=== PATIENT | male | born 1940 | race Caucasian/White ===

== ENCOUNTER → 2018-05-05 06:38 | Outpatient (CLI) | payer MEDICARE, SELFPAY ==
[2018-05-05 08:04] LABS: AST(SGOT) 30 U/L (15-37); Alanine Aminotransfer ALT/SGPT 33 U/L (16-61); Albumin, Serum 3.8 g/dL (3.2-5.0); Alkaline Phosphatase 104 U/L (45-117); Cholesterol 112 mg/dL (200); Globulin 3.6 g/dL (2.2-4.2); High Density Lipoprotein 46 mg/dL; Protein, Total 7.4 g/dL (6.4-8.2); Triglycerides 68 mg/dL; Very Low Density Lipoprotein 14 mg/dL (5-40)
== END ==
PROVIDERS: Family Provider Family Medicine; PCP Family Medicine; Visit Provider Internal Medicine Cardiovascular Disease
DX: E78.5 Hyperlipidemia, unspecified (principal); Z79.899 Other long term (current) drug therapy
CPT/HCPCS: 36415; 80061; 80076

== ENCOUNTER → 2018-10-25 07:19 | Outpatient (CLI) | payer MEDICARE, SELFPAY ==
[2018-05-07 12:48] VITALS: BMI 28.7
[2018-10-25 09:23] LABS: AST(SGOT) 26 U/L (15-37); Alanine Aminotransfer ALT/SGPT 32 U/L (16-61); Albumin, Serum 3.7 g/dL (3.2-5.0); Alkaline Phosphatase 101 U/L (45-117); Cholesterol 117 mg/dL (200); Globulin 3.3 g/dL (2.2-4.2); High Density Lipoprotein 47 mg/dL; Triglycerides 66 mg/dL; Very Low Density Lipoprotein 13 mg/dL (5-40)
== END ==
PROVIDERS: Family Provider Family Medicine; PCP Family Medicine; Referring Provider Internal Medicine Cardiovascular Disease; Visit Provider Internal Medicine Cardiovascular Disease
DX: E87.5 Hyperkalemia (principal)
CPT/HCPCS: 36415; 80061; 80076

== ENCOUNTER → 2019-04-29 06:49 | Outpatient (CLI) | payer MEDICARE, SELFPAY ==
[2018-05-07 12:48] VITALS: BMI 28.7
[2019-04-29 08:13] LABS: AST(SGOT) 28 U/L (15-37); Alanine Aminotransfer ALT/SGPT 33 U/L (16-61); Albumin, Serum 3.6 g/dL (3.2-5.0); Alkaline Phosphatase 102 U/L (45-117); Bilirubin, Direct 0.26 mg/dL (0.00-0.30); Cholesterol 109 mg/dL (200); Globulin 3.4 g/dL (2.2-4.2); High Density Lipoprotein 49 mg/dL; Triglycerides 59 mg/dL; Very Low Density Lipoprotein 12 mg/dL (5-40)
== END ==
PROVIDERS: Family Provider Family Medicine; PCP Family Medicine; Referring Provider Internal Medicine Cardiovascular Disease; Visit Provider Internal Medicine Cardiovascular Disease
DX: E78.5 Hyperlipidemia, unspecified (principal)
CPT/HCPCS: 36415; 80061; 80076

== ENCOUNTER → 2019-06-01 12:34 | Outpatient (CLI) | payer MEDICARE, SELFPAY ==
[2019-05-10 08:52] VITALS: BMI 27.9
--- NOTE | 2019-06-01 12:35 | ECHOD_ITS ---
Reason For Study: AFIB/FLUTTER Procedure This was a 2D Doppler, Color Flow transthoracic echocardiogram. Exam performed in department. Left Ventricle Normal LV size. Mild concentric left ventricular hypertrophy. Left ventricular systolic function is normal. The estimated ejection fraction is 55 %. No regional wall motion abnormalities noted. Right Ventricle Normal RV size. Normal systolic function. Atria The left atrium is mildly enlarged. Normal right atrium. Tricuspid Valve Normal tricuspid valve. Mild tricuspid valve insufficiency. Pulmonary artery systolic pressure is 23 mmHg. Aortic Valve The aortic valve is not well visualized. Mild (1+) aortic valve insufficiency. Pulmonic Valve The pulmonic valve is not well visualized. Great Vessels Mild to moderately dilated aortic root. The pulmonary artery is normal size. Normal inferior vena cava. Pericardium/Pleural No pericardial effusion. MMode/2D Measurements & Calculations LVIDd: 5.1 cm IVSd: 1.2 cm Ao root diam: 4.3 cm LVIDs: 3.2 cm LVPWd: 1.2 cm RVDd: 3.5 cm FS: 37.1 % LAV(MOD-bp): 83.3 ml LA A4 area: 21.5 cm2 LA dimension(2D): 4.0 cm LAV(MOD-bp) Indexed: 40.3 ml/m2 LAV(MOD-sp2): 82.9 ml LAV(MOD-sp4): 76.6 ml RA A4 area: 15.6 cm2 Doppler Measurements & Calculations Ao V2 max: 89.8 cm/sec AI max kip: 335.1 cm/sec LV V1 max: 71.3 cm/sec Ao max P.2 mmHg AI max P.9 mmHg LV V1 max P.0 mmHg AI dec slope: 153.8 cm/sec2 AI P1/2t: 638.1 msec PA V2 max: 55.6 cm/sec TR max kip: 208.7 cm/sec TR max P.4 mmHg Interpretation Summary Normal LV size. Mild concentric left ventricular hypertrophy. Left ventricular systolic function is normal. The estimated ejection fraction is 55 %. Mild to moderately dilated aortic root. Mild (1+) aortic valve insufficiency. Ordering Physician: Murray Diaz Referring Physician: Hermelindo Chatterjee Performed By: Jade Shelton, RDCS, RVT
== END ==
PROVIDERS: Family Provider Family Medicine; PCP Family Medicine; Referring Provider Internal Medicine Cardiovascular Disease; Visit Provider Internal Medicine Cardiovascular Disease
DX: I48.4 Atypical atrial flutter (principal)
CPT/HCPCS: 93306

== ENCOUNTER 2019-08-09 13:09 | Emergency (ER) | payer MEDICARE, SELFPAY ==
[2019-05-10 08:52] VITALS: BMI 27.9
[2019-08-09 13:10] VITALS: BP 124/90; PULSE 137; RESP 16; TEMP 36.6; O2SAT 97; BMI 29.4
--- NOTE | 2019-08-09 13:28 | RAD_ITS ---
STUDY: X-RAY CHEST REASON FOR EXAM: Male, 79 years old. TECHNIQUE: COMPARISON: None. FINDINGS: Heavy markings seen particularly in the left base but no evidence of consolidation or atelectasis. No pleural effusion or pneumothorax seen. The cardiac silhouette is unremarkable there is tortuosity of the thoracic aorta. The bony structures are intact. The trachea is in the midline. RAD/Chest 1 View (Portable) IMPRESSION: Heavy markings left base the study is otherwise negative. Electronically Signed: Juan Quigley, at 13:53 EST Tel , Service support ,
--- NOTE | 2019-08-09 13:28 | EKG12_ITS ---
Test Reason : PALPS Blood Pressure : / mmHG Vent. Rate : 105 BPM Atrial Rate : 271 BPM P-R Int : 000 ms QRS Dur : 086 ms QT Int : 378 ms P-R-T Axes : 081 015 068 degrees QTc Int : 499 ms Atrial flutter with variable A-V block Abnormal ECG Confirmed by TONIO GUTIERREZ ([id number]), website/blog editor KARTIK JOSHUA ([id number]) on 08/12/2019 11:27:18 AM Referred By: RAGINI Confirmed By:TONIO GUTIERREZ
[2019-08-09 13:41] LABS: Absolute Lymphocyte Count 1.48 X10^3/uL (0.83-4.51); Absolute Neutrophil Count 3.2 X10^3/uL (2.0-7.7); Basophil# 0.03 X10^3/uL; Basophil% 0.5 % (0-1); Eosinophil# 0.44 X10^3/uL; Eosinophils% 7.7 % (0-5); Hematocrit 44.4 % (40-54); Hemoglobin 14.8 g/dL (13.0-16.5); Lymphocyte # 1.48 X10^3/ul (4.0); Lymphocyte % 25.7 % (19-41); Mean Corp Hgb Conc 33.3 g/dL (32-36); Mean Corpuscular Hgb 30.5 pg (27.0-32.0); Mean Corpuscular Volume 91.4 fL (80-94); Mean Platelet Vol. 9.5 fl (6.2-12.0); Monocyte# 0.61 X10^3/uL; Monocyte% 10.6 % (0-10); NRBC Flagged by Analyzer 0 % (0-5); Neutrophil # 3.17 X10^3/uL (2.7-7.7); Neutrophil % 55.2 % (47-70); Platelet Count 187 K/mm3 (150-450); RBC Distribution Width CV 13.8 % (11.6-14.6); RBC Distribution Width SD 46.4 fl (35.1-43.9); Red Blood Count 4.86 M/mm3 (4.6-6.2); White Blood Count 5.8 K/mm3 (4.4-11.0)
[2019-08-09] MEDS: dilTIAZem 25 MG/5 ML Vial 10 MG IV BOLUS (13:54)
[2019-08-09 13:55] LABS: Anion Gap 7 (5-15); BUN 15 mg/dL (7-18); BUN/Creat Ratio 15.6 RATIO (10-20); Calcium,Total 8.8 mg/dL (8.5-10.1); Chloride 110 mmol/L (98-107); Creatinine, Serum 0.96 mg/dL (0.70-1.30); EST Glomerular Filtration Rate 80 mL/min (>60); Est Glom Filt Rate - Afr Amer 97 mL/min (>60); Estimated Creatinine Clearance 64.42 ml/min; Glucose 127 mg/dL (74-106); Potassium 3.9 mmol/L (3.5-5.1); Sodium Level 142 mmol/L (136-145)
[2019-08-09 13:59] VITALS: BP 122/90; PULSE 90; RESP 18; O2SAT 96
--- NOTE | 2019-08-09 14:20 | ED.VIS.GEN ---
History of Present Illness Chief Complaint: Palpitations Informant: Patient Onset: Yesterday Narrative: She felt palpitations yesterday. He has a history of A. fib he has had a few ablations in the past. He has no chest pain shortness of breath fever or chills. I will send an EKG prior to arrival which showed atrial flutter. No fever chills cough or congestion. He denies any chest pain. Past Medical History - Allergies and Home Meds Allergies/Adverse Reactions: Allergies iodine Allergy (Verified 08/09/19 13:12) Unknown amiodarone Adverse Reaction (Verified 08/09/19 13:12) Unknown latex Adverse Reaction (Verified 08/09/19 13:12) Unknown Primary Care Physician: Hermelindo Chatterjee MD [Primary Care Provider] - Past Medical History: - - Hypertension, hypercholesterolemia, BPH, history of atrial fibrillation Lives: Spouse/ Significant Other Smoking Status: Former smoker Review of Systems General: Denies: Fever Eyes: Denies: Blurred Vision - bilaterally Cardiovascular: Reports: Heart racing. Denies: Chest pain Respiratory: Denies: Dyspnea, Cough Gastrointestinal: Denies: Abdominal pain, Nausea Genitourinary: Denies: Dysuria Musculoskeletal: Denies: Myalgias, Arthralgias, Neck pain Neurological: Denies: Headache, Weakness Endocrine: Denies: Polyuria Hematologic: Denies: Easy bruising Physical Exam Vital Signs/Narrative: Vital Signs Temp Pulse Resp BP Pulse Ox 08/09/19 13:59 90 18 122/90 H 96 08/09/19 13:10 97.8 F 137 H 16 124/90 H 97 General: Well nourished, Well developed Eyes: Perrl, EOMI Neck: Supple Cardiovascular: - - Mostly regular rhythm which corresponds with a now normal sinus rhythm on a monitor, he has some PVCs which also correspond. I cannot appreciate a murmur Respiratory: No distress, CTA bilaterally Abdomen: Soft, Nontender Back: Nontender, Normal Inspection Extremities: Nontender Skin: Normal color Neurological: Alert, Oriented x3 Psychological: Normal affect Diagnostic/Tx/Re-eval - Rhythm Strip Rhythm Strip: Sinus Rhythm Rate: 90 Ectopy: PVC(s) - EKG Initial EKG Interpretation: - - Atrial flutter with a variable rate. Rate 105. Normal QTc interval. No ischemic changes Interpreted by emergency doctor - Medical Decision Making Patient has a normal emergency department work-up he has been in sinus rhythm except for the EKG I was handed. I did give him some Cardizem here and he is on metoprolol for home I discussed the patient with cardiology patient will be discharged home Dr. Diaz did recommend anticoagulation, I agree. We will start. ED Disposition - Plan for ED Patient: Disposition: Home or Assisted Living Prescriptions: Apixaban [Eliquis] 5 mg PO BID #60 tab Prescription Printed Referrals: Murray Diaz MD [STAFF PHYSICIAN] - 3-5 Days
[2019-08-09 14:43] VITALS: BP 116/90; PULSE 90; RESP 18; O2SAT 96
== END 2019-08-09 14:44 | disposition home or self-care (01) ==
PROVIDERS: Emergency Provider Emergency Medicine; Family Provider Family Medicine; PCP Family Medicine
DX: I48.92 Unspecified atrial flutter (principal); I10 Essential (primary) hypertension; E78.00 Pure hypercholesterolemia, unspecified; I48.91 Unspecified atrial fibrillation; N40.0 Benign prostatic hyperplasia without lower urinary tract symptoms; Z87.891 Personal history of nicotine dependence
CPT/HCPCS: 71045; 80048; 84484; 85025; 93005; 99284; J7030; A4216

== ENCOUNTER → 2019-08-22 09:25 | Outpatient (CLI) | payer MEDICARE, SELFPAY ==
[2019-08-19 14:33] VITALS: BMI 28.5
== END ==
PROVIDERS: Family Provider Family Medicine; PCP Family Medicine; Referring Provider Internal Medicine Cardiovascular Disease; Visit Provider Internal Medicine Cardiovascular Disease
DX: I48.4 Atypical atrial flutter (principal)
CPT/HCPCS: 93225; 93226

== ENCOUNTER 2020-05-15 10:08 | Outpatient (CLI) | payer MEDICARE, SELFPAY ==
[2020-05-10 09:41] VITALS: BMI 28.5
[2020-05-10 12:01] LABS: AST(SGOT) 28 U/L (15-37); Alanine Aminotransfer ALT/SGPT 37 U/L (16-61); Albumin, Serum 3.6 g/dL (3.2-5.0); Alkaline Phosphatase 110 U/L (45-117); Anion Gap 2 (5-15); BUN 15 mg/dL (7-18); BUN/Creat Ratio 16.4 RATIO (10-20); Bilirubin, Direct 0.33 mg/dL (0.00-0.30); Calcium,Total 8.8 mg/dL (8.5-10.1); Chloride 108 mmol/L (98-107); Cholesterol 112 mg/dL (200); Creatinine, Serum 0.92 mg/dL (0.70-1.30); EST Glomerular Filtration Rate 85 mL/min (>60); Est Glom Filt Rate - Afr Amer 102 mL/min (>60); Globulin 3.6 g/dL (2.2-4.2); Glucose 82 mg/dL (74-106); High Density Lipoprotein 42 mg/dL; Potassium 3.9 mmol/L (3.5-5.1); Protein, Total 7.2 g/dL (6.4-8.2); Sodium Level 140 mmol/L (136-145); Triglycerides 58 mg/dL; Very Low Density Lipoprotein 12 mg/dL (5-40)
[2020-05-14 13:23] VITALS: BMI 28.5
--- NOTE | 2020-05-15 12:22 | CARDIOVERS ---
Cardioversion Cardioversion: Procedure: DC Cardioversion Indication: [Persistent atrial flutter] Procedure Note: The patient was brought to the cardiac catheterization lab in the postabsorptive nonsedated state. The patient was seen by [Bill of the critical care division] . Patient was noted to have normal ejection fraction of [55] and has been on therapeutic anticoagulation. Anterior posterior pads were applied. [200 J] of synchronized DC cardioversion energy were applied after the patient was administered [60 mg] of [intravenous propofol]. The patient reverted to [sinus rhythm but then spontaneously went back into atrial flutter.] Patient was then administered another [300 J] of sychronized DC cardioversion energy sucessfully converted to sinus rhythm. Plan: Continue current medication Continue anticoagulation
--- NOTE | 2020-05-15 13:17 | PCM.OP.PRO ---
Problem List (1) Aortic root dilation Status: Chronic (2) Atypical atrial flutter Status: Chronic Comment: 04/2008 slow pathway ablation, 03/13/09 RFA of SVT and all 4 PV's, 06/10/2010 Repeat Atypical Flutter RFA (3) Essential (primary) hypertension Status: Chronic (4) HLD (hyperlipidemia) Status: Chronic (5) Nonrheumatic mitral valve prolapse Status: Chronic (6) Paroxysmal supraventricular tachycardia Status: Chronic Procedure Report Date of Procedure: 05/15/20 - Conscious sedation CONSCIOUS SEDATION REPORT BRIEF HISTORY OF PRESENT ILLNESS: The patient is an 80-year-old male who presented to [facility] for an elective outpatient cardioversion due to underlying atrial fibrillation. The patient reports no PO intake since midnight. The patient does have a history of obstructive sleep apnea treated with CPAP 18 cm of water. The patient reports a history of smoking, but denies COPD. The patient denies any recent constitutional symptoms such as fevers, chills, nausea or vomiting. The patient denies previous anesthetic complications. Patient's last ejection fraction was 55%. Patient did take Eliquis on the day of the procedure. PHYSICAL EXAMINATION: VITAL SIGNS: Reviewed and were acceptable. GENERAL: The patient is a male, in no apparent distress, speaking in full sentences. HEENT: Normocephalic, atraumatic. Mucous membranes are moist and pink. Good mouth opening noted. Trachea is midline. Good neck mobility. MP III CHEST: S1, S2 irregularly irregular. No murmurs, rubs or gallops were noted. LUNGS: Clear to auscultation bilaterally without appreciable wheezes, rales or rhonchi. ABDOMEN: Soft, nontender, nondistended. Positive bowel sounds. EXTREMITIES: There is no clubbing, cyanosis or edema. ASA Class: II DESCRIPTION OF PROCEDURE: After confirmation of informed consent, the patient's anesthesia plan was reviewed in detail. Propofol was chosen. Risks and benefits were reviewed and the patient agreed to proceed. At 12:11 PM, the patient was given 40 mg of propofol. The patient required a total of 60 mg of propofol throughout the procedure to achieve appropriate sedation. The patient achieved an appropriate level of sedation and received 2 attempts synchronized cardioversion, at 200 J and [address] Diaz at the bedside. This was successful in achieving normal sinus rhythm. The patient was monitored until, at which time the patient reached their baseline mental status and function. The patient tolerated the procedure well. COMPLICATIONS: None ESTIMATED BLOOD LOSS: None RECOMMENDATIONS: Okay to recover in usual fashion. 9xxxx: Other Procedure See Report - [id number] -14 minutes conscious sedation
== END 2020-05-15 13:35 | disposition home or self-care (01) ==
LOC: CLSP 10:09
PROVIDERS: PCP Family Medicine; Referring Provider Internal Medicine Cardiovascular Disease; Visit Provider Internal Medicine Cardiovascular Disease
DX: I48.4 Atypical atrial flutter (principal); I77.810 Thoracic aortic ectasia; I10 Essential (primary) hypertension; E78.5 Hyperlipidemia, unspecified; I34.1 Nonrheumatic mitral (valve) prolapse; I47.1 Supraventricular tachycardia; G47.33 Obstructive sleep apnea (adult) (pediatric); I48.91 Unspecified atrial fibrillation; Z79.01 Long term (current) use of anticoagulants; Z87.891 Personal history of nicotine dependence; I25.10 Atherosclerotic heart disease of native coronary artery without angina pectoris; N40.0 Benign prostatic hyperplasia without lower urinary tract symptoms
CPT/HCPCS: 36415; 80048; 80061; 80076; 92960; 93005; J7040

== ENCOUNTER → 2020-06-12 20:31 | Outpatient (CLI) | payer MEDICARE, SELFPAY ==
[2020-06-06 05:41] VITALS: BMI 29.0
== END ==
PROVIDERS: PCP Family Medicine; Referring Provider Internal Medicine Critical Care Medicine; Visit Provider Internal Medicine Critical Care Medicine
DX: G47.33 Obstructive sleep apnea (adult) (pediatric) (principal)
CPT/HCPCS: 95811

== ENCOUNTER → 2020-07-05 15:32 | Outpatient (CLI) | payer MEDICARE, SELFPAY ==
[2020-06-06 05:41] VITALS: BMI 29.0
[2020-07-05 16:03] LABS: Absolute Lymphocyte Count 1.83 X10^3/uL (0.83-4.51); Absolute Neutrophil Count 2.9 X10^3/uL (2.0-7.7); Basophil# 0.02 X10^3/uL; Basophil% 0.3 % (0-1); Eosinophil# 0.34 X10^3/uL; Eosinophils% 5.7 % (0-5); Hemoglobin 14.7 g/dL (13.0-16.5); Lymphocyte # 1.83 X10^3/ul (4.0); Lymphocyte % 30.9 % (19-41); Mean Corp Hgb Conc 32.7 g/dL (32-36); Mean Corpuscular Hgb 30.3 pg (27.0-32.0); Mean Corpuscular Volume 92.8 fL (80-94); Mean Platelet Vol. 9.5 fl (6.2-12.0); Monocyte# 0.83 X10^3/uL; NRBC Flagged by Analyzer 0 % (0-5); Neutrophil % 48.9 % (47-70); Platelet Count 204 K/mm3 (150-450); RBC Distribution Width CV 13.2 % (11.6-14.6); RBC Distribution Width SD 45.1 fl (35.1-43.9); Red Blood Count 4.85 M/mm3 (4.6-6.2); White Blood Count 5.9 K/mm3 (4.4-11.0)
[2020-07-05 16:45] LABS: Anion Gap 3 (5-15); BUN 16 mg/dL (7-18); BUN/Creat Ratio 14.2 RATIO (10-20); Calcium,Total 8.7 mg/dL (8.5-10.1); Chloride 107 mmol/L (98-107); Creatinine, Serum 1.13 mg/dL (0.70-1.30); EST Glomerular Filtration Rate 66 mL/min (>60); Est Glom Filt Rate - Afr Amer 80 mL/min (>60); Free T3 2.2 pg/mL (2.18-3.98); Glucose 107 mg/dL (74-106); Magnesium 2.5 mg/dL (1.6-2.6); Potassium 3.7 mmol/L (3.5-5.1); Sodium Level 140 mmol/L (136-145); T4 Free Direct 0.88 ng/dL (0.76-1.46); Thyroid Stim Hormone (TSH) 2.01 uIU/mL (0.358-3.74)
== END ==
PROVIDERS: PCP Family Medicine; Visit Provider Physician Assistant Medical
DX: I47.1 Supraventricular tachycardia (principal); I48.4 Atypical atrial flutter; G47.33 Obstructive sleep apnea (adult) (pediatric)
CPT/HCPCS: 36415; 80048; 83735; 84439; 84443; 84481; 85025

== ENCOUNTER 2020-10-04 11:00 | Outpatient (RCR) | payer MEDICARE, SELFPAY ==
[2020-08-30 09:44] VITALS: BMI 27.3
== END 2020-10-04 23:59 ==
LOC: IMMUN 11:00
PROVIDERS: PCP Family Medicine; Visit Provider Family Medicine
DX: Z23 Encounter for immunization (principal)
CPT/HCPCS: 0011A; 0012A; 91301

== ENCOUNTER → 2021-07-25 07:53 | Outpatient (CLI) | payer MEDICARE, SELFPAY ==
[2021-07-25 10:17] LABS: AST(SGOT) 29 U/L (15-37); Alanine Aminotransfer ALT/SGPT 31 U/L (16-61); Albumin, Serum 3.3 g/dL (3.2-5.0); Alkaline Phosphatase 96 U/L (45-117); Bilirubin, Direct 0.32 mg/dL (0.00-0.30); Cholesterol 89 mg/dL (200); Globulin 3.6 g/dL (2.2-4.2); High Density Lipoprotein 42 mg/dL; Protein, Total 6.9 g/dL (6.4-8.2); Triglycerides 50 mg/dL; Very Low Density Lipoprotein 10 mg/dL (5-40)
== END ==
PROVIDERS: PCP Family Medicine; Referring Provider Physician Assistant Medical; Visit Provider Physician Assistant Medical
DX: E78.5 Hyperlipidemia, unspecified (principal)
CPT/HCPCS: 36415; 80061; 80076

== ENCOUNTER → 2022-07-01 | Outpatient (CLI) | payer MEDICARE, SELFPAY ==
[2022-07-01 08:37] LABS: AST(SGOT) 28 U/L (15-37); Alanine Aminotransfer ALT/SGPT 32 U/L (16-61); Albumin, Serum 3.4 g/dL (3.2-5.0); Alkaline Phosphatase 122 U/L (45-117); Bilirubin, Direct 0.34 mg/dL (0.00-0.30); Cholesterol 104 mg/dL (200); Globulin 3.4 g/dL (2.2-4.2); High Density Lipoprotein 43 mg/dL; Protein, Total 6.8 g/dL (6.4-8.2); Triglycerides 50 mg/dL; Very Low Density Lipoprotein 10 mg/dL (5-40)
== END | disposition home or self-care (01) ==
LOC: LAB 07:50
PROVIDERS: PCP Family Medicine; Referring Provider Internal Medicine Cardiovascular Disease; Visit Provider Internal Medicine Cardiovascular Disease
DX: E78.5 Hyperlipidemia, unspecified (principal)
CPT/HCPCS: 36415; 80061; 80076

== ENCOUNTER → 2022-10-02 | Outpatient (CLI) | payer MEDICARE, SELFPAY ==
--- NOTE | 2022-10-02 14:45 | CT_ITS ---
STUDY: CTA CHEST REASON FOR EXAM: Male, 82 years old. TAA RADIATION DOSAGE (If Supplied By Facility): CTDIvol = ( 16.18 ) mGy, DLP = ( 591.94 ) mGycm TECHNIQUE: The examination was performed with the intravenous administration of IV 100mL Isovue-370. Post-processing of the angiographic images was performed, with multiplanar reformation and 3D reconstruction. Individualized dose optimization techniques were used for this CT. COMPARISON: None. FINDINGS: Normal enhancement of the main pulmonary artery and right and left pulmonary arteries. Normal enhancement of the bilateral peripheral pulmonary arteries. There is no demonstrated pulmonary embolism. Atherosclerotic changes of the aorta without evidence for aneurysm. 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 There is no demonstrated aortic dissection. Normal heart. There is a small pericardial effusion which appears loculated anteriorly. There is minor coronary artery calcification. Small subcentimeter hilar or mediastinal nodes likely benign. Normal visualized trachea and bronchi. The lungs are well expanded. Mild atelectasis within the dependent portion of the lungs There is a tiny left pleural effusion with minor atelectasis at the left base.. Normal chest wall structures. Normal osseous structures. Nonspecific fatty infiltrated liver. Thick-walled contracted gallbladder without calcified stones likely physiologic.. CT/CTA Chest W/WO Contrast IMPRESSION: ASHD without evidence for aortic aneurysm or periaortic leak or dissection. 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
== END | disposition home or self-care (01) ==
LOC: CT 14:26
PROVIDERS: PCP Family Medicine; Visit Provider Physician Assistant Medical
DX: J90 Pleural effusion, not elsewhere classified (principal); I77.810 Thoracic aortic ectasia; I25.10 Atherosclerotic heart disease of native coronary artery without angina pectoris; J98.11 Atelectasis; E04.2 Nontoxic multinodular goiter
CPT/HCPCS: 71275; Q9967

== ENCOUNTER → 2024-07-05 | Outpatient (CLI) | payer MEDICARE, SELFPAY ==
[2024-07-05 09:11] LABS: AST(SGOT) 29 U/L (15-37); Alanine Aminotransfer ALT/SGPT 34 U/L (16-61); Albumin, Serum 3.5 g/dL (3.2-5.0); Alkaline Phosphatase 129 U/L (45-117); Bilirubin, Direct 0.37 mg/dL (0.00-0.30); Cholesterol 99 mg/dL (200); Globulin 3.5 g/dL (2.2-4.2); High Density Lipoprotein 46 mg/dL; Triglycerides 59 mg/dL; Very Low Density Lipoprotein 12 mg/dL (5-40)
== END | disposition home or self-care (01) ==
LOC: LAB 07:40
PROVIDERS: PCP Family Medicine; Referring Provider Physician Assistant Medical; Visit Provider Physician Assistant Medical
DX: E78.5 Hyperlipidemia, unspecified (principal)
CPT/HCPCS: 36415; 80061; 80076

== ENCOUNTER → 2024-07-12 | Outpatient (CLI) | payer MEDICARE, SELFPAY ==
[2024-07-12 15:34] LABS: Absolute Lymphocyte Count 1.39 X10^3/uL (0.83-4.51); Absolute Neutrophil Count 3.2 X10^3/uL (2.0-7.7); Basophil# 0.03 X10^3/uL; Basophil% 0.5 % (0-1); Eosinophil# 0.28 X10^3/uL; Hematocrit 39.7 % (40-54); Lymphocyte # 1.39 X10^3/ul (0.83-4.51); Mean Corp Hgb Conc 32.7 g/dL (32-36); Mean Corpuscular Hgb 30.5 pg (27.0-32.0); Mean Corpuscular Volume 93.2 fL (80-94); Mean Platelet Vol. 9.6 fl (6.2-12.0); Monocyte# 0.65 X10^3/uL; Monocyte% 11.7 % (0-10); NRBC Flagged by Analyzer 0 % (0-5); Neutrophil # 3.19 X10^3/uL (2.7-7.7); Neutrophil % 57.4 % (47-70); Platelet Count 199 K/mm3 (150-450); RBC Distribution Width CV 13.6 % (11.6-14.6); RBC Distribution Width SD 46.5 fl (35.1-43.9); Red Blood Count 4.26 M/mm3 (4.6-6.2); White Blood Count 5.6 K/mm3 (4.4-11.0)
[2024-07-12 16:02] LABS: Anion Gap 4 (5-15); BUN 18 mg/dL (7-18); BUN/Creat Ratio 17.6 RATIO (10-20); Calcium,Total 8.8 mg/dL (8.5-10.1); Chloride 110 mmol/L (98-107); Creatinine, Serum 1.02 mg/dL (0.70-1.30); EST Glomerular Filtration Rate 74 mL/min (>60); Est Glom Filt Rate - Afr Amer 89 mL/min (>60); Glucose 145 mg/dL (74-106); Potassium 3.8 mmol/L (3.5-5.1); Sodium Level 141 mmol/L (136-145)
== END | disposition home or self-care (01) ==
PROVIDERS: Physician Assistant Medical; PCP Family Medicine; Referring Provider Urology; Visit Provider Urology
DX: N40.0 Benign prostatic hyperplasia without lower urinary tract symptoms (principal); I48.4 Atypical atrial flutter
CPT/HCPCS: 36415; 80048; 84153; 85025

== ENCOUNTER → 2024-07-27 | Outpatient (CLI) | payer MEDICARE, SELFPAY ==
--- NOTE | 2024-07-27 12:49 | CT_ITS ---
STUDY: CT ABDOMEN AND PELVIS WITH AND WITHOUT CONTRAST REASON FOR EXAM: Male, 84 years old. BPH W/UTI SX/ MICROSCOPIC HEMATURIA RADIATION DOSAGE (If Supplied By Facility): CTDIvol = ( 20.13 ) mGy, DLP = ( 2231.27 ) mGycm TECHNIQUE: Transaxial images were obtained from the dome of the diaphragm to the symphysis pubis without oral contrast. IV 100mL Isovue-300 was administered. Sagittal and coronal images were reconstructed. Individualized dose optimization techniques were used for this CT. COMPARISON: Comparison is made with prior study dated December 04, 2011. FINDINGS: Minimal linear scarring at the lung bases. Small pericardial effusion. There is decreased attenuation of the liver consistent with steatosis. Normal gallbladder and extrahepatic biliary system. Normal spleen. Normal pancreas. Normal bilateral adrenal glands. Mild degree of bilateral renal cortical atrophy. Normal visualized stomach. Normal small intestine. Normal colon. The appendix is visualized and appears normal. There is diffuse atherosclerotic calcification of the abdominal aorta, without a demonstrated aneurysm. Normal inferior vena cava. Normal retroperitoneum. Diffuse bladder wall thickening. This is worse at the bladder base. There is evidence of a 2.3 cm x 1.9 cm diverticulum in the posterior right side of the bladder. The prostate is enlarged. It measures 6.1 cm x 4.3 cm. This causes indentation of the bladder base. Coarse calcifications are seen in the posterior aspect of the urinary bladder. Normal abdominal wall. There are diffuse degenerative changes of the visualized lumbar spine. This is worse at the L5-S1 level. CT/CT Abd/Pelvis W/WO Contrast IMPRESSION: Bladder wall thickening worse at the base of the bladder. Small right bladder diverticulum. Prostatic enlargement with indentation of the bladder base and calcifications in the posterior aspect of the bladder. Mild degree of bilateral renal cortical atrophy. Small pericardial effusion. Electronically Signed: Cuate Chaparro MD at 14:52 EST ,
== END | disposition home or self-care (01) ==
LOC: CT 12:46
PROVIDERS: PCP Family Medicine; Referring Provider Urology; Visit Provider Urology
DX: R31.21 Asymptomatic microscopic hematuria (principal); N40.1 Benign prostatic hyperplasia with lower urinary tract symptoms
CPT/HCPCS: 74178; Q9967

== ENCOUNTER → 2024-08-01 | Outpatient (CLI) | payer MEDICARE, SELFPAY | END | disposition home or self-care (01) | PROVIDERS: PCP Family Medicine; Referring Provider Physician Assistant Medical; Visit Provider Physician Assistant Medical | DX: I48.4 Atypical atrial flutter (principal) | CPT/HCPCS: 93225; 93226 ==

== ENCOUNTER 2024-10-06 09:05 | Observation (INO) | payer MEDICARE, SELFPAY ==
--- NOTE | 2024-09-21 14:23 | PAT.ANE_ITS ---
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 When Was Last Pacemaker Check QUESTION #4 FULL TEXT: You/Your Family Experience fever (hyperthermia) with Anesthesia Last Oral Intake Last Oral intake: Last Oral Intake NPO since Meds taken in AM with sips of water? Meds patient instructed to take am of surgery PONV PONV - fire hose curer: PONV - fire hose curer Female No 09/21/24 10:17 HX of Motion Sickness Yes 09/21/24 10:17 HX of N/V After Surgery No 09/21/24 10:17 Non-Smoker Yes 09/21/24 10:17 Duration of Surgery greater Yes 09/21/24 10:17 than 60 minutes Number of Risk Factors 3 09/21/24 10:17 PONV Score Moderate Risk 09/21/24 10:17 Height & Weight Height & Weight: Anesthesia: Height & Weight Height 5 ft 10 in 07/12/24 08:06 Respiratory Assessment Respiratory Assessment - fire hose curer: Respiratory Tract Infection Hx - fire hose curer Hx Respiratory Tract Infection Yes: CURRENT COLD FOR THE 09/21/24 10:17 LAST 2 WEEKS - WAS ON AMOXCILLIN AT END OF AUG STOP Sleep Apnea STOP Sleep Apnea - fire hose curer: STOP Sleep Apnea - fire hose curer Hx Hypertension No 09/21/24 10:17 Hx Sleep Apnea Yes 09/21/24 10:17 CPAP Yes 09/21/24 10:17 BIPAP No 09/21/24 10:17 Do you snore loudly (louder than talking or can be heard Do you often feel tired/ fatigued/ sleepy during daytime? Has anyone observed you stop breathing during sleep? STOP Results Positive 09/21/24 10:17 QUESTION #5 FULL TEXT : Do you snore loudly (louder than talking or can be heard through closed doors)? Tobacco Use History Tobacco Use History - fire hose curer: Tobacco Use History - fire hose curer Tobacco Use Smoking Status Former smoker 09/21/24 10:17 Hx Tobacco Use Yes 09/21/24 10:17 Years Smoking Packs Smoked per Day Smoking Cessation Date was No - quit smoking greater 09/21/24 10:17 within the last 15 years than 15 years ago Hx Smoking Cessation Date 09/14/69 09/21/24 10:17 Hx Smoking Cessation Counseling Hematologic Medial History Hematologic Hx - fire hose curer: Hematologic Medical Hx - voicer Hx of Blood Transfusion Yes 09/21/24 10:17 Hx of Transfusion in last 3 No 09/21/24 10:17 Months Date of Last Transfusion (if within last 3 months) Ever experience any problems No 09/21/24 10:17 with transfusion(s)? Specify any problems Hx of Preganancy in last 3 N/A 09/21/24 10:17 Months Nurse Filling Out Transfusion NBUCHER 09/21/24 10:17 & Questions: Date: 09/21/24 09/21/24 10:17 Time: 10:21 09/21/24 10:17 Patient unable to answer at this time (ie. confused, unrespo /Reproduction History /Reproductive History - fire hose curer: /Reproductive Hx- fire hose curer Hx Now No 09/21/24 10:17 Gestational Age (in weeks): EDC: Hx Hx Para Hx Section SAB No 09/21/24 10:17 [facility] Medical History (Updated 09/21/24 @ 10:43 by Aleida Horne) Hemorrhoids Wears glasses Wears partial dentures Alcohol use Prostate disease Arthritis GERD (gastroesophageal reflux disease) Leg cramps CPAP (continuous positive airway pressure) dependence Sleep apnea Former smoker History of echocardiogram Cardiology follow-up encounter History of atrial fibrillation Bacterial sinusitis Tachycardia Restless leg MARTA (obstructive sleep apnea) Atypical atrial flutter Paroxysmal supraventricular tachycardia Barotrauma BPH (benign prostatic hyperplasia) Aortic root dilation Non-rheumatic tricuspid valve insufficiency Nonrheumatic aortic valve insufficiency HLD (hyperlipidemia) Essential (primary) hypertension Home Medications ?Medication ?Instructions ?Recorded ?Last Taken ?Type tamsulosin 0.4 mg capsule 0.8 mg PO DAILY 12/14/20 Unknown History omeprazole 40 mg capsule,delayed 40 mg PO DAILY 09/19/22 Unknown History release cholecalciferol (vitamin D3) 50 50 mcg PO DAILY 06/25/23 Unknown History mcg (2,000 unit) capsule multivitamin 1 tab PO DAILY 06/25/23 Unknown History ropinirole 1 mg tablet 1 mg PO QHS #90 tabs 10/05/23 Unknown Rx atorvastatin 20 mg tablet 20 mg PO QDAY 100 days #90 tabs 11/16/23 Unknown Rx apixaban 5 mg tablet 5 mg PO BID #180 tabs 01/04/24 Unknown Rx metoprolol succinate 50 mg 50 mg PO BID #180 tabs 08/03/24 Unknown Rx tablet,extended release 24 hr acetaminophen 650 mg 1,300 mg PO Q12H PRN pain 09/21/24 Unknown History tablet,extended release (8 Hour Pain Reliever) finasteride 5 mg tablet 5 mg PO DAILY 09/21/24 Unknown History fluticasone propionate 50 1 spray intranasal DAILY 09/21/24 Unknown History mcg/actuation nasal spray,suspension (24 Hour Allergy Relief) Allergy/AdvReac Type Severity Reaction Status Date / Time adhesive tape Allergy Severe Swelling Verified 09/21/24 10:10 iodine Allergy Unknown Verified 09/21/24 10:10 amiodarone AdvReac Unknown Verified 09/21/24 10:10 latex AdvReac Unknown Verified 09/21/24 10:10 Family History (Updated 06/06/24 @ 12:34 by Clemencia Sandoval) Sister A-fib Sister Cancer Mother Heart disease Father Myocardial infarction Other HLD (hyperlipidemia) Surgical History History of cataract extraction with lens replacement History of colonoscopy History of anal fistulotomy (~2013) History of right knee surgery (03/2018) History of cardioversion (05/15/20) History of left heart catheterization (04/17/08) History of tonsillectomy H/O cardiac radiofrequency ablation (06/10/10) Social History Smoking Status: Former smoker alcohol intake: current details: Occasionally Audit: Pertinent Findings Pertinent Findings EKG Perinent findings: 06/25/2023 atrial flutter abnormal rhythm rate not noted Echo (EF%) pertinent findings: 06/01/2019 EF 55% mild LVH Consult pertinent findings: 07/12/2024 atypical atrial flutter chronic not symptomatic we will continue rate limiting medication hypertension Recommendation Anesthesia Recommendation Anesthesia recommendation: OPTIMIZED for anesthesia
--- NOTE | 2024-09-23 08:16 | EKG12_ITS ---
Test Reason : PREOP Blood Pressure : */* mmHG Vent. Rate : 109 BPM Atrial Rate : 256 BPM P-R Int : * ms QRS Dur : 94 ms QT Int : 356 ms P-R-T Axes : * 35 90 degrees QTcB Int : 479 ms Atrial flutter with variable A-V block with premature ventricular or aberrantly conducted complexes Nonspecific ST abnormality Abnormal ECG Confirmed by Mickey Claros ([id number]), editor & co founder NESTOR SANTOS ([id number]) on 09/23/2024 1:00:11 PM Referred By: Gabriel Galeas Confirmed By: Mickey Claros
[2024-10-05] VITALS (24 sets, daily range): BP systolic 92–128; BP diastolic 76–87; PULSE 50–131; RESP 14–18; TEMP 36.1–36.8; O2SAT 89–100; BMI 28.2; BMI 30.8
[2024-10-05] MEDS: 0.9% Normal Saline (1000mL) 1,000 ML 15 ML IV (11:25)
--- NOTE | 2024-10-05 11:32 | PCM.PRE.AN2 ---
ASA Classification* ASA Classification ASA Classification: 3 Assessment & Plan Anesthesia* Anesthesia Assessment Anesthesia Assessment: Discussed sedation and/or anesthesia options, risks, benefits, and alternatives with patient/parents/legal guardian/POA. Questions invited. The patient/parents/legal guardian/POA seems to understand and agrees to proceed with anesthesia plan. Reviewed the physical assessment, medical history, allergy history and patient home medications list prior to surgery/procedure/anesthetic and documented any changes. Performed airway and anesthesia risk assessments. Anesthesia Type Anesthesia Type: General History Source History Obtained from:: Patient and Chart Anesthesia Focused Assessment* Temperature: 97.1 F Pulse Rate: 112 Blood Pressure: 114/77 Respiratory Rate: 16 Pulse Ox: 99 Oxygen Delivery Method: Room Air Airway Assessment Mouth opens: >3 cm Mallampati Score: III Teeth Condition: Intact Neck Range of motion (ROM): Full ROM Focused Labs Anesthesia Preop lab: CBC WBC 5.6 K/mm3 (4.4-11.0) 07/12/24 15:16 RBC 4.26 M/mm3 (4.6-6.2) L 07/12/24 15:16 Hgb 13.0 g/dL (13.0-16.5) 07/12/24 15:16 Hct 39.7 % (40-54) L 07/12/24 15:16 Plt Count 199 K/mm3 (150-450) 07/12/24 15:16 CHEMISTRY Potassium 3.8 mmol/L (3.5-5.1) 07/12/24 15:16 Sodium 141 mmol/L (136-145) 07/12/24 15:16 Magnesium 2.5 mg/dL (1.6-2.6) 07/05/20 15:36 BUN 18 mg/dL (7-18) 07/12/24 15:16 Creatinine 1.02 mg/dL (0.70-1.30) 07/12/24 15:16 Glucose 145 mg/dL (74-106) H 07/12/24 15:16 TSH 2.01 uIU/mL (0.358-3.74) 07/05/20 15:36 COAG Pre-Assessment Diagnosis/Proposed Procedure Planned Operative Procedure(s): Cysto,Transurethral Resection Prostate Anesthesia History 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 When Was Last Pacemaker Check QUESTION #4 FULL TEXT: You/Your Family Experience fever (hyperthermia) with Anesthesia Last Oral Intake Last Oral intake: Last Oral Intake NPO since 07:00 10/05/24 11:13 Meds taken in AM with sips of Yes 10/05/24 11:13 water? Meds patient instructed to see mar 10/05/24 11:13 take am of surgery PONV PONV - industrial safety engineer: PONV - industrial safety engineer Female No 09/21/24 10:17 HX of Motion Sickness Yes 09/21/24 10:17 HX of N/V After Surgery No 09/21/24 10:17 Non-Smoker Yes 09/21/24 10:17 Duration of Surgery greater Yes 09/21/24 10:17 than 60 minutes Number of Risk Factors 3 09/21/24 10:17 PONV Score Moderate Risk 09/21/24 10:17 Height & Weight Height & Weight: Anesthesia: Height & Weight Height 5 ft 9 in 10/05/24 11:13 Weight: 86.636 kg 10/05/24 11:13 Body Mass Index (BMI) 28.2 10/05/24 11:13 Respiratory Assessment Respiratory Assessment - industrial safety engineer: Respiratory Tract Infection Hx - industrial safety engineer Hx Respiratory Tract Infection Yes: CURRENT COLD FOR THE 09/21/24 10:17 LAST 2 WEEKS - WAS ON AMOXCILLIN AT END OF AUG STOP Sleep Apnea STOP Sleep Apnea - industrial safety engineer: STOP Sleep Apnea - industrial safety engineer Hx Hypertension No 09/21/24 10:17 Hx Sleep Apnea Yes 09/21/24 10:17 CPAP Yes 09/21/24 10:17 BIPAP No 09/21/24 10:17 Do you snore loudly (louder than talking or can be heard Do you often feel tired/ fatigued/ sleepy during daytime? Has anyone observed you stop breathing during sleep? STOP Results Positive 09/21/24 10:17 QUESTION #5 FULL TEXT : Do you snore loudly (louder than talking or can be heard through closed doors)? 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 Specify any problems Hx of Preganancy in last 3 N/A 09/21/24 10:17 Months Nurse Filling Out Transfusion NBUCHER 09/21/24 10:17 & Questions: Date: 09/21/24 09/21/24 10:17 Time: 10:21 09/21/24 10:17 Patient unable to answer at this time (ie. confused, unrespo /Reproduction History /Reproductive History - industrial safety engineer: /Reproductive Hx- industrial safety engineer Hx Now No 09/21/24 10:17 Gestational Age (in weeks): EDC: Hx Hx Para Hx Section SAB No 09/21/24 10:17 Active Medications Active Medications: Current Medications Generic Name Dose Route Start Last Admin Trade Name Freq PRN Reason Stop Dose Admin Cefazolin Sodium 2 gm/ N/A 20 mls @ 400 mls/hr 10/05/24 13:00 IV 10/05/24 13:02 PREOP ONE Sodium Chloride 1,000 mls @ 15 mls/hr 10/05/24 11:00 10/05/24 11:25 IV 10/11/24 00:19 15 mls/hr .Q48H BIJU Administration Protocol PFS Medical History Hemorrhoids Wears glasses Wears partial dentures Alcohol use Prostate disease Arthritis GERD (gastroesophageal reflux disease) Leg cramps CPAP (continuous positive airway pressure) dependence Sleep apnea Former smoker History of echocardiogram Cardiology follow-up encounter History of atrial fibrillation Bacterial sinusitis Tachycardia Restless leg MARAT (obstructive sleep apnea) Atypical atrial flutter Paroxysmal supraventricular tachycardia Barotrauma BPH (benign prostatic hyperplasia) Aortic root dilation Non-rheumatic tricuspid valve insufficiency Nonrheumatic aortic valve insufficiency HLD (hyperlipidemia) Essential (primary) hypertension Home Medications ?Medication ?Instructions ?Recorded ?Last Taken ?Type tamsulosin 0.4 mg capsule 0.8 mg PO DAILY 12/14/20 10/04/24 History omeprazole 40 mg capsule,delayed 40 mg PO DAILY 09/19/22 10/05/24 History release cholecalciferol (vitamin D3) 50 50 mcg PO DAILY 06/25/23 10/04/24 History mcg (2,000 unit) capsule multivitamin 1 tab PO DAILY 06/25/23 10/04/24 History ropinirole 1 mg tablet 1 mg PO QHS #90 tabs 10/05/23 10/04/24 Rx atorvastatin 20 mg tablet 20 mg PO QDAY 100 days #90 tabs 11/16/23 10/04/24 Rx apixaban 5 mg tablet 5 mg PO BID #180 tabs 01/04/24 10/01/24 Rx metoprolol succinate 50 mg 50 mg PO BID #180 tabs 08/03/24 10/05/24 07:00 Rx tablet,extended release 24 hr acetaminophen 650 mg 1,300 mg PO Q12H PRN pain 09/21/24 10/05/24 07:00 History tablet,extended release (8 Hour Pain Reliever) finasteride 5 mg tablet 5 mg PO DAILY 09/21/24 10/04/24 History fluticasone propionate 50 1 spray intranasal DAILY 09/21/24 10/04/24 History mcg/actuation nasal spray,suspension (24 Hour Allergy Relief) Allergy/AdvReac Type Severity Reaction Status Date / Time adhesive tape Allergy Severe Swelling Verified 10/05/24 11:10 iodine Allergy Unknown Verified 10/05/24 11:10 amiodarone AdvReac Unknown Verified 10/05/24 11:10 latex AdvReac Unknown Verified 10/05/24 11:10 Family History Sister A-fib Sister Cancer Mother Heart disease Father Myocardial infarction Other HLD (hyperlipidemia) Surgical History History of cataract extraction with lens replacement History of colonoscopy History of anal fistulotomy (~2013) History of right knee surgery (03/2018) History of cardioversion (05/15/20) History of left heart catheterization (04/17/08) History of tonsillectomy H/O cardiac radiofrequency ablation (06/10/10) Social History Smoking Status: Former smoker alcohol intake: current details: Occasionally Review of Systems (Anesthesia) ROS Narrative System reviewed and no additional complaints, except as documented. Physical Exam Const alert and oriented x3 Resp normal respiratory effort and normal air movement Cardio regular rhythm Cardio Narrative: Tachycardic in Afib 110 on tele similar to Previous EKG Extremity full ROM Neuro oriented x3 and moves all extremities
--- NOTE | 2024-10-05 12:37 | HP.PCM_ITS ---
[facility] - General General Date of Service: 10/05/24 Chief Complaint: BPH with obstruction HPI Narrative HAFSA DUMAS, is a 84 M who presents for a transurethral resection of the prostate for BPH with obstruction we talked about the risk and benefit of the surgery and he wishes to proceed [facility] Medical History Hemorrhoids Wears glasses Wears partial dentures Alcohol use Prostate disease Arthritis GERD (gastroesophageal reflux disease) Leg cramps CPAP (continuous positive airway pressure) dependence Sleep apnea Former smoker History of echocardiogram Cardiology follow-up encounter History of atrial fibrillation Bacterial sinusitis Tachycardia Restless leg MARTA (obstructive sleep apnea) Atypical atrial flutter Paroxysmal supraventricular tachycardia Barotrauma BPH (benign prostatic hyperplasia) Aortic root dilation Non-rheumatic tricuspid valve insufficiency Nonrheumatic aortic valve insufficiency HLD (hyperlipidemia) Essential (primary) hypertension Home Medications ?Medication ?Instructions ?Recorded ?Last Taken ?Type tamsulosin 0.4 mg capsule 0.8 mg PO DAILY 12/14/20 10/04/24 History omeprazole 40 mg capsule,delayed 40 mg PO DAILY 09/19/22 10/05/24 History release cholecalciferol (vitamin D3) 50 50 mcg PO DAILY 06/25/23 10/04/24 History mcg (2,000 unit) capsule multivitamin 1 tab PO DAILY 06/25/23 10/04/24 History ropinirole 1 mg tablet 1 mg PO QHS #90 tabs 10/05/23 10/04/24 Rx atorvastatin 20 mg tablet 20 mg PO QDAY 100 days #90 tabs 11/16/23 10/04/24 Rx apixaban 5 mg tablet 5 mg PO BID #180 tabs 01/04/24 10/01/24 Rx metoprolol succinate 50 mg 50 mg PO BID #180 tabs 08/03/24 10/05/24 07:00 Rx tablet,extended release 24 hr acetaminophen 650 mg 1,300 mg PO Q12H PRN pain 09/21/24 10/05/24 07:00 History tablet,extended release (8 Hour Pain Reliever) finasteride 5 mg tablet 5 mg PO DAILY 09/21/24 10/04/24 History fluticasone propionate 50 1 spray intranasal DAILY 09/21/24 10/04/24 History mcg/actuation nasal spray,suspension (24 Hour Allergy Relief) Allergy/AdvReac Type Severity Reaction Status Date / Time adhesive tape Allergy Severe Swelling Verified 10/05/24 11:10 iodine Allergy Unknown Verified 10/05/24 11:10 amiodarone AdvReac Unknown Verified 10/05/24 11:10 latex AdvReac Unknown Verified 10/05/24 11:10 Family History Sister A-fib Sister Cancer Mother Heart disease Father Myocardial infarction Other HLD (hyperlipidemia) Surgical History History of cataract extraction with lens replacement History of colonoscopy History of anal fistulotomy () History of right knee surgery (03/2018) History of cardioversion (05/15/20) History of left heart catheterization (04/17/08) History of tonsillectomy H/O cardiac radiofrequency ablation (06/10/10) Social History Smoking Status: Former smoker alcohol intake: current details: Occasionally Vital Signs Vital Signs Vital Signs: 10/05/24 11:13 10/05/24 11:13 10/05/24 11:39 Temperature 97.1 F L Temperature Source Temporal Pulse Rate 131 H 112 H Respiratory Rate 16 Respiratory Pattern Normal Blood Pressure 114/77 Blood Pressure Mean 89 Blood Pressure Source Monitor Blood Pressure Position Semi-Fowlers Blood Pressure Location Right Arm Pulse Ox 99 Oxygen Delivery Method Room Air 10/05/24 11:40 10/05/24 11:54 Temperature 97.1 F L Temperature Source Pulse Rate 112 H 109 H Respiratory Rate 16 Respiratory Pattern Blood Pressure 114/77 Blood Pressure Mean Blood Pressure Source Blood Pressure Position Blood Pressure Location Pulse Ox 99 Oxygen Delivery Method Room Air Weight Weight: 86.636 kg Body Mass Index (BMI) 28.2
--- NOTE | 2024-10-05 13:00 | PROS_PTH ---
PATIENT: HAFSA DUMAS LOC: MS3 U#:[id number] AGE/SX: 84/M ROOM: [facility] [place] RE10/06/[address]: Dr. Gabriel Galeas MD : 1940 BED: 1 DIS: 10/06/2024 SPEC #: [id number] RECD: 10/05/24 14:31 STATUS: LOVELY MCKOY #: [id number] JERMAINE: 10/05/24 13:[address]: Gabriel Galeas DEPT: SURGICAL PATHOLOGY RECD BY: Senait Patterson ENTERED: 10/06/24 10:24 SP TYPE: TURP OTHR DR: Dr. Hermelindo Chatterjee MD Tissues: Prostate, NOS Procedures: Surgery Specimen Level IV HEADER OPERATION: Transurethral resection prostate PRE-OP DIAGNOSIS: Benign prostatic hyperplasia with obstruction TISSUE SUBMITTED: Prostate chips MICROSCOPIC DIAGNOSIS Prostate, transurethral resection: Benign prostatic hyperplasia. Chronic inflammation and basal cell hyperplasia. Fragments of stone (gross only). FARZANA. 10/07/2024 MICROSCOPIC DESCRIPTION Slides are reviewed. GROSS DESCRIPTION Received is one container labeled with the patient's name and designated prostate tissue. The specimen consists of multiple irregular fragments of pink-diez, rubbery, soft tissue that in aggregate weigh 8.4 gm and measure in aggregate 4.5 x 4.5 x 1 cm. Two minute brownish-black stones are also noted measuring 0.1 and 0.2cm in greatest dimension. The entire soft tissue is submitted in nine cassettes. Stones are for gross identification only. 10/06/2024 TC:5 CPT: 70592
[2024-10-05] MEDS: Cefazolin 2 GM in Syringe IV (13:15)
--- NOTE | 2024-10-05 14:16 | DCINST_ITS ---
Discharge Instructions Diet Discharge Diet: No restrictions and Light diet - advance as tolerated DC O2, CPAP, BIPAP needs Home O2 Discharge instructions: No Dressing / Incision Discharge Activity: Return to Normal Activity and May Not Drive Dressing / Incision Suture Line Care: Avoid Pulling/Pushing and Avoid Pinching/Bending Catheter: [place]ane to leg bag and [place]ane to large bag Drain: [place] Follow Up Care Please Follow Up With: Gabriel Galeas MD When: next week to d/c mcfarlane Test Results: Test results from this visit will be discussed in further detail at your follow- up appointment, if applicable. Discharge Plan Admission Primary Reason for Your Visit: turp Attending Provider: Gabriel Galeas Primary Care Provider: Hermelindo Chatterjee Instructions Print Language: Icelandic Discharge Orders/Prescriptions Prescriptions: New ciprofloxacin HCl [Cipro] 500 mg tablet 500 mg PO BID Qty: 10 0RF Continued omeprazole 40 mg capsule,delayed release(DR/EC) 40 mg PO DAILY multivitamin Tablet 1 tab PO DAILY cholecalciferol (vitamin D3) 50 mcg (2,000 unit) capsule 50 mcg PO DAILY fluticasone propionate [24 Hour Allergy Relief] 50 mcg/actuation spray,suspension 1 spray intranasal DAILY Rx Instructions: administer into each nostril acetaminophen [8 Hour Pain Reliever] 650 mg tablet extended release 1,300 mg PO Q12H PRN (Reason: pain) ropinirole 1 mg tablet 1 mg PO QHS Qty: 90 3RF atorvastatin 20 mg tablet 20 mg PO QDAY 100 Days Qty: 90 3RF metoprolol succinate 50 mg tablet extended release 24 hr 50 mg PO BID Qty: 180 3RF Held apixaban 5 mg tablet 5 mg PO BID Qty: 180 3RF Hold Instructions: Resume on 10/19/24. Discontinued tamsulosin 0.4 mg capsule 0.8 mg PO DAILY finasteride 5 mg tablet 5 mg PO DAILY Other Ambulatory Orders: 12 Lead EKG (Routine) Location: None Selected Ordered By: Dr. Arnoldo Elliott Referrals / Follow Up: Gabriel Galeas MD [Med Staff - Active Staff] - Hermelindo Chatterjee MD [Primary Care Provider] - Disposition Disposition (needs filled in before D/C Order can be placed): Home, Self Care
--- NOTE | 2024-10-05 14:17 | OP.PCM_ITS ---
Operative Report (Standard) Operative Information Date of Procedure: 10/05/24 Pre-Operative Diagnosis: BPH with obstruction Post-Operative Diagnosis: The same Surgery/Procedure Performed: Transurethral section of the prostate fruit inspector: No Type of Anesthesia: General RN Documented Start/Stop Times: Operation Date: 10/05/24 13:00 Case Time Into Pre-Op 10/05/24 10:56 Out of Pre-Op 10/05/24 13:07 Anesthesia Start 10/05/24 13:11 Into Room 10/05/24 13:11 Procedure Start 10/05/24 13:27 Procedure End 10/05/24 14:04 Anesthesia End 10/05/24 14:15 Out of Room 10/05/24 14:15 Procedure Start Time: 13:27 Procedure Stop Time: 14:15 Select all DRAINS/GRAFTS/IMPLANTS that apply: Drains Drain details: 22f [address] Estimated Blood Loss: 10 Specimen collected: Yes Description of specimen(s) removed: Prostate tissue Description of surgery: Patient was taken back to the operating room after smooth induction of anesthesia he was placed in dorsolithotomy position. He went into the bladder with a 26 Persian continuous-flow resectoscope the entire length of the urethra was free of any strictures or scar tissues identified the prostate he had a very high riding median lobe and obstructive prostate I then proceeded with the resection and resected the median lobe of the prostate resected right lobe of the prostate resected down to the Ricco resect all the way down to the verumontanum he had a wide open flow at the end of the resection sphincter was intact cauterized to obtain hemostasis placed a 22 Persian catheter into the bladder it was put on continuous irrigation is taken back to the PACU in stable condition nicely resected prostate channel wide open flow sphincter was intact prostate was heavily trabeculated. No tumors or stones seen within the bladder or prostate Surgical Findings: Obstructive prostate heavily trabeculated bladder Complications Complications: No Admit VTE Documentation VTE Present on Admission: No VTE Mechan Device Prophylaxis: SCD's VTE Pharm Prophylaxis ordered?: No
--- NOTE | 2024-10-05 14:18 | SUR.PHASEI ---
REPORTEDLY SINUS TACH IN 120'S DURING ENTIRE CASE PER JIMBO CERVANTES. CONTINUES TO BE SINUS TACHY IN 120'S ON PACU ARRIVAL.
--- NOTE | 2024-10-05 14:20 | PCM.POST.ANE ---
Anesthesia: Postop Eval I Current Vital Signs Temperature: 96.9 F Pulse Rate: 122 Blood Pressure: 99/82 Respiratory Rate: 14 Pulse Ox: 94 Oxygen Delivery Method: Nasal Cannula Oxygen Flow Rate (L/min): 2 Assessment Airway patent: Yes Spontaneous unlabored respirations: Yes Mental status: Calm and Asleep nausea: No Vomiting: No Anesthesia Complication: No Fluid Hydration Crystalloid volume administer (ml): 800 Total IV fluid infused: 800 Progress Note Anesthesia document: Postop Eval 1 completed: Yes
[2024-10-05] MEDS: Ketorolac 15 MG/ML Vial IV (14:42)
--- NOTE | 2024-10-05 14:48 | POSTOPAN2_ITS ---
Anesthesia Postop Eval I Sum Postop Eval Completion status Anesthesia document: Postop Eval 1 completed: Yes Anesthesia Postop Eval I Summary Anesthesia Postop Eval I Summary: Anesthesia Postop Eval I: Assessment Summary Airway patent Yes 10/05/24 14:21 CLOTH [email or web address] Spontaneous unlabored Yes 10/05/24 14:21 CLOTH [email or web address] respirations Mental status Calm,Asleep 10/05/24 14:21 CLOTH [email or web address] nausea No 10/05/24 14:21 CLOTH [email or web address] Vomiting No 10/05/24 14:21 CLOTH [email or web address] Anesthesia Postop Eval I: Fluid Summary Crystalloid volume administer 800 10/05/24 14:21 CLOTH [email or web address] (ml) Colloids volume administered ( ml) Blood Product volume administered (ml) Total IV fluid infused 800 10/05/24 14:21 CLOTH [email or web address] Anesthesia Postop Eval I: Summary Notes Anesthesia Complication No 10/05/24 14:21 CLOTH [email or web address] Anesthesia Complication Comment: Post-operative progress note Anesthesia: Postop Eval II Evaluation Mental status: Awake and Calm Pain Level: 0 nausea: No Vomiting: No Complications Anesthesia Complication: No
--- NOTE | 2024-10-05 14:48 | PCM.POSTANE2 ---
Anesthesia Postop Eval I Sum Postop Eval Completion status Anesthesia document: Postop Eval 1 completed: Yes Anesthesia Postop Eval I Summary Anesthesia Postop Eval I Summary: Anesthesia Postop Eval I: Assessment Summary Airway patent Yes 10/05/24 14:21 RESOURCE DEVELOPMENT [email or web address] Spontaneous unlabored Yes 10/05/24 14:21 RESOURCE DEVELOPMENT MANAGER.[email or web address] respirations Mental status Calm,Asleep 10/05/24 14:21 RESOURCE DEVELOPMENT MANAGER.GDOTT nausea No 10/05/24 14:21 RESOURCE DEVELOPMENT MANAGER.GDOTT Vomiting No 10/05/24 14:21 RESOURCE DEVELOPMENT MANAGER.[email or web address] Anesthesia Postop Eval I: Fluid Summary Crystalloid volume administer 800 10/05/24 14:21 RESOURCE DEVELOPMENT MANAGER.GDOTT (ml) Colloids volume administered ( ml) Blood Product volume administered (ml) Total IV fluid infused 800 10/05/24 14:21 RESOURCE DEVELOPMENT MANAGER.GDOTT Anesthesia Postop Eval I: Summary Notes Anesthesia Complication No 10/05/24 14:21 RESOURCE DEVELOPMENT MANAGER.[email or web address] Anesthesia Complication Comment: Post-operative progress note Anesthesia: Postop Eval II Evaluation Mental status: Awake and Calm Pain Level: 0 nausea: No Vomiting: No Complications Anesthesia Complication: No
[2024-10-05] MEDS: Ondansetron 4 MG/2 ML Vial IV (17:00)
[2024-10-05] MEDS: 0.9% Normal Saline (1000mL) 1,000 ML 125 ML IV (19:46)
[2024-10-05] MEDS: Metoprolol(XL)Succ 50 MG Tablet PO (20:45)
[2024-10-05] MEDS: Docusate Sodium 100 MG Capsule 200 MG PO (20:45)
[2024-10-05] MEDS: Pramipexole Di-HCl 0.5 MG Tablet PO (20:45)
[2024-10-05] MEDS: Atorvastatin Calcium 20 MG Tablet PO (20:45)
[2024-10-05] MEDS: Ciprofloxacin 400 MG/200 ML BAG 200 MG IV (21:02)
[2024-10-05] MEDS: Fluticasone 0.05% 1 SPRAY NASAL.SRY NASAL (23:50)
[2024-10-06 03:22] VITALS: BP 116/66; PULSE 87; RESP 16; TEMP 36.4; O2SAT 95
[2024-10-06] MEDS: 0.9% Normal Saline (1000mL) 1,000 ML 125 ML IV (04:49)
[2024-10-06 06:40] VITALS: BP 113/81; PULSE 104; RESP 16; TEMP 36.4; O2SAT 100
--- NOTE | 2024-10-06 06:50 | PCM.PN.GU ---
Subjective Subjective Doing well status post TURP for obstructive prostate, patient can go home with a catheter, he was instructed not to restart his Eliquis but he can resume all his other medications. Supposed to call make an appointment next week for Grigsby catheter removal, I plugged the irrigation port. Objective Data Objective Data Vital Signs: Vital Signs Temp Pulse Resp BP Pulse Ox O2 Del Method O2 Flow Rate 97.6 F L 104 H 16 97/71 95 CPAP 2 10/06/24 06:40 10/06/24 06:40 10/06/24 06:40 10/06/24 06:40 10/06/24 06:40 10/06/24 06:40 10/05/24 23:40 Oxygen Flow Rate (L/min) 2 Oxygen Delivery Method CPAP Weight: 94.8 kg Body Mass Index (BMI) 30.8 Intake & Output: Intake and Output for Last 24 Hours 10/04/24 10/05/24 10/06/24 23:59 23:59 23:59 Intake Total 220 / 220 1000 / 1000 Output Total 1625 / 1625 400 / 400 Balance -1405 / -1405 600 / 600
[2024-10-06] MEDS: Acetaminophen 325 MG Tablet 1300 MG PO (06:58)
[2024-10-06 08:03] VITALS: O2SAT 92
[2024-10-06] MEDS: Cholecalciferol (VIT D3) 25 MCG TABLET (1,000 UNITS) 50 MCG PO (08:22)
[2024-10-06] MEDS: Docusate Sodium 100 MG Capsule 200 MG PO (08:22)
[2024-10-06 08:23] VITALS: PULSE 85
[2024-10-06] MEDS: Metoprolol(XL)Succ 50 MG Tablet PO (08:23)
[2024-10-06] MEDS: Pantoprazole Sodium 40 MG Tablet PO (08:23)
[2024-10-06] MEDS: Ciprofloxacin 400 MG/200 ML BAG 200 MG IV (08:24)
[2024-10-06] MEDS: Multivitamins,Therapeutic Tablet 1 TABLET PO (08:24)
[2024-10-06 08:55] VITALS: BP 97/73; PULSE 85; RESP 16; TEMP 36.9; O2SAT 92
--- NOTE | 2024-10-06 09:29 | CASEMGMT ---
Pt has an order for DC placed. RN CM to pt room at this time. Pt at bedside. Pt states that he lives at home with his and that he is independent. 6-Click score is 21. Pt states that he feels safe returning home with his today. Pt RN at bedside and about to provide the pt with leg bag/catheter education. Pt reports that he has a f/u appt scheduled for next Thursday to ge the catheter removed. Pt states that his will drive him home from the hospital today and denies further questions, concerns, or needs at this time.
== END 2024-10-06 10:30 | disposition home or self-care (01) ==
PROVIDERS: Admitting Provider Urology; PCP Family Medicine; Referring Provider Urology; Visit Provider Urology
PROC: (CPT 52601; principal; 2024-10-05 12:50)
DX: N40.1 Benign prostatic hyperplasia with lower urinary tract symptoms (principal); N13.8 Other obstructive and reflux uropathy; Z87.891 Personal history of nicotine dependence; K21.9 Gastro-esophageal reflux disease without esophagitis; G47.33 Obstructive sleep apnea (adult) (pediatric); E78.5 Hyperlipidemia, unspecified; I10 Essential (primary) hypertension; Z79.899 Other long term (current) drug therapy; Z79.01 Long term (current) use of anticoagulants; Z79.51 Long term (current) use of inhaled steroids
CPT/HCPCS: 52601; 00914; 88305; 93005; 96361; 96365; 96366; J0744; J2405

== ENCOUNTER → 2025-08-24 | Outpatient (CLI) | payer MEDICARE, SELFPAY ==
--- OUTSIDE RECORDS SUMMARY | 2025-08-24 07:55 | XMS RPT_ITS | CCD ---
Author Organization [facility] Care Team Providers Care Economics Analyst Name Role Phone SilverioJoanne Unavailable Joanne Silverio Unavailable MD Joe, Murray Palma Unavailable ISAURA Almanzar, Roya Alfredo Unavailable Unavailabl e DOUG MARTINES Unavailable Unavailable JACQUELYN PATEL (PA) Unavailable Unavailable DOUG MARTINES Unavailable Unavailable DOUG MARTINES Unavailable Unavailable Ghazala DELAROSA, Clemencia Dutta Unavailable Unavailable Joanne Silverio Unavailable Lilliana Chatterjee MD Primary Care Provider Lilliana Chatterjee MD Primary Care Provider Dr. Lilliana Chatterjee Primary Care Provider Dr. Lilliana Chatterjee Referring Provider Alex WILLARD, PA Becky Alfredo Attending Provider Lilliana Chatterjee MD Primary Care Provider Anup LEAD ATHLETE.CREDIT ASSESSMENT ANALYST, Mora Unavailable Luis LEAD ATHLETE.CREDIT ASSESSMENT ANALYST, Kunal Unavailable Anup LEAD ATHLETE.CREDIT ASSESSMENT ANALYST, Mora Unavailable Dr. Lilliana Chatterjee MD Primary Care Provider [phone] Dr. Lilliana Chatterjee MD Referring Provider Tamika STRATEGIC MARKETING SPECIALIST-C, Cuco Attending Provider Becky Barron Attending Provider Monica Lobato Attending Provider Alex WILLARD, Becky Alfredo Attending Unavail able Elderbrock, Lilliana Primary Care Unavailable Elderbrock, Lilliana Referring Unavailable Elderbrock, Lilliana Referring Unavailable Elderbrock, Lilliana Primary Care Unavailable FedericoomaCuco redmond Attending Unavailable Becky Barron Referring Unavail able Elderbrock, Lilliana Primary Care Unavailable Murray Diaz Attending Unavailable Elderbrock, Lilliana Referring Unavailable Elderbrock, Lilliana Primary Care Unavailable FedericoomaCuco redmond Attending Unavailable Elderbrock, Lilliana Primary Care Unavailable Adal, Gabriel Pedraza Admitting Unavailable Adal, Gabriel Pedraza Attending Unavailable Adal, Gabriel Pedraza Referring Unavailable Elderbrock, Lilliana Primary Care Unavailable Adal, Gabriel Pedraza Attending Unavailable Adal, Gabriel Pedraza Referring Unavailable Becky Barron Attending Unavail able Becky Barron Referring Unavail able Elderbrock, Lilliana Primary Care Unavailable Elderbrock, Lilliana Primary Care Unavailable Becky Barron Consulting Unavail able Adal, Gabriel Pedraza Attending Unavailable Adal, Gabriel Pedraza Referring Unavailable Elderbrock, Lilliana Primary Care Unavailable Becky Barron Referring Unavail able Alex WILLARD, Becky Alfredo Attending Unavail able Elderbrock, Lilliana Referring Unavailable Elderbrock, Lilliana Primary Care Unavailable Becky Barron Attending Unavail able Elderbrock, Lilliana Referring Unavailable Elderbrock, Lilliana Primary Care Unavailable Monica Acuna NP Attending Unavailable ELDERBROCK, LILLIANA D Referring Unavailable ELDERBROCK, LILLIANA D Primary Care Unavailable ELDERBROCK, LILLIANA D Attending Unavailable ELDERBROCK, LILLIANA D Primary Care Unavailable ELDERBROCK, LILLIANA D Primary Care Unavailable KUNAL EATON Attending Unavailable ELDERBROCK, LILLIANA D Primary Care Unavailable ELDERBROCK, LILLIANA D Referring Unavailable ELDERBROCK, LILLIANA D Primary Care Unavailable ELDERBROCK, LILLIANA D Attending Unavailable ELDERBROCK, LILLIANA D Primary Care Unavailable ELDERBROCK, LILLIANA D Referring Unavailable ELDERBROCK, LILLIANA D Primary Care Unavailable Allergies Allergy Classification Reported Allergen(s) Allergy Type Date of Onset Reaction(s) Facility (6 sources) amiodarone drug allergy 1 heart [facility] Work Phone: (20 sources) iodine; Translations: [IODINE] allergy to substance 6 Hives [facility] Work Phone: (12 sources) Latex rubber gloves; Translations: [LATEX GLOVES] allergy to substance 1 irritation [facility] Work Phone: (8 sources) natural latex rubber; Translations: [LATEX] allergy to substance 8 [facility] Work Phone: (20 sources) Adhesive Tape; Translations: [ADHESIVE TAPE (ROSINS)] Propensity to adverse reactions (disorder) 8 [facility] (20 sources) amiodarone; Translations: [AMIODARONE] Drug Allergy 2 Other: See Comments [facility] (20 sources) Latex Propensity to adverse reactions 8 Unknown [facility] (4 sources) meloxicam; Translations: [MELOXICAM] Drug Allergy 5 Other: See Comments [facility] (2 sources) Adhesive Tape; Translations: [adhesive tape] Allergy to substance [address] [facility] (1 source) Latex Drug allergy (disorder) [address] [facility] Medications Current Medications Medication Drug Class(es) Dates Sig (Normalized) Sig (Original) 8 hr acetaminophen 650 mg extended release oral tablet (1 source) Start: 09-21-2024 Acetaminophen (8 Hour Pain Reliever) 650 mg tablet extended release Active 1300 mg PO Q12H as needed for pain September 21, 2024 1:00am apixaban 5 mg oral tablet (20 sources) Factor Xa Inhibitor Start: 08-09-2019 End: 02-21-2025 take 1 tablet by mouth twice daily Apixaban 5 mg tablet Active 5 mg PO TWICE A DAY 180 February 21, 2025 8:05am Comment on above: Take 1 tablet by adam twice daily. benzonatate 100 mg oral capsule (6 sources) Non-narcotic Antitussive Start: 11-21-2024 End: 12-06-2024 take 1 capsule by mouth every eight hours as needed for cough benzonatate (TESSALON PERLE) 100 mg capsule Indications: Acute cough Take 1 capsule by mouth every 8 hours as needed for cough for up to 15 days. 30 capsule 11/21/2024 12/06/2024 Active BIPAP (2 sources) Start: 02-28-2021 End: 03-03-2022 BIPAP Indications: Obstructive sleep apnea syndrome Initiate BiPAP @ 9 cm of water with humidification. Mask (per patient preference) optional chin strap (if indicated) , filters, tubing, humidifier and lifetime supplies. Follows with a sleep specialist. 1 Device 0 02/28/2021 03/03/2022 Discontinued Start: 02-28-2021 BIPAP Indicati ons: Obstructive sleep apnea syndrome Initiate BiPAP @ 9 cm of water with humidification. Mask (per patient preference) optional chin strap (if indicated) , filters, tubing, humidifier and lifetime supplies. Follows with a sleep specialist. 1 Device 0 02/28/2021 Active Comment on above: Initiate BiPAP @ 9 c m of water with humidification. Mask (per patient preference) optional chin strap (if indicated) , filters, tubing, humidifier and lifetime supplies. Follows with a sleep specialist. cetirizine hydrochloride 10 mg oral tablet (2 sources) Histamine-1 Receptor Antagonist Start: End: take 1 tablet by mouth once daily cetirizine (ZYRTEC) 10 mg tablet Take 1 tablet by mouth once daily. 60 tablet 0 02/05/2021 03/03/2022 Discontinued Comment on above: Take 1 tablet by adam once daily. cholecalciferol 0.05 mg oral capsule (19 sources) Vitamin D Start: 023 take 1 capsule by mouth once daily Cholecalciferol (Vitamin D3) 50 mcg (2,000 unit) capsule Active 50 ug PO DAILY June 25, 2023 12:00am Start: 12-04-2022 take 1 capsule by mo [facility] once daily Cholecalciferol, Vitamin D3, 50 mcg (2,000 unit) cap Take 1 capsule by mouth once daily. 12/04/2022 Active Comment on above: Take 1 capsule by mo [facility] once daily. CPAP (20 sources) Start: 03-03-2022 CPAP Indications: MARTA treated with BiPAP Initiate CPAP Pluss @ 9 cm of water with humidification. Mask (per patient preference) optional chin strap (if indicated) , filters, tubing, humidifier and lifetime supplies. 03/03/2022 Active Start: 03-03-2022 CPAP Indicatio ns: MARTA treated with BiPAP Initiate CPAP Pluss @ 9 cm of water with humidification. Mask (per patient preference) optional chin strap (if indicated) , filters, tubing, humidifier and lifetime supplies. 0 03/03/2022 Active Comment on above: Initiate CPAP Pluss @ 9 cm of water with humidification. Mask (per patient preference) optional chin strap (if indicated) , filters, tubing, humidifier and lifetime supplies. doxycycline hyclate 100 mg oral tablet (3 sources) Tetracycline-class Drug Start: 11-26-19 End: 12-06-19 take 1 tablet by mouth twice daily doxycycline (VIBRA-TABS) 100 mg tablet Indications: Post-COVID chronic cough Take 1 tablet by mouth two times a day for 10 days. 20 tablet 11/25/2024 12/05/2024 Active fluticasone propionate 0.05 mg/actuat metered dose nasal spray (20 sources) Corticosteroid Start: 07-14-20 take 50 ug nasal route once daily Fluticasone Propionate (24 Hour Allergy Relief) 50 mcg/actuation spray,suspension Active 1 NMA INTRANASAL DAILY September 21, 2024 1:00am administer into each nostril Start: 02-28-2016 FLONASE 50 MCG /ACT SUSP Take as directed FLUTICASONE PROPIONATE [id number] Murray Diaz MD Start: 02-28-2016 FLONASE 50 MCG /ACT SUSP Take as directed FLUTICASONE PROPIONATE [id number] Murray Diaz MD Comment on above: Using only short ter m 3 days when needed, due to reaction with medicine 24 hr metoprolol succinate 50 mg extended release oral tablet (20 sources) beta-Adrenergic Janeen Start: 08-03-2024 take 1 tablet by mouth twice daily metoprolol succinate ER (TOPROL XL) 50 mg 24 hr tablet Take 1 tablet by mouth two times a day. 180 tablet 12/15/2024 Active Start: 08-19-2019 End: 12-15-2024 Metoprolol Tartrate 50 mg ta blet Discontinued 0 .ROUTE .COMPLEX 180 November 16, 2023 5:04pm August 03, 2024 4:49pm TAKE 1 TABLET TWICE A DAY Start: 09-25-2017 End: 08-19-2019 take 1 tablet by mouth twice daily Metoprolol Tartrate 25 mg tablet Discontinued 25 mg PO TWICE A DAY 180 October 11, 2018 10:55am August 19, 2019 4:03pm Start: 01-20-2011 take 1 tablet by adam th twice daily METOPROLOL TARTRATE 25 MG TABS One tablet by mouth twice daily METOPROLOL TARTRATE [id number] Murray Diaz MD Comment on above: Take 1 tablet by adam th twice daily. multivitamin tablet (20 sources) Start: 12-04-2022 take 1 tablet by mouth once daily multivitamin tablet Take 1 tablet by mouth once daily. 12/04/2022 Active Start: 12-04-2022 take 1 tablet by adam th once daily multivitamin tablet Take 1 tablet by mouth once daily. 0 12/04/2022 Active Start: 01-13-2019 End: 09-03-2022 take 1 tablet by mouth once daily multivitamin tablet Take 1 tablet by mouth once daily. 0 01/13/2019 09/03/2022 Discontinued Start: 01-13-2019 take 1 tablet by adam th once daily multivitamin tablet Take 1 tablet by mouth once daily. 0 01/13/2019 Active Comment on above: Take 1 tablet by adam th once daily. Multivitamin tablet (1 source) Start: 3 Multivitamin tablet Active 1 {tbl} PO DAILY June 25, 2023 12:00am omeprazole 40 mg delayed release oral capsule (20 sources) Proton Pump Inhibitor Start: take 1 capsule by mouth once daily omeprazole (PRILOSEC) 40 mg capsule Take 1 capsule by mouth once daily. 30 capsule 11 01/10/2025 Active Start: 09-19-2022 Omeprazole Act pola CAP PO September 19, 2022 12:00am Start: 09-02-2022 End: 01-09-2025 take 1 capsule by mouth once daily omeprazole (PRILOSEC) 40 mg capsule Take 1 capsule by mouth once daily. 30 capsule 11 01/12/2024 01/09/2025 Discontinued Start: 06-25-2022 End: 09-02-2022 take 1 capsule by mouth once daily before breakfast omeprazole (PRILOSEC) 20 mg capsule Indications: GERD without esophagitis Take 1 capsule by mouth daily before breakfast. 1/2 hr before meal. 30 capsule 5 06/25/2022 09/02/2022 Discontinued (Dosage adjustment) Comment on above: Take 1 capsule by mo uth once daily. Take 1 capsule by mo uth daily before breakfast. 1/2 hr before meal. rOPINIRole 1 mg oral tablet (20 sources) Nonergot Dopamine Agonist Start: 11-26-2020 End: 10-10-2024 take 1 tablet by mouth at bedtime Ropinirole 1 mg tablet Active 1 mg PO AT BEDTIME 90 October 10, 2024 9:09am Start: 08-30-2020 End: 11-26-2020 Ropinirole 0.5 mg tablet Dis continued 0.5 mg PO DAILY 60 August 30, 2020 1:00am November 26, 2020 1:11pm 1 tab 1-2 hours before bed, on 4th night may increase to 2 tabs Comment on above: Take 1 mg by mouth d aily at bedtime. sod chlor,sod bicarb/neti pot (SINUS WASH NETIPOT NASAL) (20 sources) sod chlor,sod bi carb/neti pot (SINUS WASH NETIPOT NASAL) Use in the nose once daily. Active sod chlor,sod bi carb/neti pot (SINUS WASH NETIPOT NASAL) Use in the nose once daily. 0 Active sod chlor,sod bi carb/neti pot (SINUS WASH NETIPOT NASAL) Use in the nose. 0 Active Comment on above: Use in the nose. Use in the nose once daily. tamsulosin hydrochloride 0.4 mg oral capsule (20 sources) alpha-Adrenergic Janeen Start: 12-14-2020 take 0.8 mg by mouth once daily Tamsulosin Active 0.8 MG PO DAILY December 14, 2020 8:16am Start: 11-05-2020 End: 12-15-2024 take 2 capsules by mouth once daily at bedtime tamsulosin (FLOMAX) 0.4 mg Indications: Benign prostatic hyperplasia with weak urinary stream Take 2 capsules by mouth daily at bedtime. 180 capsule 3 11/09/2023 12/15/2024 Discontinued (Discontinued by another Health Care Provider) Start: 05-07-2018 End: 12-14-2020 take 1 capsule by mouth once daily Tamsulosin 0.4 mg capsule Discontinued 0.4 mg PO DAILY May 07, 2018 12:00am December 14, 2020 9:16am Start: 01-20-2011 take 1 tablet by adam th once daily FLOMAX 0.4 MG CAPS One tablet by mouth daily TAMSULOSIN HCL [id number] Alma Natarajan Comment on above: Take 2 capsules by m outh daily at bedtime. valACYclovir 1000 mg oral tablet (1 source) Herpesvirus Nucleoside Analog DNA Polymerase Inhibitor, Herpes Simplex Virus Nucleoside Analog DNA Polymerase Inhibitor, Herpes Zoster Virus Nucleoside Analog DNA Polymerase Inhibitor Start: 3 End: take 1 tablet by mouth three times daily valACYclovir (VALTREX) 1 gram Indications: Herpes zoster with complication Take 1 tablet by mouth three times daily for 7 days. 21 tablet 0 12/04/2022 12/11/2022 Active Comment on above: Take 1 tablet by adam three times daily for 7 days. Completed/Discontinued Medications Medication Drug Class(es) Dates Sig (Normalized) Sig (Original) amoxicillin 875 mg / clavulanate 125 mg oral tablet (1 source) Penicillin-class Antibacterial Start: 09-12-2024 End: 09-19-2024 Amoxicillin-Pot Clavulanate 875-125 mg tablet Discontinued 1 {tbl} PO TWICE A DAY 14 September 12, 2024 1:00am September 18, 2024 1:00am September 19, 2024 1:11am aspirin 81 mg delayed release oral tablet (20 sources) Nonsteroidal Anti-inflammatory Drug Start: 12-02-2016 End: 09-19-2022 take 1 tablet by mouth once daily Aspirin (Adult Aspirin Regimen) 81 mg tablet,delayed release (DR/EC) Discontinued 81 mg PO DAILY May 07, 2018 12:00am September 19, 2022 10:07am Start: 06-01-2012 End: 10-23-2016 take 1 tablet by mouth once daily ASPIRIN 325 MG TABS One tablet by mouth daily ASPIRIN [id number] Pamela Vigil RN Comment on above: Take 1 tablet by adam th once daily. atorvastatin 20 mg oral tablet (20 sources) HMG-CoA Reductase Inhibitor Start: 09-25-2017 End: 07-03-2021 Atorvastatin 40 mg tablet Discontinued 20 mg PO daily 45 November 05, 2020 11:07am July 03, 2021 2:36pm Start: 09-25-2017 End: 07-03-2021 take 20 mg by mouth once daily Atorvastatin Discontinu ed 20 MG PO daily 45 November 05, 2020 10:07am July 03, 2021 1:36pm Start: 06-01-2012 take 0.5 tablet by m outh once daily LIPITOR 40 MG TABS One-half tablet by mouth daily ATORVASTATIN CALCIUM [id number] Murray Diaz MD Start: 01-20-2011 take 1 tablet by adam th once daily LIPITOR 40 MG TABS One tablet by mouth daily ATORVASTATIN CALCIUM [id number] Murray Diaz MD Start: 04-26-2010 End: 12-05-2024 take 1 tablet by mouth once daily Atorvastatin 20 mg tablet Discontinued 20 mg PO daily 90 100 November 16, 2023 5:07pm December 05, 2024 8:48am Comment on above: Take one(1) tablet d aily. ciprofloxacin 500 mg oral tablet (1 source) Quinolone Antimicrobial Start: 10-05-19 End: 11-18-19 take 1 tablet by mouth twice daily Ciprofloxacin Hcl (Cipro) 500 mg tablet Discontinued 500 mg PO TWICE A DAY October 05, 2024 1:00am November 17, 2024 7:12am CLINDAMYCIN PHOSPHATE (12 sources) Lincosamide Antibacterial Start: 02-05-20 End: 02-04-20 14 CLINDAMAX 1 % LOTN CLINDAMYCIN PHOSPHATE [id number] Nora Harvey Start: 02-04-2011 CLINDAMAX 1 % LOTN CLINDAMYCIN PHOSPHATE [id number] Nora Harvey Start: 02-04-2011 End: 02-03-2014 CLINDAMAX 1 % LOTN 4 CLINDAMYCIN PHOSPHATE [id number] Murray Diaz MD finasteride 5 mg oral tablet (1 source) 5-alpha Reductase Inhibitor Start: 09-21-2024 End: 10-05-2024 take 1 tablet by mouth once daily Finasteride 5 mg tablet Discontinued 5 mg PO DAILY September 21, 2024 1:00am October 05, 2024 3:10pm gabapentin 100 mg oral capsule (13 sources) Anti-epileptic Agent Start: 12-10-2023 End: 06-16-2024 take 1 capsule by mouth once daily at bedtime gabapentin (NEURONTIN) 100 mg capsule Take 1 capsule by mouth daily at bedtime for 180 days. 12/10/2023 06/16/2024 Discontinued Start: 06-25-2023 End: 03-09-2024 take 2 capsules by mouth at bedtime Gabapentin 100 mg capsule Discontinued 200 mg PO AT BEDTIME June 25, 2023 9:32am March 09, 2024 9:51am Start: 09-02-2022 End: 08-09-2023 take 1-2 capsules by mouth once daily at bedtime, then take 1-2 capsules by mouth once daily at bedtime gabapentin (NEURONTIN) 100 mg capsule Take 1-2 capsules by mouth daily at bedtime for 90 days. May take 1-2 pills once daily at bedtime. 60 capsule 2 05/11/2023 08/09/2023 Active Comment on above: Take 1 capsule by mo uth daily at bedtime for 120 days. Take 1-2 capsules by mouth daily at bedtime for 90 days. May take 1-2 pills once daily at bedtime. Maximiliano's Restless legs tablet (1 source) Start: 03-09-2023 End: 06-25-2023 Maximiliano's Restless legs tablet Discontinued SL/PO March 09, 2023 12:00am June 25, 2023 9:33am KETOCONAZOLE SHAM (12 sources) Azole Antifungal NIZORAL SHAM KETOCONAZOLE SHAM [id number] Parmjit Garzon DO End: 02-03-2014 NIZORAL SHAM KETO CONAZOLE SHAM [id number] Murray Diaz MD meloxicam 15 mg oral tablet (11 sources) Nonsteroidal Anti-inflammatory Drug Start: 06-16-2024 End: 12-15-2024 take 1 tablet by mouth once daily Meloxicam 15 mg tablet Discontinued 15 mg PO daily July 12, 2024 12:00am September 12, 2024 7:29am MULTIPLE VITAMIN (6 sources) Start: 02-03-2014 take 1 tablet by mouth once daily MULTIVITAMINS TABS One tablet by mouth daily MULTIPLE VITAMIN Murray Diaz MD multivitamin capsule (2 sources) Start: 05-10-2019 End: 09-19-2022 take 1 capsule by mouth once daily multivitamin capsule Discontinued 1 CAP PO DAILY May 09, 2019 11:00pm September 19, 2022 9:07am Start: 05-10-2019 take 1 capsule by mo [facility] once daily multivitamin capsule Active 1 CAP PO DAILY May 10, 2019 12:00am Multivitamin capsule (1 source) Start: 05-10-2019 End: 09-19-2022 Multivitamin capsule Discontinued 1 NMA PO DAILY May 10, 2019 12:00am September 19, 2022 10:07am PIMECROLIMUS (12 sources) Calcineurin Inhibitor Immunosuppressant ELIDEL 1 % CREA PIMECROLIMUS [id number] Parmjit Garzon DO End: 02-03-2014 ELIDEL 1 % CREA P IMECROLIMUS [id number] Murray Diaz MD End: 02-03-2014 ELIDEL 1 % CREA PIMECROLIMUS [id number] Parmjit Garzon DO ELIDEL 1 % CREA PIMECROLIMUS [id number] Parmjit Garzon DO End: 02-03-2014 ELIDEL 1 % CREA P IMECROLIMUS [id number] Murray Diaz MD predniSONE 50 mg oral tablet (4 sources) Start: 10-01-2022 End: 03-09-2023 Prednisone 50 mg tablet Discontinued 50 mg PO .COMPLEX 3 October 01, 2022 9:40am March 09, 2023 9:50am 50 mg orally 1 tablet by mouth 1:30 am on 10/02/22; 1 tablet by mouth @ 7:30am on 10/02/22; and 1 tablet by mouth at 1:30 pm on 10/02/22 for dye allergy/CT on 10/02/22; TRIAMCINOLONE ACETONIDE OINT (12 sources) Corticosteroid Start: 02-04-2011 TRIAMCINOLONE ACETONIDE OINT TRIAMCINOLONE ACETONIDE OINT [id number] Nora Harvey Start: 02-04-2011 End: 02-03-2014 TRIAMCINOLONE ACETONIDE OINT TRIAMCINOLONE ACETONIDE OINT [id number] Murray Diaz MD warfarin sodium 5 mg oral tablet (18 sources) Vitamin K Antagonist Start: 01-20-2011 End: 06-01-2012 take 1 tablet by mouth once daily in the evening COUMADIN 5 MG TABS 1 tablet by mouth every evening except 10 mg on Wednesdays WARFARIN SODIUM [id number] Murray Diaz MD Problems Active Problems Problem Classification Problem Date Documented Da te Episodic/Chronic Aortic; peripheral; and visceral artery aneurysms (20 sources) Aneurysm of thoracic aorta; Translations: [Aortic root dilatation] Onset: 8 Resolved: 8 08-08-2014 Chronic Cardiac dysrhythmias (20 sources) Persistent atrial fibrillation; Translations: [Atrial fibrillation] Onset: 7 Resolved: 8 02-27-2016 Chronic Comment on above: 04/2008 slow pathway ablation, 03/13/09 RFA of SVT and all 4 PV's, 06/10/2010 Repeat Atypical Flutter RFA Cardiac dysrhythmias (13 sources) Palpitations; Translations: [Tachycardia] Onset: 1 Resolved: 6 01-20-2011 Episodic Disorders of lipid metabolism (20 sources) Hyperlipidemia; Translations: [Hyperlipidemia, unspecified] Onset: 0 10-14-2011 Chronic Esophageal disorders (2 sources) Gastroesophageal reflux disease without esophagitis; Translations: [Gastro-esophageal reflux disease without esophagitis] Onset: 5 12-15-2024 Chronic Essential hypertension (20 sources) Hypertensive disorder; Translations: [Essential (primary) hypertension] Onset: 1 01-20-2011 Chronic Heart valve disorders (20 sources) Mitral valve prolapse; Translations: [Aortic root dilatation] Onset: 1 Resolved: 5 01-20-2011 Chronic Hyperplasia of prostate (20 sources) Benign prostatic hyperplasia without lower urinary tract symptoms; Translations: [Weak urinary stream due to benign prostatic hypertrophy] Onset: 7 Resolved: 8 02-28-2021 Chronic Medical examination/evaluation (1 source) Encounter for other preprocedural examination; Translations: [Encounter for other preprocedural examination] Onset: 8 Episodic Osteoarthritis (20 sources) Degenerative joint disease of thumb; Translations: [Primary osteoarthritis, unspecified hand] Onset: 6 11-21-2006 Chronic Other connective tissue disease (2 sources) Prepatellar bursitis, right knee; Translations: [Other bursitis of knee, right knee] Onset: 8 Episodic Other gastrointestinal disorders (1 source) Abdominal bloating; Translations: [Abdominal distension (gaseous)] Episodic Other gastrointestinal disorders (1 source) Gastrointestinal symptom; Translations: [Other specified symptoms and signs involving the digestive system and abdomen] Episodic Other hereditary and degenerative nervous system conditions (20 sources) Restless legs; Translations: [Restless legs syndrome] Onset: 1 09-02-2021 Chronic Other hereditary and degenerative nervous system conditions (1 source) Restless legs syndrome; Translations: [Restless legs] Onset: 1 Chronic Other infections; including parasitic (1 source) Post-viral disorder; 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] 12-15-2024 Chronic Other lower respiratory disease (3 sources) Cough; Translations: [Acute cough] 11-21-2024 Episodic Other nutritional; endocrine; and metabolic disorders (1 source) Weight gain; Translations: [Abnormal weight gain] Episodic Other upper respiratory infections (1 source) Bacterial sinusitis; Translations: [Chronic sinusitis, unspecified] 09-12-2024 Chronic Screening and history of mental health and substance abuse codes (3 sources) Patient encounter status; Translations: [Encounter for screening for depression] 06-16-2024 Episodic Thyroid disorders (20 sources) Nontoxic multinodular goiter; Translations: [Non-toxic multinodular goiter] Onset: 8 Resolved: 0 09-09-2021 Chronic Unclassified (20 sources) Obstructive sleep apnea syndrome; Translations: [Dependence on other enabling machines and devices] Onset: 2 2016 Chronic Comment on above: AHI 44 Unclassified (4 sources) Radiofrequency ablation operation for arrhythmia ; Translations: [Other specified postprocedural states] Onset: 6 02-28-2016 Unclassified (2 sources) Long-term drug therapy; Translations: [Other [facility]current[facility] drug therapy] Onset: 1 01-20-2011 Unclassified (1 source) Post-COVID chronic cough; 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] Onset: 5 Unclassified (1 source) Post-COVID chronic cough; 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] Onset: 5 Viral infection (1 source) Herpes zoster with complication; Translations: [Zoster with other complications] Episodic Past or Other Problems Problem Classification Problem Date Documented Date Episodic/Chronic Allergic reactions (20 sources) Unspecified contact dermatitis, unspecified cause; Translations: [Contact dermatitis] Onset: 12-16-2005 Resolved: 02-28-2021 2016 Episodic Anal and rectal conditions (20 sources) Anal pain; Translations: [Other specified diseases of anus and rectum] Onset: 12-03-2011 Resolved: 05-17-2015 05-17-2015 Episodic Anxiety disorders (15 sources) Anxiety; Translations: [Anxiety disorder, unspecified] Resolved: 05-17-2015 05-17-2015 Chronic Genitourinary symptoms and ill-defined conditions (2 sources) Asymptomatic microscopic hematuria; Translations: [Poor urinary stream] Onset: 02-28-2021 Episodic Hemorrhoids (20 sources) Hemorrhoids; Translations: [Unspecified hemorrhoids] Onset: 11-20-2011 Resolved: 05-17-2015 05-17-2015 Episodic Other aftercare (4 sources) Other [facility] (current[facility] drug therapy; Translations: [Other manager intermediate (current) drug therapy] Onset: 01-20-2011 01-20-2011 Episodic Other and unspecified benign neoplasm (15 sources) Dysplastic nevus of skin; Translations: [Melanocytic nevi, unspecified] Onset: 07-15-2013 Resolved: 05-17-2015 09-09-2021 Episodic Other connective tissue disease (16 sources) Prepatellar bursitis of right knee; Translations: [Prepatellar bursitis, right knee] Onset: 02-24-2018 Resolved: 02-28-2022 02-24-2018 Episodic Other connective tissue disease (20 sources) Infrapatellar bursitis of right knee; Translations: [Other bursitis of knee, right knee] Onset: 02-24-2018 02-24-2018 Episodic Other inflammatory condition of skin (20 sources) Seborrheic dermatitis; Translations: [Seborrheic dermatitis, unspecified] Resolved: 2016 2016 Episodic Other nervous system disorders (15 sources) Carpal tunnel syndrome; Translations: [Carpal tunnel syndrome, unspecified upper limb] Onset: 11-03-2011 Resolved: 02-25-2018 02-25-2018 Chronic Other nutritional; endocrine; and metabolic disorders (6 sources) Body mass index (BMI) 28.0-28.9, adult; Translations: [Body mass index (BMI) 28.0-28.9, adult] Onset: 08-08-2014 08-08-2014 Episodic Other nutritional; endocrine; and metabolic disorders (15 sources) H/O: hyperthyroidism; Translations: [Personal history of other endocrine, nutritional and metabolic disease] Onset: 11-03-2011 Resolved: 05-17-2015 05-17-2015 Episodic Other skin disorders (12 sources) Asteatosis cutis; Translations: [Xerosis cutis] Resolved: 2016 02-26-2011 Episodic Other upper respiratory infections (4 sources) Sore throat symptom; Translations: [Acute pharyngitis, unspecified] Onset: 11-17-2024 11-21-2024 Episodic Residual codes; unclassified (15 sources) Family history of disorder; Translations: [Family history of other specified conditions] Onset: 04-12-2007 Resolved: 01-24-2010 01-24-2010 Episodic Residual codes; unclassified (15 sources) Family history of cancer of colon; Translations: [Family history of malignant neoplasm of digestive organs] Onset: 11-26-2011 Resolved: 02-25-2018 02-25-2018 Episodic Sprains and strains (15 sources) Sprain of shoulder rotator cuff; Translations: [Sprain of unspecified rotator cuff capsule, initial encounter] Onset: 08-10-2007 Resolved: 05-17-2015 05-17-2015 Episodic Results Test Name Value Interpretation Reference Range Facility [facility] 06[facility]20-2025 [facility] HAFSA DUMAS ([id number]) 1940 M Date Time Provider Department 06/20/25 12:40 PM KUNAL EATON During your visit today, we recorded the following information about you: Pulse Blood pressure Weight 63/minute 118/70 86.7 kg Kunal Eaton APRN.CNP 06/20/2025 12:32 PM Signed We discussed your atrial fibrillation and heart health: - Continue taking Metoprolol 50 mg extended-release twice daily and Eliquis once daily as prescribed by the [facility]. - Your heart rate and rhythm were stable today, with a pulse of 63. This is an improvement compared to previous visits when your pulse was higher. - Your cholesterol levels are well-controlled with Lipitor (Atorvastatin) once daily. Your total cholesterol, triglycerides, HDL, and LDL are all within optimal ranges. No changes to your medication are needed at this time. We discussed your restless leg syndrome: - Continue taking Ropinirole 1 mg at bedtime as prescribed by your neurologist. You mentioned it works most of the time but occasionally does not. - Avoid alcohol when taking Ropinirole, as it may interfere with its effectiveness. - Drinking tonic water in the evening seems to help with your symptoms, and you may continue this as needed. We discussed your history of mild fatty liver: - Your recent labs showed normal liver enzymes, kidney function, and glucose levels. There was a mild elevation in bilirubin, which has been consistent in the past and is not concerning at this time. - A prior CT scan showed mild fatty liver, but no further action is needed unless new symptoms arise. We discussed your CPAP use and nasal symptoms: - Continue using your CPAP machine as prescribed for sleep apnea. - Use Flonase nasal spray as needed for nasal congestion. We discussed your multivitamin and other medications: - Continue taking your multivitamin and Omeprazole as prescribed. We discussed your upcoming care: - You have an appointment with Dr. Bowen in September. No additional blood work is needed before this visit. Dr. Bowen will determine the next steps for your care at that time. You declined the flu vaccine today, as you prefer to receive it at your local pharmacy. Please let us know if you experience any new or worsening symptoms or have any concerns before your next visit. Kunal Eaton APRN.KELLEN 06/20/2025 12:36 PM Signed Chief Complaint Patient presents with: Follow Up HPI Hafsa Dumas is a 85 year old male who presents here today for above reason. Hafsa is a 85-year-old male, with a history of atrial fibrillation, restless leg syndrome, and goiter, presenting for follow-up. Hafsa reports a history of atrial fibrillation, for which he has undergone three ablations, each providing approximately one year of relief before recurrence of arrhythmia. He also underwent cardioversion, which was temporarily effective. Currently, he is on metoprolol 50 mg extended-release BID, which he reports has stabilized his heart rhythm. Prior to this medication regimen, his heart rate was consistently between 95-100 bpm during episodes of arrhythmia. He is also on Eliquis once daily for anticoagulation and atorvastatin once daily for hyperlipidemia, both prescribed by the [facility]. He denies any current issues with his heart rhythm and expresses satisfaction with his current management. Hafsa has a history of restless leg syndrome, for which he is prescribed ropinirole 1 mg at bedtime, managed by a neurologist at [facility]. He reports that the medication is effective approximately 80% of the time. On occasions when it is not effective, he experiences jumpy legs and has difficulty sleeping, sometimes staying awake until 5847-6595. He has found that drinking tonic water around 8887-0553 helps alleviate symptoms. He notes that on nights when he consumes alcohol, usually one beer and one shot over three hours during a pool club meeting, the medication is less effective. He is aware that alcohol can interfere with ropinirole but continues to consume it occasionally. Despite these challenges, he describes his condition as manageable and does not wish to pursue additional treatments. Hafsa has a history of goiter, with TSH levels remaining normal over the past few years. He also has a history of mild fatty liver, as identified on a CT scan of the abdomen in July of the previous year. Recent lab results show a slight elevation in bilirubin, consistent with past results, but he denies any symptoms of jaundice. He is not currently on Flomax for prostate issues and denies any ongoing problems related to this. He uses a CPAP machine for sleep apnea and takes a multivitamin and omeprazole for stomach issues. He also uses Flonase nasal spray as needed. He denies any current issues wit (more content not included)... Normal [facility] Comprehensive metabolic 2000 panelon 06-17-2025 Albumin [Mass/Vol] 3.9 g/dL Normal 3.9-4.9 [facility] Comment on above: Order Comment: Speci men Type: BLOOD SPECIMEN Ordering Facility: [facility] Address: [address] [place] [address] Performed By: #### 2 4323-8, 27396-2 #### [facility] CLIA [id number] [address] [place] [address] [place] ALP [Catalytic activity/Vol] 106 U/L Normal 38-113 [facility] Comment on above: Order Comment: Speci men Type: BLOOD SPECIMEN Ordering Facility: [facility] Address: [address] [place] [address] Performed By: #### 2 4323-8, 20572-1 #### [facility] CLIA [id number] [address] [place] [address] [place] ALT [Catalytic activity/Vol] 23 U/L Normal 10-54 [facility] Comment on above: Order Comment: Speci men Type: BLOOD SPECIMEN Ordering Facility: [facility] Address: [address] [place] [address] Performed By: #### 2 4323-8, 20816-4 #### [facility] CLIA [id number] [address] [place] [address] [place] Anion gap [Moles/Vol] 10 mmol/L Normal 8-15 [facility] Comment on above: Order Comment: Speci men Type: BLOOD SPECIMEN Ordering Facility: [facility] Address: [address] [place] [address] Performed By: #### 2 4323-8, 85628-7 #### [facility] CLIA [id number] [address] [place], [place] [id number] [place] AST [Catalytic activity/Vol] 32 U/L Normal 14-40 [facility] Comment on above: Order Comment: Speci men Type: BLOOD SPECIMEN Ordering Facility: [facility] Address: [address] [place] [address] Performed By: #### 2 4323-8, 66506-8 #### [facility] CLIA [id number] [address] [place] [address] [place] Bilirubin [Mass/Vol] 1.5 mg/dL High 0.2-1.3 [facility] Comment on above: Order Comment: Speci men Type: BLOOD SPECIMEN Ordering Facility: [facility] Address: [address] [place] [address] Performed By: #### 2 4323-8, 49697-4 #### [facility] CLIA [id number] [address] [place] [address] [place] Calcium [Mass/Vol] 9.1 mg/dL Normal 8.5-10.2 [facility] Comment on above: Order Comment: Speci men Type: BLOOD SPECIMEN Ordering Facility: [facility] Address: [address] [place] [address] Performed By: #### 2 4323-8, 96852-9 #### [facility] CLIA [id number] [address] [place] [address] [place] Chloride [Moles/Vol] 108 mmol/L High 98-107 [facility] Comment on above: Order Comment: Speci men Type: BLOOD SPECIMEN Ordering Facility: [facility] Address: [address] [place] [address] Performed By: #### 2 4323-8, 03327-1 #### [facility] CLIA [id number] [address] [place], [place] [id number] [place] CO2 [Moles/Vol] 25 mmol/L Normal 22-30 [facility] Comment on above: Order Comment: Speci men Type: BLOOD SPECIMEN Ordering Facility: [facility] Address: [address] [place] [address] Performed By: #### 2 4323-8, 75063-6 #### [facility] CLIA [id number] [address] [place] [address] [place] Creatinine [Mass/Vol] 0.94 mg/dL Normal 0.73-1.22 [facility] Comment on above: Order Comment: Speci men Type: BLOOD SPECIMEN Ordering Facility: [facility] Address: [address] [place] [address] Performed By: #### 2 4323-8, #### [facility] CLIA [id number] [address] [place] [address] [place] eGFRcr SerPlBld CKD-EPI 2020 79 mL/min/1.73m??? Normal >=60 [facility] Comment on above: Order Comment: Speci men Type: BLOOD SPECIMEN Ordering Facility: [facility] Address: [address] [place] [address] Result Comment: Helen mated Glomerular Filtration Rate (eGFR) is calculated using the 2020 CKD-EPI creatinine equation. This equation utilizes serum creatinine, sex, and age as parameters. The creatinine assay has traceable calibration to isotope dilution-mass spectrometry. Refer to KDIGO guidelines for clinical interpretation. In patients with unstable renal function, e.g. those with acute kidney injury, the eGFR may not accurately reflect actual GFR. Performed By: #### 2 4323-8, 42842-1 #### [facility] CLIA [id number] [address] [place] [address] [place] Glucose [Mass/Vol] 88 mg/dL Normal 74-99 [facility] Comment on above: Order Comment: Speci men Type: BLOOD SPECIMEN Ordering Facility: [facility] Address: [address] [place] [address] Result Comment: The [place] Diabetes Association (ADA) provides guidance for cutoff values for fasting glucose and random glucose. The ADA defines fasting as no caloric intake for at least 8 hours. Fasting plasma glucose results between 100 to 125 mg/dL indicate increased risk for diabetes (prediabetes). Fasting plasma glucose results greater than or equal to 126 mg/dL meet the criteria for diagnosis of diabetes. In the absence of unequivocal hyperglycemia, results should be confirmed by repeat testing. In a patient with classic symptoms of hyperglycemia or hyperglycemic crisis, random plasma glucose results greater than or equal to 200 mg/dL meet the criteria for diagnosis of diabetes. Reference: Standards of Medical Care in Diabetes 2016, [place] Diabetes Association. Diabetes Care. 2016.39(Suppl 1). Performed By: #### 2 4323-8, 32274-3 #### [facility] CLIA [id number] [address] [place] [address] [place] Potassium [Moles/Vol] 4.3 mmol/L Normal 3.7-5.1 [facility] Comment on above: Order Comment: Speci men Type: BLOOD SPECIMEN Ordering Facility: [facility] Address: [address] [place] [address] Performed By: #### 2 4323-8, 49659-4 #### [facility] CLIA [id number] [address] [place] [address] [place] Protein [Mass/Vol] 6.7 g/dL Normal 6.3-8.0 [facility] Comment on above: Order Comment: Speci men Type: BLOOD SPECIMEN Ordering Facility: [facility] Address: [address] [place] [address] Performed By: #### 2 4323-8, 65358-8 #### [facility] CLIA [id number] [address] [place] [address] [place] Sodium [Moles/Vol] 143 mmol/L Normal 136-144 [facility] Comment on above: Order Comment: Speci men Type: BLOOD SPECIMEN Ordering Facility: [facility] Address: [address] [place] [address] Performed By: #### 2 4323-8, 03619-2 #### [facility] CLIA [id number] [address] [place] [id number] [place] Urea nitrogen [Mass/Vol] 14 mg/dL Normal 9-24 [facility] Comment on above: Order Comment: Speci men Type: BLOOD SPECIMEN Ordering Facility: [facility] Address: [address] [place] [address] Performed By: #### 2 4323-8, 02734-3 #### [facility] CLIA [id number] [address] [place], [place] [address] [place] Lipid 1996 panelon 5 Cholesterol [Mass/Vol] 107 mg/dL Normal <200 [facility] Comment on above: Order Comment: Speci men Type: BLOOD SPECIMEN Ordering Facility: [facility] Address: [address] [place] [address] Result Comment: <200 mg/dL, Desirable 200-239 mg/dL, Borderline high >239 mg/dL, High Performed By: #### 2 4323-8, 70918-5 #### [facility] CLIA [id number] [address] [place] [address] [place] Cholesterol in HDL [Mass/Vol] 44 mg/dL Normal >39 [facility] Comment on above: Order Comment: Speci men Type: BLOOD SPECIMEN Ordering Facility: [facility] Address: [address] [place] [address] Result Comment: 40-5 9 mg/dL, Acceptable >59 mg/dL, High: Negative risk factor for coronary heart disease <40 mg/dL, Low: Positive risk factor for coronary heart disease Performed By: #### 2 4323-8, 92662-7 #### [facility] CLIA [id number] [address] [place], [place] [address] [place] Cholesterol in LDL [Mass/Vol] 51 mg/dL Normal <100 [facility] Comment on above: Order Comment: Speci men Type: BLOOD SPECIMEN Ordering Facility: [facility] Address: [address] [place] [address] Result Comment: <100 mg/dL, Optimal 100-129 mg/dL, Near optimal/above optimal 130-159 mg/dL, Borderline high 160-189 mg/dL, High >189 mg/dL, Very high Secondary prevention optimal LDL Cholesterol levels are recommended to be <70 mg/dL LDL cholesterol is calculated using the Guzman-NIH equation. Performed By: #### 2 4323-8, 80091-0 #### [facility] CLIA [id number] [address] [place] [address] [place] Cholesterol in LDL/Cholesterol in HDL [Mass ratio] 1.16 {ratio} Normal <2.54 [facility] Comment on above: Order Comment: Parth mcneil Type: BLOOD SPECIMEN Ordering Facility: [facility] Address: [address] [place] [address] Result Comment: Refe rence: 1. National Cholesterol Education Program ATP III Guideline At-A-Glance Quick Desk Reference: National Heart, Lung, and Blood Sullivan. National Institutes of Health. 2001: NIH Publication No. 01-3305. 2. An International Atherosclerosis Society position paper: global recommendations for the management of dyslipidemia: executive summary, Atherosclerosis. 2014: 232(2):410-413. Performed By: #### 2 4323-8, #### [facility] CLIA [id number] [address] [place] [address] [place] Cholesterol in VLDL [Mass/Vol] 7 mg/dL Normal <30 [facility] Comment on above: Order Comment: Parth mcneil Type: BLOOD SPECIMEN Ordering Facility: [facility] Address: [address] [place] [address] Performed By: #### 2 4323-8, #### [facility] CLIA [id number] [address] [place] [address] [place] Cholesterol non HDL [Mass/Vol] 63 mg/dL Normal <130 [facility] Comment on above: Order Comment: Parth mcneil Type: BLOOD SPECIMEN Ordering Facility: [facility] Address: [address] [place] [address] Result Comment: <130 mg/dL, Optimal 130-159 mg/dL, Near optimal/above optimal 160-189 mg/dL, Borderline high 190-219 mg/dL, High >219 mg/dL, Very high Secondary prevention optimal non HDL Cholesterol levels are recommended to be <100 mg/dL Performed By: #### 2 4323-8, 78000-7 #### [facility] CLIA [id number] [address] [place] [address] [place] [facility] Cholesterol.total/ Cholesterol in HDL [Mass ratio] 2.43 {ratio} Normal <5.10 [facility] Comment on above: Order Comment: Speci men Type: BLOOD SPECIMEN Ordering Facility: [facility] Address: [address] [place] [address] Performed By: #### 2 4323-8, 69720-6 #### [facility] CLIA [id number] [address] [place] [address] FASTING TIME 12 hrs Normal [facility] Comment on above: Order Comment: Speci men Type: BLOOD SPECIMEN Ordering Facility: [facility] Address: [address] [place] [address] Performed By: #### 2 4323-8, 92920-4 #### [facility] CLIA [id number] [address] [place] [address] [place] Triglyceride [Mass/Vol] 52 mg/dL Normal <150 [facility] Comment on above: Order Comment: Speci men Type: BLOOD SPECIMEN Ordering Facility: [facility] Address: [address] [place] [address] Result Comment: <150 mg/dL, Normal 150-199 mg/dL, Borderline high 200-499 mg/dL, High >499 mg/dL, Very high Performed By: #### 2 4323-8, 70241-0 #### [facility] CLIA [id number] [address] [place] [address] [place] Pulmonary Visit Reporton Pulmonary Visit Report [facility] [address] [place] [address] OFFICE VISIT Date of Service: 03/08/25 MR#: [id number] Acct: [id number] Name: HAFSA DUMAS Rep #: [id number] : 1940 Provider: CARISSA Acuna Age/Sex: 85/M [facility] Status: Signed Assessment and Plan Assessment and Plan (1) MARTA (obstructive sleep apnea): Status: Chronic Comment: AHI 44 Plan: He is using and benefiting from Pap therapy. No indication for titration study at this time. Contact the office for any new or worsening symptoms in the meantime. Follow-up in 1 year. He confirms that he will contact the office if he has any new or worsening symptoms in the meantime. (2) Paroxysmal supraventricular tachycardia: Status: Chronic Plan: Complicates exam, plan, care and prognosis. Today he seems to be in sinus rhythm. It is imperative that we continue optimal control of his obstructive sleep apnea to help keep him in sinus rhythm. (3) Restless leg: Status: Chronic Plan: He is having more restless legs symptoms, and more in the day. This could be related to an interaction between the ropinirole and Tylenol. However, the patient states I really have to take that Tylenol I can take ibuprofen because of my heart. I suggested referring him to a neurologist. After a lengthy discussion, he doesn't feel like it is bothersome enough to see a specialist. He will call the office if he changes his mind. At this time, we will continue current dose of Ropinirole. Plan Details Additional Comments: This note was generated with [employer] dictation software. It may contain incorrect words, spelling, and punctuation that were not noted in checking the note before signing. Follow Up: 1 Year HPI HPI Comments Details: This patient presents to the office today for routine follow-up of his obstructive sleep apnea with restless leg syndrome. He is ambulatory and currently on room air. He has not recently been seen in the ED or urgent care for any respiratory illness. He has not required any antibiotics or prednisone for any breathing problems. He denies any difficulty with shortness of breath. He denies any wheezing, chest tightness, chest pain or palpitations. He has not had any cough, sputum production or hemoptysis. He denies any fever, chills or body aches. He reports excellent compliance with his PAP device. He wakes up feeling rested and refreshed. He reports that he has responded well to ropinirole for his restless leg syndrome. He is not requiring naps. He is not having excessive nocturia. He has noticed an increase in restless legs. He admits that it is helpful if he takes his ropinirole 1/2 hours before bedtime. However, sometimes in the afternoon he is symptomatic. He does take Tylenol for arthritic pain. He would like to know if it would be possible to take ropinirole more frequently or be switched to an alternative medication to control his symptoms. Compliance report for the past 30 days shows 100% compliance and average use of 8 hours and 6 minutes per night. Current setting is CPAP 9 cmH2O with residual AHI 1.3 events per hour. Leaks do not appear to be problematic. Intake Vital Signs 03/09/24 07:59 03/08/25 07:52 Height 5 ft 10 in 5 ft 9 in Weight: 189 lb BMI 27.8 BP 103/66 Blood Pressure Location Rt brachial Position Sitting Respiration 18 Pulse 56 L Pulse Source Monitor Temp 97.2 F L Temperature Source Temporal Artery Pulse Oximetry (%) 97 Oxygen Delivery Method room air Intake Visit Reasons: 1 Y FU Chief Complaint: ST, drainage, BA Cutter Barrel Drum Required: No DME Vendor: [facility] Accompanied by: Self Allergies adhesive tape Allergy (Severe, Verified 03/08/25 10:15) Swelling iodine Allergy (Verified 03/08/25 10:15) Unknown amiodarone Adverse Reaction (Verified 03/08/25 10:15) Unknown latex Adverse Reaction (Verified 03/08/25 10:15) Unknown Medications ???Medication ???Instructions ???Recorded ???Confirmed ???Type omeprazole 40 mg capsule,delayed 40 mg PO DAILY 09/19/22 03/08/25 H istory release cholecalciferol (vitamin D3) 50 50 mcg PO DAILY 06/25/23 03/08/25 History mcg (2,000 unit) capsule multivitamin 1 tab PO DAILY 06/25/23 03/08/25 H istory metoprolol succinate 50 mg 50 mg PO BID #180 tabs 08/03/24 Rx tablet,extended release 24 hr acetaminophen 650 mg 1,300 mg PO Q12H PRN pain 09/21/24 03/08/25 History tablet,extended release (8 Hour Pain Reliever) fluticasone propionate 50 1 spray intranasal DAILY 09/21/24 03/08/25 History mcg/actuation nasal spray,suspension (24 Hour Allergy Relief) ropinirole 1 mg tablet 1 mg PO QHS #90 tabs 10/10/24 0602/05 Rx atorvastatin 20 mg tablet 20 mg PO QDAY 100 days (more content not included)... Normal [facility] Cardiology Visit Reporton Cardiology Visit Report [facility] [address] [place] [address] OFFICE VISIT Date of Service: 01/10/25 MR#: [id number] Acct: [id number] Name: HAFSA DUMAS Rep #: [id number] : 1940 Provider: MONTSE Álvarez Age/Sex: 84/M Location: [facility] Status: Signed HPI HPI History of Present Illness Details: HAFSA DUMAS, is a 84M who presents to the office today for a follow-up visit.He was last in the office in 07/2021. He is a gentleman with a history of mild coronary artery disease ,atrial fibrillation status post ablation in 2007, 2008, and 2009. At his last visit he was noted to be in persistent atrial fibrillation flutter which was also documented on a Holter monitor in August 2019. An echocardiogram performed in May 2019 demonstrated an ejection fraction of 55% his aortic root was mildly dilated at 4.3 cm. He was not interested in pursuing a repeat ablation at that time and medical therapy and rate control was recommended. He did undergo a cardioversion 05/2020 unfortunately he did not maintain SR. It was opted for medical management. He did undergo prostrate surgery without issues. He is having issues with his back. He is planning on talking to his PCP. Since August he has had COVID x 2 in addition to his prostrate surgery. From a cardiac standpoint, patient is doing well. He does not have any chest discomfort/heaviness/tightness. He does not have any worsening symptoms of shortness of breath. He denies any PND. He does not have any orthopnea. He does not have any symptoms of congestive heart failure. He does not have any palpitations that he is aware of. He does not have any lightheadedness or dizziness. He does not have any near-syncope or syncope. He does not have any lower extremity edema. He does not have any symptoms of claudication. Intake Vital Signs 07/12/24 08:06 01/10/25 07:11 Height 5 ft 10 in 5 ft 9 in Weight: 191 lb BMI 28.2 BP 101/69 Blood Pressure Location Lt brachial Position Sitting Respiration 14 Pulse 84 Pulse Source Monitor Pulse Oximetry (%) 93 Oxygen Delivery Method room air Intake Visit Reasons: 6 M FU Cutter Barrel Drum Required: No Accompanied by: Self Is patient in pain?: Yes (Generalized joint) Pain scale (1-10): 5 Allergies adhesive tape Allergy (Severe, Verified 01/10/25 10:36) Swelling iodine Allergy (Verified 01/10/25 10:36) Unknown amiodarone Adverse Reaction (Verified 01/10/25 10:36) Unknown latex Adverse Reaction (Verified 01/10/25 10:36) Unknown Medications ???Medication ???Instructions ???Recorded ???Confirmed ???Type omeprazole 40 mg capsule,delayed 40 mg PO DAILY 09/19/22 01/10/25 H istory release cholecalciferol (vitamin D3) 50 50 mcg PO DAILY 06/25/23 01/10/25 History mcg (2,000 unit) capsule multivitamin 1 tab PO DAILY 06/25/23 01/10/25 H istory apixaban 5 mg tablet 5 mg PO BID #180 tabs 01/04/24 Rx metoprolol succinate 50 mg 50 mg PO BID #180 tabs 08/03/24 Rx tablet,extended release 24 hr acetaminophen 650 mg 1,300 mg PO Q12H PRN pain 09/21/24 01/10/25 History tablet,extended release (8 Hour Pain Reliever) fluticasone propionate 50 1 spray intranasal DAILY 09/21/24 01/10/25 History mcg/actuation nasal spray,suspension (24 Hour Allergy Relief) ropinirole 1 mg tablet 1 mg PO QHS #90 tabs 10/10/2412/14 Rx atorvastatin 20 mg tablet 20 mg PO QDAY 100 days #90 tabs 01/10/25 Rx Ejection fraction %: 55 Have you fallen in the past year?: No PFSH Medical History Sore throat Hemorrhoids Wears glasses Wears partial dentures Alcohol use Prostate disease Arthritis GERD (gastroesophageal reflux disease) Leg cramps CPAP (continuous positive airway pressure) dependence Sleep apnea Former smoker History of echocardiogram Cardiology follow-up encounter History of atrial fibrillation Bacterial sinusitis Tachycardia Restless leg MARTA (obstructive sleep apnea) Atypical atrial flutter Paroxysmal supraventricular tachycardia Barotrauma BPH (benign prostatic hyperplasia) Aortic root dilation Non-rheumatic tricuspid valve insufficiency Nonrheumatic aortic valve insufficiency HLD (hyperlipidemia) Essential (primary) hypertension Surgical History (Updated 01/10/25 @ 10:38 by Isatu Lerma) History of prostate surgery History of cataract extraction with lens replacement History of colonoscopy History of anal fistulotomy ( 2013) History of right knee surgery (03/2018) History of cardioversion (05/15/20) History of left heart catheterization (04/17/08) History of tonsillectomy H/O cardiac radiofrequency ablation (06/10/10) Family History (Reviewed 04 (more content not included)... [facility] HAFSA DUMAS ([id number]) 1940 M Date Time Provider Department 12/15/24 8:40 AM LILLIANA CHATTERJEE During your visit today, we recorded the following information about you: Pulse Respiration Blood pressure Weight 120/minute 18/minute 118/78 85.4 kg Lilliana Chatterjee MD 12/15/2024 9:07 AM Signed Chief Complaint Patient presents with: F/U 6 Month HPI Hafsa Dumas is a 84 year old male who presents here today for 6 month follow up. Pt here for a 6 month follow up and review labs. Had Covid in Sep 2024 and November 2024. No bowel or Gi issues. Had Prostate surgery in September, no longer taking Flomax. Follows with Dr. Galeas, [facility] Urologist. GERD: Sx controlled with Prilosec 40 mg daily. Arthritis: in left knee and back. Does exercise for the knee daily which help. 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 Uses Tylenol, heat, ice prn. Was treated with Mobic, but pt d/c due to having issues with Mobic affecting afib. HTN/A-fib: Reports he's concerned about his afib, Cardiology is managing and doubled up on his Lopressor. Still running over 100 on his pulse. Hx of 3 cardioablations and 1 cardioversion. Wondering if he should get a second opinion. Follows with [facility] who prescribes Eliquis 5 mg BID, Lipitor 20 mg daily and Lopressor 50 mg 1 pill BID. Checks BP at home reports readings doing good and not so good. BP ranging in the 120/80's. No chest pains, dizziness, or SOB. Pt feels that since having Covid it's messed with his heart and electrical system. Notes some type of feeling in his chest like electrical type sensation, and gas pain. Lipid - Tries to watch his diet, eating 3 meals daily, avoiding sweets. Exercises 30-40 minutes and does stretches. Currently taking Lipitor 20 mg once daily. MARTA/RLS: Follows with [facility] Sleep Specialist for Requip and MARTA and RLS. Notes when he had Covid he had difficulty with sleep events, having 18 events per night. Anything above 5 is not good. He did talk to his Sleep Provider, who advised him that this was related to his Covid. Past medical history, appointments, medications, allergies reviewed. 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 Hypertrophy of prostate without urinary obstruction and other lower urinary tract symptoms (LUTS) Mitral valve prolapse MARTA on CPAP Dr Rodriguez Seborrheic dermatitis scalp THORACIC AORTIC ANEURYSM Unspecified essential hypertension Unspecified hemorrhoids without mention of complication Hemorrhoids Previous Surgical History PAST SURGICAL HISTORY Procedure Laterality Date BLOOD TRANSFUSION 2009 CARDIAC CATH 06/1996, 06/2008 MVP, normal coronaries COLONOSCOPY FLX DX W/COLLJ SPEC WHEN PFRMD 03/2004 Colonoscopy-repeat in COLONOSCOPY FLX DX W/COLLJ SPEC WHEN PFRMD 12/08/2011 Normal repeat 10 years ELECTROPHYSIOLOGY STUDY 03/13/2009 pulmonary vein isolation for afib ELECTROPHYSIOLOGY STUDY 06/10/2010 ablation for aflutter ELECTROPHYSIOLOGY STUDY 04/2008 AV node ablation IANDD DEEP ABSC BURSA/HEMATOMA THIGH/KNEE REGION Right 02/26/2018 IANDD right knee and application of wound vac PAST SURGICAL HISTORY OF 1960 Fractured jaw, wires placed PAST SURGICAL HISTORY OF Right 02/26/2018 Debridement of tissue, R knee by Dr. Martines PAST SURGICAL HISTORY OF 10/05/2024 had 1/3 of prostate removed by Dr. Galeas SPHINCTEROTOMY ANAL DIVISION SPHINCTER SPX 12/09/2011 and hemorrhoidectomy TONSILLECTOMY HX Family History FAMILY HISTORY Problem Relation Age of Onset Heart Mother Heart Father Cancer Sister ovarian cancer Cancer Sister lung cancer Colon Cancer Brother colon at 59 Diabetes Sister Heart Sister aortic aneurysm? Patient Allergies ALLERGIES Allergen Reactions Adhesive Tape (Sharla* Amiodarone Other: See Comments Caused Thyroid problem Iodine Hives Latex Current Medications Current Outpatient Medications on File Prior to Visit Medication Sig meloxicam (MOBIC) 15 mg tablet Take 1 tablet by mouth once daily. With food. omeprazole (PRILOSEC) 40 mg capsule Take 1 capsule by mouth once daily. tamsulosin (FLOMAX) 0.4 mg Take 2 capsules by mouth daily at bedtime. Cholecalciferol, Vitamin D3, 50 mcg (2,000 unit) cap Take 1 capsule by mouth once daily. multivitamin tablet Take 1 tablet by mouth once daily. CPAP Initiate CPAP Pluss @ 9 cm of water with humidification. Mask (per patient preference) optional chin strap (if indicated) , filters, tubing, humidi (more content not included)... Normal [facility] CBC panel Auto (Bld)on 12-09 Erythrocyte distribution width (RBC) [Ratio] 13.4 % Normal 11.5-15.0 [facility] Comment on above: Order Comment: Speci men Type: BLOOD SPECIMEN Ordering Facility: [facility] Address: [address] [place] [address] Performed By: #### 5 8410-2 #### [facility] CLIA [id number] [address] [place] [address] [place] Hematocrit (Bld) [Volume fraction] 41.5 % Normal 39.0-51.0 [facility] Comment on above: Order Comment: Speci men Type: BLOOD SPECIMEN Ordering Facility: [facility] Address: [address] [place] [address] Performed By: #### 5 8410-2 #### [facility] CLIA [id number] [address] [place] [address] [place] Hemoglobin (Bld) [Mass/Vol] 13.5 g/dL Normal 13.0-17.0 [facility] Comment on above: Order Comment: Speci men Type: BLOOD SPECIMEN Ordering Facility: [facility] Address: [address] [place] [address] Performed By: #### 5 8410-2 #### [facility] CLIA [id number] [address] [place] [address] [place] MCH (RBC) [Entitic mass] 30.8 pg Normal 26.0-34.0 [facility] Comment on above: Order Comment: Speci men Type: BLOOD SPECIMEN Ordering Facility: [facility] Address: [address] [place] [address] Performed By: #### 5 8410-2 #### [facility] CLIA [id number] [address] [place] [address] [place] MCHC (RBC) [Mass/Vol] 32.5 g/dL Normal 30.5-36.0 [facility] Comment on above: Order Comment: Speci men Type: BLOOD SPECIMEN Ordering Facility: [facility] Address: [address] [place] [address] Performed By: #### 5 8410-2 #### [facility] CLIA [id number] [address] [place] [address] [place] MCV (RBC) [Entitic vol] 94.7 fL Normal 80.0-100.0 [facility] Comment on above: Order Comment: Speci men Type: BLOOD SPECIMEN Ordering Facility: [facility] Address: [address] [place] [address] Performed By: #### 5 8410-2 #### [facility] CLIA [id number] [address] [place] [address] [place] Nucleated RBC (Bld) [#/Vol] 10*3/uL Normal <0.01 [facility] Comment on above: Order Comment: Speci men Type: BLOOD SPECIMEN Ordering Facility: [facility] Address: [address] [place] [address] Performed By: #### 5 8410-2 #### [facility] CLIA [id number] [address] [place] [address] [place] Platelet mean volume (Bld) [Entitic vol] 9.5 fL Normal 9.0-12.7 [facility] Comment on above: Order Comment: Speci men Type: BLOOD SPECIMEN Ordering Facility: [facility] Address: [address] [place] [address] Performed By: #### 5 8410-2 #### [facility] CLIA [id number] [address] [place] [address] [place] Platelets (Bld) [#/Vol] 294 10*3/uL Normal 150-400 [facility] Comment on above: Order Comment: Speci men Type: BLOOD SPECIMEN Ordering Facility: [facility] Address: [address] [place] [address] Performed By: #### 5 8410-2 #### [facility] CLIA [id number] [address] [place] [address] [place] RBC (Bld) [#/Vol] 4.38 10*6/uL Normal 4.20-6.[address] [facility] Comment on above: Order Comment: Speci men Type: BLOOD SPECIMEN Ordering Facility: [facility] Address: [address] [place] [address] Performed By: #### 5 8410-2 #### [facility] CLIA [id number] [address] [place] [address] [place] WBC (Bld) [#/Vol] 5.10 10*3/uL Normal 3.70-11.[address] [facility] Comment on above: Order Comment: Speci men Type: BLOOD SPECIMEN Ordering Facility: [facility] Address: [address] [place] [address] Performed By: #### 5 8410-2 #### [facility] CLIA [id number] [address] [place] [address] [place] Comprehensive metabolic 2000 panelon 12-09-2024 Albumin [Mass/Vol] 3.8 g/dL Low 3.9-4.9 [facility] Comment on above: Order Comment: Speci men Type: BLOOD SPECIMEN Ordering Facility: [facility] Address: [address] [place] [address] Performed By: #### 2 4323-8, 26364-9 #### [facility] CLIA [id number] [address] [place] [address] [place] ALP [Catalytic activity/Vol] 103 U/L Normal 38-113 [facility] Comment on above: Order Comment: Speci men Type: BLOOD SPECIMEN Ordering Facility: [facility] Address: [address] [place] [address] Performed By: #### 2 4323-8, 14368-5 #### [facility] CLIA [id number] [address] [place] [address] [place] [address] [place] ALT [Catalytic activity/Vol] 29 U/L Normal 10-54 [facility] Comment on above: Order Comment: Speci men Type: BLOOD SPECIMEN Ordering Facility: [facility] Address: [address] [place] [address] Performed By: #### 2 4323-8, 73228-1 #### [facility] CLIA [id number] [address] [place], [place] [address] [place] Anion gap [Moles/Vol] 11 mmol/L Normal 8-15 [facility] Comment on above: Order Comment: Speci men Type: BLOOD SPECIMEN Ordering Facility: [facility] Address: [address] [place] [address] Performed By: #### 2 4323-8, 49405-9 #### [facility] CLIA [id number] [address] [place] [address] [place] AST [Catalytic activity/Vol] 35 U/L Normal 14-40 [facility] Comment on above: Order Comment: Speci men Type: BLOOD SPECIMEN Ordering Facility: [facility] Address: [address] [place], [place] [address] Performed By: #### 2 4323-8, 33267-3 #### [facility] CLIA [id number] [address] [place], [place] [address] [place] Bilirubin [Mass/Vol] 0.8 mg/dL Normal 0.2-1.3 [facility] Comment on above: Order Comment: Speci men Type: BLOOD SPECIMEN Ordering Facility: [facility] Address: [address] [place], [place] [address] Performed By: #### 2 4323-8, 41607-3 #### [facility] CLIA [id number] [address] [place], [place] [address] [place] Calcium [Mass/Vol] 9.0 mg/dL Normal 8.5-10.2 [facility] Comment on above: Order Comment: Speci men Type: BLOOD SPECIMEN Ordering Facility: [facility] Address: [address] [place] [address] Performed By: #### 2 4323-8, 17995-7 #### [facility] CLIA [id number] [address] [place] [address] [place] Chloride [Moles/Vol] 105 mmol/L Normal 98-107 [facility] Comment on above: Order Comment: Speci men Type: BLOOD SPECIMEN Ordering Facility: [facility] Address: [address] [place] [address] Performed By: #### 2 4323-8, 39224-1 #### [facility] CLIA [id number] [address] [place] [address] [place] CO2 [Moles/Vol] 26 mmol/L Normal 22-30 [facility] Comment on above: Order Comment: Speci men Type: BLOOD SPECIMEN Ordering Facility: [facility] Address: [address] [place] [address] Performed By: #### 2 4323-8, 00205-1 #### [facility] CLIA [id number] [address] [place] [address] [place] Creatinine [Mass/Vol] 0.94 mg/dL Normal 0.73-1.22 [facility] Comment on above: Order Comment: Speci men Type: BLOOD SPECIMEN Ordering Facility: [facility] Address: [address] [place] [address] Performed By: #### 2 4323-8, 63483-7 #### [facility] CLIA [id number] [address] [place] [address] [place] Creatinine and Glomerular filtration rate.predicted panel (S/P/Bld) 80 mL/min/1.73m??? Normal >=60 [facility] Comment on above: Order Comment: Speci men Type: BLOOD SPECIMEN Ordering Facility: [facility] Address: [address] [place] [address] Result Comment: Helen mated Glomerular Filtration Rate (eGFR) is calculated using the 2020 CKD-EPI creatinine equation. This equation utilizes serum creatinine, sex, and age as parameters. The creatinine assay has traceable calibration to isotope dilution-mass spectrometry. Refer to KDIGO guidelines for clinical interpretation. In patients with unstable renal function, e.g. those with acute kidney injury, the eGFR may not accurately reflect actual GFR. Performed By: #### 2 4323-8, 13972-3 #### [facility] CLIA [id number] [address] [place] [address] [place] Glucose [Mass/Vol] 87 mg/dL Normal 74-99 [facility] Comment on above: Order Comment: Parth mcneil Type: BLOOD SPECIMEN Ordering Facility: [facility] Address: [address] [place] [address] Result Comment: The [place] Diabetes Association (ADA) provides guidance for cutoff values for fasting glucose and random glucose. The ADA defines fasting as no caloric intake for at least 8 hours. Fasting plasma glucose results between 100 to 125 mg/dL indicate increased risk for diabetes (prediabetes). Fasting plasma glucose results greater than or equal to 126 mg/dL meet the criteria for diagnosis of diabetes. In the absence of unequivocal hyperglycemia, results should be confirmed by repeat testing. In a patient with classic symptoms of hyperglycemia or hyperglycemic crisis, random plasma glucose results greater than or equal to 200 mg/dL meet the criteria for diagnosis of diabetes. Reference: Standards of Medical Care in Diabetes 2016, [place] Diabetes Association. Diabetes Care. 2016.39(Suppl 1). Performed By: #### 2 4323-8, 96425-6 #### [facility] CLIA [id number] [address] [place] [address] [place] Potassium [Moles/Vol] 4.1 mmol/L Normal 3.7-5.1 [facility] Comment on above: Order Comment: aPrth mcneil Type: BLOOD SPECIMEN Ordering Facility: [facility] Address: [address] [place] [address] Performed By: #### 2 4323-8, 25916-4 #### [facility] CLIA [id number] [address] [place] [address] [place] Protein [Mass/Vol] 6.6 g/dL Normal 6.3-8.0 [facility] Comment on above: Order Comment: Speci men Type: BLOOD SPECIMEN Ordering Facility: [facility] Address: [address] [place] [address] Performed By: #### 2 4323-8, 37677-8 #### [facility] CLIA [id number] [address] [place] [address] [place] Sodium [Moles/Vol] 142 mmol/L Normal 136-144 [facility] Comment on above: Order Comment: Speci men Type: BLOOD SPECIMEN Ordering Facility: [facility] Address: [address] [place] [address] Performed By: #### 2 4323-8, 23690-7 #### [facility] CLIA [id number] [address] [place] [address] [place] Urea nitrogen [Mass/Vol] 18 mg/dL Normal 9-24 [facility] Comment on above: Order Comment: Speci men Type: BLOOD SPECIMEN Ordering Facility: [facility] Address: [address] [place] [address] Performed By: #### 2 4323-8, 12181-4 #### [facility] CLIA [id number] [address] [place] [address] [place] Lipid 1996 panelon 5 Cholesterol [Mass/Vol] 106 mg/dL Normal <200 [facility] Comment on above: Order Comment: Speci men Type: BLOOD SPECIMEN Ordering Facility: [facility] Address: [address] [place] [address] Result Comment: <200 mg/dL, Desirable 200-239 mg/dL, Borderline high >239 mg/dL, High Performed By: #### 2 4323-8, 89712-6 #### [facility] CLIA [id number] [address] Cholesterol in HDL [Mass/Vol] 37 mg/dL Low >39 [facility] Comment on above: Order Comment: Parth ewa Type: BLOOD SPECIMEN Ordering Facility: [facility] Address: [address] [place] [address] Result Comment: 40-5 9 mg/dL, Acceptable >59 mg/dL, High: Negative risk factor for coronary heart disease <40 mg/dL, Low: Positive risk factor for coronary heart disease Performed By: #### 2 4323-8, 94315-6 #### [facility] CLIA [id number] [address] [place] [address] OF [facility] Cholesterol in LDL [Mass/Vol] 54 mg/dL Normal <100 [facility] Comment on above: Order Comment: Parth mcneil Type: BLOOD SPECIMEN [facility] [facility] Address: [address] [place] [address] Result Comment: <100 mg/dL, Optimal 100-129 mg/dL, Near optimal/above optimal 130-159 mg/dL, Borderline high 160-189 mg/dL, High >189 mg/dL, Very high Secondary prevention optimal LDL Cholesterol levels are recommended to be < 70 mg/dL Performed By: #### 2 4323-8, 89999-5 #### [facility] CLIA [id number] [address] [place] [address] Cholesterol in LDL/Cholesterol in HDL [Mass ratio] 1.46 {ratio} Normal <2.54 [facility] Comment on above: Order Comment: Jaredjenny mcneil Type: BLOOD SPECIMEN [facility]ing Facility: [facility] Address: [address] [place] [address] Result Comment: Renny salazar: 1. National Cholesterol Education Program ATP III Guideline At-A-Glance Quick Desk Reference: National Heart, Lung, and Blood Sullivan. National Institutes of Health. 2001: NIH Publication No. 01-3305. 2. An International Atherosclerosis Society position paper: global recommendations for the management of dyslipidemia: executive summary, Atherosclerosis. 2014: 232(2):410-413. Performed By: #### 2 4323-8, 79313-6 #### [facility] CLIA [id number] [address] [place] [address] [place] Cholesterol in VLDL [Mass/Vol] 15 mg/dL Normal <30 [facility] Comment on above: Order Comment: Speci men Type: BLOOD SPECIMEN Ordering Facility: [facility] Address: [address] [place] [address] Performed By: #### 2 4323-8, 36844-4 #### [facility] CLIA [id number] [address] [place] [address] [place] Cholesterol non HDL [Mass/Vol] 69 mg/dL Normal <130 [facility] Comment on above: Order Comment: Speci men Type: BLOOD SPECIMEN Ordering Facility: [facility] Address: [address] [place] [address] Result Comment: <130 mg/dL, Optimal 130-159 mg/dL, Near optimal/above optimal 160-189 mg/dL, Borderline high 190-219 mg/dL, High >219 mg/dL, Very high Secondary prevention optimal non HDL Cholesterol levels are recommended to be <100 mg/dL Performed By: #### 2 4323-8, 45939-6 #### [facility] CLIA [id number] [address] [place] [address] [place] Cholesterol.total/ Cholesterol in HDL [Mass ratio] 2.86 {ratio} Normal <5.10 [facility] Comment on above: Order Comment: Speci men Type: BLOOD SPECIMEN Order[facility] Facility: [facility] Address: [address] [place] [address] Performed By: #### 2 4323-8, 46863-8 #### [facility] CLIA [id number] [address] [place] [address] [place] FASTING TIME 12 hrs Normal [facility] Comment on above: Order Comment: Speci men Type: BLOOD SPECIMEN [facility] Address: [address] [place] [address] Performed By: #### 2 4323-8, 98819-6 #### [facility] CLIA [id number] [address] [place] [address] [place] Triglyceride [Mass/Vol] 73 mg/dL Normal <150 [facility] Comment on above: Order Comment: Speci men Type: BLOOD SPECIMEN [facility] Address: [address] [place] [address] Result Comment: <150 mg/dL, Normal 150-199 mg/dL, Borderline high 200-499 mg/dL, High >499 mg/dL, Very high Performed By: #### 2 4323-8, 80701-8 #### [facility] CLIA [id number] [address] [place] [address] [place] CNOVon 11-25-2024 CNOV Office Visit (FAMPWS ) ALESIAHAFSA Orlando ([id number]) 1940 M Date Time Provider Department 11/25/24 10:00 AM [facility] During your visit today, we recorded the following information about you: Temperature Pulse Respiration Blood pressure 97.8 degrees 102/minute 16/minute 126/74 Weight 87.2 kg Lilliana Chatterjee MD 11/25/2024 11:19 AM Signed Chief Complaint Patient presents with: Cough: Continued from when he was in [facility] for + covid HPI Hafsa Dumas is a 84 year old male who presents here today for an acute visit. Pt here today with c/o continued cough. He stated this all started 09/12 when he took a home covid test that was positive, went to [facility] who told him it was too late to tx with paxlovid and gave him Amoxicillin. He improved 21 days later. He stated that on he started getting ill again. Went back to [facility] and stated he was swabbed to see if he had virus or bacterial infection. Told he had a virus, cold and no tx needed. He went to 11/21/24 and was swabbed for covid which came back positive. Pt states that the coughing spells are worse when laying down. He states that when he coughs his head, ears, back will hurt. He states that he is starting to get some brain fog. He states that today he was walking out the door and picked up phone instead of his phone. He is getting confused on his medications since being ill with Covid. He states he can not use the CPAP due to the constant coughing x 4 days. He states that was given Tessalon perles at and advised to continue the Mucinex. He feels that he needs something more to help the cough. He uses warm salt water to gargle which looses the phlegm and he can spit it out and it relieves it for a short time, he does this every time he wakes up coughing so he can get relief for about an hour and sleep. Has been taking Tylenol which helps until it wears off. He does nasal lavages. Concerned about pneumonia. He feels he is breathing ok. No CXR done. Feels his arthritis pain is worse since being ill. Using Tylenol. Dr. Galeas removed 1/3 of the prostate as it was pushing on the bladder on 10/05/24. That is doing well. Past medical history, appointments, medications, allergies reviewed. 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 Hypertrophy of prostate without urinary obstruction and other lower urinary tract symptoms (LUTS) Mitral valve prolapse MARTA on CPAP Dr Rodriguez Seborrheic dermatitis scalp THORACIC AORTIC ANEURYSM Unspecified essential hypertension Unspecified hemorrhoids without mention of complication Hemorrhoids Previous Surgical History PAST SURGICAL HISTORY Procedure Laterality Date BLOOD TRANSFUSION 2009 CARDIAC CATH 06/1996, 06/2008 MVP, normal coronaries COLONOSCOPY FLX DX W/COLLJ SPEC WHEN PFRMD 03/17 Colonoscopy-repeat in COLONOSCOPY FLX DX W/COLLJ SPEC WHEN PFRMD 12/08/11 Normal repeat 10 years ELECTROPHYSIOLOGY STUDY 03/13/09 pulmonary vein isolation for afib ELECTROPHYSIOLOGY STUDY 06/10/10 ablation for aflutter ELECTROPHYSIOLOGY STUDY 04/2008 AV node ablation IANDD DEEP ABSC BURSA/HEMATOMA THIGH/KNEE REGION Right 02/26/2018 IANDD right knee and application of wound vac PAST SURGICAL HISTORY OF 1961 Fractured jaw, wires placed PAST SURGICAL HISTORY OF Right 02/26/2018 Debridement of tissue, R knee by Dr. Martines SPHINCTEROTOMY ANAL DIVISION SPHINCTER SPX 12/09/11 and hemorrhoidectomy TONSILLECTOMY HX Family History FAMILY HISTORY Problem Relation Age of Onset Heart Mother Heart Father Cancer Sister ovarian cancer Cancer Sister lung cancer Colon Cancer Brother colon at 59 Diabetes Sister Heart Sister aortic aneurysm? Patient Allergies ALLERGIES Allergen Reactions Adhesive Tape (Sharla* Amiodarone Other: See Comments Caused Thyroid problem Iodine Hives Latex Current Medications Current Outpatient Medications on File Prior to Visit Medication Sig benzonatate (TESSALON PERLE) 100 mg capsule Take 1 capsule by mouth every 8 hours as needed for cough for up to 15 days. meloxicam (MOBIC) 15 mg tablet Take 1 tablet by mouth once daily. With food. omeprazole (PRILOSEC) 40 mg capsule Take 1 capsule by mouth once daily. tamsulosin (FLOMAX) 0.4 mg Take 2 capsules by mouth daily at bedtime. Cholecalciferol, Vitamin D3, 50 mcg (2,000 unit) cap Take 1 capsule by mouth once daily. multivitamin tablet Take 1 tablet by mouth once daily. CPAP Initiate CPAP Pluss @ 9 cm of water with humidification. Mask (per patient preference) optional (more content not included)... 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 Lungs and pleura: No consolidation. Mild reticular opacities in the perihilar regions of both lungs and lower lung zones, may represent peribronchial edema or nonspecific bronchial inflammation. No pleural effusion. No pneumothorax. Cardiomediastinal silhouette: The cardiomediastinal silhouette is mildly enlarged. Bones and soft tissues: Degenerative changes are present within the thoracic spine. IMPRESSION: Cardiomegaly. Prominent perihilar reticular markings may represent interstitial edema versus nonspecific airway inflammation. No focal consolidations. Respiratory Practitioner: PSCB Transcribe Date/Time: Nov 27 2024 11:03A Dictated by : MIKE VAZQUEZ MD This examination was interpreted and the report reviewed and electronically signed by: MIKE VAZQUEZ MD on Nov 27 2024 11:05AM EST [id number] Normal [facility] CNOVon 11-21-2024 CNOV Office Visit (UCWSTR ) HAFSA DUMAS ([id number]) 1940 M Date Time Provider Department 11/21/24 7:15 PM [facility] During your visit today, we recorded the following information about you: Temperature Pulse Respiration Blood pressure 97.9 degrees 103/minute 16/minute 110/78 Weight 88.9 kg Mark Mayes MD 11/21/2024 8:17 PM Signed [facility] Subjective Hafsa Dumas is a 84 year old male. Patient presents with: Sore Throat: ST x 1 week Patient presents with 7 days of sore throat and cough. He had a negative strep test at another Urgent Care 4 days ago. He continues to have phlegm in his throat inducing cough. It is disturbing his sleep. He had a similar prolonged condition in August (a couple COVID tests were positive then). He has been treating with delsym, salt water gargle, neti pot, and flonase. He has history of seasonal allergies which are usually not bad. He is also has exposure to outdoor birds at home. Sore Throat Associated symptoms include congestion and coughing. Pertinent negatives include no diarrhea, shortness of breath or vomiting. Review of Systems Constitutional: Negative for chills and fever. HENT: Positive for congestion, rhinorrhea, sore throat and voice change. Negative for sinus pressure. Respiratory: Positive for cough. Negative for chest tightness, shortness of breath and wheezing. Gastrointestinal: Negative for diarrhea, nausea and vomiting. Denies acid brash, pyrosis Objective BP 110/78 Pulse 103 Temp 36.6 ?C (97.9 ?F) (Tympanic) Resp 16 Wt 88.9 kg (195 lb 15.8 oz) SpO2 99% BMI 28.94 kg/m? Physical Exam Constitutional: General: He is not in acute distress. Appearance: He is not ill-appearing. HENT: Right Ear: Tympanic membrane normal. Left Ear: Tympanic membrane normal. Nose: No rhinorrhea. Mouth/Throat: Mouth: Mucous membranes are moist. Pharynx: No oropharyngeal exudate or posterior oropharyngeal erythema. Eyes: Extraocular Movements: Extraocular movements intact. Pupils: Pupils are equal, round, and reactive to light. Cardiovascular: Rate and Rhythm: Tachycardia present. Heart sounds: No murmur heard. Comments: Heart rate around 130 during my exam Pulmonary: Effort: No respiratory distress. Breath sounds: No wheezing, rhonchi or rales. Comments: Frequent coughing during visit Lymphadenopathy: Cervical: No cervical adenopathy. Neurological: Mental Status: He is alert. ASSESSMENT/PLAN: 1. Sore throat - ICD9: 462, ICD10: J02.9 (primary diagnosis) 2. Acute cough - ICD9: 786.2, ICD10: R05.1 Suspect acute viral illness. I explained he likely had COVID in August because he tested positive. - BENZONATATE 100 MG CAPSULE - COVID AND INFLUENZA A/B AND RSV PCR, ROUTINE He will also add mucinex to his current regimen. Follow up with ENT ([facility]eroy) if symptoms are not improving. He follows with cardiology for atrial fibrillation. Mark Mayes MD Allergies As of Date: 11/21/2024 Noted Allergy Reaction ADHESIVE TAPE (ROSINS) 08/04/2008 AMIODARONE 09/19/2011 14 - Other: See Comments Comments: Caused Thyroid problem IODINE 12/16/2005 4 - Hives LATEX 08/04/2008 Date Reviewed: 11/21/2024 Reviewed by: Annita Burks LPN - Fully Assessed Reason for Visit: Sore Throat [200] Cmt: ST x 1 week Primary Visit Diagnosis:Sore throat [J02.9] Other Visit Diagnosis:Acute cough [R05.1] Order(s):benzonatate (TESSALON PERLE) 100 mg capsuleTake 1 capsule by mouth every 8 hours as needed for cough for up to 15 days.Disp: 30 capsuleRfl: 0 COVID AND INFLUENZA A/B AND RSV PCR, ROUTINE [SQCVFLRS] Order #: [id number]. #:[id number] Prescriptions as of 11/21/2024 - benzonatate (TESSALON PERLE) 100 mg capsule Take 1 capsule by mouth every 8 hours as needed for cough for up to 15 days. - meloxicam (MOBIC) 15 mg tablet Take 1 tablet by mouth once daily. With food. - omeprazole (PRILOSEC) 40 mg capsule Take 1 capsule by mouth once daily. - tamsulosin (FLOMAX) 0.4 mg Take 2 capsules by mouth daily at bedtime. - Cholecalciferol, Vitamin D3, 50 mcg (2,000 unit) cap Take 1 capsule by mouth once daily. - multivitamin tablet Take 1 tablet by mouth once daily. - CPAP Initiate CPAP Pluss @ 9 cm of water with humidification. Mask (per patient preference) optional chin strap (if indicated) , filters, tubing, humidifier and lifetime supplies. - rOPINIRole (REQUIP) 1 mg tablet Take 1 mg by mouth daily at bedtime. - metoprolol tartrate, short acting, (LOPRESSOR) 50 mg tablet Take 1 tablet by mouth twice daily. - apixaban (ELIQUIS) 5 mg tab(s) Take 1 tablet by mouth twice daily. - fluticasone (FLONASE) 50 mcg/actuation nasal spray Using only short term 3 days when needed, due to reaction with medicine - sod chlor,sod bicarb/neti pot (SINUS WASH NETIPOT [employer] (more content not included)... Normal [facility] Rapid group A Streptococcus antigen assay at point of careOrdered By: Cuco Lundberg on 11-17-2024 S. pyogenes Ag IA.rapid Ql (Throat) Negative [facility] Visit Reporton 0 11-17-2024 Urgent Care Visit Report [facility] [address] , [address] [place] [address] OFFICE VISIT Date of Service: 11/17/24 MR#: [id number] Acct: [id number] Name: HAFSA DUMAS Rep #: [id number] : 1940 Provider: CARISSA Lundberg Age/Sex: 84/M Location: [facility] Status: Signed Intake Vital Signs 10/05/24 19:07 11/17/24 06:11 Height 5 ft 9 in BP 122/80 H Blood Pressure Location Lt brachial Position Sitting Respiration 15 Pulse 95 Pulse Source NIBP Temp 98.2 F Temp Source Oral Pulse Oximetry (%) 100 Oxygen Delivery Method room air Intake Visit Reasons: SORE THROAT Chief Complaint: ST, drainage, BA Cutter Barrel Drum Required: No Is patient in pain?: No Allergies adhesive tape Allergy (Severe, Verified 11/17/24 06:12) Swelling iodine Allergy (Verified 11/17/24 06:12) Unknown amiodarone Adverse Reaction (Verified 11/17/24 06:12) Unknown latex Adverse Reaction (Verified 11/17/24 06:12) Unknown Medications ???Medication ???Instructions ???Recorded ???Confirmed ???Type omeprazole 40 mg capsule,delayed 40 mg PO DAILY 09/19/22 10/05/24 H istory release cholecalciferol (vitamin D3) 50 50 mcg PO DAILY 06/25/23 10/05/24 History mcg (2,000 unit) capsule multivitamin 1 tab PO DAILY 06/25/23 10/05/24 H istory atorvastatin 20 mg tablet 20 mg PO QDAY 100 days #90 tabs 10/05/24 Rx apixaban 5 mg tablet 5 mg PO BID #180 tabs 01/04/24 Rx Held on 10/05/24. Instructions: Resume on 10/19/24. metoprolol succinate 50 mg 50 mg PO BID #180 tabs 08/03/24 Rx tablet,extended release 24 hr acetaminophen 650 mg 1,300 mg PO Q12H PRN pain 09/21/24 10/05/24 History tablet,extended release (8 Hour Pain Reliever) fluticasone propionate 50 1 spray intranasal DAILY 09/21/24 10/05/24 History mcg/actuation nasal spray,suspension (24 Hour Allergy Relief) ropinirole 1 mg tablet 1 mg PO QHS #90 tabs 10/10/24 Rx Have you fallen in the past year?: No Nurse's Note: ST, drainage, BA x 2 days. denies RICE, fever, cough, congestion. declines flu testing [facility] Medical History (Updated 11/17/24 @ 06:29 by Cuco Lundberg NP-C) Sore throat Hemorrhoids Wears glasses Wears partial dentures Alcohol use Prostate disease Arthritis GERD (gastroesophageal reflux disease) Leg cramps CPAP (continuous positive airway pressure) dependence Sleep apnea Former smoker History of echocardiogram Cardiology follow-up encounter History of atrial fibrillation Bacterial sinusitis Tachycardia Restless leg MARTA (obstructive sleep apnea) Atypical atrial flutter Paroxysmal supraventricular tachycardia Barotrauma BPH (benign prostatic hyperplasia) Aortic root dilation Non-rheumatic tricuspid valve insufficiency Nonrheumatic aortic valve insufficiency HLD (hyperlipidemia) Essential (primary) hypertension Surgical History History of cataract extraction with lens replacement History of colonoscopy History of anal fistulotomy ( 2013) History of right knee surgery (03/2018) History of cardioversion (05/15/20) History of left heart catheterization (04/17/08) History of tonsillectomy H/O cardiac radiofrequency ablation (06/10/10) Family History Sister A-fib Sister Cancer Mother Heart disease Father Myocardial infarction Other HLD (hyperlipidemia) Social History Smoking Status: Former smoker alcohol intake: current details: Occasionally HPI HPI Chief Complaint: ST, drainage, BA Details: HAFSA DUMAS, is a 84 M who presents to the office today for HPI: Patient presents today complaining of 2 days of throat irritation and nasal drainage. He notes that this morning his throat was more painful than the day before. Patient otherwise denies any fever cough body aches or chills. ROS: As noted in HPI Physical Exam: VITALS: Reviewed. GEN: Healthy appearing, well-developed, NAD. PSYCH: AOx3. Normal memory, mood, and affect. HEENT -Eyes: -No discharge or redness; -Ears: TMs normal bilaterally -Mouth and throat: Moist mucous membranes. No tonsillar swelling or erythema noted NECK: CV: Regular rate and rhythm LUNGS: Normal respiratory effort. Lungs clear bilaterally. SKIN: Warm, well perfused. No skin rashes or abnormal lesions noted. MSK: Normal gait. NEURO: Ambulating with no limitations. Normal muscle strength and tone. No focal deficits. Results Office Rapid Strep A Office Rapid Strep A Negative Last Edit by Nia Robin on 11/17/24 06:26 Coding Level of Care Code Off vis,est,level 3 Diagnoses Sore (more content not included)... Normal [facility] 10-10-2024 [facility] HAFSA DUMAS ([id number]) 1940 M Date Time Provider Department 10/10/24 LILLIANA CHATTERJEE During your visit today, we recorded the following information about you: Yeni Reddy LPN 10/10/2024 3:30 PM Signed Pt called to let you know he had the surgery done by Dr. Galeas on 10-05-24 they removed 1/3 of his prostrate because it was pushing on his bladder. Bx done and no cancer. Pt wore a catheter bag for 4 days and had this removed today. Pt doing well. Pt would like to know do you need to see him in follow up. Please advise pt. JOSEPH Mayen Mark D, MD 10/10/2024 3:52 PM Signed Thanks for the update; he can just follow up at his routine visit in December, I do not need to see him before that unless he has other issues. MD Master Pickens Rilee, MA 10/10/2024 5:07 PM Signed Call to pt and notified him of message below of Provider. Verbalized understanding. Paula Bui MA Allergies As of Date: 10/10/2024 Noted Allergy Reaction ADHESIVE TAPE (ROSINS) 08/04/2008 AMIODARONE 09/19/2011 14 - Other: See Comments Comments: Caused Thyroid problem IODINE 12/16/2005 4 - Hives LATEX 08/04/2008 Date Reviewed: 06/16/2024 Reviewed by: Jacklyn Bowers MA - Fully Assessed Reason for Visit: patient update/follow up apt? [Other] Prescriptions as of 10/10/2024 - meloxicam (MOBIC) 15 mg tablet Take 1 tablet by mouth once daily. With food. - omeprazole (PRILOSEC) 40 mg capsule Take 1 capsule by mouth once daily. - tamsulosin (FLOMAX) 0.4 mg Take 2 capsules by mouth daily at bedtime. - Cholecalciferol, Vitamin D3, 50 mcg (2,000 unit) cap Take 1 capsule by mouth once daily. - multivitamin tablet Take 1 tablet by mouth once daily. - CPAP Initiate CPAP Pluss @ 9 cm of water with humidification. Mask (per patient preference) optional chin strap (if indicated) , filters, tubing, humidifier and lifetime supplies. - rOPINIRole (REQUIP) 1 mg tablet Take 1 mg by mouth daily at bedtime. - metoprolol tartrate, short acting, (LOPRESSOR) 50 mg tablet Take 1 tablet by mouth twice daily. - apixaban (ELIQUIS) 5 mg tab(s) Take 1 tablet by mouth twice daily. - fluticasone (FLONASE) 50 mcg/actuation nasal spray Using only short term 3 days when needed, due to reaction with medicine - sod chlor,sod bicarb/neti pot (SINUS WASH NETIPOT NASAL) Use in the nose once daily. - atorvastatin calcium(LIPITOR 20 MG TAB) Take one(1) tablet daily. 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] 02/01/2008 01/24/2010 Thyrotoxicosis, Orig NEC w/o Crisis [E05.80] 02/24/2008 01/24/2010 Thoracic aneurysm without mention of rupture [I*06/15/2008 02/25/2018 Goiter, nontoxic, 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] 01/24/2010 Hyperlipidemia [E78.5] 01/24/2010 Atrial flutter (HCC) [I48.92] 04/26/2010 02/25/2018 MARTA treated with BiPAP [G47.33] Anxiety [F41.9] 05/17/2015 Mitral valve prolapse [I34.1] Carpal tunnel syndrome [G56.00] 11/03/2011 02/25/2018 History of hyperthyroidism [Z86.39] 11/03/2011 05/17/2015 Internal hemorrhoids without mention of complic*11/20/2011 05/17/2015 Family history of colon cancer [Z80.0] 11/26/2011 02/25/2018 Anal pain [K62.89] 12/03/2011 05/17/2015 External hemorrhoid [K64.4] 12/10/2011 05/17/2015 Anal fissure [K60.2] 12/10/2011 05/17/2015 Seborrheic dermatitis [L21.9] 05/17/2015 Asteatotic eczema [L30.8] 05/17/2015 Atypical nevus [D22.9] 07/15/2013 05/17/2015 Bursitis, prepatellar, right [M70.41] 02/24/2018 02/28/2022 Infrapatellar bursitis of right knee [M70.51] 02/24/2018 Benign prostatic hyperplasia with weak urinary *02/28/2021 Allergies [T78.40XA] 02/28/2021 02/28/2021 Environmental allergies [Z91.09] 02/28/2021 Restless legs [G25.81] 09/02/2021 Encounter Status:Closed by PAULA BUI on 10/10/24 Normal [facility] Basic Metabolic Profile (BMP )on 10-07-2024 BUN Normal 7-[address] [facility] Comment on above: Result Comment: Canc elled via OM: Order cancelled - Patient discharged Performed By: #### L 100.0100, L500.2500 #### [facility] [address] [place], [address] BUN/CRE Normal 10-[address] [facility] Comment on above: Result Comment: Canc elled via OM: Order cancelled - Patient discharged Performed By: #### L 100.0100, L500.2500 #### [facility] [address] [place], [address] CA,Total Normal 8.5-10.[address] [facility] Comment on above: Result Comment: Canc elled via OM: Order cancelled - Patient discharged Performed By: #### L 100.0100, L500.2500 #### [facility] [address] [place], [address] CL Normal 98-[address] [facility] Comment on above: Result Comment: Canc elled via OM: Order cancelled - Patient discharged Performed By: #### L 100.0100, L500.2500 #### [facility] [address] [place], [address] CO2 Normal 21.0-32.[address] [facility] Comment on above: Result Comment: Canc elled via OM: Order cancelled - Patient discharged Performed By: #### L 100.0100, L500.2500 #### [facility] [address] [place], [address] CREAT,SERUM Normal 0.70-1.[address] [facility] Comment on above: Result Comment: Canc elled via OM: Order cancelled - Patient discharged Performed By: #### L 100.0100, L500.2500 #### [facility] [address] [place], [address] EST GFR Normal >[address] [facility] Comment on above: Result Comment: Canc elled via OM: Order cancelled - Patient discharged Performed By: #### L 100.0100, L500.2500 #### [facility] [address] [place], [address] EST GFR - AA Normal >[address] [facility] Comment on above: Result Comment: Canc elled via OM: Order cancelled - Patient discharged Performed By: #### L 100.0100, L500.2500 #### [facility] [address] [place], [address] GAP Normal 5-[address] [facility] Comment on above: Result Comment: Canc elled via OM: Order cancelled - Patient discharged Performed By: #### L 100.0100, L500.2500 #### [facility] [address] [place], [address] GLU Normal 74-[address] [facility] Comment on above: Result Comment: Canc elled via OM: Order cancelled - Patient discharged Performed By: #### L 100.0100, L500.2500 #### [facility] [address] [place], [address] Potassium Normal 3.5-5.[address] [facility] Comment on above: Result Comment: Canc elled via OM: Order cancelled - Patient discharged Performed By: #### L 100.0100, L500.2500 #### [facility] [address] [place], [address] Basic Metabolic Profile (BMP) Normal 136-[address] [facility] Comment on above: Result Comment: Canc elled via OM: Order cancelled - Patient discharged Performed By: #### L 100.0100, L500.2500 #### [facility] [address] [place], [address] CBC W/Diff, Automatedon - Absolute Neut Normal 2.0-7.[address] [facility] Comment on above: Result Comment: Canc elled via OM: Order cancelled - Patient discharged Performed By: #### L 100.0100, L500.2500 ####[facility] [address] [place], [address] HCT Normal 40-[address] [facility] Comment on above: Result Comment: Canc elled via OM: Order cancelled - Patient discharged Performed By: #### L 100.0100, L500.2500 ####[facility] [address] [place], [address] HGB Normal 13.0-16.[address] [facility] Comment on above: Result Comment: Canc elled via OM: Order cancelled - Patient discharged Performed By: #### L 100.0100, L500.2500 ####[facility] [address] [place], [address] MCH Normal 27.0-32.[address] [facility] Comment on above: Result Comment: Canc elled via OM: Order cancelled - Patient discharged Performed By: #### L 100.0100, L500.2500 ####[facility] [address] [place], [address] MCHC Normal 32-[address] [facility] Comment on above: Result Comment: Canc elled via OM: Order cancelled - Patient discharged Performed By: #### L 100.0100, L500.2500 ####[facility] [address] [place], [address] MCV Normal 80-[address] [facility] Comment on above: Result Comment: Canc elled via OM: Order cancelled - Patient discharged Performed By: #### L 100.0100, L500.2500 ####[facility] [address] [place], [address] NEUT% Normal 47-[address] [facility] Comment on above: Result Comment: Canc elled via OM: Order cancelled - Patient discharged Performed By: #### L 100.0100, L500.2500 ####[facility] [address] [place], [address] PLT Normal 150-[address] [facility] Comment on above: Result Comment: Canc elled via OM: Order cancelled - Patient discharged Performed By: #### L 100.0100, L500.2500 ####[facility] [address] [place], [address] RBC Normal 4.6-6.[address] [facility] Comment on above: Result Comment: Canc elled via OM: Order cancelled - Patient discharged Performed By: #### L 100.0100, L500.2500 ####[facility] [address] [place], [address] RDW CV Normal 11.6-14.[address] [facility] Comment on above: Result Comment: Canc elled via OM: Order cancelled - Patient discharged Performed By: #### L 100.0100, L500.2500 ####[facility] [address] [place], [address] RDW SD Normal 35.1-43.[address] [facility] Comment on above: Result Comment: Canc elled via OM: Order cancelled - Patient discharged Performed By: #### L 100.0100, L500.2500 ####[facility] [address] [place], [address] WBC Normal 4.4-11.[address] [facility] Comment on above: Result Comment: Canc elled via OM: Order cancelled - Patient discharged Performed By: #### L 100.0100, L500.2500 ####[facility] [address] [place], [address] Discharge Instructionon 09-15 Discharge Instruction [facility] Medical Records Department [address] [place] [address] Instructions for Home/Discharge Instructions 10/05/24 1416 MR#: [id number] Acct: [id number] Name: HAFSA DUMAS Rep #: [id number] : 1940 84 From: Gabriel Galeas MD PCP: Dr. Lilliana Chatterjee MD Status:REG [facility] Discharge Instructions Diet Discharge Diet: No restrictions and Light diet - advance as tolerated DC O2, CPAP, BIPAP needs Home O2 Discharge instructions: No Dressing / Incision Discharge Activity: Return to Normal Activity and May Not Drive Dressing / Incision Suture Line Care: Avoid Pulling/Pushing and Avoid Pinching/Bending Catheter: Grigsby to leg bag and Grigsby to large bag Drain: Creighton Follow Up Care Please Follow Up With: Gabriel Galeas MD When: next week to d/c grigsby Test Results: Test results from this visit will be discussed in further detail at your follow-up appointment, if applicable. Discharge Plan Admission Primary Reason for Your Visit: christ Attending Provider: Gabriel Galeas Primary Care Provider: Lilliana Chatterjee Instructions Print Language: Bengali Discharge Orders/Prescriptions Prescriptions: New ciprofloxacin HCl [Cipro] 500 mg tablet 500 mg PO BID Qty: 10 0RF Continued omeprazole 40 mg capsule,delayed release(DR/EC) 40 mg PO DAILY multivitamin Tablet 1 tab PO DAILY cholecalciferol (vitamin D3) 50 mcg (2,000 unit) capsule 50 mcg PO DAILY fluticasone propionate [24 Hour Allergy Relief] 50 mcg/actuation spray,suspension 1 spray intranasal DAILY Rx Instructions: administer into each nostril acetaminophen [8 Hour Pain Reliever] 650 mg tablet extended release 1,300 mg PO Q12H PRN (Reason: pain) ropinirole 1 mg tablet 1 mg PO QHS Qty: 90 3RF atorvastatin 20 mg tablet 20 mg PO QDAY 100 Days Qty: 90 3RF metoprolol succinate 50 mg tablet extended release 24 hr 50 mg PO BID Qty: 180 3RF Held apixaban 5 mg tablet 5 mg PO BID Qty: 180 3RF Hold Instructions: Resume on 10/19/24. Discontinued tamsulosin 0.4 mg capsule 0.8 mg PO DAILY finasteride 5 mg tablet 5 mg PO DAILY Other Ambulatory Orders: 12 Lead EKG (Routine) Location: None Selected Ordered By: Dr. Arnoldo Elliott Referrals / Follow Up: Gabriel Galeas MD [Med Staff - Active Staff] - Lilliana Chatterjee MD [Primary Care Provider] - Disposition Disposition (needs filled in before D/C Order can be placed): Home, Self Care 10/05/24 1417 Gabriel Galeas MD CC: Dr. Lilliana Chatterjee MD Signed [facility] MR/POSTOP.[facility] 10-05-2024 MR/POSTOP.[facility] Medical Records Department [address] [place] [address] Anesthesia Postop Eval I 10/05/24 142 MR#: [id number] Acct: [id number] Name: HAFSA DUMAS Rep #: [id number] : 1940 84 From: Sharla Mishra PCP: Dr. Lilliana Chatterjee MD Status:REG [facility] Y Race: C Location: [place] [address] Anesthesia: Postop Eval I Current Vital Signs Temperature: 96.9 F Pulse Rate: 122 Blood Pressure: 99/82 Respiratory Rate: 14 Pulse Ox: 94 Oxygen Delivery Method: Nasal Cannula Oxygen Flow Rate (L/min): 2 Assessment Airway patent: Yes Spontaneous unlabored respirations: Yes Mental status: Calm and Asleep nausea: No Vomiting: No Anesthesia Complication: No Fluid Hydration Crystalloid volume administer (ml): 800 Total IV fluid infused: 800 Progress Note Anesthesia document: Postop Eval 1 completed: Yes 10/05/24 142 Date ___ Sharla Mishra Cosigner Signature: Date ___ CC: Signed Normal [facility] MR/[id number] 10-05-2024 MR/POSTOPAN2 [facility] Medical Records Department [address] [place] [address] Anesthesia Postop Eval II 10/05/24 1448 MR#: [id number] Acct: [id number] Name: HAFSA DUMAS Rep #: [id number] : 1940 84 From: Gallo Estrella MD PCP: Dr. Lilliana Chatterjee MD Status:REG [facility] Y Race: C Location: [address] Anesthesia Postop Eval I Sum Postop Eval Completion status Anesthesia document: Postop Eval 1 completed: Yes Anesthesia Postop Eval I Summary Anesthesia Postop Eval I Summary: Anesthesia Postop Eval I: Assessment Summary Airway patent Yes 10/05/24 14:21 [email or web address] Spontaneous unlabored Yes 10/05/24 14:21 [email or web address] [email or web address] respirations Mental status Calm,Asleep 10/05/24 14:21 [email or web address] [email or web address] nausea No 10/05/24 14:21 EGG [email or web address].[email or web address] Vomiting No 10/05/24 14:21 [email or web address] Anesthesia Postop Eval I: Fluid Summary Crystalloid volume administer 800 10/05/24 14:21 EGG [email or web address] (ml) Colloids volume administered ( ml) Blood Product volume administered (ml) Total IV fluid infused 800 10/05/24 14:21 [email or web address] Anesthesia Postop Eval I: Summary Notes Anesthesia Complication No 10/05/24 14:21 [email or web address] Anesthesia Complication Comment: Post-operative progress note Anesthesia: Postop Eval II Evaluation Mental status: Awake and Calm Pain Level: 0 nausea: No Vomiting: No Complications Anesthesia Complication: No 10/05/24 1448 Date ___ Gallo Estrella MD Cosigner Signature: Date ___ CC: Signed Normal [facility] Operative Reporton 5 Operative Report [facility] Medical Records Department [address] [place] [address] Operative Report 10/05/24 1417 MR#: [id number] Acct: [id number] Name: HAFSA DUMAS Rep #: [id number] : 1940 84 From: Gabriel Galeas MD PCP: Dr. Lilliana Chatterjee MD Status:[facility] Location: [place] [address] Operative Report (Standard) Operative Information Date of Procedure: 10/05/24 Pre-Operative Diagnosis: BPH with obstruction Post-Operative Diagnosis: The same Surgery/Procedure Performed: Transurethral section of the prostate studio operation engineer: No Type of Anesthesia: General RN Documented Start/Stop Times: Operation Date: 10/05/24 13:00 Case Time Into Pre-Op 10/05/24 10:56 Out of Pre-Op 10/05/24 13:07 Anesthesia Start 10/05/24 13:11 Into Room 10/05/24 13:11 Procedure Start 10/05/24 13:27 Procedure End 10/05/24 14:04 Anesthesia End 10/05/24 14:15 Out of Room 10/05/24 14:15 Procedure Start Time: 13:27 Procedure Stop Time: 14:15 Select all DRAINS/GRAFTS/IMPLANTS that apply: Drains Drain details: 22f [address] Estimated Blood Loss: 10 Specimen collected: Yes Description of specimen(s) removed: Prostate tissue Description of surgery: Patient was taken back to the operating room after smooth induction of anesthesia he was placed in dorsolithotomy position. He went into the bladder with a 26 Bengali continuous-flow resectoscope the entire length of the urethra was free of any strictures or scar tissues identified the prostate he had a very high riding median lobe and obstructive prostate I then proceeded with the resection and resected the median lobe of the prostate resected right lobe of the prostate resected down to the Ricco resect all the way down to the verumontanum he had a wide open flow at the end of the resection sphincter was intact cauterized to obtain hemostasis placed a 22 Bengali catheter into the bladder it was put on continuous irrigation is taken back to the PACU in stable condition nicely resected prostate channel wide open flow sphincter was intact prostate was heavily trabeculated. No tumors or stones seen within the bladder or prostate Surgical Findings: Obstructive prostate heavily trabeculated bladder Complications Complications: No Admit VTE Documentation VTE Present on Admission: No VTE Mechan Device Prophylaxis: SCD's VTE Pharm Prophylaxis ordered?: No 10/05/24 1440 Cosigner Signature (if applicable): CC: Dr. Gabriel Galeas MD; Dr. Lilliana Chatterjee MD Signed Normal [facility] Surgery Specimen Level Hossein 10-05-2024 Surgery Specimen Level IV Patient Age/Sex Location Account Attending Physician HAFSA DUMAS 84/M MS3 [id number] Dr. Gabriel Galeas MD Specimen: [id number] Received: 10/05/24 Status: LOVELY Sorenson Num: [id number] Spec Type: TURP Collin Dr: Dr. Gabriel Galeas MD HEADER OPERATION: Transurethral resection prostate PRE-OP DIAGNOSIS: Benign prostatic hyperplasia with obstruction TISSUE SUBMITTED: Prostate chips MICROSCOPIC DIAGNOSIS Prostate, transurethral resection: Benign prostatic hyperplasia. Chronic inflammation and basal cell hyperplasia. Fragments of stone (gross only). . 10/07/2024 MICROSCOPIC DESCRIPTION Slides are reviewed. GROSS DESCRIPTION Received is one container labeled with the patient's name and designated prostate tissue. The specimen consists of multiple irregular fragments of pink-diez, rubbery, soft tissue that in aggregate weigh 8.4 gm and measure in aggregate 4.5 x 4.5 x 1 cm. Two minute brownish-black stones are also noted measuring 0.1 and 0.2cm in greatest dimension. The entire soft tissue is submitted in nine cassettes. Stones are for gross identification only. . 10/06/2024 TC:5 CPT: 88150 Patient Age/Sex Location Account Attending Physician HAFSA DUMAS 84/M MS3 [id number] Dr. Gabriel Galeas MD Signed (signature on file) Dr. Homer Monet MD 10/07/[address] [facility] Comment on above: Performed By: #### P SUIV ####[facility] [address] [place], [address] 12 Lead EKGon 09-23-2024 12 Lead EKG [facility] Cardiovascular Services [address] [place] [address] 12 Lead EKG 09/23/24 0835 MR#: [id number] Acct: [id number] Name: HAFSA DUMAS Rep #: [id number] : 1940 84 From: Mickey Claros MD Attending Dr: Dr. Gabriel Galeas MD Status: PRE [facility] Ordering Dr: Arnoldo Elliott MD Date: 09/23/24 Location: [facility] Sex: M C Admitted: Test Reason : PREOP Blood Pressure : */* mmHG Vent. Rate : 109 BPM Atrial Rate : 256 BPM P-R Int : * ms QRS Dur : 94 ms QT Int : 356 ms P-R-T Axes : * 35 90 degrees QTcB Int : 479 ms Atrial flutter with variable A-V block with premature ventricular or aberrantly conducted complexes Nonspecific ST abnormality Abnormal ECG Confirmed by Mickey Claros ([id number]), deputy editor in chief NESTOR SANTOS ([id number]) on 09/23/2024 1:00:11 PM Referred By: Gabriel Galeas Confirmed By: Mickey Claros 09/23/24 1300 Date ___ Mickey Claros MD CC: Dr. Arnoldo Elliott MD; Dr. Gabriel Galeas MD; Dr. Lilliana Chatterjee MD Signed [facility] MR/PAT.[facility] 09-21-2024 MR/PAT.[facility] Medical Records Department [address] [place] [address] PAT - Anesthesia 09/21/24 1423 MR#: [id number] Acct: [id number] Name: HAFSA DUMAS Rep #: [id number] : 1940 84 From: Arnoldo Elliott MD PCP: Dr. Lilliana Chatterjee MD Status:PRE [facility] Y Race: C Location: [facility] ADDENDUM by Dr. Arnoldo Elliott MD on 09/26/24 at [facility] Addendum 09/23/2024 atrial flutter variable AV block PVCs nonspecific ST abnormality rate 109 bpm 09/26/24 1037 Date ___ Arnoldo Elliott MD cc: * Signed Pre-Assessment Diagnosis/Proposed Procedure Planned Operative Procedure(s): Cysto,Transurethral Resection Prostate Anesthesia History Anesthesia History - [place]: Anesthesia History - [place] Hx Hospitalization No 09/21/24 10:17 Any Problems With Anesthesia No 09/21/24 10:17 Cholinesterase deficiency No 09/21/24 10:17 You/Your Family Experience No 09/21/24 10:17 fever (hyperthermia) with Relationship Recent Exposure to Contagious Disease Does patient have nerve No 09/21/24 10:17 stimulator Patient instructed to have device shut off --Does patient have Pacemaker or ICD? When Was Last Pacemaker Check QUESTION #4 FULL TEXT: You/Your Family Experience fever (hyperthermia) with Anesthesia Last Oral Intake Last Oral intake: Last Oral Intake NPO since Meds taken in AM with sips of water? Meds patient instructed to take am of surgery PONV PONV - [place]derman: PONV - [place]man Female No 09/21/24 10:17 HX of Motion Sickness Yes 09/21/24 10:17 HX of N/V After Surgery No 09/21/24 10:17 Non-Smoker Yes 09/21/24 10:17 Duration of Surgery greater Yes 09/21/24 10:17 than 60 minutes Number of Risk Factors 3 09/21/24 10:17 PONV Score Moderate Risk 09/21/24 10:17 Height Weight Height Weight: Anesthesia: Height Weight Height 5 ft 10 in 07/12/24 08:06 Respiratory Assessment Respiratory Assessment - city alderman: Respiratory Tract Infection Hx - [place] Hx Respiratory Tract Infection Yes: CURRENT COLD FOR THE 09/21/24 10:17 LAST 2 WEEKS - WAS ON AMOXCILLIN AT END OF AUG STOP Sleep Apnea STOP Sleep Apnea - city alderman: STOP Sleep Apnea - [place]derman Hx Hypertension No 09/21/24 10:17 Hx Sleep Apnea Yes 09/21/24 10:17 CPAP Yes 09/21/24 10:17 BIPAP No 09/21/24 10:17 Do you snore loudly (louder than talking or can be heard Do you often feel tired/ fatigued/ sleepy during daytime? Has anyone observed you stop breathing during sleep? STOP Results Positive 09/21/24 10:17 QUESTION #5 FULL TEXT : Do you snore loudly (louder than talking or can be heard through closed doors)? Tobacco Use History Tobacco Use History - city [place]derman: Tobacco Use History - [place]derman Tobacco Use Smoking Status Former smoker 09/21/24 10:17 Hx Tobacco Use Yes 09/21/24 10:17 Years Smoking Packs Smoked per Day Smoking Cessation Date was No - quit smoking greater 09/21/24 10:17 within the last 15 years than 15 years ago Hx Smoking Cessation Date 09/14/69 09/21/24 10:17 Hx Smoking Cessation Counseling Hematologic Medial History Hematologic Hx - [place]derman: Hematologic Medical Hx - spike machine feeder Hx of Blood Transfusion Yes 09/21/24 10:17 Hx of Transfusion in last 3 No 09/21/24 10:17 Months Date of Last Transfusion (if within last 3 months) Ever experience any problems No 09/21/24 10:17 with transfusion(s)? Specify any problems Hx of Preganancy in last 3 N/A 09/21/24 10:17 Months Nurse Filling Out Transfusion NBUCHER 09/21/24 10:17 Questions: Date: 09/21/24 09/21/24 10:17 Time: 10:21 09/21/24 10:17 Patient unable to answer at this time (ie. confused, unrespo /Reproduction History /Reproductive History - [place]: /Reproductive Hx- [place] Hx Now No 09/21/24 10:17 Gestational Age (in weeks): EDC: Hx Hx Para Hx Section SAB No 09/21/24 10:17 [facility] Medical History (Updated 09/21/24 @ 10:43 by Aleida Horne) Hemorrhoids Wears glasses Wears partial dentures Alcohol use Prostate disease Arthritis GERD (gastroesophageal reflux disease) Leg cramps CPAP (continuous positive airway pressure) dependence Sleep apnea Former smoker History of echocardiogram Cardiology follow-up encounter History of atrial fibrillation Bacterial sinusitis Tachycardia Restless leg MARTA (obstructive sleep apnea) Atypical atrial flutter Paroxysmal supraventricular tachycardia Barotrauma BPH (benign pro (more content not included)... Normal [facility] Urgent Care Visit Reporton 1 Urgent Care Visit Report [facility] [address], [address] [place] [address] OFFICE VISIT Date of Service: 09/12/24 MR#: [id number] Acct: [id number] Name: HAFSA DUMAS Rep #: [id number] : 1940 Provider: CARISSA Lundberg Age/Sex: 84/M Location: [facility] Status: Signed Intake Vital Signs 07/12/24 08:06 09/12/24 06:37 Height 5 ft 10 in 5 ft 9 in Weight: 191 lb 8 oz BMI 28.3 BP 118/70 Blood Pressure Location Lt brachial Position Sitting Respiration 12 Pulse 131 H Pulse Source NIBP Temp 98.2 F Temp Source Oral Pulse Oximetry (%) 98 Oxygen Delivery Method room air Intake Visit Reasons: COUGH/SINUS PRES/CONGESTION Chief Complaint: cough, sinus pressure, congestion Cutter Barrel Drum Required: No Is patient in pain?: No Allergies adhesive tape Allergy (Severe, Verified 09/12/24 06:28) Swelling iodine Allergy (Verified 09/12/24 06:28) Unknown amiodarone Adverse Reaction (Verified 09/12/24 06:28) Unknown latex Adverse Reaction (Verified 09/12/24 06:28) Unknown Medications ???Medication ???Instructions ???Recorded ???Confirmed ???Type tamsulosin 0.4 mg capsule 0.8 mg PO DAILY 12/14/20 09/12/24 History omeprazole 40 mg capsule,delayed cap PO 09/19/22 09/12/24 History release cholecalciferol (vitamin D3) 50 50 mcg PO DAILY 06/25/23 09/12/24 History mcg (2,000 unit) capsule multivitamin 1 tab PO DAILY 06/25/23 09/12/24 History ropinirole 1 mg tablet 1 mg PO QHS #90 tabs 10/05/23 09/12/24 Rx atorvastatin 20 mg tablet 20 mg PO QDAY 100 days #90 tabs 11/16/23 09/12/24 Rx apixaban 5 mg tablet 5 mg PO BID #180 tabs 01/04/24 09/12/24 Rx metoprolol succinate 50 mg 50 mg PO BID #180 tabs 08/03/24 09/12/24 Rx tablet,extended release 24 hr amoxicillin 875 mg-potassium 1 tab PO BID 7 days #14 tabs 09/12/24 09/12/24 Rx clavulanate 125 mg tablet Have you fallen in the past year?: No Nurse's Note: patient here for sinus congestion, sinus drainage and cough x10 days. [facility] Medical History (Updated 09/12/24 @ 06:50 by Cuco Lundberg NP-C) Bacterial sinusitis Tachycardia Restless leg MARTA (obstructive sleep apnea) Atypical atrial flutter Paroxysmal supraventricular tachycardia Barotrauma BPH (benign prostatic hyperplasia) Aortic root dilation Non-rheumatic tricuspid valve insufficiency Nonrheumatic aortic valve insufficiency HLD (hyperlipidemia) Essential (primary) hypertension Surgical History History of right knee surgery (03/2018) History of cardioversion (05/15/20) History of left heart catheterization (04/17/08) History of tonsillectomy H/O cardiac radiofrequency ablation (06/10/10) Family History (Updated 06/06/24 @ 12:34 by Clemencia Sandoval) Sister A-fib Sister Cancer Mother Heart disease Father Myocardial infarction Other HLD (hyperlipidemia) Social History (Reviewed 03/09/24 @ 10:02 by Monica Acuna STRATEGIC MARKETING SPECIALIST, STRATEGIC MARKETING SPECIALIST-C) Smoking Status: Former smoker alcohol intake: current details: Occasionally HPI HPI Chief Complaint: cough, sinus pressure, congestion Details: HAFSA DUMAS, is a 84 M who presents to the office today for HPI: Patient presents today for 10 days of sinus pressure, drainage, and cough. He did take a COVID test at home which was negative. He otherwise denies any fever sore throat earache chest pain or shortness of breath. He states he has not taken any of his medications this morning. ROS: As noted in HPI Physical Exam: VITALS: Reviewed. GEN: Healthy appearing, well-developed, NAD. PSYCH: AOx3. Normal memory, mood, and affect. HEENT -Eyes: -No discharge or redness; -Ears: -Mouth and throat: Moist mucous membranes. NECK: CV: Regular rate and rhythm, tachycardic LUNGS: Normal respiratory effort. Lungs clear bilaterally. SKIN: Warm, well perfused. No skin rashes or abnormal lesions noted. MSK: Normal gait. NEURO: Ambulating with no limitations. Normal muscle strength and tone. No focal deficits. Coding Level of Care Code Off vis,new,level 4 Diagnoses Tachycardia R00.0 Bacterial sinusitis J32.9; B96.89 Assessment and Plan Assessment and Plan (1) Tachycardia: Status: Acute Plan: On reevaluation patient's heart rate was still 133. He was in no acute distress denying chest pain or shortness of breath. He has not taken his morning metoprolol. I discussed with him my concerns for elevated heart rate however patient does not want to go to the emergency department at this time but is willing to go home and immediately take his metoprolol. I informed him that if his heart rate does not drop below 115 within 1 hour of taking his medication he should go directly to the emergency department. Patient state (more content not included)... Normal [facility] CT Abd/Pelvis W/WO Contrasto n 07-27-2024 CT Abd/Pelvis W/WO Contrast [facility] Imaging Services [address] [place], [place] [address] CT Abd/Pelvis W/WO Contrast MR#: [id number] Acct: [id number] Name: HAFSA DUMAS Rep #: [id number] : 1940 M 84 From: Cuate cuba MD PCP: Dr. Lilliana Chatterjee MD Status: REG CLI Study: CT Abd/Pelvis W/WO Contrast Date of Exam: 07/15 12/05 Exam# [id number] Ordering Dr: Gabriel Galeas MD [id number] STUDY: CT ABDOMEN AND PELVIS WITH AND WITHOUT CONTRAST REASON FOR EXAM: Male, 84 years old. BPH W/UTI SX/ MICROSCOPIC HEMATURIA RADIATION DOSAGE (If Supplied By Facility): CTDIvol = ( 20.13 ) mGy, DLP = ( 2231.27 ) mGycm TECHNIQUE: Transaxial images were obtained from the dome of the diaphragm to the symphysis pubis without oral contrast. IV 100mL Isovue-300 was administered. Sagittal and coronal images were reconstructed. Individualized dose optimization techniques were used for this CT. COMPARISON: Comparison is made with prior study dated December 04, 2011. ___ FINDINGS: Minimal linear scarring at the lung bases. Small pericardial effusion. There is decreased attenuation of the liver consistent with steatosis. Normal gallbladder and extrahepatic biliary system. Normal spleen. Normal pancreas. Normal bilateral adrenal glands. Mild degree of bilateral renal cortical atrophy. Normal visualized stomach. Normal small intestine. Normal colon. The appendix is visualized and appears normal. There is diffuse atherosclerotic calcification of the abdominal aorta, without a demonstrated aneurysm. Normal inferior vena cava. Normal retroperitoneum. Diffuse bladder wall thickening. This is worse at the bladder base. There is evidence of a 2.3 cm x 1.9 cm diverticulum in the posterior right side of the bladder. The prostate is enlarged. It measures 6.1 cm x 4.3 cm. This causes indentation of the bladder base. Coarse calcifications are seen in the posterior aspect of the urinary bladder. Normal abdominal wall. There are diffuse degenerative changes of the visualized lumbar spine. This is worse at the L5-S1 level. ___ CT/CT Abd/Pelvis W/WO Contrast IMPRESSION: Bladder wall thickening worse at the base of the bladder. Small right bladder diverticulum. Prostatic enlargement with indentation of the bladder base and calcifications in the posterior aspect of the bladder. Mild degree of bilateral renal cortical atrophy. Small pericardial effusion. Electronically Signed: Cuate Chaparro MD at 14:52 EST , CC: Dr. Gabriel Galeas MD; Dr. Lilliana Chatterjee MD Respiratory Practitioner: Signed Normal [facility] Basic Metabolic Profile (BMP )on 07-12-2024 BUN/CRE 17.6 RATIO Normal -[address] [facility] Comment on above: Performed By: #### L 100.0100, L500.2500 #### [facility] [address] [place], [address] CA,Total 8.8 mg/dL Normal 8.5-10.[address] [facility] Comment on above: Performed By: #### L 100.0100, L500.2500 #### [facility] [address] [place], [address] Chloride [Moles/Vol] 110 mmol/L High 98-[address] [facility] Comment on above: Performed By: #### L 100.0100, L500.2500 #### [facility] [address] [place], [address] CO2 [Moles/Vol] 28.0 mmol/L Normal 21.0-32.[address] [facility] Comment on above: Performed By: #### L 100.0100, L500.2500 #### [facility] [address] [place], [address] Creatinine [Mass/Vol] 1.02 mg/dL Normal 0.70-1.[address] [facility] Comment on above: Result Comment: The validity of the calculated GFR GFRAA in patients over 70 years has not been determined. Clinical correlation is essential. Performed By: #### L 100.0100, L500.2500 #### [facility] [address] [place], [address] EST GFR - AA 89 mL/min Normal >[address] [facility] Comment on above: Result Comment: Afri can Dutch GFR Calc Performed By: #### L 100.0100, L500.2500 #### [facility] [address] [place], [address] GAP 4 Low 5-[address] [facility] Comment on above: Performed By: #### L 100.0100, L500.2500 #### [facility] [address] [place], [address] GFR/1.73 sq M.predicted among non-blacks MDRD (S/P/Bld) [Vol rate/Area] 74 mL/min/{1.73_m2} Normal >[address] [facility] Comment on above: Result Comment: Non- GFR Calc Performed By: #### L 100.0100, L500.2500 #### [facility] [address] [place], [address] Glucose [Mass/Vol] 145 mg/dL High 74-106 [facility] Comment on above: Result Comment: Fast ing Glucose result greater than or equal to 126 mg/dL suggests DIABETES MELLITUS per A.D.A. criteria. Performed By: #### L 100.0100, L500.2500 #### [facility] [address] [place], [address] Potassium [Moles/Vol] 3.8 mmol/L Normal 3.5-5.[address] [facility] Comment on above: Performed By: #### L 100.0100, L500.2500 #### [facility] [address] [place], [address] Sodium [Moles/Vol] 141 mmol/L Normal 136-145 [facility] Comment on above: Performed By: #### L 100.0100, L500.2500 #### [facility] [address] [place], [address] Urea nitrogen [Mass/Vol] 18 mg/dL Normal 7-[address] [facility] Comment on above: Performed By: #### L 100.0100, L500.2500 #### [facility] [address] [place], [address] CBC W/Diff, Automatedon 10-2 Absolute Lymph 1.39 X10 3/uL Normal 0.83-4.[address] [facility] Comment on above: Performed By: #### L 100.0100, L500.2500 #### [facility] [address] [place], [address] Absolute Neut 3.2 X10 3/uL Normal 2.0-7.[address] [facility] Comment on above: Performed By: #### L 100.0100, L500.2500 #### [facility] [address] [place], [address] Basophils/100 WBC (Bld) 0.5 % Normal 0-[address] [facility] Comment on above: Performed By: #### L 100.0100, L500.2500 #### [facility] [address] [place], [address] Eosinophils/100 WBC (Bld) 5.0 % Normal 0-[address] [facility] Comment on above: Performed By: #### L 100.0100, L500.2500 #### [facility] [address] [place], [address] Erythrocyte distribution width (RBC) [Ratio] 13.6 % Normal 11.6-14.[address] [facility] Comment on above: Performed By: #### L 100.0100, L500.2500 #### [facility] [address] [place], [address] Hematocrit (Bld) [Volume fraction] 39.7 % Low 40-[address] [facility] Comment on above: Performed By: #### L 100.0100, L500.2500 #### [facility] [address] [place], [address] Hemoglobin (Bld) [Mass/Vol] 13.0 g/dL Normal 13.0-16.[address] [facility] Comment on above: Performed By: #### L 100.0100, L500.2500 #### [facility] [address] [place], [address] IG% 0.400 Normal 0.0-0.[address] [facility] Comment on above: Result Comment: IG% - Immature Granulocytes (promyelocytes, myelocytes and metamyelocytes) > 1% indicates that a LEFT SHIFT is Present. Performed By: #### L 100.0100, L500.2500 #### [facility] [address] [place], [address] Lymphocytes/100 WBC (Bld) 25.0 % Normal 19-[address] [facility] Comment on above: Performed By: #### L 100.0100, L500.2500 #### [facility] [address] [place], [address] MCH (RBC) [Entitic mass] 30.5 pg Normal 27.0-32.[address] [facility] Comment on above: Performed By: #### L 100.0100, L500.2500 #### [facility] [address] [place], [address] MCHC (RBC) [Mass/Vol] 32.7 g/dL Normal 32-[address] [facility] Comment on above: Performed By: #### L 100.0100, L500.2500 #### [facility] [address] [place], [address] MCV (RBC) [Entitic vol] 93.2 fL Normal 80-[address] [facility] Comment on above: Performed By: #### L 100.0100, L500.2500 #### [facility] [address] [place], [address] Monocytes/100 WBC (Bld) 11.7 % High 0-[address] [facility] Comment on above: Performed By: #### L 100.0100, L500.2500 #### [facility] [address] [place], [address] Neutrophils/100 WBC (Bld) 57.4 % Normal 47-[address] [facility] Comment on above: Performed By: #### L 100.0100, L500.2500 #### [facility] [address] [place], [address] Nucleated RBC (Bld) [#/Vol] 0 10*3/uL Normal 0-[address] [facility] Comment on above: Performed By: #### L 100.0100, L500.2500 #### [facility] [address] [place], [address] Platelet mean volume (Bld) [Entitic vol] 9.6 fL Normal 6.2-12.[address] [facility] Comment on above: Performed By: #### L 100.0100, L500.2500 #### [facility] [address] [place], [address] Platelets (Bld) [#/Vol] 199 10*3/uL Normal 150-[address] [facility] Comment on above: Performed By: #### L 100.0100, L500.2500 #### [facility] [address] [place], [address] RBC (Bld) [#/Vol] 4.26 10*6/uL Low 4.6-6.[address] [facility] Comment on above: Performed By: #### L 100.0100, L500.2500 #### [facility] [address] [place], [address] RDW SD 46.5 fl High 35.1-43.[address] [facility] Comment on above: Performed By: #### L 100.0100, L500.2500 #### [facility] [address] [place], [address] WBC (Bld) [#/Vol] 5.6 10*3/uL Normal 4.4-11.0 [facility] Comment on above: Performed By: #### L 100.0100, L500.2500 #### [facility] [address] [place], [address] Cardiology Visit Reporton Cardiology Visit Report [facility] [address] [place] [address] OFFICE VISIT Date of Service: 07/12/24 MR#: [id number] Acct: [id number] Name: HAFSA DUMAS Rep #: [id number] : 1940 Provider: MONTSE Álvarez Age/Sex: 84/M Location: [facility] Status: Signed [facility] History of Present Illness Details: HAFSA DUMAS, is a 84M who presents to the office today for a follow-up visit.He was last in the office in 07/2021. He is a gentleman with a history of mild coronary artery disease ,atrial fibrillation status post ablation in 2007, 2008, and 2009. At his last visit he was noted to be in persistent atrial fibrillation flutter which was also documented on a Holter monitor in August 2019. An echocardiogram performed in May 2019 demonstrated an ejection fraction of 55% his aortic root was mildly dilated at 4.3 cm. He was not interested in pursuing a repeat ablation at that time and medical therapy and rate control was recommended. He did undergo a cardioversion 05/2020 unfortunately he did not maintain SR. It was opted for medical management. He is having issues with his Prostrate. He is having a CT scan done. He does have blood in his urine, this was noted today with Dr. Galeas. He is also having issues with arthritis, and started mobic this approx 2 months ago. This did help with this. He is concerned with some increase in bleeding. He is having some issues with bleeding hemorrhoids. Intake Vital Signs 03/09/24 07:59 07/12/24 08:06 Height 5 ft 10 in 5 ft 10 in Weight: 193 lb 190 lb BMI 27.6 27.2 BP 99/67 104/68 Blood Pressure Location Lt brachial Lt brachial Position Sitting Sitting Respiration 18 18 Pulse 84 98 Pulse Source Monitor Monitor Temp 96 F L Temperature Source Temporal Artery Pulse Oximetry (%) 96 95 Oxygen Delivery Method room air Intake Visit Reasons: 1 Y FU Cutter Barrel Drum Required: No Is patient in pain?: No Allergies iodine Allergy (Verified 07/12/24 14:22) Unknown amiodarone Adverse Reaction (Verified 07/12/24 14:22) Unknown latex Adverse Reaction (Verified 07/12/24 14:22) Unknown Medications ???Medication ???Instructions ???Recorded ???Confirmed ???Type tamsulosin 0.4 mg capsule 0.8 mg PO DAILY 12/14/20 07/12/24 History omeprazole 40 mg capsule,delayed cap PO 09/19/22 07/12/24 History release cholecalciferol (vitamin D3) 50 50 mcg PO DAILY 06/25/23 07/12/24 History mcg (2,000 unit) capsule multivitamin 1 tab PO DAILY 06/25/23 07/12/24 History ropinirole 1 mg tablet 1 mg PO QHS #90 tabs 10/05/23 07/12/24 Rx atorvastatin 20 mg tablet 20 mg PO QDAY 100 days #90 tabs 11/16/23 07/12/24 Rx metoprolol tartrate 50 mg tablet See Rx Instructions .Route 11/16/23 07/12/24 Rx .COMPLEX #180 tabs apixaban 5 mg tablet 5 mg PO BID #180 tabs 01/04/24 07/12/24 Rx meloxicam 15 mg tablet 15 mg PO QDAY 07/12/24 07/12/24 History Have you fallen in the past year?: No PFSH Medical History (Updated 06/06/24 @ 12:34 by Clemencia Sandoval) Restless leg MARTA (obstructive sleep apnea) Atypical atrial flutter Paroxysmal supraventricular tachycardia Barotrauma BPH (benign prostatic hyperplasia) Aortic root dilation Non-rheumatic tricuspid valve insufficiency Nonrheumatic aortic valve insufficiency HLD (hyperlipidemia) Essential (primary) hypertension Surgical History (Reviewed 03/09/24 @ 10:02 by Monica Acuna STRATEGIC MARKETING SPECIALIST, STRATEGIC MARKETING SPECIALIST-C) History of right knee surgery (03/2018) History of cardioversion (05/15/20) History of left heart catheterization (04/17/08) History of tonsillectomy H/O cardiac radiofrequency ablation (06/10/10) Family History (Updated 06/06/24 @ 12:34 by Clemencia Sandoval) Sister A-fib Sister Cancer Mother Heart disease Father Myocardial infarction Other HLD (hyperlipidemia) Social History (Reviewed 03/09/24 @ 10:02 by Monica Acuna STRATEGIC MARKETING SPECIALIST, STRATEGIC MARKETING SPECIALIST-C) Smoking Status: Former smoker alcohol intake: current details: Occasionally ROS Const Const: Negative for fatigue, weakness, headache(s), daytime sleepiness or difficulty sleeping Eyes Eyes: Negative for change in vision ENT ENT: Negative for headache(s), dizziness or Nosebleed/epistaxis Cardio Chest Pain: No Palpitations: No Edema: None Resp Respiratory: Negative for SOB with activity, SOB at rest, SOB orthopnea SOB lying down or Cough GI GI: Negative nausea, vomiting or heartburn : Positive for hematuria Musc Musc: Positive for joint pain (due to Arthritis) Neuro Neuro: Negative for dizziness, lightheadedness, near syncope, headache(s) or weakness Santy Hematologic/Lymphatic: Positive for easy bleeding and easy bruising Endo Endo: Negative for fatigue Cardiology Exam Const Appearance: cooperative, healthy appearing, no (more content not included)... Normal [facility] PSA,Total- Diagnosticon 10-2 PSA, DIAGNOSTIC 5.90 ng/mL High 0.0-4.[address] [facility] Comment on above: Result Comment: This test was performed using the TPSA assay method for the Tappx system. Values obtained with different assay methods cannot be used interchangably. When changing PSA assays in the course of monitoring a patient, additional sequential testing should be carried out to confirm baseline values. Performed By: #### L 501.9940 ####[facility] [address] [place], [address] Lipid Profileon 07-05-2024 Cholesterol [Mass/Vol] 99 mg/dL Normal [address] [facility] Comment on above: Result Comment: <200 mg/dL Desirable 200-240 mg/dL Borderline >240 mg/dL High Risk Performed By: #### L 500.4100, L500.3400 ####[facility] [address] [place], [address] Cholesterol in HDL [Mass/Vol] 46 mg/dL Normal [facility] Comment on above: Result Comment: The drugs N-Acetylcysteine and Metamizole may falsely depress this assay. Reference Range HDL <40 mg/dL Low HDL Cholesterol HDL >or= 60 mg/dL High HDL Cholesterol Performed By: #### L 500.4100, L500.3400 ####[facility] [address] [place], [address] Cholesterol in LDL [Mass/Vol] 41 mg/dL Normal 0-[address] [facility] Comment on above: Performed By: #### L 500.4100, L500.3400 ####[facility] [address] [place], [address] Cholesterol in VLDL [Mass/Vol] 12 mg/dL Normal 5-[address] [facility] Comment on above: Performed By: #### L 500.4100, L500.3400 ####[facility] [address] [place], [address] Triglyceride [Mass/Vol] 59 mg/dL Normal [facility] Comment on above: Result Comment: The drugs N-Acetylcysteine and Metamizole may falsely depress this assay. Serum Triglycerides Reference Interval Normal <150 mg/dL Borderline high 150 - 199 mg/dL High 200 - 499 mg/dL Very High > or = 500 mg/dL Performed By: #### L 500.4100, L500.3400 ####[facility] [address] [place], [address] Liver Profileon 07-05-2024 Albumin [Mass/Vol] 3.5 g/dL Normal 3.2-5.0 [facility] Comment on above: Performed By: #### L 500.4100, L500.3400 ####[facility] [address] [place], [address] ALK P 129 U/L High 45-[address] [facility] Comment on above: Performed By: #### L 500.4100, L500.3400 ####[facility] [address] [place], [address] ALT [Catalytic activity/Vol] 34 U/L Normal 16-[address] [facility] Comment on above: Performed By: #### L 500.4100, L500.3400 ####[facility] [address] [place], [address] AST [Catalytic activity/Vol] 29 U/L Normal 15-[address] [facility] Comment on above: Performed By: #### L 500.4100, L500.3400 ####[facility] [address] [place], [address] Bilirubin [Mass/Vol] 1.60 mg/dL High 0.20-1.[address] [facility] Comment on above: Result Comment: For patients on eltrombopag therapy, use of Dimension [place] TBIL is not recommended. Performed By: #### L 500.4100, L500.3400 ####[facility] [address] [place], [address] Bilirubin.direct [Mass/Vol] 0.37 mg/dL High 0.00-0.[address] [facility] Comment on above: Performed By: #### L 500.4100, L500.3400 ####[facility] [address] [place], [address] Globulin (S) [Mass/Vol] 3.5 g/dL Normal 2.2-4.[address] [facility] Comment on above: Performed By: #### L 500.4100, L500.3400 ####[facility] [address] [place], [address] T PROT 7.0 g/dL Normal 6.4-8.[address] [facility] Comment on above: Performed By: #### L 500.4100, L500.3400 ####[facility] [address] [place], [address] T3 BLDon 12-04-2022 T3 [Mass/Vol] 67 ng/dL Low 79 - 165 ng/dL [facility] T4 FREE/FREE THYROXon 2022 Free T4 [Mass/Vol] 1.1 ng/dL 0.9 - 1.7 ng/dL [facility] TSH BLDon 12-04-2022 TSH Qn 2.640 m[IU]/L 0.270 - 4.200 mIU/L [facility] URINE CULTUREon 09-10-2022 Bacteria identified Cx Nom (U) No growth (<1,000 CFU/ml) [facility] UA DIP, URINE (POC)on 2021 BILIRUBIN UA (POCT) Negative Negative [facility] CLARITY UA (POCT) Clear [facility] COLOR UA (POCT) Light yellow [facility] GLUCOSE UA (POCT) Negative Negative mg/dL [facility] HEMOGLOBIN/BLOOD UA (POCT) Moderate Abnormal Negative [facility] KETONE UA (POCT) Negative Negative mg/dL [facility] LEUKOCYTES UA (POCT) Small Abnormal Negative [facility] NITRITE UA (POCT) Negative Negative [facility] PH UA (POCT) 6.0 4.5 - 8.0 [facility] Protein Ql (U) Negative Negative mg/dL [facility] SPECIFIC GRAVITY UA (POCT) 1.015 1.005 - 1.030 [facility] UROBILINOGEN UA (POCT) 0.2 E.U./dL Normal E.U./dL [facility] Basophil percentageOrdered B y: Dr. Diaz on 07-01-2022 Bilirubin [Mass/Vol] 1.40 mg/dL 0.20-1.[address] [facility] Comment on above: For patients on eltr ombopag therapy, use of Dimension [place] TBIL is not recommended. Cholesterol [Mass/Vol] 104 mg/dL <[address] [facility] Comment on above: <200 mg/dL Desirable 200-240 mg/dL Borderline >240 mg/dL High Risk Protein [Mass/Vol] 6.8 g/dL 6.4-8.2 [facility] Triglyceride [Mass/Vol] 50 mg/dL <[address] [facility] Comment on above: The drugs N-Acetylcy steine and Metamizole may falsely depress this assay.Serum Triglycerides Reference Interval Normal <150 mg/dL Borderline high 150 - 199 mg/dL High 200 - 499 mg/dL Very High > or = 500 mg/dL Direct bilirubinOrdered By: Dr. Diaz on 07-01-2022 Bilirubin.direct [Mass/Vol] 0.34 mg/dL 0.00-0.[address] [facility] Laboratory - Chemistry and C hemistry - challengeOrdered By: Dr. Diaz on 07-01-2022 ALP [Catalytic activity/Vol] 122 U/L 45-[address] [facility] ALT [Catalytic activity/Vol] 32 U/L 16-[address] [facility] Globulin (S) [Mass/Vol] 3.4 g/dL 2.2-4.[address] [facility] Serum or plasma albumin dal[place] urement (mass/volume)Ordered By: Dr. Diaz on 07-01-2022 Albumin [Mass/Vol] 3.4 g/dL 3.2-5.0 [facility] Serum or plasma cholesterol in HDL measurement (mass/volume)Ordered By: Dr. Diaz on 07-01-2022 Cholesterol in HDL [Mass/Vol] 43 mg/dL >[address] [facility] Comment on above: The drugs N-Acetylcy steine and Metamizole may falsely depress this assay. Reference Range HDL <40 mg/dL Low HDL Cholesterol HDL >or= 60 mg/dL High HDL Cholesterol Serum or plasma cholesterol in VLDL measurement (mass/volume)Ordered By: Dr. Diaz on 07-01-2022 Cholesterol in VLDL [Mass/Vol] 10 mg/dL 5-[address] [facility] Serum or plasma low density lipoprotein (LDL) cholesterol measurement (mass/volume)Ordered By: Dr. Diaz on 07-01-2022 Cholesterol in LDL [Mass/Vol] 51 mg/dL 0-[address] [facility] Thin prep Papanicolaou smear with manual screeningOrdered By: Dr. Diaz on 07-01-2022 Thin prep Papanicolaou smear with manual screening 28 U/L 15-[address] [facility] CNPNon 03-06-2018 CNPN Telephone (LUPRAD) HAFSA DUMAS ( ) 1940 [facility] Department03/06/18 NICK ESQUIVEL (RES) RHEA During your visit today, we recorded the following information about you:Nick Esquivel MD 03/06/2018 9:23 AM SignedPatent Name: Hafsa Amor MRN: Attending staff of patient: PierceDate AND Time of returned call: March 06, 2018 9:20 AMPatient complaint / question / issue: 1 week s/p knee prepatellar bursaexcision. Having increased swelling this morning with some numbness over kneecap area. Some erythema as well.Discussion: I recommended continued elevation today with ice and taking it easyin regards to movement. I advised they watch this for the next 24 hrs, as twodays ago it looked well in clinic. If worsening tomorrow, they are going to [facility] to be evaluated. If improving tomorrow, they are going to continuethe current plan and call the office on Thursday to keep them updated. Theyagreed with this plan.Karlee Diez As of Date: 03/06/2018 Noted Allergy ReactionADHESIVE TAPE (ROSINS) 08/04/2008MIODARONE 09/19/2011 14 - Other: See Comments Comments: Caused Thyroid problemIODINE 12/16/2005 4 - HivesLATEX 08/04/2008Date Reviewed: 03/04/2018Reviewed by: Sulema Guadarrama (Pa) - Fully AssessedReason for Visit: Wound Care [485]Prescriptions as of 03/06/2018 Sig: SINUS WASH NETIPOT NASAL Use in the nose. IBUPROFEN 800 MG TABLET Take 1 tablet by mouth every * TAMSULOSIN 0.4 MG CAPSULE Take 1 capsule by mouth daily* ASPIRIN 81 MG TABLET,DELAYED * Take 1 tablet by mouth once d* Patient not taking: Reported on 02/15/2018 FLUTICASONE 50 MCG/ACTUATION * Use 2 Sprays in each nostril * BIPAP Initiate BiPAP @ 20 cm of pavel* MULTIVITAMIN TABLET Take 1 tablet by mouth once d* * LIPITOR 20 MG TABLET Take one(1) tablet daily. * METOPROLOL TARTRATE 25 MG TAB* Take one(1) tablet two(2) cuco*Problem List As Of Date 03/06/2018 Noted Resolved OSTEOARTHRITIS UNSPECIFIED TYPE( Hand) [M19.049]INVALID FOR* ECZEMA [L25.9] INVALID FOR* Essential hypertension [I10] ATRIAL FIBRILLATION [I48.91] Mitral valve disorders [I05.9] 05/17/2015 More... 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 Hyperlipidemia [E78.5] INVALID FOR* More... Atrial flutter (HCC) [I48.92] INVALID FOR*02/25/2018 MARTA treated with BiPAP [G47.33] More... Anxiety [F41.9] 05/17/2015 Mitral valve prolapse [I34.1] Carpal tunnel syndrome [G56.00] INVALID FOR*02/25/2018 History of hyperthyroidism [Z86.39] INVALID FOR*05/17/2015 Internal hemorrhoids without mention of complic*INVALID FOR*05/17/2015 Family history of colon cancer [Z80.0] INVALID FOR*02/25/2018 Anal pain [K62.89] INVALID FOR*05/17/2015 External hemorrhoid [K64.4] INVALID FOR*05/17/2015 Anal fissure [K60.2] INVALID FOR*05/17/2015 Seborrheic dermatitis [L21.9] 05/17/2015 More... Asteatotic eczema [L30.8] 05/17/2015 More... Atypical nevus [D22.9] INVALID FOR*05/17/2015 More... Bursitis, prepatellar, right [M70.41] INVALID FOR* More... Infrapatellar bursitis of right knee [M70.51] INVALID FOR* More... Status:Closed by NICK ESQUIVEL MD on 03/06/18 [facility] ANES Beth 02-26-2018 ANES POST HNO ID: [id number] thor: Dg MartinezService: AnesthesiologyAuthor Type: AnesthesiologistType: Anesthesia PostOpFiled: 02/26/2018 6:14 PMNote Text:POST ANESTHESIA EVALUATION NOTESERVICE DATE: 02/26/2018SERVICE TIME: 6:14 PMDOB: 1940Vitals: 02/27/1816Temp: 36.3 ?C (97.3 ?F) 36.3 ?C (97.3 ?F) 02/26/1817BP: 143/87 138/87 139/90 135/85 02/26/1817Pulse: 63 81 80 60 02/26/1817Resp: 16 18 18 18 02/26/1817SpO2: 96% 95% 94% 95%Validated Vital Signs: YesPOST ANES STATUS: No apparent anesthetic complications. The patient isappropriately hydrated with stable respiratory and cardiovascular status.Patient has safe and adequate airway control. The patient has appropriatepain relief and no significant post operative nausea or vomiting. Thepatient has achieved baseline mental status.Further assessment by Anesthesia Service: NoneOther Remarks:SIGNATURE: Dg Martinez MD PATIENT NAME: Hafsa ConleyATE: February 26, 2018 : 6:14 PM PAGER/CONTACT #: [phone] [facility] ANES PREOPon 02-26-2018 ANES PREOP HNO ID: [id number] thor: Dg MartinezService: AnesthesiologyAuthor Type: AnesthesiologistType: Anesthesia PreOpFiled: 02/26/2018 2:44 PMNote Text: ANESTHESIOLOGY DAY OF SURGERY NOTESERVICE DATE: 02/26/2018SERVICE TIME: 2:44 PMDOB: 1940Procedure(s) (LRB):INCISION AND DRAINAGE ABSCESS , THIGH OR KNEE REGION (Right)Surgeon(s):Doug MartinesEstimated body mass index is 29.7 kg/m? as calculated from the following: Height as of this encounter: 177.8 cm (5' 10). Weight as of this encounter: 93.9 kg (207 lb).Most recent hematocrit and potassium results:Hematocrit 41.4 02/25/2018Potassium 4.3 02/25/2018ANES DOS/PREOP NOTE: Vitals: BP: 135/70Pulse: 72Resp: 18Temp: 36.3 ?C (97.3 ?F)TempSrc: Temporal ArterySpO2: 96%Weight: 93.9 kg (207 lb)Height: 177.8 cm (5' 10)ACTIVE PROBLEM LISTOSTEOARTHRITIS UNSPECIFIED TYPE( Hand)ECZEMAEssential HypertensionAtrial Fibrillation (Hcc)Goiter, Nontoxic, MultinodularHyperlipidemiaOsa Treated With BipapMitral Valve ProlapseBursitis, Prepatellar, RightInfrapatellar Bursitis of Right KneePAST MEDICAL HISTORYDiagnosis Date- Anal fissure- Anxiety- Asteatotic eczema dry skin-treated with steroid/elidel- Atrial fibrillation (HCC) Card-AMINA DiazCinthia- Atypical nevus 07/2013 back- Carpal tunnel syndrome- Goiter, nontoxic, 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 hyperthyroidism- Hypertrophy of prostate without urinary obstruction and other lowerurinary tract symptoms (LUTS)- Mitral valve prolapse- MARTA on CPAP Dr Rodriguez- Seborrheic dermatitis scalp- THORACIC AORTIC ANEURYSM- Unspecified essential hypertension- Unspecified hemorrhoids without mention of complication HemorrhoidsPAST SURGICAL HISTORYProcedure Laterality Date- BLOOD TRANSFUSION 2008- CARDIAC CATH 06/1996, 06/2008 MVP, normal coronaries- COLONOSCOP W/ OR W/O [facility] SPEC 03/17 Colonoscopy-repeat in - COLONOSCOP W/ OR W/O [facility]RS SPEC 12/08/11 Normal repeat 10 years- ELECTROPHYSIOLOGY STUDY 03/13/09 pulmonary vein isolation for afib- ELECTROPHYSIOLOGY STUDY 06/10/10 ablation for aflutter- ELECTROPHYSIOLOGY STUDY 04/2008 AV node ablation- FISSURE;SPHINCTEROTOMY/ANAL 12/09/11 and hemorrhoidectomy- PAST SURGICAL HISTORY OF 1960 Fractured jaw, wires placed- TONSILLECTOMY HXFAMILY HISTORYProblem Relation Age of Onset- Heart Mother- Heart Father- Cancer Sister ovarian cancer- Cancer Sister lung cancer- Colon Cancer Brother colon at 59- Diabetes Sister- Heart Sister aortic aneurysm?Social History:Social HistorySubstance Use Topics- Smoking status: Former Smoker Packs/day: 0.70 Years: 5.00 Quit date: 09/14/1964- Smokeless tobacco: Never Used- Alcohol use 9.0 oz/week 5 Glasses of Wine (5oz), 1 Cans of Beer (12oz) per week Comment: occasionallyNo current facility-administered medications on file prior to encounter.Current Outpatient Prescriptions on File Prior to Encounter:cephALEXin (KEFLEX) 500 mg capsule Take 1 capsule by mouth four timesdaily for 7 days.tamsulosin ER (FLOMAX) 0.4 mg cp24 Take 1 capsule by mouth daily atbedtime.fluticasone (FLONASE) 50 mcg/actuation nasal spray Use 2 Sprays in eachnostril once daily.BIPAP Initiate BiPAP @ 20 cm of water with humidification. Mask (perpatient preference) optional chin strap (if indicated) , filters, tubing,humidifier and lifetime supplies. Follows with a sleep specialist.atorvastatin calcium(LIPITOR 20 MG TAB) Take one(1) tablet daily.METOPROLOL TARTRATE 25 MG TAB Take one(1) tablet two(2) times daily.ibuprofen (MOTRIN) 800 mg tablet Take 1 tablet by mouth every 6 hours asneeded.aspirin, enteric coated (ADULT LOW DOSE ASPIRIN) 81 mg EC tablet Take 1tablet by mouth once daily. (Patient not taking: Reported on 02/15/2018)multivitamin (MEN'S MULTI-VITAMIN) tablet Take 1 tablet by mouth oncedaily.Current Facility-Administered Medications:lactated ringers infusion 5-30 mL/hr INTRAVENOUS CONTINUOUS Sulema (Pa)Vetovitz Last Rate: 30 mL/hr at 02/26/18 1300 30 mL/hr at 02/26/18 1300ceFAZolin iv piggyback 2 g in D5W (iso-osmotic) 100 mL (ANCEF) 2 gINTRAVENOUS Pre-Op Once Sulema (Pa) VetovitzAllergies:ALLERGIESAller gen Reactions- Adhesive Tape (Sharla*- Amiodarone Other: See Comments Caused Thyroid problem- Iodine Hives- LatexDOS EXAM: Adequate NPO status: YesAnesthetic risks, benefits, alternatives, personnel and consent discussed:YesPatient agrees to proceed: YesPrevious Anesthesia: No history of adverse event.Airway Assessment: MP 2; Neck ROM: Full ROM without neurologic symptoms;Airway Evaluation: No significant abnormalitiesSymptoms of Sleep Apnea: NoneDentition: Teeth intactAdditional Physical Exam:Lungs: Patient health status unchanged since recent history and physical.See history and physical for exam findings.Cardiac: Patient health status unchanged since recent history andphysical. See history and physical for exam findings.Additional Pertinent Findings: N/ABlood Products: Not anticipated for this procedure.Anesthetic Plan: General, Standard ASA MonitorsPain Management Plan: Parenteral or OralASA Class: 3Other Medical Problems:Paroxysmal A fib s/p ablation x 3 on XDGUVP-WkcctofcwnHUK-ZwurshUSE on machineBPH with LUTS on FlomaxHearing loss-wears hearing aidsMild MVPI have interviewed and examined the patient. I have reviewed the medicalrecord and/or the pre-anesthesia evaluation, pertinent labs, and testresults.Significant changes in the patient's condition since the History andPhysical, not otherwise documented in primary service progress notes: NoThis contains updated information obtained within 48 hours ofSurgery/Procedure.SIGNATURE: Dg Martinez MD PATIENT NAME: Hafsa ConleyATE: February 26, 2018 : 2:44 PM CSN: [id number] [facility] Anaerobe Cultureon 8 Anaerobe Culture Sp. Request/Comment: - Gel transport swab. Culture Result - Negative for anaerobes. [facility] Comment on above: Performed By: #### A NACUL ####[id number] [place], [place] [phone] Fungal Cultureon 02-26-2018 Fungal Culture Sp. Request/Comment: - Gel transport swab. Culture Result - No Fungus isolated after 31 days [facility] Comment on above: Performed By: #### F CUL ####[address] [phone] NURSING PROGon 02-26-2018 NURSING PROG HNO ID: [id number] thor: Isatu (Rn) Vick, RNService: NursingAuthor Type: Registered NurseType: Nursing Progress NoteFiled: 02/26/2018 1:28 PMNote Text: Nursing Progress NotePatient Name: Hafsa ChirinosRN: [id number] Location: [place] Surgery/[place] Surgery pt ready for OR, call light in reach, called to bedside, BiPapmachine at bedsideThis note was completed by: Isatu Hickman RN [facility] OPERATIVE NOon 02-26-2018 OPERATIVE NO HNO ID: [id number] thor: Doug Hartman: Orthopaedic SurgeryAuthor Type: PhysicianType: Operative ReportFiled: 03/02/2018 10:58 AMNote Text:OPERATIVE/PROCEDURE REPORTLOG ID: [id number]/PROCEDURE DATE: 02/26/2018INCISION/PROCEDURE START TIME: 3:58 PMINCISION CLOSE/PROCEDURE END TIME: 4:49 PMSURGEON(S)/PROCEDURALIST(S) AND MOBILE DEVELOPER(S):Surgeon(s) and Role: * Doug Martines - PrimaryPhysician Poker Manager: Sulema Schneider) VetovitzSURGERY/PROCEDURE(S):1. Right knee, irrigation and debridement. 2. Application of wound Vac.ANESTHESIA: GeneralSURGERY/PROCEDURE DETAILS:This is a patient who had a few months of swelling in the knee, but all ofa sudden became more red and painful short while ago. In the office, hehad fluid drawn which did come back positive for bacteria. Though hisknee remains stable, continued to have swelling despite wrapping and oralanti-inflammatories and some antibiotics. We reviewed the risks,benefits, alternatives and potential complications involving bothoperative and nonoperative care. Due to the size of the prepatellarbursitis as well as positive aspiration, I felt surgical intervention wasmost appropriate. We did plan on placing a surgical incision wound VAC.On 02/26/2018, the patient was clearly identified in the preoperative areaand marked accordingly on the right knee by myself. He had 2 g of Ancefordered, though held until we obtained intraoperative cultures. We wentto the operative suite and placed in a supine position. Anesthesia seemcare of the head and neck for the remainder of the case and began ageneral anesthetic. All bony landmarks were appropriately padded instandard fashion. The right lower extremity had a well-padded upper thightourniquet applied with 250 mmHg set but not inflated. The right lowerextremity was then sterilely prepped and draped in standard fashion. Anappropriate time out was conducted and all in the room were in agreement,signed consent forms on the chart, images were available for viewing.The lower extremity was elevated for exsanguination and the tourniquet wasapplied at 250 mmHg. A midline, incision was made with a 10 blade throughthe dermis and into the bursa. There was some bloody and serous fluid butno obvious purulence was noted. There was impressively thickened scartissue and hematoma clot throughout the entire bursa. This was manuallydebrided with both suction tip, excisionally with a 15 blade, even needingto scrape some of the thickened scar tissue off of the under surface ofthe dermis. I debrided down to the retinaculum over the extensormechanism which was completely intact through full range of motion withoutany remnants into the knee. Again, it was quite impressive how thick thetissue was and adhered both to the overlying retinaculum as well as to theundersurface of the dermis. I copiously irrigated out the area with 3 Lof pulse lavage irrigant. I attempted to make sure any of the lumpy scartissue under the dermis was excised so that ultimately this was notpalpable from the outside. Then we focused our attention on closure.Tourniquet was taken down and hemostasis was observed with Bovieelectrocautery. I closed down the skin edges with buried 3-0 monofilamentsuture. The wound was then closed with a 3-0 subcuticular weave with amonofilament with a non-incisional wound VAC applied over the top with aslightly bent knee. We had excellent suction and seal and the spacewas immediately depreciated nicely. A light Kaiser wrap was provided overthe top. There were no complications during the procedure. The patientwas safely returned to the postanesthetic area in stable condition.PRE-OP/PRE-PROCEDURE DIAGNOSIS: Right knee, infected pre-patellarbursitis.POST-OP/POS T-PROCEDURE DIAGNOSIS: sameESTIMATED BLOOD LOSS: 0 mlSPECIMENS: fluid cultures and tissueIMPLANTABLE DEVICES: NoneDRAINS: Incisional wound vacCOMPLICATIONS: NonePARTICIPATION IN SURGERY/PROCEDURE: The primary surgeon/proceduralistperformed the entire procedure.I performed the entire procedure.SIGNATURE: Doug Martines MD PATIENT NAME: Hafsa ConleyATE: February 26, 2018 : 5:09 PM PAGER/CONTACT #: [facility] PT EDon 02-26-2018 PT ED HNO ID: [id number] thor: Mora Alfredo (Rn) Suze Cardonaice: (none)Author Type: Registered NurseType: Patient EducationFiled: 02/26/2018 7:09 PMNote Text:PATIENT EDUCATION TOPIC: PROCEDURE / SURGERY: Post Procedure Teaching:Symptom ManagementPATIENT NAME: Hafsa Brewster: [id number] LOCATION: [place] Surgery/[place] SurgeryREADINESS TO LEARNCOGNITIVE ABILITY: Alert and orientedMOTIVATION TO LEARN: EagerFAMILY SUPPORT: High - Very involved in pt careINSTRUCTION PROVIDED TO: Patient and Family memberPATIENT LEARNS BEST BY: Written Instruction - Hand-outsVerbal InstructionFACTORS AFFECTING LEARNING: NonePHYSICAL LIMITATIONS AFFECTING LEARNING: NoneLEARNING RESPONSEDIAGNOSIS: ADULT: Right knee IANDDPATIENT/FAMILY RESPONSE: Verbalizes understanding of: SYMPTOMMANAGEMENT-Correct actions to take to manage symptoms associated withhis/her disease/illnessMETHOD OF INSTRUCTION: Written instruction - handoutsVerbal instructionFOLLOW-UP PLAN: Complete - No need for follow-upINSTRUCTIONAL AIDS USED: NASUPPLEMENTAL MATERIAL PROVIDED TO PATIENT: NoneREFERRAL (RECOMMENDATION): NoneElectronically Signed By: Mora Cardona RN [facility] PT ED HNO ID: [id number] thor: Isatu (Rn) WHIT Hickmanervice: NursingAuthor Type: Registered NurseType: Patient EducationFiled: 02/26/2018 1:30 PMNote Text:PRE OP LEARNING ASSESSMENTPROCEDURE/SURGERY: SURGERY: R knee IANDDREADINESS TO LEARNCOGNITIVE ABILITY: Alert and orientedMOTIVATION TO LEARN: InterestedFAMILY SUPPORT: High - Very involved in pt carePATIENT LEARNS BEST BY: Written Instruction - Hand-outsVerbal InstructionFACTORS AFFECTING LEARNING: NonePHYSICAL LIMITATIONS AFFECTING LEARNING: NoneElectronically Signed By: Isatu Hickman RN In Department: [facility] SURGICAL PATHOLOGYon 018 SURGICAL PATHOLOGY Specimen [facility] [place] [facility]: [id number] Physician: DOUG MARTINES MD FINAL DIAGNOSISSoft tissue, right prepatellar bursa, excision - Granulation tissue withacute and chronic inflammation and fibrin deposition.SEK/RB/kr 03/02/2018 Javier Hudson MD(Electronic Signature) SPECIMEN SUBMITTEDA: HEMORRHAGIC BURSITIS CLINICAL DATABURSITIS, PREPATELLAR, RIGHTGROSS DESCRIPTIONA. Received in formalin labeled with the patient's name and hemorrhagicbursa are multiple unoriented irregular, diez-brown, rubbery tissuefragments, aggregating to 10.5 x 7.0 x 2.5 cm. Sectioned to reveal a yellowto diez to red, rubbery, glistening cut surfaces. Dry Finisher sectionsare submitted in cassettes A1-A2.Gross examination performed at [facility], [address] [place] [id number]/lbk 03/01/2018Patient ID #: [id number] of Report: 03/03/2018Date of Procedure: 02/26/2018Date of Receipt: 03/01/2018Submitted by: DOUG MARTNIES MDLocation: MEORDiagnostic interpretation performed at [facility], [address] [place] [id number]. [facility] Comment on above: Performed By: #### P ATHS ####[employer] [address] [place], [place] [phone] Wound Culture/Stainon 2017 Wound Culture/Stain Sp. Request/Comment: - Gel transport swab. Smear Result - No organisms seen Few Polymorphonuclear leukocytes Rare Mononuclear cells Many RBC Culture Result - No growth 2 days [facility] Comment on above: Performed By: #### W CUL ####[facility] [id number] [place], [place] [phone] [id number] 02-25-2018 ECG01 NAME : DUNIA DUMAS ASPID : [id number] : 1940 Gender : MaleRace : CaucasianORD : [id number] Procedure Date : Feb 25 2018 08:53:54Edit Date : Feb 27 2018 00:47:50 Diagnosis:SINUS RHYTHM WITH SHORT PROTHERWISE NORMAL ECGNO PREVIOUS ECGS AVAILABLEConfirmed by WILDA ABRAHAM M.D. ([id number]) on 02/27/2018 12:47:48 AM Ventricular Rate : 81 BPMAtrial Rate : 81 BPMP-R Interval : 104 msQRS Duration : 84 msQ-T Interval : 374 msQTC Calculation(Bezet) : 434 msR Delevan : 3 degreesT Delevan : 40 degrees Test Reason : Location : : [facility]/ Overread By : WILDA ABRAHAM M.D.Edited By : WILDA ABRAHAM M.D.Referred By : Sumeet PATELqulang by : Shelia HURLEY [facility] HISTORY PHYSICALon 8 HISTORY PHYSICAL HNO ID: [id number] thor: Jacquelyn (Montse) MehdiService: (none)Author Type: Physician AssistantType: HANDPFiled: 02/25/2018 9:36 AMNote Text:HISTORY AND PHYSICAL EXAMINATIONSERVICE DATE: 02/25/2018SERVICE TIME: 8:56 [facility] CARE PHYSICIAN: KAY Pickens FOR VISIT:Hafsa Dumas is a 78 year old male who is scheduled for IANDD rightknee bursa at the request of Dr. Doug Martines for consultation. Myfinal recommendation will be communicated back to the requesting physicianby way of shared medical record or letter.The patient has the following:ACTIVE PROBLEM LISTOSTEOARTHRITIS UNSPECIFIED TYPE( Hand)ECZEMAEssential HypertensionAtrial Fibrillation (Hcc)Hypertrophy of Prostate Without Urinary ObstructionThoracic Aneurysm Without Mention of RuptureGoiter, Nontoxic, MultinodularHyperlipidemiaAtrial Flutter (Hcc)Marta On CpapMitral Valve ProlapseCarpal Tunnel SyndromeFamily History of Colon CancerBursitis, Prepatellar, RightInfrapatellar Bursitis of Right KneeSubjectiveCHIEF COMPLAINT: right prepatellar bursitisHPI:Hafsa Dumas is a 78 year old male that presents c/o a 4 monthhistory of right knee discomfort and swelling that has worsened with time.Began after doing work on his knees in his basement.No pain. C/o numbness and decreased ROM. 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 hyperthyroidism- Hypertrophy of prostate without urinary obstruction and other lowerurinary tract symptoms (LUTS)- Mitral valve prolapse- MARTA on CPAP Dr Rodriguez- Seborrheic dermatitis scalp- THORACIC AORTIC ANEURYSM- Unspecified essential hypertension- Unspecified hemorrhoids without mention of complication HemorrhoidsPAST SURGICAL HISTORYProcedure Laterality Date- BLOOD TRANSFUSION 2008- CARDIAC CATH 06/1996, 06/2008 MVP, normal coronaries- COLONOSCOP W/ OR W/O [facility] SPEC 03/17 Colonoscopy-repeat in - COLONOSCOP W/ OR W/O [facility] SPEC 12/08/11 Normal repeat 10 years- ELECTROPHYSIOLOGY STUDY 03/13/09 pulmonary vein isolation for afib- ELECTROPHYSIOLOGY STUDY 06/10/10 ablation for aflutter- ELECTROPHYSIOLOGY STUDY 04/2008 AV node ablation- FISSURE;SPHINCTEROTOMY/ANAL 12/09/11 and hemorrhoidectomy- PAST SURGICAL HISTORY OF 1960 Fractured jaw, wires placed- TONSILLECTOMY HXFAMILY HISTORYProblem Relation Age of Onset- Heart Father- Cancer Sister ovarian cancer- Cancer Sister lung cancer- Colon Cancer Brother colon at 59- Diabetes Sister- Heart Sister aortic aneurysm?- Heart MotherSOCIAL HISTORY:Social History Marital status: Spouse name: Years of education: Number of children: 0Occupational HistoryOccupation Employer CommentCLAIMS [place] GRSocial History Main Topics Smoking status: Former Smoker Packs/day: 0.70 Years: 5.00 Quit date: 09/14/1964 Smokeless tobacco: Never Used Alcohol use: Yes 9.0 oz/week Glasses of Wine (5oz): 5, Cans of Beer (12oz): 1 per week Comment: occasionally Drug use: No Sexual activity: Yes Partners with: FemaleSocial History Narrative . Remarried-2 adopted children. 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.MEDICATIONS:Prior to Admission medications as of 02/15/18 1307Medication Sig Last Dose TakingcephALEXin (KEFLEX) 500 mg capsule Take 1 capsule by mouth four timesdaily for 7 days.ibuprofen (MOTRIN) 800 mg tablet Take 1 tablet by mouth every 6 hours asneeded.tamsulosin ER (FLOMAX) 0.4 mg cp24 Take 1 capsule by mouth daily atbedtime.aspirin, enteric coated (ADULT LOW DOSE ASPIRIN) 81 mg EC tablet Take 1tablet by mouth once daily.Patient not taking: Reported on 02/15/2018 Not Takingfluticasone (FLONASE) 50 mcg/actuation nasal spray Use 2 Sprays in eachnostril once daily.BIPAP Initiate BiPAP @ 20 cm of water with humidification. Mask (perpatient preference) optional chin strap (if indicated) , filters, tubing,humidifier and lifetime supplies. Follows with a sleep specialist.multivitamin (MEN'S MULTI-VITAMIN) tablet Take 1 tablet by mouth oncedaily. Not Takingatorvastatin calcium(LIPITOR 20 MG TAB) Take one(1) tablet daily.METOPROLOL TARTRATE 25 MG TAB Take one(1) tablet two(2) times daily.No medication comments found.CURRENT ALLERGIES:ALLERGIESAllergen Reactions- Adhesive Tape (Sharla*- Amiodarone Other: See Comments Caused Thyroid problem- Iodine Hives- LatexREVIEW OF SYSTEMS:PAIN ASSESSMENT: PainPain Score: 4/10Pain Location: Knee-RightDescription: Aching;DullDuration Amount of Time: 4Duration Units: MonthsFrequency: IntermittentIntervention: MedicationGeneral: No weight loss, malaise or fevers.Neuro: Postive for tingling in feet; No history of TIAs, stroke,headaches, tremors, OUTSOLE SKIVER tumor, hemiplegia, paraplegia, quadriplegia.Respiratory: MARTA on machine; Former smoker; No history of current cough,dyspnea, bronchitis or pneumonia in the last 6 weeks. No history of asthmsor COPD.Cardiovascular: HTN-treated; HLD-treated; Paroxysmal A fib x 3 ablationswith last in 2009-pt is asymptomatic; Mild MVP; Followed by Dr. Joe patel visit 6 months ago. Negative for chest pain, orthopnea, PND,dizziness, lightheadedness or syncope. Negative for heart murmur.Negative for h/o DVT/PE. Negative for LE edema. No NE.GI: No history of GI symptoms or problems. No history of esophagealvarices, recent ascites, or ETOH greater than 2 drinks per day.: BPH on Flomax; No dysuria or hematuria. No CKD.Endocrine: H/o hyperthyroid while taking Amiodarone. No DM.Hematology: Chronic anti-coagulation / platelet meds (Aspirin); Nobleeding or clotting d/o.Oncology: No history of CA metastasis, chemo within 30 days, orradiotherapy within 90 days. Has not lost 10% of body wt in 6 months. Nohistory of oncological symptoms or problems.Psych: No history of psychiatric symptoms or problems.Musculoskeletal: See HPI; No back painSkin: rash around ring fingers and on left forearmObjectivePHYSICAL EXAM:VITALS:BP 128/82 Pulse 85 Temp (Src) 97.5 (Oral) Resp 16 Ht 5' 10(1.78m) Wt 207 lb (93.9kg) SpO2 94% BMI 29.70 kg/(m2).General: Alert and oriented, No acute distressSkin: rash ring fingers and left forearmHEENT: EOM, pupils equal, round and reactive., No carotid bruitsCardiovascular: Normal S1 AND S2, no rubs, murmurs or gallops. No JVD. Pulseregular.Lungs: Normal breath sounds, no wheezes or crackles., No chest deformitiesor chest wall tenderness.Abdomen: Soft, non-tender, no rigidity., No masses or organomegaly.Extremities: BLE +1 non-pitting edema R>LNeurological: Normal cognition and motor skills. Gait normal. Noweakness or sensory deficit.Pulses: Carotid and radial pulses normal +2.Diagnostic tests reviewed for today's visit: Lab Value Units Date High Low HB No results within date range. HCT No results within date range. WBC No results within date range. PLT No results within date range. NA No results within date range. K No results within date range. GLUC No results within date range. BUN No results within date range. CREAT No results within date range. PTSEC No results within date range. INR No results within date range. APTT No results within date range. ALT No results within date range. AST No results within date range. TBILI No results within date range. TSH No results within date range. Lab Value Units Date High Low HCGQT No results within date range. UHCG No results within date range. HCG, BODY* No results within date range. Lab Value Units Date High Low ABORHD No results within date range. ABSCREEN No results within date range.No results found for: VSG1COjxs recent labsMost recent imagingMost recent EKG: normal sinus rhythm, normal axis, normal intervals,reviewed by facilities mechanical design engineer.Most recent EchoAll in EpicAssessmentASSESSMENTPatient has the following medical conditions:Paroxysmal A fib s/p ablation x 3 on DSPYIU-OtbbuikbjxZKR-TjzcocGJH on machineBPH with LUTS on FlomaxHearing loss-wears hearing aidsMild MVPMETS:Climb a flight of stairs or walk up a hill (5.50 METs)Patient denies any chest pain or undue shortness of breath with the abovephysical activity.ASA Class: 3ANESTHESIA FINDINGS:Intubation History: No history of difficult intubationSignificant Anesthesia Considerations: None and Difficult IV/Vein Access:NoAirway Exam: General: Normal appearance Mallampati Score is CLASS I ULBT: Class I - Lower incisors can bite the upper lip above thevermillion line Neck: Normal appearance and function, Distance from hyoid to mentumduring neck extension is at least 3 finger breaths Mouth: Normal tongue size and Mouth opening greater than 2 finger breaths Dentition: Partial-upper and lowerAirway History: No history of difficult intubationSTOP BANG Score: MARTA uses CPAP/BiPAPPLANThis patient is optimally prepared for surgery pending LABS and EKG.CONSULTS:Patient does not require consults for optimization at this time.The Following Tests/Procedures Have Been Initiated:Orders Placed This Encounter CBC + DIFF COMP METABOLIC PANEL EKGPlanned Anesthetic: GeneralInstructions Given to Patient:Patient given verbal and written preop instructions and voicescomprehension and compliance.SIGNATURE: Jacquelyn Patel PA-C PATIENT NAME: Hafsa ConleyATE: February 25, 2018 : 8:56 AM PAGER/CONTACT #: [facility] NURSING PROGon 02-25-2018 NURSING PROG HNO ID: [id number] thor: Yazmin (Rn) Jake, RNService: (none)Author Type: Registered NurseType: Nursing Progress NoteFiled: 02/25/2018 10:00 AMNote Text:PACC Nurse Progress NoteHistory AND Physical:PACC Visit Date: 02/25/18 DAY BEFORE SURGERYOriginal HANDP Date: 02/25/18ED visit Date: N/AOutside HANDP Scanned Date: N/ALabs Within Last 6 Months:CBC and CMP from 02/25/18 IN PROCESSImaging Within Last 12 Months:Knee XR 02/10/18Cardiac Testing:EKG ordered in EPIC, result PENDINGEcho from 08/14/14, scanned in EPICRisk Assessment:none initiatedAnesthesia Review:N/ANarrative:N/APre-op Considerations:MARTA wears CPAP/BIPAP, patient wears hearing aidsChart Check:COMPLETED pending lab and EKG resultsYazmin Joseph RNJunobdulio 2017 9:54 AM [facility] HOSPon 02-24-2018 HOSP Patient:Andrea Dumas RMRN: Height:5' 10(1.778 m)Weight:207 lb (93.895 kg)Outpatient Medications as of 02/26/18:sod chlor,sod bicarb/neti pot (SINUS WASH NETIPOT NASAL)cephALEXin (KEFLEX) 500 mg capsuleibuprofen (MOTRIN) 800 mg tablettamsulosin ER (FLOMAX) 0.4 mg mt98lhoanix, enteric coated (ADULT LOW DOSE ASPIRIN) 81 mg EC tabletfluticasone (FLONASE) 50 mcg/actuation nasal sprayBIPAPmultivitamin (MEN'S MULTI-VITAMIN) tabletatorvastatin calcium(LIPITOR 20 MG TAB)METOPROLOL TARTRATE 25 MG TABAdmission/Clinic Administered Medications as of 02/26/18:lactated ringers infusionceFAZolin iv piggyback 2 g in D5W (iso-osmotic) 100 mL (ANCEF)ceFAZolin in D5W 100 mL (ANCEF)NaCl 0.9% irrigation bagProblem List:OSTEOARTHRITIS UNSPECIFIED TYPE( Hand) [M19.049]ECZEMA [L25.9]Essential hypertension [I10]Atrial fibrillation (HCC) [I48.91]Goiter, nontoxic, 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]Hyperlipidemia [E78.5]MARTA treated with BiPAP [G47.33]Mitral valve prolapse [I34.1]Bursitis, prepatellar, right [M70.41]Infrapatellar bursitis of right knee [M70.51]Allergies:Adhesive Tape (Rosins)AmiodaroneIodineLatexDat e Verified: 02/26/18Lab ValuesLab Value Units Date High LowPOTA* 4.3 mmol/L 02/25/2018 5.1 3.7HEMA* 41.4 % 02/25/2018 51.0 39.0Progress Notes ([facility]):Corinne Estrella Ma 02/24/2018 10:46 AM SignedPer BETY Leone right knee bursa on 02/26/18. Surgical request completed. Post opappointment scheduled and mailed to patient.Lisa Key [facility] 02/24/2018 11:08 AM SignedNoted in [place].Kassidy Rutledge Ma 02/25/2018 1:57 PM SignedPatient has been scheduled as requested.Progress Notes ([facility]):Corinne Sameer Lim 02/17/2018 10:28 AM SignedPatient calling and states he was to call for an update after 48 hours. Patientstates he has not had an increase in swelling. Feels his knee is better and notworse although he states he was having some swelling in his lower leg. Goldvein theace wrap was too tight. He did loosen it and feels it is better. Denies any calfpain. He is continuing to use the ice machine. Patient states he has tried toget the aspiration results but there is nothing available on [employer]. It statessee comments and there is nothing in the comments. Advised patient all theresults are not back and Sulema will have to release those results to him.Sulema Guadarrama PA-C 02/17/2018 12:59 PM SignedGlad to hear that he is doing better. We will contact him when his cultureresults have returned.Kassidy Rutledge Ma 02/23/2018 11:48 AM Enedelia spoke with patient over the weekend and again yesterday. Encounter willbe closed. Normal [facility] Lab Report: Lipid Profileon 09-10-2017 Cholesterol 126 mg/dL Invalid Interpretation Code 200 [facility] Work Phone: [phone] HDL Cholesterol 56 mg/dL Invalid Interpretation Code [facility] Work Phone: [phone] LDL Cholesterol 55 mg/dL Invalid Interpretation Code 0-130 [facility] Work Phone: [phone] Triglyceride 74 mg/dL Invalid Interpretation Code [facility] Work Phone: [phone] very low density lipoproteins 15 mg/dL Invalid Interpretation Code 5-40 [facility] Work Phone: [phone] Lab Report: Liver Profileon 09-10-2017 Alanine aminotransferase (ALT) 35 U/L Invalid Interpretation Code 12-78 [email or web address] Work Phone: [phone] Albumin 3.8 g/dL Invalid Interpretation Code 3.4-5.0 [facility] Work Phone: [phone] Alkaline phosphatase (ALP) 100 U/L Invalid Interpretation Code 45-117 [facility] Work Phone: [phone] Aspartate aminotransferase (AST) 30 U/L Invalid Interpretation Code 15-37 [facility] Work Phone: [phone] Bilirubin (direct) 0.31 mg/dL High 0.00-0.30 [facility] Work Phone: [phone] Bilirubin (total) 1.40 mg/dL High 0.20-1.00 [facility] Work Phone: [phone] Globulin 3.7 g/dL Invalid Interpretation Code 2.2-4.2 [facility] Work Phone: [phone] Protein 7.5 g/dL Invalid Interpretation Code 6.4-8.2 [facility] Work Phone: [phone] Office Visiton 02-26-2017 Documentation of current medications (procedure) Done Invalid Interpretation Code [employer] [facility] Work Phone: [phone] Fall risk assessment No Invalid Interpretation Code [facility] Work Phone: [phone] Protein mass conc Done [facility] Work Phone: [phone] Clinical Lists Update: Prelo molding line assistant 02-25-2017 Left ventricular Ejection fraction 60 % Invalid Interpretation Code [facility] Work Phone: [phone] Lab Report: Lipid Profileon 02-23-2017 Cholesterol 112 mg/dL 200 [facility] Work Phone: [phone] HDL Cholesterol 55 mg/dL [facility] Work Phone: [phone] LDL Cholesterol 47 mg/dL 0-130 [employer] Work Phone: [phone] Triglyceride 50 mg/dL [facility] Work Phone: [phone] very low density lipoproteins 10 mg/dL 5-40 [facility] Work Phone: [phone] Lab Report: Liver Profileon 02-23-2017 Alanine aminotransferase (ALT) 33 U/L 12-78 [employer] Work Phone: [phone] Albumin 3.7 g/dL 3.4-5.0 [facility] Work Phone: [phone] Alkaline phosphatase (ALP) 97 U/L Invalid Interpretation Code 45-117 [employer] [facility] Work Phone: [phone] ALP enzyme act/vol (Bld) 97 U/L 45-117 [facility] Work Phone: [phone] Aspartate aminotransferase (AST) 29 U/L 15-37 [employer] [facility] Work Phone: [phone] Bilirubin (direct) 0.30 mg/dL 0.00-0.30 [facility] Work Phone: [phone] Bilirubin (total) 2.00 mg/dL High 0.20-1.00 [facility] Work Phone: [phone] Globulin 3.2 g/dL Invalid Interpretation Code 2.3-3.5 [facility] Work Phone: [phone] Globulin mass conc (S) 3.2 g/dL 2.3-3.5 [facility] Work Phone: [phone] Protein 6.9 g/dL 6.4-8.2 [facility] Work Phone: [phone] Office Visiton 08-29-2016 Dietary management education, guidance, and counseling (procedure) yes Invalid Interpretation Code [employer] [facility] Work Phone: [phone] Documentation of current medications (procedure) Done Invalid Interpretation Code [employer] [facility] Work Phone: [phone] Protein mass conc Done [employer] [facility] Work Phone: [phone] Tobacco smoking status NHIS Tobacco smoking status NHIS Invalid Interpretation Code [email or web address] Work Phone: [phone] Tobacco smoking status NHIS Former smoker [email or web address] Work Phone: [phone] Tobacco use CP Former smoker Invalid Interpretation Code [employer] [facility] Work Phone: [phone] Clinical Lists Update: Prelo molding line assistant 2016 Left ventricular Ejection fraction 60 % Invalid Interpretation Code [email or web address] Work Phone: [phone] Office Visiton 03-09-2015 General cardiovascular disease 10Y risk [#] Duncan.D'Agost buddy 9 % Invalid Interpretation Code [email or web address] Work Phone: [phone] Office Visit: [facility] 08-08-20 14 cardiac risk group C Invalid Interpretation Code [email or web address] Work Phone: [phone] LDL target level 100 mg/dL Invalid Interpretation Code [email or web address] Work Phone: [phone] Tobacco smoking status NHIS Former Invalid Interpretation Code [email or web address] Work Phone: [phone] Lab Report: [facility] 08-03-20 14 ALK 98 U/L Normal 50-136 [email or web address] Work Phone: [phone] GE use only - for [employer] import when terms are not otherwise specified 98 U/L Normal 50-136 [email or web address] Work Phone: [phone] Clinical Lists Update: Prelo molding line assistant 05-08-2014 Anion gap 10 mmol/L Invalid Interpretation Code [email or web address] Work Phone: [phone] Anion gap molar conc 10 mmol/L [email or web address] Work Phone: [phone] Chloride 105 mmol/L Invalid Interpretation Code [email or web address] Work Phone: [phone] CO2 27 mmol/L Invalid Interpretation Code [email or web address] Work Phone: [phone] CO2 ppres (BldV) 27 mmol/L [email or web address] Work Phone: [phone] Creatinine 0.93 mg/dL Invalid Interpretation Code [email or web address] Work Phone: [phone] Glucose 93 mg/dL Invalid Interpretation Code [email or web address] Work Phone: [phone] Glucose fasting mass conc 93 mg/dL [email or web address] Work Phone: Glucose mass conc 93 mg/dL [email or web address] Work Phone: [phone] Potassium 4.0 mmol/L Invalid Interpretation Code [email or web address] Work Phone: [phone] Sodium 142 mmol/L Invalid Interpretation Code [email or web address] Work Phone: [phone] Thyroid stimulating hormone (TSH) 3.96 u[iU]/mL Invalid Interpretation Code [email or web address] Work Phone: [phone] Urea nitrogen 11 mg/dL Invalid Interpretation Code [email or web address] Work Phone: [phone] Replaced Document: Ham Horta 02-03-2014 EKG QRS axis -21 deg [email or web address] Work Phone: electrocardiogram interpretation Sinus Rhythm - frequent ectopic ventricular beat s # VECs = 3- Nonspecific T-abnormality. ABNORMAL Invalid Interpretation Code [email or web address] Work Phone: [phone] Interpretation Sinus Rhythm - frequ ent ectopic ventricular beat s # VECs = 3- Nonspecific T-abnormality. ABNORMAL [email or web address] Work Phone: P [place] 90 deg [email or web address] Work Phone: [phone] P wave axis, electrocardiogram 90 deg Invalid Interpretation Code [email or web address] Work Phone: [phone] FL Interval 156 ms [email or web address] Work Phone: FL interval, electrocardiogram 156 ms Invalid Interpretation Code [email or web address] Work Phone: Pulse (Heart Rate) 84 /min Invalid Interpretation Code [email or web address] Work Phone: QRS axis, electrocardiogram -21 deg Invalid Interpretation Code [email or web address] Work Phone: QRS Duration 88 ms [email or web address] Work Phone: QRS duration, electrocardiogram 88 ms Invalid Interpretation Code [email or web address] Work Phone: QT Interval new path ms [facility] Work Phone: [phone] QT interval, electrocardiogram new path ms Invalid Interpretation Code [facility] Work Phone: [phone] T [place] 90 deg [facility] Work Phone: [phone] T wave axis, electrocardiogram 90 deg Invalid Interpretation Code [facility] Work Phone: [phone] Replaced Document: Ham FREIRE Observationson 07-14-2013 Pulse (Heart Rate) 424 ms Invalid Interpretation Code [facility] Work Phone: [phone] Coumadin Management: Coumadi n Managementon 10-14-2011 Coagulation tissue factor induced in platelet poor plasma 25.1 s Invalid Interpretation Code [facility] Work Phone: [phone] INR Coag RelTime (PPP) 2.4 {INR} Normal [facility] Work Phone: [phone] INR in blood by coagulation 2.4 {INR} Normal [facility] Work Phone: [phone] Lab Report: PTon 10-14-2011 prothrombin time, actual/normal, ratio 25.1 SECONDS High 11.9-14.4 [facility] Work Phone: [phone] PTP 25.1 SECONDS High 11.9-14.4 [facility] Work Phone: [phone] Vital Signs Date Time Vital Sign Value Performing Clinician Facility 03-08-2025 07:52-0400 Body mass index (BMI) [Ratio] 27.8 kg/m2 Dr. Lilliana Chatterjee MD Work Phone: [facility] 03-08-2025 07:52-0400 Body temperature 97.2 [degF] Dr. Lilliana Chatterjee MD Work Phone: [facility] 03-08-2025 07:52-0400 Body weight 85.[address] Lilliana Chatterjee MD Work Phone: [facility] 03-08-2025 07:52-0400 Diastolic blood pressure 66 mm[Hg] Dr. Lilliana Chatterjee MD Work Phone: [facility] 03-08-2025 07:52-0400 Heart rate 56 /min Dr. Lilliana Chatterjee MD Work Phone: [phone] [place] [address] 03-08-2025 07:52-0400 Respiratory rate 18 /min Dr. Lilliana Chatterjee MD Work Phone: [phone] [place] [address] 03-08-2025 07:52-0400 SaO2% (BldA) [Mass fraction] 97 % Dr. Lilliana Chatterjee MD Work Phone: [phone] [place] [address] 03-08-2025 07:52-0400 Systolic blood pressure 103 mm[Hg] Dr. Lilliana Chatterjee MD Work Phone: [phone] [place] [address] 01-10-2025 07:11-0400 Body mass index (BMI) [Ratio] 28.2 kg/m2 Dr. Lilliana Chatterjee MD Work Phone: [phone] [place] [address] 01-10-2025 07:11-0400 Body weight 86.[address] Lilliana Chatterjee MD Work Phone: [phone] [place] [address] 01-10-2025 07:11-0400 Diastolic blood pressure 69 mm[Hg] Dr. Lilliana Chatterjee MD Work Phone: [phone])574-656663 [place] [address] 01-10-2025 07:11-0400 Heart rate 84 /min Dr. Lilliana Chatterjee MD Work Phone: [phone] [place] [address] 01-10-2025 07:11-0400 Respiratory rate 14 /min Dr. Lilliana Chatterjee MD Work Phone: [phone] [place] [address] 01-10-2025 07:11-0400 SaO2% (BldA) [Mass fraction] 93 % Dr. Lilliana Chatterjee MD Work Phone: [phone] [place] [address] 01-10-2025 07:11-0400 Systolic blood pressure 101 mm[Hg] Dr. Lilliana Chatterjee MD Work Phone: [phone] [place] [address] 12-15-2024 08:22-0400 Body mass index (BMI) [Ratio] 27.8 kg/m2 Lilliana Chatterjee MD Work Phone: [facility] 12-15-2024 08:22-0400 Body weight 85.4 kg Lilliana Chatterjee MD Work Phone: [facility] 12-15-2024 08:22-0400 Diastolic blood pressure 78 mm[Hg] Lilliana Chatterjee MD Work Phone: [facility] 12-15-2024 08:22-0400 Heart rate 120 /min Lilliana Chatterjee MD Work Phone: [facility] 12-15-2024 08:22-0400 Respiratory rate 18 /min Lilliana Chatterjee MD Work Phone: [facility] 12-15-2024 08:22-0400 Systolic blood pressure 118 mm[Hg] Lilliana Chatterjee MD Work Phone: [facility] 11-25-2024 09:56-0400 Body mass index (BMI) [Ratio] 28.39 kg/m2 Lilliana Chatterjee MD Work Phone: [facility] 11-25-2024 09:56-0400 Body temperature 97.81 [degF] Lilliana Chatterjee MD Work Phone: [facility] 11-25-2024 09:56-0400 Body weight 87.2 kg Lilliana Chatterjee MD Work Phone: [facility] 11-25-2024 09:56-0400 Diastolic blood pressure 74 mm[Hg] Lilliana Chatterjee MD Work Phone: [facility] 11-25-2024 09:56-0400 Heart rate 102 /min Lilliana Chatterjee MD Work Phone: [facility] 11-25-2024 09:56-0400 Respiratory rate 16 /min Lilliana Chatterjee MD Work Phone: [facility] 11-25-2024 09:56-0400 SaO2% (BldA) [Mass fraction] 100 % Lilliana Chatterjee MD Work Phone: [facility] 11-25-2024 09:56-0400 Systolic blood pressure 126 mm[Hg] Lilliana Chatterjee MD Work Phone: [facility] 11-21-2024 19:20-0400 Body mass index (BMI) [Ratio] 28.94 kg/m2 Mark Mayes MD Work Phone: [facility] 11-21-2024 19:20-0400 Body temperature 97.9 [degF] Mark Mayes MD Work Phone: [facility] 11-21-2024 19:20-0400 Body weight 88.9 kg Mark Mayes MD Work Phone: [facility] 11-21-2024 19:20-0400 Diastolic blood pressure 78 mm[Hg] Mark Mayes MD Work Phone: [facility] 11-21-2024 19:20-0400 Heart rate 103 /min Mark Mayes MD Work Phone: [facility] 11-21-2024 19:20-0400 Respiratory rate 16 /min Mark Mayes MD Work Phone: [facility] 11-21-2024 19:20-0400 SaO2% (BldA) [Mass fraction] 99 % Mark Mayes MD Work Phone: [facility] 11-21-2024 19:20-0400 Systolic blood pressure 110 mm[Hg] Mark Mayes MD Work Phone: [facility] 11-17-2024 06:11-0500 Body temperature 98.2 [degF] Dr. Lilliana Chatterjee MD Work Phone: [facility] 11-17-2024 06:11-0500 Diastolic blood pressure 80 mm[Hg] Dr. Lilliana Chatterjee MD Work Phone: [facility] 11-17-2024 06:11-0500 Heart rate 95 /min Dr. Lilliana Chatterjee MD Work Phone: [facility] 11-17-2024 06:11-0500 Respiratory rate 15 /min Dr. Lilliana Chatterjee MD Work Phone: [facility] 11-17-2024 06:11-0500 SaO2% (BldA) [Mass fraction] 100 % Dr. Lilliana Chatterjee MD Work Phone: [facility] 11-17-2024 06:11-0500 Systolic blood pressure 122 mm[Hg] Dr. Lilliana Chatterjee MD Work Phone: [facility] 12-04-2022 08:35-0400 Body weight 86.77 kg Lilliana Chatterjee MD Work Phone: [facility] 12-04-2022 08:35-0400 Diastolic blood pressure 70 mm[Hg] Lilliana Chatterjee MD Work Phone: [facility] 12-04-2022 08:35-0400 Heart rate 88 /min Lilliana Chatterjee MD Work Phone: [facility] 12-04-2022 08:35-0400 Respiratory rate 16 /min Lilliana Chatterjee MD Work Phone: [facility] 12-04-2022 08:35-0400 SaO2% (BldA) [Mass fraction] 98 % iLlliana Chatterjee MD Work Phone: [facility] 12-04-2022 08:35-0400 Systolic blood pressure 116 mm[Hg] Lilliana Chatterjee MD Work Phone: [facility] 09-19-2022 09:04-0500 Body height 177.[address] Lilliana Chatterjee Work Phone: [facility] 09-19-2022 09:04-0500 Body mass index (BMI) [Ratio] 28.4 kg/m2 Dr. Lilliana Chatterjee Work Phone: [facility] 09-19-2022 09:04-0500 Body weight 89.[address] Lilliana Chatterjee Work Phone: [facility] 09-19-2022 09:04-0500 Diastolic blood pressure 60 mm[Hg] Dr. Lilliana Chatterjee Work Phone: [facility] 09-19-2022 09:04-0500 Heart rate 93 /min Dr. Lilliana Chatterjee Work Phone: [facility] 09-19-2022 09:04-0500 Respiratory rate 18 /min Dr. Lilliana Chatterjee Work Phone: [facility] 09-19-2022 09:04-0500 Systolic blood pressure 109 mm[Hg] Dr. Lilliana Chatterjee Work Phone: [facility] 09-09-2022 15:26-0500 Body height 175.3 cm Dionicio Heath PA-C Work Phone: [facility] 09-09-2022 15:26-0500 Body temperature 97 [degF] Dionicio Heath PA-C Work Phone: [facility] 09-09-2022 15:26-0500 Body weight 90.72 kg Dionicio Heath PA-C Work Phone: [facility] 09-09-2022 15:26-0500 Diastolic blood pressure 70 mm[Hg] Dionicio Heath PA-C Work Phone: [facility] 09-09-2022 15:26-0500 Heart rate 98 /min Dionicio Heath PA-C Work Phone: [facility] 09-09-2022 15:26-0500 Respiratory rate 14 /min Dionicio Heath PA-C Work Phone: [facility] 09-09-2022 15:26-0500 SaO2% (BldA) [Mass fraction] 98 % Dionicio Heath PA-C Work Phone: [facility] 09-09-2022 15:26-0500 Systolic blood pressure 110 mm[Hg] Dionicio Heath PA-C Work Phone: [facility] 09-02-2022 09:11-0500 Body weight 91.31 kg Lilliana Chatterjee MD Work Phone: [facility] 09-02-2022 09:11-0500 Diastolic blood pressure 60 mm[Hg] Lilliana Chatterjee MD Work Phone: [facility] 09-02-2022 09:11-0500 Heart rate 70 /min Lilliana Chatterjee MD Work Phone: [facility] 09-02-2022 09:11-0500 Respiratory rate 16 /min Lilliana Chatterjee MD Work Phone: [facility] 09-02-2022 09:11-0500 Systolic blood pressure 110 mm[Hg] Lilliana Chatterjee MD Work Phone: [facility] 03-03-2022 09:02-0400 Body height 175.3 cm Lilliana Chatterjee MD Work Phone: [facility] 03-03-2022 09:02-0400 Body weight 87.86 kg Lilliana Chatterjee MD Work Phone: [facility] 03-03-2022 09:02-0400 Diastolic blood pressure 76 mm[Hg] Lilliana Chatterjee MD Work Phone: [facility] 03-03-2022 09:02-0400 Heart rate 62 /min Lilliana Chatterjee MD Work Phone: [facility] 03-03-2022 09:02-0400 Respiratory rate 16 /min Lilliana Chatterjee MD Work Phone: [facility] 03-03-2022 09:02-0400 Systolic blood pressure 116 mm[Hg] Lilliana Chatterjee MD Work Phone: [facility] 02-26-2017 11:40-0400 BMI (Body Mass Index) 28.71 kg/m2 [facility] Work Phone: 02-26-2017 11:40-0400 BP Diastolic 60 mm[Hg] [facility] Work Phone: 02-26-2017 11:40-0400 BP Systolic 100 mm[Hg] [facility] Work Phone: 02-26-2017 11:40-0400 Height 177.8 cm [facility] Work Phone: 02-26-2017 11:40-0400 Pulse (Heart Rate) 80 /min [facility] Work Phone: 02-26-2017 11:40-0400 Respiratory Rate 20 /min Joanne Silverio [facility] Work Phone: 02-26-2017 11:40-0400 Weight 90.77 kg Joanne Silverio [facility] Work Phone: 08-29-2016 10:13-0500 BMI (Body Mass Index) 28.69 kg/m2 MD [facility] Work Phone: 08-29-2016 10:13-0500 BP Diastolic 60 mm[Hg] Murray Diaz MD [facility] Work Phone: 08-29-2016 10:13-0500 BP Systolic 100 mm[Hg] MD [facility] Work Phone: 08-29-2016 10:13-0500 BSA (Body Surface Area) 2.09 m2 Murray Diaz MD [facility] Work Phone: 08-29-2016 10:13-0500 Height 177.8 cm Murray Diaz MD [facility] Work Phone: 08-29-2016 10:13-0500 Pulse (Heart Rate) 98 /min Murray Diaz MD [facility] Work Phone: 08-29-2016 10:13-0500 Respiratory Rate 18 /min Murray Diaz MD [facility] Work Phone: 08-29-2016 10:13-0500 Weight 90.72 kg Murray Diaz MD [facility] Work Phone: 02-03-2014 16:11-0400 Heart rate 84 /min Clemencia Vivar RN [facility] Work Phone: 07-14-2013 16:16-0400 Heart rate 424 ms Clemencia Vivar RN [facility] Work Phone: 02-26-2011 16:12-0400 Body Temperature 97.8 [degF] MD [facility] Work Phone: 02-26-2011 16:12-0400 Pulse Oximetry 94 % MD [facility] Work Phone: Encounters Encounter Date Encounter Type Care Provider Facility Start: 06-20-2025 End: 06-20-2025 ambulatory KUNAL EATON Facility:[facility] Start: 06-17-2025 End: 06-17-2025 ambulatory LILLIANA CHATTERJEE Facility:[facility] Start: 03-08-2025 End: 03-08-[address] Lilliana Chatterjee MD Work Phone: [facility] Work Phone: Start: 03-08-2025 End: 03-08-2025 Patient encounter procedure Monica Acuna NP-C -[facility] Work Phone: Start: 01-10-2025 End: 01-10-2025 Patient encounter procedure Becky WILLARD -[facility] Work Phone: Start: 01-10-2025 End: 01-10-2025 ambulatory Lilliana Chatterjee Facility:[facility] Start: 01-09-2025 End: 01-10-2025 Refill Kunal Eaton APRN.CNP Work Phone: [facility] Comment on above: Refill Request Start: 12-15-2024 End: 12-16-2024 ambulatory Lilliana Chatterjee MD Work Phone: [facility] Comment on above: Shingles Shot Start: 12-15-2024 End: 12-15-2024 Office outpatient visit 25 minutes Lilliana Chatterjee MD Work Phone: [facility] Comment on above: Essential hypertensi on (Primary Dx); Atrial fibrillation, unspecified type (HCC); Hyperlipidemia, unspecified hyperlipidemia type; Benign prostatic hyperplasia with weak urinary stream; GERD without esophagitis; Restless legs; MARTA treated with BiPAP; [id number] condition; Arthritis; Encounter for follow-up examination after completed treatment for conditions other than malignant neoplasm Start: 12-09-2024 End: 12-09-2024 ambulatory LILLIANA CHATTERJEE Facility: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 Start: 11-25-2024 End: 11-25-2024 Office outpatient visit 15 minutes Lilliana Chatterjee MD Work Phone: [facility] Comment on above: Post-COVID chronic c ough (Primary Dx) Start: 11-23-2024 End: 11-23-2024 ambulatory Lilliana Chatterjee MD Work Phone: [facility] Comment on above: Benzonatate Start: 11-22-2024 End: 11-22-2024 Follow-up encounter Sen Ospina APRN.CNP Work Phone: [facility] Start: 11-21-2024 End: 11-21-2024 ambulatory LILLIANA CHATTERJEE Facility:[facility] Start: 11-21-2024 End: 11-21-2024 Office outpatient visit 25 minutes Mark Mayes MD Work Phone: [facility] Comment on above: Sore throat (Primary Dx); Acute cough Start: 11-17-2024 End: 11-17-2024 Patient encounter procedure Cuco Lundberg NP-C [facility] Work Phone: Start: 11-17-2024 End: 11-17-2024 ambulatory Lilliana Chatterjee Facility:[facility] Start: 10-10-2024 End: 10-10-2024 Telephone encounter Lilliana Chatterjee MD Work Phone: [facility] Comment on above: patient update/follo w up apt? Start: 10-06-2024 End: 10-06-2024 ambulatory [facility] Facility:[facility] Start: 09-12-2024 End: 09-12-2024 ambulatory [facility] Facility:[facility] Start: 08-01-2024 ambulatory Becky aranda PA Facility:[facility] Start: 08-01-2024 End: 08-01-2024 ambulatory [facility] Facility:[facility] Start: 07-27-2024 End: 07-27-2024 ambulatory [facility] Facility:[facility] Start: 07-12-2024 End: 07-12-2024 ambulatory Becky WILLARD Facility:[facility] Start: 07-12-2024 End: 07-12-2024 ambulatory [facility] Facility:[facility] Start: 07-05-2024 End: 07-05-2024 ambulatory Becky WILLARD Facility:[facility] Start: 06-17-2024 End: 06-17-2024 Telephone encounter Lilliana Chatterjee MD Work Phone: [facility] Comment on above: Patient Question Start: 06-16-2024 End: 06-16-2024 Patient encounter procedure Lilliana Chatterjee MD Work Phone: [facility] Comment on above: Essential hypertensi on (Primary Dx); Screening for depression; Encounter for screening examination for other mental health and behavioral disorders; Hyperlipidemia, unspecified hyperlipidemia type; Benign prostatic hyperplasia with weak urinary stream; Medicare annual wellness visit, subsequent Start: 04-05-2024 ambulatory [facility] Start: 04-05-2024 Patient encounter procedure Heidi Castano MA [facility] Comment on above: Population Health Na vigation Outreach (Arianne [facility]) Start: 01-12-2024 Refill Mora Hebert APRN.CREDIT ASSESSMENT ANALYST Work Phone: [facility] Comment on above: Refill Request Start: 01-12-2024 Refill Mora Hebert APRN.CREDIT ASSESSMENT ANALYST Work Phone: [facility] Comment on above: Refill Request Start: 06-01-2023 ambulatory [facility] rivera MD [facility] Start: 06-01-2023 Patient encounter procedure Lilliana Chatterjee MD Work Phone: [facility] Comment on above: Lab work before my appointment Start: 05-10-2023 Refill Lilliana rivera MD Work Phone: [facility] Comment on above: Refill Request Start: 12-04-2022 End: 12-04-2022 Patient encounter procedure Lilliana Chatterjee MD Work Phone: [facility] Comment on above: Essential hypertensi on (Primary Dx); Restless legs; Atrial fibrillation, unspecified type (HCC); Hyperlipidemia, unspecified hyperlipidemia type; MARTA treated with BiPAP; Benign prostatic hyperplasia with weak urinary stream; ECZEMA; Goiter, nontoxic, multinodular; Herpes zoster with complication Start: 10-02-2022 End: 10-02-[address] Lilliana Chatterjee Work Phone: [facility] Work Phone: Start: 10-02-2022 End: 10-02-[address] Lilliana Chatterjee Work Phone: [facility] Start: 09-19-2022 End: 09-19-[address] Lilliana Chatterjee Work Phone: [facility] Start: 09-09-2022 End: 09-09-2022 Patient encounter procedure Dionicio Heath PA-C Work Phone: Urology Comment on above: Benign prostatic hyp erplasia with weak urinary stream Start: 09-02-2022 End: 09-02-2022 Patient encounter procedure Lilliana Chatterjee MD Work Phone: [facility] Comment on above: Essential hypertensi on (Primary Dx); Restless legs; Atrial fibrillation, unspecified type (HCC); Hyperlipidemia, unspecified hyperlipidemia type; MARTA treated with BiPAP; Benign prostatic hyperplasia with weak urinary stream; Abdominal bloating; Symptoms of gastroesophageal reflux; Osteoarthritis, unspecified osteoarthritis type, unspecified site; Weight gain Start: 07-01-2022 End: 07-01-[address] [facility] Work Phone: Start: 07-01-2022 End: 07-01-[address] [facility] Start: 03-03-2022 End: 03-03-2022 Patient encounter procedure Lilliana Chatterjee MD Work Phone: [facility] Comment on above: Medicare annual well ness visit, initial (Primary Dx); Restless legs; Essential hypertension; Atrial fibrillation, unspecified type (HCC); Hyperlipidemia, unspecified hyperlipidemia type; MARTA treated with BiPAP; Benign prostatic hyperplasia with weak urinary stream Start: 12-09-2021 Refill Lilliana rivera MD Work Phone: [facility] Comment on above: Refill Request Start: 02-26-2018 End: 02-26-2018 Patient encounter [facility] Start: 02-25-2018 End: 02-25-2018 Patient encounter [facility] Procedures Date Procedure Procedure Detail Performing Clinician Start: 06-16-2024 Adult depression screening assessment Lilliana Chatterjee MD Work Phone: Start: 10-02-2022 CT angiography of chest with contrast Dr. Lilliana Chatterjee Work Phone: Start: 09-09-2022 Culture bacterial quanttative colony count urine Dionicio Heath PA-C Work Phone: Start: 09-09-2022 Urnls dip stick/tablet rgnt auto w/o microscopy Dionicio Heath PA-C Work Phone: Start: 08-25-2017 End: 09-10-2017 *Hepatic Function Panel Juni Saucedo Start: 08-25-2017 End: 09-10-2017 Lipid panel [AGGREGATE] Juni Saucedo Start: 02-13-2017 End: 02-23-2017 *Hepatic Function Panel Juni Saucedo Start: 02-13-2017 End: 02-23-2017 Lipid panel [AGGREGATE] Juni Saucedo Start: 08-29-2016 End: 08-29-2016 Dietary management education, guidance, and counseling Clemencia Vivar RN Start: 08-29-2016 End: 02-26-2017 Follow Up Appt 6 months Juni Saucedo Start: 08-29-2016 End: 02-26-2017 MMM Murray Diaz MD Start: 08-14-2016 End: 08-18-2016 *Hepatic Function Panel Juni Saucedo Start: 08-14-2016 End: 08-18-2016 Lipid panel [AGGREGATE] Juni Saucedo Start: 02-28-2016 End: 02-28-2016 Follow Up Appt 6 months Juni Saucedo Start: 02-28-2016 End: 02-28-2016 MMM Murray Diaz MD Start: 02-28-2016 Radiofrequency ablation operation for arrhythmia Hx of radiofreq ablation arrhythmia focus Clemencia Vivar RN Start: 02-11-2016 End: 02-21-2016 *Hepatic Function Panel Juni Saucedo Start: 02-11-2016 End: 02-21-2016 Lipid panel [AGGREGATE] Juni Saucedo Start: 03-09-2015 End: 03-09-2015 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 Murray Diaz MD Start: 03-09-2015 End: 03-10-2015 Documentation of current medications Murray Diaz MD Start: 03-09-2015 End: 03-09-2015 Follow Up Appt 1 year Murray Diaz MD Start: 02-10-2015 End: 02-16-2015 *Hepatic Function Panel Juni Saucedo Start: 02-10-2015 End: 02-16-2015 Lipid panel [AGGREGATE] Juni Saucedo Start: 08-08-2014 End: 08-08-2014 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 Becky Johnson PA-C Work Phone: Start: 08-08-2014 End: 08-14-2014 Echocardiography Becky Johnson PA-C Work Phone: Start: 08-08-2014 End: 08-08-2014 Follow Up Appt 6 months Becky pacheco PA-C Work Phone: Start: 02-03-2014 End: 07-20-2014 Electrocardiogram, complete Murray Sparrow i, MD Start: 02-03-2014 End: 02-03-2014 Follow Up Appt 6 months Juni Saucedo Start: 02-03-2014 End: 02-03-2014 MMM Murray Diaz MD Start: 01-31-2014 End: 08-03-2014 *Hepatic Function Panel Juni Saucedo Start: 01-31-2014 End: 08-03-2014 Lipid panel [AGGREGATE] Juni Saucedo Start: 10-15-2013 End: 01-31-2014 *Hepatic Function Panel Juni Saucedo Start: 10-15-2013 End: 01-31-2014 Lipid panel [AGGREGATE] Juni Saucedo Start: 07-14-2013 End: 07-14-2013 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 Becky Johnson PA-C Work Phone: Start: 07-14-2013 End: 07-14-2013 Electrocardiogram, complete Becky Pinto PA-C Work Phone: Start: 07-14-2013 End: 07-14-2013 Follow Up Appt 6 months Becky pacheco PA-C Work Phone: Start: 04-14-2013 End: 04-27-2013 *Hepatic Function Panel Juni Saucedo Start: 04-14-2013 End: 04-27-2013 Lipid panel [AGGREGATE] Juni Saucedo Start: 12-16-2012 End: 12-16-2012 Follow Up Appt 6 months Juni Saucedo Start: 12-16-2012 End: 12-16-2012 MMM Murray Diaz MD Start: 09-15-2012 End: 11-02-2012 *Hepatic Function Panel Juni Saucedo Start: 09-15-2012 End: 11-02-2012 Lipid panel [AGGREGATE] Juni Saucedo Start: 06-01-2012 End: 12-16-2012 Follow Up Appt 6 months Juni Saucedo Start: 04-13-2012 End: 04-16-2012 *Hepatic Function Panel Juni Saucedo Start: 04-13-2012 End: 04-16-2012 Lipid panel [AGGREGATE] Juni Saucedo Start: 10-21-2011 End: 10-21-2011 Follow Up Appt 6 months Juni Saucedo Plan of Treatment Date Care Activity Detail Author Start: 12-10-2027 Diabetes Screening Diabetes Screenin [facility] Start: 06-08-2027 Diabetes Screening Diabetes Screenin g [facility] Start: 12-09-2026 Diabetes Screening Diabetes Screenin g [facility] Start: 05-22-2026 Urine microalbumin profile [facility] Start: 08-28-2025 DIABETES SCREEN DIABETES SCREEN [facility] Start: 08-28-2025 Diabetes Screening Diabetes Screenin g [facility] Start: 06-20-2025 End: 06-20-2025 Patient encounter procedure 06/20/2025 8:40 AM EDT Office Visit [facility] [address] [place], [place] [id number] Lilliana Chatterjee MD [address] [place] [address] 6 mo f/u [facility] Comment on above: 6 mo f/u Start: 06-16-2025 Anxiety Screening Anxiety Screening [facility] Start: 06-16-2025 Depression Screening Depression Scre ening [facility] Start: 06-13-2025 End: 09-12-2025 Comprehensive metabolic 2000 panel - Serum or Plasma COMPREHENSIVE METABOLIC PANEL Lab Routine Essential hypertension Hyperlipidemia, unspecified hyperlipidemia type Expected: 06/13/2025 (Approximate), Expires: 09/12/2025 [facility] Work Phone: Comment on above: Expected: 06/13/2025 (Approximate), Expires: 09/12/2025 Start: 06-13-2025 End: 09-12-2025 Lipid 1996 panel - Serum or Plasma LIPID PANEL, FASTING Lab Routine Essential hypertension Hyperlipidemia, unspecified hyperlipidemia type Expected: 06/13/2025 (Approximate), Expires: 09/12/2025 [facility] Comment on above: Expected: 06/13/2025 (Approximate), Expires: 09/12/2025 Start: 12-15-2024 End: 03-16-2025 CBC panel - Blood by Automated count COMPLETE BLOOD COUNT Lab Routine Essential hypertension Expected: 12/15/2024 (Approximate), Expires: 03/16/2025 [facility] Comment on above: Expected: 12/15/2024 (Approximate), Expires: 03/16/2025 Start: 12-15-2024 End: 03-16-2025 Comprehensive metabolic 2000 panel - Serum or Plasma COMPREHENSIVE METABOLIC PANEL Lab Routine Essential hypertension Hyperlipidemia, unspecified hyperlipidemia type Expected: 12/15/2024 (Approximate), Expires: 03/16/2025 [facility] Work Phone: Comment on above: Expected: 12/15/2024 (Approximate), Expires: 03/16/2025 Start: 12-15-2024 End: 03-16-2025 Lipid 1996 panel - Serum or Plasma LIPID PANEL BASIC Lab Routine Essential hypertension Hyperlipidemia, unspecified hyperlipidemia type Expected: 12/15/2024 (Approximate), Expires: 03/16/2025 [facility] Comment on above: Expected: 12/15/2024 (Approximate), Expires: 03/16/2025 Start: 12-15-2024 End: 12-15-2024 Patient encounter procedure 12/15/2024 8:40 AM EDT Office Visit [facility] [address] [place] [id number] Lilliana Chatterjee MD [address] [place] [address] 6 month follow up [facility] Comment on above: 6 month follow up Start: 12-09-2024 RSV Vaccine (1 - 1-d ose 60+ series) RSV Vaccine (1 - 1-dose 60+ series) [facility] Comment on above: Postponed from 02/17 (Declined at this time) Start: 12-09-2024 RSV Vaccine (1 - 1-d ose 75+ series) RSV Vaccine (1 - 1-dose 75+ series) [facility] Comment on above: Postponed from 02/17 (Declined at this time) Start: 12-09-2024 Shingrix Vaccine (2 of 3) Smith grix Vaccine (2 of 3) [facility] Comment on above: Postponed from 12/25 (Declined at this time) Start: 11-28-2024 Covid-19 Vaccine ( season) Covid-19 Vaccine () [facility] Start: 09-14-2024 Advance Directive Discussion Advance Directive Discussion [facility] Start: 06-16-2024 End: 06-16-2024 Patient encounter procedure [facility] Comment on above: 6 mo f/u Annual Wellness - 6 mo f/u Start: 05-15-2024 Influenza vaccination Influenza Vacc ine (#1) [facility] Start: 10-17-2023 Covid-19 Vaccine ( season) Covid-19 Vaccine ( season) [facility] Start: 09-14-2023 Behavioral Health Screening Behavioral Health Screening [facility] Start: 06-02-2023 End: 08-02-2023 CBC W Auto Differential panel - Blood CBC + DIFF Lab Routine Atrial fibrillation, unspecified type (HCC) Expected: 06/02/2023, Expires: 08/02/2023 [facility] Work Phone: Comment on above: Expected: 06/02/2023 , Expires: 08/02/2023 Start: 06-02-2023 End: 08-02-2023 Comprehensive metabolic 2000 panel - Serum or Plasma COMP METABOLIC PANEL Lab Routine Hyperlipidemia, unspecified hyperlipidemia type Expected: 06/02/2023, Expires: 08/02/2023 [facility] Work Phone: Comment on above: Expected: 06/02/2023 , Expires: 08/02/2023 Start: 06-02-2023 End: 08-02-2023 Lipid 1996 panel - Serum or Plasma LIPID PANEL BASIC Lab Routine Hyperlipidemia, unspecified hyperlipidemia type Expected: 06/02/2023, Expires: 08/02/2023 [facility] Work Phone: Comment on above: Expected: 06/02/2023 , Expires: 08/02/2023 Start: 05-15-2023 Influenza vaccination C [facility] Start: 10-11-2022 COVID-19 VACCINE (6 - Moderna series) COVID-19 VACCINE (6 - Moderna series) [facility] Start: 09-14-2022 ADVANCE DIRECTIVE DISCUSSION ADVANCE DIRECTIVE DISCUSSION [facility] Start: 09-14-2022 DEPRESSION ASSESSMENT DEPRESSION ASS ESSMENT [facility] Start: 09-02-2022 End: 11-02-2022 CBC W Auto Differential panel - Blood CBC + DIFF Lab Routine Atrial fibrillation, unspecified type (HCC) Expected: 09/02/2022 (Approximate), Expires: 11/02/2022 [facility] Work Phone: Comment on above: Expected: 09/02/2022 (Approximate), Expires: 11/02/2022 Start: 09-02-2022 End: 11-02-2022 Comprehensive metabolic 2000 panel - Serum or Plasma COMP METABOLIC PANEL Lab Routine Hyperlipidemia, unspecified hyperlipidemia type Expected: 09/02/2022 (Approximate), Expires: 11/02/2022 [facility] Work Phone: Comment on above: Expected: 09/02/2022 (Approximate), Expires: 11/02/2022 Start: 09-02-2022 End: 11-02-2022 Lipid 1996 panel - Serum or Plasma LIPID PANEL BASIC Lab Routine Hyperlipidemia, unspecified hyperlipidemia type Expected: 09/02/2022 (Approximate), Expires: 11/02/2022 [facility] Work Phone: Comment on above: Expected: 09/02/2022 (Approximate), Expires: 11/02/2022 Start: 01-10-2022 DIABETES SCREEN DIABETES SCREEN [facility] Start: 09-14-2021 ADVANCE DIRECTIVE DISCUSSION ADVANCE DIRECTIVE DISCUSSION [facility] Start: 03-03-2018 End: 03-03-2018 Appointment Appointment [facility] Work Phone: Start: 08-25-2017 End: 09-10-2017 *Hepatic Function Panel *Hepatic Function Panel [facility] Work Phone: Start: 08-25-2017 End: 09-10-2017 Lipid panel [AGGREGATE] *Lipid Profile CC PCP [facility] Work Phone: Start: 02-26-2017 End: 02-26-2017 Appointment Appointment [facility] Work Phone: Start: 02-26-2017 End: 02-26-2017 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 [facility] Work Phone: Start: 02-26-2017 End: 02-26-2017 Follow Up Appt 1 year Follow Up Appt 1 year [facility] Work Phone: Start: 02-13-2017 End: 02-23-2017 *Hepatic Function Panel *Hepatic Function Panel [facility] Work Phone: Start: 02-13-2017 End: 02-23-2017 Lipid panel [AGGREGATE] *Lipid Profile CC PCP [facility] Work Phone: Start: 08-29-2016 End: 02-26-2017 Follow Up Appt 6 months Follow Up Appt 6 months [facility] Work Phone: Start: 08-29-2016 End: 02-26-2017 MMM MMM [facility] Work Phone: Start: 08-14-2016 End: 08-18-2016 *Hepatic Function Panel *Hepatic Function Panel [facility] Work Phone: Start: 08-14-2016 End: 08-18-2016 Lipid panel [AGGREGATE] *Lipid Profile CC PCP [facility] Work Phone: Start: 02-28-2016 End: 02-28-2016 Follow Up Appt 6 months Follow Up Appt 6 months [facility] Work Phone: Start: 02-28-2016 End: 02-28-2016 MMM MMM [facility] Work Phone: Start: 02-11-2016 End: 11-15-2015 *Hepatic Function Panel *Hepatic Function Panel [facility] Work Phone: Start: 02-11-2016 End: 11-15-2015 Lipid panel [AGGREGATE] *Lipid Profile CC PCP [facility] Work Phone: Start: 03-09-2015 End: 03-09-2015 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 [facility] Work Phone: Start: 03-09-2015 End: 03-09-2015 Follow Up Appt 1 year Follow Up Appt 1 year [facility] Work Phone: Start: 02-10-2015 End: 02-16-2015 *Hepatic Function Panel *Hepatic Function Panel [facility] Work Phone: Start: 02-10-2015 End: 02-16-2015 Lipid panel [AGGREGATE] *Lipid Profile CC PCP [facility] Work Phone: Start: 08-08-2014 End: 08-08-2014 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 [facility] Work Phone: Start: 08-08-2014 End: 08-08-2014 Echocardiography Echocardiogram (complete) [facility] Work Phone: Start: 08-08-2014 End: 08-08-2014 Follow Up Appt 6 months Follow Up Appt 6 months [facility] Work Phone: Start: 02-03-2014 End: 07-20-2014 Electrocardiogram, complete EKG (In office) [facility] Work Phone: Start: 02-03-2014 End: 02-03-2014 Follow Up Appt 6 months Follow Up Appt 6 months [facility] Work Phone: Start: 02-03-2014 End: 02-03-2014 MMM MMM [facility] Work Phone: Start: 01-31-2014 End: 08-03-2014 *Hepatic Function Panel *Hepatic Function Panel [facility] Work Phone: Start: 01-31-2014 End: 08-03-2014 Lipid panel [AGGREGATE] *Lipid Profile CC PCP [facility] Group Work Phone: Start: 10-15-2013 End: 01-31-2014 *Hepatic Function Panel *Hepatic Function Panel [facility] Work Phone: Start: 10-15-2013 End: 01-31-2014 Lipid panel [AGGREGATE] *Lipid Profile CC PCP [facility] Work Phone: Start: 07-14-2013 End: 07-14-2013 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 [facility] Work Phone: Start: 07-14-2013 End: 07-14-2013 Electrocardiogram, complete EKG (In office) [facility] Work Phone: Start: 07-14-2013 End: 07-14-2013 Follow Up Appt 6 months Follow Up Appt 6 months [facility] Work Phone: Start: 04-14-2013 End: 04-27-2013 *Hepatic Function Panel *Hepatic Function Panel [facility] Work Phone: Start: 04-14-2013 End: 04-27-2013 Lipid panel [AGGREGATE] *Lipid Profile [facility] Work Phone: Start: 12-16-2012 End: 12-16-2012 Follow Up Appt 6 months Follow Up Appt 6 months [facility] Work Phone: Start: 12-16-2012 End: 12-16-2012 MMM MMM [facility] Work Phone: Start: 09-15-2012 End: 11-02-2012 *Hepatic Function Panel *Hepatic Function Panel [facility] Work Phone: Start: 09-15-2012 End: 11-02-2012 Lipid panel [AGGREGATE] *Lipid Profile [facility] Work Phone: Start: 06-01-2012 End: 12-16-2012 Follow Up Appt 6 months Follow Up Appt 6 months [facility] Work Phone: Start: 04-13-2012 End: 04-16-2012 *Hepatic Function Panel *Hepatic Function Panel [facility] Work Phone: Start: 04-13-2012 End: 04-16-2012 Lipid panel [AGGREGATE] *Lipid Profile [facility] Work Phone: Start: 10-21-2011 End: 10-21-2011 Follow Up Appt 6 months Follow Up Appt 6 months [facility] Work Phone: Start: 12-25-2010 SHINGRIX VACCINE (2 of 3) SMITH GRIX VACCINE (2 of 3) [facility] COVID & INFLUENZA A/ B & RSV PCR, ROUTINE COVID & INFLUENZA A/B & RSV PCR, ROUTINE Microbiology Routine Sore throat Acute cough 11/21/2024 8:03 PM EDT [facility] Work Phone: Patient Education [facility] Work Phone: POST VOID RESIDUAL POST VOID RES IDUAL Procedures Routine Benign prostatic hyperplasia with weak urinary stream Ordered: 09/09/2022 [facility] Work Phone: Comment on above: Ordered: 09/09/2022 End: 12-25-2025 XR Chest PA and Lateral XR CHEST 2V FRONTAL/LAT Radiology Routine Post-COVID chronic cough 1 Occurrences starting 11/25/2024 until 12/25/2025 [facility] Work Phone: Comment on above: 1 Occurrences starti ng 11/25/2024 until 12/25/2025 XR Chest PA and Lateral XR CHEST 2V FRONTAL/LAT Radiology Routine Post-COVID chronic cough 11/25/2024 10:50 AM EDT [facility] Immunization Date Immunization Notes Care Provider Joey salguero 06-04-2023 influenza, high dose seasonal, preservative-free Mora Hebert APRN.CNP Work Phone: [facility] 06-04-2023 influenza virus vacc ine, unspecified formulation Heidi Castano [facility] 06-30-2022 influenza, high dose seasonal, preservative-free Lilliana Chatterjee MD Work Phone: [facility] 06-30-2022 influenza virus vacc ine, unspecified formulation Lilliana Chatterjee MD Work Phone: [facility] 06-18-2021 influenza, high dose seasonal, preservative-free Lilliana Chatterjee MD Work Phone: [facility] 11-01-2020 COVID-19 vaccine, fu ll dose (MODERNA) Lilliana Chatterjee MD Work Phone: [facility] 10-04-2020 COVID-19 vaccine, fu ll dose (MODERNA) Lilliana Chatterjee MD Work Phone: [facility] 06-16-2020 influenza, high-dose , quadrivalent vaccine (FLUZONE HIGH DOSE QUADRIVALENT) Lilliana Chatterjee MD Work Phone: [facility] 07-05-2019 influenza, high dose seasonal, preservative-free Lilliana Chatterjee MD Work Phone: [facility] 06-17-2018 influenza, high dose seasonal, preservative-free Lilliana Chatterjee MD Work Phone: [facility] 05-28-2017 influenza, high dose seasonal, preservative-free Lilliana Chatterjee MD Work Phone: [facility] 05-22-2016 influenza, high dose seasonal, preservative-free Lilliana Chatterjee MD Work Phone: [facility] 05-22-2016 tetanus and diphther ia toxoids, adsorbed, preservative free, for adult use (5 Lf of tetanus toxoid and 2 Lf of diphtheria toxoid) Lilliana Chatterjee MD Work Phone: [facility] 07-09-2015 influenza, high dose seasonal, preservative-free Lilliana Chatterjee MD Work Phone: [facility] 11-16-2014 pneumococcal conjuga te vaccine, 13 valent Lilliana Chatterjee MD Work Phone: [facility] Work Phone: 07-05-2013 influenza virus vacc ine, unspecified formulation Lilliana Chatterjee MD Work Phone: [facility] 06-19-2012 influenza virus vacc ine, unspecified formulation Lilliana Chatterjee MD Work Phone: [facility] 07-01-2011 influenza virus vacc ine, unspecified formulation Lilliana Chatterjee MD Work Phone: [facility] 10-30-2010 zoster vaccine, live Lilliana monk MD Work Phone: [facility] Work Phone: 07-01-2010 influenza virus vacc ine, unspecified formulation Lilliana Chatterjee MD Work Phone: [facility] Work Phone: 08-27-2009 novel influenza-H1N1 -09, all formulations Lilliana Chatterjee MD Work Phone: [facility] Work Phone: 01-27-2006 pneumococcal polysaccharide vaccine, 23 valent Lilliana Chatterjee MD Work Phone: [facility] Work Phone: 01-27-2006 tetanus toxoid, redu latasha diphtheria toxoid, and acellular pertussis vaccine, adsorbed Lilliana Chatterjee MD Work Phone: [facility] Work Phone: 07-22-2005 influenza virus vacc ine, unspecified formulation Lilliana Chatterjee MD Work Phone: [facility] Work Phone: Payers Date Payer Category Payer Self-pay [id number] 2020 Medicare (Managed Care) [employer]NE [employer] O Member Subscriber Plan / Payer (Effective 2020-Present) Name: Hafsa Dumas Relation to Subscriber: Self Name: Hafsa Dumas Payer ID: [id number] (NAIC) Group ID: [id number] Type: HMO Address: [place] [id number] 2020 Unknown ARIANNE BL[employer] CR[employer] S [employer] BLUE SHIELD ARIANNE BETHEA O [id number] 2020-Present [id number] [place] [id number] [facility] [id number] 2020 Unknown [id number] 2020 Unknown [id number] 2013 Unknown [facility] [id number] 2009 Medicare MEDICARE PART A B [id number] Medicare MMO MEDICARE [id number] Unknown [id number] Unknown [id number] Unknown [id number] Unknown [id number] Unknown [id number] Unknown [id number] 462 Unknown [id number] 462 Unknown [id number] 462 Unknown [id number] 462 Unknown [id number] 462 Unknown [id number] 462 Social History Date Type Detail Facility Start: 11-03-2011 End: 10-05-2024 Tobacco smoking status NHIS Ex-smoker [facility] Work Phone: Start: [birth year]14-1959 End: 09-14-1964 History of tobacco use Current smoker [facility] Work Phone: Start: 11-03-2011 End: 06-11-2023 Cigarettes smoked current (pack per day) - Reported 0.7 [facility] Start: 11-03-2011 End: 11-25-2024 Tobacco use and exposure Smokeless tobacco non-user [facility] Work Phone: Start: 09-02-2021 End: 12-15-2024 Alcohol intake Current drinker of alcohol (finding) [facility] Start: 08-28-2021 End: 08-28-2022 History SDOH Alcohol Frequency 5 [facility] Start: 08-28-2021 End: 08-28-2022 History SDOH Alcohol Std Drinks 1 [facility] Start: 08-28-2021 End: 08-28-2022 History SDOH Social Connections Phone 4 [facility] Start: 08-28-2021 End: 08-28-2022 History SDOH Social Connections Confucianist 2 [facility] Start: 08-28-2021 End: 08-28-2022 History SDOH Social Connections Living 3 [facility] Start: 02-13-2020 Education 15 [facility] Start: 1940 Sex Assigned At Male [facility] Start: 02-21-2022 End: 03-03-2022 Exposure to SARS-CoV-2 (event) Not sure [facility] Start: 02-24-2022 End: 09-19-2022 Tobacco smoking status NHIS Unknown if ever smoked [facility] Start: 08-09-2019 Spouse/ Significant Other [facility] Start: [birth year]-14-1959 End: 09-14-1964 History of tobacco use Cigarette Smoker [facility] Work Phone: Start: 08-27-2022 End: 06-11-2023 Social connection and isolation panel [facility] Do you belong to any clubs or organizations such as adventism groups, unions, fraternal or athletic groups, or school groups? Yes [facility] Are you now , , , , never or living with a partner? [facility] How often to you hav e a drink containing alcohol? 2-4 times a month [facility] How many standard dr inks containing alcohol do you have on a typical day? 1 or 2 [facility] How often do you hav e 6 or more drinks on 1 occasion? Never [facility] How hard is it for y ou to pay for the very basics like food, housing, medical care, and heating Not hard at all [facility] Do you feel stress - tense, restless, nervous, or anxious, or unable to sleep at night because your mind is troubled all the time - these days [OSQ] Not at all [facility] (I/We) worried levi er (my/our) food would run out before (I/we) got money to buy more. Never true [facility] In the past 12 month s, was there a time when you were not able to pay the mortgage or rent on time? No [facility] Start: 08-28-2020 Gender identity Identifies as male gender (finding) [facility] Start: 08-28-2020 Sexual orientation Heterosexual (finding) [facility] How often to you hav e a drink containing alcohol? 2-3 time sa week [facility] How often to you hav e a drink containing alcohol? Monthly or less [facility] Functional Status Date Assessment Result Facility 11-16-2014 Are you deaf, or do you have serious difficulty hearing No 11/16/2014 2:03 PM JIMMY OTT [facility] 11-16-2014 Are you blind, or do you have serious difficulty seeing, even when wearing glasses No 11/16/2014 2:03 PM JIMMY OTT [facility] 11-16-2014 Do you have serious difficulty walking or climbing stairs No 11/16/2014 2:03 PM JIMMY OTT [facility] 11-16-2014 Do you have difficul ty dressing or bathing No 11/16/2014 2:03 PM JIMMY OTT [facility] 11-16-2014 Because of a physica l, mental, or emotional condition, do you have difficulty doing errands alone such as visiting a physician's office or shopping No 11/16/2014 2:03 PM JIMMY OTT [facility] Mental Status Date Assessment Result Facility 11-16-2014 Because of a physica l, mental, or emotional condition, do you have serious difficulty concentrating, remembering, or making decisions No 11/16/2014 2:03 PM JIMMY OTT [facility] Clinical Notes 02-28-2021 to 06-20-2025 Telephone Encounter - Kunal Eaton APRN.CREDIT ASSESSMENT ANALYST - 01/10/2025 8:28 AM EDTTelephone Encounter - Kunal Eaton APRN.CREDIT ASSESSMENT ANALYST - 01/10/2025 8:28 AM Lilliana Esqueda MD - 12/15/2024 8:40 AM EDT Note Date & Type Note Facility 06-20-2025 Note HNO ID: [id number] Author: KUNAL EATON APRN.KELLEN Service: ? Author Type: Nurse Practitioner Type: Progress Notes Filed: 06/20/2025 12:36 Note Text: Chief Complaint Patient presents with: Follow Up HPI Hafsa Dumas is a 85 year old male who presents here today for above reason. Hafsa is a 85-year-old male, with a history of atrial fibrillation, restless leg syndrome, and goiter, presenting for follow-up. Hafsa reports a history of atrial fibrillation, for which he has undergone three ablations, each providing approximately one year of relief before recurrence of arrhythmia. He also underwent cardioversion, which was temporarily effective. Currently, he is on metoprolol 50 mg extended-release BID, which he reports has stabilized his heart rhythm. Prior to this medication regimen, his heart rate was consistently between 95-100 bpm during episodes of arrhythmia. He is also on Eliquis once daily for anticoagulation and atorvastatin once daily for hyperlipidemia, both prescribed by the [facility]. He denies any current issues with his heart rhythm and expresses satisfaction with his current management. Hafsa has a history of restless leg syndrome, for which he is prescribed ropinirole 1 mg at bedtime, managed by a neurologist at [facility]. He reports that the medication is effective approximately 80% of the time. On occasions when it is not effective, he experiences jumpy legs and has difficulty sleeping, sometimes staying awake until 0470-9184. He has found that drinking tonic water around 4146-2125 helps alleviate symptoms. He notes that on nights when he consumes alcohol, usually one beer and one shot over three hours during a pool club meeting, the medication is less effective. He is aware that alcohol can interfere with ropinirole but continues to consume it occasionally. Despite these challenges, he describes his condition as manageable and does not wish to pursue additional treatments. Hafsa has a history of goiter, with TSH levels remaining normal over the past few years. He also has a history of mild fatty liver, as identified on a CT scan of the abdomen in July of the previous year. Recent lab results show a slight elevation in bilirubin, consistent with past results, but he denies any symptoms of jaundice. He is not currently on Flomax for prostate issues and denies any ongoing problems related to this. He uses a CPAP machine for sleep apnea and takes a multivitamin and omeprazole for stomach issues. He also uses Flonase nasal spray as needed. He denies any current issues with these medications or treatments. Hafsa has been a resident of [facility] since 1993, having moved from [place]. He has been under the care of Dr. Goldberg for several years and has an upcoming appointment with Dr. Bowen in September. He declines the flu vaccine today, stating that he usually receives it at a local pharmacy. Past medical history, appointments, medications, allergies reviewed. EXAM: BP 118/70 Pulse 63 Wt 86.7 kg (191 lb 3.2 oz) SpO2 97% BMI 28.24 kg/m? General Appearance: Well appearing, alert, in no acute distress, well-hydrated, well nourished.. Neck: Supple, no adenopathy; thyroid symmetric, normal size, no bruits. Lungs: Lungs clear to auscultation. No wheezing, rhonchi, rales.. Heart: RRR without murmur, gallop, or rubs. No ectopy. Latest Ref Rng 06/17/2025 Protein, Total 6.3 - 8.0 g/dL 6.7 Albumin 3.9 - 4.9 g/dL 3.9 Calcium 8.5 - 10.2 mg/dL 9.1 Bilirubin, Total 0.2 - 1.3 mg/dL 1.5 (H) Alkaline Phosphatase 38 - 113 U/L 106 AST 14 - 40 U/L 32 ALT 10 - 54 U/L 23 Glucose 74 - 99 mg/dL 88 BUN 9 - 24 mg/dL 14 Creatinine 0.73 - 1.22 mg/dL 0.94 Sodium 136 - 144 mmol/L 143 Potassium 3.7 - 5.1 mmol/L 4.3 Chloride 98 - 107 mmol/L 108 (H) CO2 22 - 30 mmol/L 25 Anion Gap 8 - 15 mmol/L 10 eGFR >=60 mL/min/1.73m? 79 Cholesterol, Total <200 mg/dL 107 Triglyceride <150 mg/dL 52 HDL Cholesterol >39 mg/dL 44 LDL Cholesterol, Calculated <100 mg/dL 51 Non HDL Cholesterol <130 mg/dL 63 VLDL Cholesterol <30 mg/dL 7 TC:HDL Ratio <5.10 2.43 LDL:HDL Ratio <2.54 1.16 Fasting Time hrs 12 Assessment and Plan 1. Essential hypertension (I10) Blood pressure today is well controlled at 118/70 mmHg. - Continue current management. 2. Atrial fibrillation, unspecified type (HCC) (I48.91) Chronic atrial fibrillation with history of 3 ablations and cardioversion; previously refractory to rhythm control, now rate controlled with metoprolol succinate 50 mg BID. - Continue metoprolol succinate 50 mg BID. - Continue Eliquis as prescribed. 3. Hyperlipidemia, unspecified hyperlipidemia type (E78.5) Lipid panel from recent labs shows total cholesterol 107 mg/dL, triglycerides 52 mg/dL, HDL 44 mg/dL, LDL 51 mg/dL; all values are well controlled. - Continue Lipitor as prescribed. 4. Restless legs (G25.81) Symptoms a (more content not included)... [facility] 01-10-2025 Telephone encounter Note The following approved medication requests have been transmitted electronically. Requested Prescriptions Pending Prescriptions Disp Refills omeprazole (PRILOSEC) 40 mg capsule 30 capsule 11 Sig: Take 1 capsule by mouth once daily. Kunal Eaton APRN.CNP [facility] 01-10-2025 Miscellaneous Notes The following approved medication requests have been transmitted electronically. Requested Prescriptions Pending Prescriptions Disp Refills omeprazole (PRILOSEC) 40 mg capsule 30 capsule 11 Sig: Take 1 capsule by mouth once daily. Kunal Eaton APRN.CNP Prescription Refill Information The patient has been identified by name and date of : Yes Caregiver verified no other encounters exist for this prescription request: Yes Caregiver confirmed with patient/requestor that no other refills are due, in the near future, with this provider at this time: Yes The last office visit in the department: 12/15/24 Does the patient have a future office visit with this provider/department: Yes, 06/20/25 Requested Prescriptions Pending Prescriptions Disp Refills omeprazole (PRILOSEC) 40 mg capsule 30 capsule 11 Sig: Take 1 capsule by mouth once daily. Jaswinder Saenz LPN January 09, 2025 4:16 PM documented in this encounter [facility] 01-09-2025 Telephone encounter Note Prescription Refill Information The patient has been identified by name and date of : Yes Caregiver verified no other encounters exist for this prescription request: Yes Caregiver confirmed with patient/requestor that no other refills are due, in the near future, with this provider at this time: Yes The last office visit in the department: 12/15/24 Does the patient have a future office visit with this provider/department: Yes, 06/20/25 Requested Prescriptions Pending Prescriptions Disp Refills omeprazole (PRILOSEC) 40 mg capsule 30 capsule 11 Sig: Take 1 capsule by mouth once daily. Jaswinder Saenz LPN January 09, 2025 4:16 PM [facility] 12-15-2024 History of Presen t illness Narrative Chief Complaint Patient presents with: F/U 6 Month HPI Hafsa Dumas is a 84 year old male who presents here today for 6 month follow up. Pt here for a 6 month follow up and review labs. Had Covid in Sep 2024 and November 2024. No bowel or Gi issues. Had Prostate surgery in September, no longer taking Flomax. Follows with Dr. Galeas, [facility] Urologist. GERD: Sx controlled with Prilosec 40 mg daily. Arthritis: in left knee and back. Does exercise for the knee daily which help. 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 Uses Tylenol, heat, ice prn. Was treated with Mobic, but pt d/c due to having issues with Mobic affecting afib. HTN/A-fib: Reports he's concerned about his afib, Cardiology is managing and doubled up on his Lopressor. Still running over 100 on his pulse. Hx of 3 cardioablations and 1 cardioversion. Wondering if he should get a second opinion. Follows with [facility] who prescribes Eliquis 5 mg BID, Lipitor 20 mg daily and Lopressor 50 mg 1 pill BID. Checks BP at home reports readings doing good and not so good. BP ranging in the 120/80's. No chest pains, dizziness, or SOB. Pt feels that since having Covid it's messed with his heart and electrical system. Notes some type of feeling in his chest like electrical type sensation, and gas pain. Lipid - Tries to watch his diet, eating 3 meals daily, avoiding sweets. Exercises 30-40 minutes and does stretches. Currently taking Lipitor 20 mg once daily. MARTA/RLS: Follows with [facility] Sleep Specialist for Requip and MARTA and RLS. Notes when he had Covid he had difficulty with sleep events, having 18 events per night. Anything above 5 is not good. He did talk to his Sleep Provider, who advised him that this was related to his Covid. Past medical history, appointments, medications, allergies reviewed. 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 Hypertrophy of prostate without urinary obstruction and other lower urinary tract symptoms (LUTS) Mitral valve prolapse MARTA on CPAP Dr Rodriguez Seborrheic dermatitis scalp THORACIC AORTIC ANEURYSM Unspecified essential hypertension Unspecified hemorrhoids without mention of complication Hemorrhoids Previous Surgical History PAST SURGICAL HISTORY Procedure Laterality Date BLOOD TRANSFUSION 2009 CARDIAC CATH 06/1996, 06/2008 MVP, normal coronaries COLONOSCOPY FLX DX W/COLLJ SPEC WHEN PFRMD 03/2004 Colonoscopy-repeat in COLONOSCOPY FLX DX W/COLLJ SPEC WHEN PFRMD 12/08/2011 Normal repeat 10 years ELECTROPHYSIOLOGY STUDY 03/13/2009 pulmonary vein isolation for afib ELECTROPHYSIOLOGY STUDY 06/10/2010 ablation for aflutter ELECTROPHYSIOLOGY STUDY 04/2008 AV node ablation I&D DEEP ABSC BURSA/HEMATOMA THIGH/KNEE REGION Right 02/26/2018 I&D right knee and application of wound vac PAST SURGICAL HISTORY OF 1961 Fractured jaw, wires placed PAST SURGICAL HISTORY OF Right 02/26/2018 Debridement of tissue, R knee by Dr. Martines PAST SURGICAL HISTORY OF 10/05/2024 had 1/3 of prostate removed by Dr. Galeas SPHINCTEROTOMY ANAL DIVISION SPHINCTER SPX 12/09/2011 and hemorrhoidectomy TONSILLECTOMY HX Family History FAMILY HISTORY Problem Relation Age of Onset Heart Mother Heart Father Cancer Sister ovarian cancer Cancer Sister lung cancer Colon Cancer Brother colon at 59 Diabetes Sister Heart Sister aortic aneurysm? Patient Allergies ALLERGIES Allergen Reactions Adhesive Tape (Sharla* Amiodarone Other: See Comments Caused Thyroid problem Iodine Hives Latex Current Medications Current Outpatient Medications on File Prior to Visit Medication Sig meloxicam (MOBIC) 15 mg tablet Take 1 tablet by mouth once daily. With food. omeprazole (PRILOSEC) 40 mg capsule Take 1 capsule by mouth once daily. tamsulosin (FLOMAX) 0.4 mg Take 2 capsules by mouth daily at bedtime. Cholecalciferol, Vitamin D3, 50 mcg (2,000 unit) cap Take 1 capsule by mouth once daily. multivitamin tablet Take 1 tablet by mouth once daily. CPAP Initiate CPAP Pluss @ 9 cm of water with humidification. Mask (per patient preference) optional chin strap (if indicated) , filters, tubing, humidifier and lifetime supplies. rOPINIRole (REQUIP) 1 mg tablet Take 1 mg by mouth daily at bedtime. metoprolol tartrate, short acting, (LOPRESSOR) 50 mg tablet Take 1 tablet by mouth twice daily. apixaban (ELIQUIS) 5 mg tab(s) Take 1 tablet by mouth twice daily. fluticasone (FLONASE) 50 mcg/actuation nasal spray Using only short term 3 days when needed, due to reaction with medicine sod chlor,sod bicarb/neti pot (SINUS WASH NETIPOT NASAL) Use in the nose once daily. atorvastatin calcium(LIPITOR 20 MG TAB) Take one(1) tablet daily. No current facility-administered medications on file prior to visit. Social History Social History Tobacco Use Smoking status: Former Current packs/day: 0.00 Average packs/day: 0.7 packs/day for 5.0 years (3.5 ttl pk-yrs) Types: Cigarettes Start date: 09/14/1959 Quit date: 09/14/1964 Years since quittin.2 Smokeless tobacco: Never Vaping Use Vaping status: Never Used Substance Use Topics Alcohol use: Yes Alcohol/week: 15.0 standard drinks of alcohol Types: 9 Standard drinks or equivalent, 5 Glasses of Wine (5oz), 1 Cans of Beer (12oz) per week Drug use: No EXAM: BP 118/78 (BP Site: Right Arm, BP Position: Sitting, BP Cuff Size: Regular Adult) Pulse 120 Resp 18 Wt 85.4 kg (188 lb 4.4 oz) BMI 27.80 kg/m General Appearance: Well appearing, alert, in no acute distress, well-hydrated, well nourished.. Lungs: Lungs clear to auscultation. No wheezing, rhonchi, rales.. Heart: increased heart rate, occ irregular. Health Maintenance List Shingrix Vaccine(2 of 3) due on 12/25/2010 Advance Directive Discussion due on 09/14/2024 Covid-19 Vaccine( season) due on 11/28/2024 Depression Screening due on 06/16/2025 Anxiety Screening due on 06/16/2025 DTaP,Tdap,Td Vaccine(3 - Td or Tdap) due on 05/22/2026 Diabetes Screening due on 12/10/2027 Influenza Vaccine Completed RSV Vaccine Completed Pneumococcal Vaccine: 50+ Completed Data reviewed Appointment on 12/09/2024 Component Date Value Protein, Total 12/09/2024 6.6 Albumin 12/09/2024 3.8 (L) Calcium, Total 12/09/2024 9.0 Bilirubin, Total 12/09/2024 0.8 Alkaline Phosphatase 12/09/2024 103 AST 12/09/2024 35 ALT 12/09/2024 29 Glucose 12/09/2024 87 BUN 12/09/2024 18 Creatinine 12/09/2024 0.94 Sodium 12/09/2024 142 Potassium 12/09/2024 4.1 Chloride 12/09/2024 105 CO2 12/09/2024 26 Anion Gap 12/09/2024 11 Estimated Glomerular Santiago* 12/09/2024 80 WBC 12/09/2024 5.10 RBC 12/09/2024 4.38 Hemoglobin 12/09/2024 13.5 Hematocrit 12/09/2024 41.5 MCV 12/09/2024 94.7 MCH 12/09/2024 30.8 MCHC 12/09/2024 32.5 RDW-CV 12/09/2024 13.4 Platelet Count 12/09/2024 294 MPV 12/09/2024 9.5 Absolute nRBC 12/09/2024 <0.01 Cholesterol, Total 12/09/2024 106 Triglyceride 12/09/2024 73 HDL Cholesterol 12/09/2024 37 (L) Non HDL Cholesterol 12/09/2024 69 Fasting Time 12/09/2024 12 VLDL Cholesterol 12/09/2024 15 TC:HDL Ratio 12/09/2024 2.86 LDL Cholesterol 12/09/2024 54 LDL:HDL Ratio 12/09/2024 1.46 Office Visit on 11/21/2024 Component Date Value SARS-CoV-2 (Agent of COV* 11/21/2024 Detected (A) Influenza A RNA 11/21/2024 Not detected Influenza B RNA 11/21/2024 Not detected Respiratory syncytial vi* 11/21/2024 Not detected 1. Essential hypertension (I10) Blood pressure readings are stable. No changes in antihypertensive regimen. Continue current antihypertensive management. 2. Atrial fibrillation, unspecified type (HCC) (I48.91) Recent increase in heart rate, ranging from 110-127 bpm. Patient reports sensations described as electrical impulses around the heart. Currently managed by Dr. Diaz with three previous ablations and recent switch to long-acting metoprolol, taken twice daily. - Monitor heart rate and symptoms. - Discussed possibility of seeking a second opinion at [facility] if symptoms persist. - Follow-up with [facility] in a month as scheduled 3. Hyperlipidemia, unspecified hyperlipidemia type (E78.5) Recent lab results show total cholesterol levels are low. Continue current lipid management. 4. Benign prostatic hyperplasia with weak urinary stream (N40.1) Condition is stable. Continue current management. 5. GERD without esophagitis (K21.9) Condition is stable. Continue current management. 6. Restless legs (G25.81) Condition is stable. Continue current management. 7. MARTA treated with BiPAP (G47.33) Recent exacerbation of apnea events (up to 18.8 per hour) following a period of non-compliance due to post-COVID cough. Events have decreased to 0.7-3.0 per hour with resumed BiPAP use. Continue nightly BiPAP use and monitor apnea events. 8. Sben-FBNBW-58 condition (U09.9) Recent COVID-19 infection approximately one month ago, followed by a course of antibiotics. Residual fatigue and weakness noted. Recent chest X-ray showed airway inflammation, likely related to the recent illness. - Advised patient to continue gradual increase in activity as tolerated. - Monitor for any persistent or new symptoms. 9. Arthritis (M19.90) Previously prescribed meloxicam was discontinued due to cardiac concerns. Currently managing pain with Tylenol Arthritis 650 mg at bedtime. Continue Tylenol Arthritis 650 mg at bedtime for pain management. 10. Encounter for follow-up examination after completed treatment for conditions other than malignant neoplasm (Z09) Patient is here for a 6-month follow-up examination. Overall, conditions are stable with some residual effects from recent COVID-19 infection. Schedule next follow-up appointment in 6 months. Follow up in 6 months Medical Decision Making: Problems: Moderate: 2+ stable chronic illnesses Data: Unique test result(s) reviewed: 2 Unique test(s) ordered: 2 Risk: Moderate: Drug management Medical Decision Making Level: 4 - Moderate Lilliana Chatterjee MD The patient consented to the use of BasisCode software for draft documentation of the visit consistent with [facility] s Notice of Privacy Practices. documented in this encounter [facility] 12-15-2024 Note HNO ID: [id number] Author: LILLIANA CHATTERJEE MD Service: ? Author Type: Physician Type: Progress Notes Filed: 12/15/2024 09:07 Note Text: Chief Complaint Patient presents with: F/U 6 Month HPI Hafsa Dumas is a 84 year old male who presents here today for 6 month follow up. Pt here for a 6 month follow up and review labs. Had Covid in Sep 2024 and November 2024. No bowel or Gi issues. Had Prostate surgery in September, no longer taking Flomax. Follows with Dr. Galeas, [facility] Urologist. GERD: Sx controlled with Prilosec 40 mg daily. Arthritis: in left knee and back. Does exercise for the knee daily which help. 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 Uses Tylenol, heat, ice prn. Was treated with Mobic, but pt d/c due to having issues with Mobic affecting afib. HTN/A-fib: Reports he's concerned about his afib, Cardiology is managing and doubled up on his Lopressor. Still running over 100 on his pulse. Hx of 3 cardioablations and 1 cardioversion. Wondering if he should get a second opinion. Follows with [facility] who prescribes Eliquis 5 mg BID, Lipitor 20 mg daily and Lopressor 50 mg 1 pill BID. Checks BP at home reports readings doing good and not so good. BP ranging in the 120/80's. No chest pains, dizziness, or SOB. Pt feels that since having Covid it's messed with his heart and electrical system. Notes some type of feeling in his chest like electrical type sensation, and gas pain. Lipid - Tries to watch his diet, eating 3 meals daily, avoiding sweets. Exercises 30-40 minutes and does stretches. Currently taking Lipitor 20 mg once daily. MARTA/RLS: Follows with [facility] Sleep Specialist for Requip and MARTA and RLS. Notes when he had Covid he had difficulty with sleep events, having 18 events per night. Anything above 5 is not good. He did talk to his Sleep Provider, who advised him that this was related to his Covid. Past medical history, appointments, medications, allergies reviewed. 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 Hypertrophy of prostate without urinary obstruction and other lower urinary tract symptoms (LUTS) Mitral valve prolapse MARTA on CPAP Dr Rodriguez Seborrheic dermatitis scalp THORACIC AORTIC ANEURYSM Unspecified essential hypertension Unspecified hemorrhoids without mention of complication Hemorrhoids Previous Surgical History PAST SURGICAL HISTORY Procedure Laterality Date BLOOD TRANSFUSION 2009 CARDIAC CATH 06/1996, 06/2008 MVP, normal coronaries COLONOSCOPY FLX DX W/COLLJ SPEC WHEN PFRMD 03/2004 Colonoscopy-repeat in COLONOSCOPY FLX DX W/COLLJ SPEC WHEN PFRMD 12/08/2011 Normal repeat 10 years ELECTROPHYSIOLOGY STUDY 03/13/2009 pulmonary vein isolation for afib ELECTROPHYSIOLOGY STUDY 06/10/2010 ablation for aflutter ELECTROPHYSIOLOGY STUDY 04/2008 AV node ablation IANDD DEEP ABSC BURSA/HEMATOMA THIGH/KNEE REGION Right 02/26/2018 IANDD right knee and application of wound vac PAST SURGICAL HISTORY OF 1961 Fractured jaw, wires placed PAST SURGICAL HISTORY OF Right 02/26/2018 Debridement of tissue, R knee by Dr. Martines PAST SURGICAL HISTORY OF 10/05/2024 had 1/3 of prostate removed by Dr. Galeas SPHINCTEROTOMY ANAL DIVISION SPHINCTER SPX 12/09/2011 and hemorrhoidectomy TONSILLECTOMY HX Family History FAMILY HISTORY Problem Relation Age of Onset Heart Mother Heart Father Cancer Sister ovarian cancer Cancer Sister lung cancer Colon Cancer Brother colon at 59 Diabetes Sister Heart Sister aortic aneurysm? Patient Allergies ALLERGIES Allergen Reactions Adhesive Tape (Sharla* Amiodarone Other: See Comments Caused Thyroid problem Iodine Hives Latex Current Medications Current Outpatient Medications on File Prior to Visit Medication Sig meloxicam (MOBIC) 15 mg tablet Take 1 tablet by mouth once daily. With food. omeprazole (PRILOSEC) 40 mg capsule Take 1 capsule by mouth once daily. tamsulosin (FLOMAX) 0.4 mg Take 2 capsules by mouth daily at bedtime. Cholecalciferol, Vitamin D3, 50 mcg (2,000 unit) cap Take 1 capsule by mouth once daily. multivitamin tablet Take 1 tablet by mouth once daily. CPAP Initiate CPAP Pluss @ 9 cm of water with humidification. Mask (per patient preference) optional chin strap (if indicated) , filters, tubing, humidifier and lifetime supplies. rOPINIRole (REQUIP) 1 mg tablet Take 1 mg by mouth daily at bedtime. metoprolol tartrate, short acting, (LOPRESSOR) 50 mg tablet Take 1 tablet by mouth twice daily. apixaban (ELIQUIS) 5 mg tab(s) Take 1 tablet by mouth twice daily. fluticas (more content not included)... [facility] 11-28-2024 Telephone encounter Note Pt notified of results via Mimetas. Jacklyn Bowers Ma [facility] 11-28-2024 Miscellaneous Notes Pt notified of results via CropUphart. Jacklyn Bowers Ma Please notify patient that his chest Xray shows some changes of airway inflammation, most likely from all the coughing he has been doing. If his cough is not improving I would consider a course of prednisone to try and help with this. Lilliana Chatterjee MD documented in this encounter [facility] 11-28-2024 Telephone encounter Note Please notify patient that his chest Xray shows some changes of airway inflammation, most likely from all the coughing he has been doing. If his cough is not improving I would consider a course of prednisone to try and help with this. Lilliana Chatterjee MD [facility] 11-25-2024 History of Presen t illness Narrative Radiology Service Progress Note PATIENT NAME: Hafsa Dumas DATE OF SERVICE: November 25, 2024 TIME: 10:43 AM PATIENT IDENTITY VERIFICATION COMPLETED USING TWO (2) IDENTIFIERS: Name and Date of confirmed by patient verbally. FALL SCREENING: Has the patient had 2 falls in the last year or 1 fall with injury or currently using an Ambulatory Assistive Device (Walker, Cane, Wheelchair, Crutches, etc.)? No PATIENT GENDER DATA: Assigned male at PATIENT RELEVANT IMPLANT DATA REVIEWED: Not Applicable PATIENT PRESENTS WITH AN IMPLANTABLE OR ATTACHED GUN EXAMINER: No RADIOLOGY DEPARTMENT: General X-ray: Exam(s) Completed: Chest X-Ray PERIPHERAL IV DATA: Not applicable SIGNED BY: RT Marko(R) November 25, 2024 10:43 AM documented in this encounter [facility] 11-25-2024 Note HNO ID: [id number] Author: JENNIFER ROLDAN RT(R) Service: Radiology Author Type: Technologist Type: Progress Notes Filed: 11/25/2024 10:50 Note Text: Radiology Service Progress Note PATIENT NAME: Hafsa Dumas DATE OF SERVICE: November 25, 2024 TIME: 10:43 AM PATIENT IDENTITY VERIFICATION COMPLETED USING TWO (2) IDENTIFIERS: Name and Date of confirmed by patient verbally. FALL SCREENING: Has the patient had 2 falls in the last year or 1 fall with injury or currently using an Ambulatory Assistive Device (Walker, Cane, Wheelchair, Crutches, etc.)? No PATIENT GENDER DATA: Assigned male at PATIENT RELEVANT IMPLANT DATA REVIEWED: Not Applicable PATIENT PRESENTS WITH AN IMPLANTABLE OR ATTACHED GUN EXAMINER: No RADIOLOGY DEPARTMENT: General X-ray: Exam(s) Completed: Chest X-Ray PERIPHERAL IV DATA: Not applicable SIGNED BY: RT Marko([place]) November 25, 2024 10:43 AM [facility] 11-25-2024 History of Presen t illness Narrative Chief Complaint Patient presents with: Cough: Continued from when he was in [facility] for + covid HPI Hafsa Dumas is a 84 year old male who presents here today for an acute visit. Pt here today with c/o continued cough. He stated this all started 09/12 when he took a home covid test that was positive, went to now clinic who told him it was too late to tx with paxlovid and gave him Amoxicillin. He improved 21 days later. He stated that on he started getting ill again. Went back to now clinic and stated he was swabbed to see if he had virus or bacterial infection. Told he had a virus, cold and no tx needed. He went to [facility] 11/21/24 and was swabbed for covid which came back positive. Pt states that the coughing spells are worse when laying down. He states that when he coughs his head, ears, back will hurt. He states that he is starting to get some brain fog. He states that today he was walking out the door and picked up phone instead of his phone. He is getting confused on his medications since being ill with Covid. He states he can not use the CPAP due to the constant coughing x 4 days. He states that was given Tessalon perles at and advised to continue the Mucinex. He feels that he needs something more to help the cough. He uses warm salt water to gargle which looses the phlegm and he can spit it out and it relieves it for a short time, he does this every time he wakes up coughing so he can get relief for about an hour and sleep. Has been taking Tylenol which helps until it wears off. He does nasal lavages. Concerned about pneumonia. He feels he is breathing ok. No CXR done. Feels his arthritis pain is worse since being ill. Using Tylenol. Dr. Galeas removed 1/3 of the prostate as it was pushing on the bladder on 10/05/24. That is doing well. Past medical history, appointments, medications, allergies reviewed. 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 Hypertrophy of prostate without urinary obstruction and other lower urinary tract symptoms (LUTS) Mitral valve prolapse MARTA on CPAP Dr Rodriguez Seborrheic dermatitis scalp THORACIC AORTIC ANEURYSM Unspecified essential hypertension Unspecified hemorrhoids without mention of complication Hemorrhoids Previous Surgical History PAST SURGICAL HISTORY Procedure Laterality Date BLOOD TRANSFUSION 2009 CARDIAC CATH 06/1996, 06/2008 MVP, normal coronaries COLONOSCOPY FLX DX W/COLLJ SPEC WHEN PFRMD 03/17 Colonoscopy-repeat in COLONOSCOPY FLX DX W/COLLJ SPEC WHEN PFRMD 12/08/11 Normal repeat 10 years ELECTROPHYSIOLOGY STUDY 03/13/09 pulmonary vein isolation for afib ELECTROPHYSIOLOGY STUDY 06/10/10 ablation for aflutter ELECTROPHYSIOLOGY STUDY 04/2008 AV node ablation I&D DEEP ABSC BURSA/HEMATOMA THIGH/KNEE REGION Right 02/26/2018 I&D right knee and application of wound vac PAST SURGICAL HISTORY OF 196 Fractured jaw, wires placed PAST SURGICAL HISTORY OF Right 02/26/2018 Debridement of tissue, R knee by Dr. Martines SPHINCTEROTOMY ANAL DIVISION SPHINCTER SPX 12/09/11 and hemorrhoidectomy TONSILLECTOMY HX Family History FAMILY HISTORY Problem Relation Age of Onset Heart Mother Heart Father Cancer Sister ovarian cancer Cancer Sister lung cancer Colon Cancer Brother colon at 59 Diabetes Sister Heart Sister aortic aneurysm? Patient Allergies ALLERGIES Allergen Reactions Adhesive Tape (Sharla* Amiodarone Other: See Comments Caused Thyroid problem Iodine Hives Latex Current Medications Current Outpatient Medications on File Prior to Visit Medication Sig benzonatate (TESSALON PERLE) 100 mg capsule Take 1 capsule by mouth every 8 hours as needed for cough for up to 15 days. meloxicam (MOBIC) 15 mg tablet Take 1 tablet by mouth once daily. With food. omeprazole (PRILOSEC) 40 mg capsule Take 1 capsule by mouth once daily. tamsulosin (FLOMAX) 0.4 mg Take 2 capsules by mouth daily at bedtime. Cholecalciferol, Vitamin D3, 50 mcg (2,000 unit) cap Take 1 capsule by mouth once daily. multivitamin tablet Take 1 tablet by mouth once daily. CPAP Initiate CPAP Pluss @ 9 cm of water with humidification. Mask (per patient preference) optional chin strap (if indicated) , filters, tubing, humidifier and lifetime supplies. rOPINIRole (REQUIP) 1 mg tablet Take 1 mg by mouth daily at bedtime. metoprolol tartrate, short acting, (LOPRESSOR) 50 mg tablet Take 1 tablet by mouth twice daily. apixaban (ELIQUIS) 5 mg tab(s) Take 1 tablet by mouth twice daily. fluticasone (FLONASE) 50 mcg/actuation nasal spray Using only short term 3 days when needed, due to reaction with medicine sod chlor,sod bicarb/neti pot (SINUS WASH NETIPOT NASAL) Use in the nose once daily. atorvastatin calcium(LIPITOR 20 MG TAB) Take one(1) tablet daily. No current facility-administered medications on file prior to visit. Social History Social History Tobacco Use Smoking status: Former Current packs/day: 0.00 Average packs/day: 0.7 packs/day for 5.0 years (3.5 ttl pk-yrs) Types: Cigarettes Start date: 09/14/1959 Quit date: 09/14/1964 Years since quittin.2 Smokeless tobacco: Never Vaping Use Vaping status: Never Used Substance Use Topics Alcohol use: Yes Alcohol/week: 15.0 standard drinks of alcohol Types: 9 Standard drinks or equivalent, 5 Glasses of Wine (5oz), 1 Cans of Beer (12oz) per week Drug use: No EXAM: BP 126/74 Pulse 102 Temp 36.6 C (97.8 F) (Tympanic) Resp 16 Wt 87.2 kg (192 lb 3.9 oz) SpO2 100% BMI 28.39 kg/m General Appearance: Well appearing, alert, in no acute distress, well-hydrated, well nourished.. Lungs: Lungs clear to auscultation. No wheezing, rhonchi, rales.. Heart: RRR without murmur, gallop, or rubs. No ectopy. Health Maintenance List Advance Directive Discussion due on 09/14/2024 Covid-19 Vaccine( season) due on 11/28/2024 Shingrix Vaccine(2 of 3) due on 12/09/2024 Depression Screening due on 06/16/2025 Anxiety Screening due on 06/16/2025 DTaP,Tdap,Td Vaccine(3 - Td or Tdap) due on 05/22/2026 Diabetes Screening due on 06/08/2027 Influenza Vaccine Completed RSV Vaccine Completed Pneumococcal Vaccine: 50+ Completed Data reviewed None ASSESSMENT/PLAN: 1. Post-COVID chronic cough - ICD9: 786.2, 139.8, ICD10: R05.3, U09.9 Get CXR today Rx for Doxycycline 100 mg 1 pill BID x 10 days Continue with tessalon perles, mucinex, and Tylenol Follow up as scheduled or if not improving. I agree with the Chief Complaint, ROS, and Past Histories independently gathered by the clinical clinical support tech and the remaining scribed note accurately describes my personal service to the patient. Medical Decision Making: Problems: Low: Acute, uncomplicated illness or injury Data: Unique test(s) ordered: 1 Risk: Moderate: Drug management Medical Decision Making Level: 3 - Low Lilliana Chatterjee MD The documentation for this note was completed by Jacklyn Bowers MA acting as scribe for Lilliana Chatterjee MD. November 25, 2024 10:21 AM. Jacklyn Bowers MA documented in this encounter [facility] 11-25-2024 Note HNO ID: [id number] Author: LILLIANA CHATTERJEE MD Service: ? Author Type: Physician Type: Progress Notes Filed: 11/25/2024 11:19 Note Text: Chief Complaint Patient presents with: Cough: Continued from when he was in [facility] for + covid HPI Hafsa Dumas is a 84 year old male who presents here today for an acute visit. Pt here today with c/o continued cough. He stated this all started 09/12 when he took a home covid test that was positive, went to now clinic who told him it was too late to tx with paxlovid and gave him Amoxicillin. He improved 21 days later. He stated that on he started getting ill again. Went back to now clinic and stated he was swabbed to see if he had virus or bacterial infection. Told he had a virus, cold and no tx needed. He went to 11/21/24 and was swabbed for covid which came back positive. Pt states that the coughing spells are worse when laying down. He states that when he coughs his head, ears, back will hurt. He states that he is starting to get some brain fog. He states that today he was walking out the door and picked up phone instead of his phone. He is getting confused on his medications since being ill with Covid. He states he can not use the CPAP due to the constant coughing x 4 days. He states that was given Tessalon perles at and advised to continue the Mucinex. He feels that he needs something more to help the cough. He uses warm salt water to gargle which looses the phlegm and he can spit it out and it relieves it for a short time, he does this every time he wakes up coughing so he can get relief for about an hour and sleep. Has been taking Tylenol which helps until it wears off. He does nasal lavages. Concerned about pneumonia. He feels he is breathing ok. No CXR done. Feels his arthritis pain is worse since being ill. Using Tylenol. Dr. Galeas removed 1/3 of the prostate as it was pushing on the bladder on 10/05/24. That is doing well. Past medical history, appointments, medications, allergies reviewed. 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 Hypertrophy of prostate without urinary obstruction and other lower urinary tract symptoms (LUTS) Mitral valve prolapse MARTA on CPAP Dr Rodriguez Seborrheic dermatitis scalp THORACIC AORTIC ANEURYSM Unspecified essential hypertension Unspecified hemorrhoids without mention of complication Hemorrhoids Previous Surgical History PAST SURGICAL HISTORY Procedure Laterality Date BLOOD TRANSFUSION 2008 CARDIAC CATH 06/1996, 06/2008 MVP, normal coronaries COLONOSCOPY FLX DX W/COLLJ SPEC WHEN PFRMD 03/17 Colonoscopy-repeat in COLONOSCOPY FLX DX W/COLLJ SPEC WHEN PFRMD 12/08/11 Normal repeat 10 years ELECTROPHYSIOLOGY STUDY 03/13/09 pulmonary vein isolation for afib ELECTROPHYSIOLOGY STUDY 06/10/10 ablation for aflutter ELECTROPHYSIOLOGY STUDY 04/2008 AV node ablation IANDD DEEP ABSC BURSA/HEMATOMA THIGH/KNEE REGION Right 02/26/2018 IANDD right knee and application of wound vac PAST SURGICAL HISTORY OF 1960 Fractured jaw, wires placed PAST SURGICAL HISTORY OF Right 02/26/2018 Debridement of tissue, R knee by Dr. Martines SPHINCTEROTOMY ANAL DIVISION SPHINCTER SPX 12/09/11 and hemorrhoidectomy TONSILLECTOMY HX Family History FAMILY HISTORY Problem Relation Age of Onset Heart Mother Heart Father Cancer Sister ovarian cancer Cancer Sister lung cancer Colon Cancer Brother colon at 59 Diabetes Sister Heart Sister aortic aneurysm? Patient Allergies ALLERGIES Allergen Reactions Adhesive Tape (Sharla* Amiodarone Other: See Comments Caused Thyroid problem Iodine Hives Latex Current Medications Current Outpatient Medications on File Prior to Visit Medication Sig benzonatate (TESSALON PERLE) 100 mg capsule Take 1 capsule by mouth every 8 hours as needed for cough for up to 15 days. meloxicam (MOBIC) 15 mg tablet Take 1 tablet by mouth once daily. With food. omeprazole (PRILOSEC) 40 mg capsule Take 1 capsule by mouth once daily. tamsulosin (FLOMAX) 0.4 mg Take 2 capsules by mouth daily at bedtime. Cholecalciferol, Vitamin D3, 50 mcg (2,000 unit) cap Take 1 capsule by mouth once daily. multivitamin tablet Take 1 tablet by mouth once daily. CPAP Initiate CPAP Pluss @ 9 cm of water with humidification. Mask (per patient preference) optional chin strap (if indicated) , filters, tubing, humidifier and lifetime supplies. rOPINIRole (REQUIP) 1 mg tablet Take 1 mg by mouth daily at bedtime. metoprolol tartrate, short acting, (LOPRESSOR) 50 mg tablet Take 1 tablet by mouth twice daily. apixaban (ELIQUIS) 5 mg tab(s) Take 1 tablet by mouth twi (more content not included)... [facility] 11-22-2024 Telephone encounter Note Pt returned call and notified of test results and recommendations of provider. Pt states he say the positive COVID result in his MyChart. He verbalizes understanding of recommendations. [facility] 11-22-2024 Miscellaneous Notes Pt returned call and notified of test results and recommendations of provider. Pt states he say the positive COVID result in his MyChart. He verbalizes understanding of recommendations. Left message for patient to return call. Meagan Guaman MA Please notify positive for COVID. Is pas treatment window for paxlovid. Continue with plan of care as discussed during visit. Follow up for severe or worsening s/s. -If you experience chest pain/shortness of breath go to ER documented in this encounter [facility] 11-22-2024 Telephone encounter Note Left message for patient to return call. Meagan Guaman MA [facility] 11-22-2024 Telephone encounter Note Please notify positive for COVID. Is pas treatment window for paxlovid. Continue with plan of care as discussed during visit. Follow up for severe or worsening s/s. -If you experience chest pain/shortness of breath go to ER [facility] Work Phone: 11-21-2024 Note SARS-COV-2 (AGENT OF COVID-19) RNA: Detected INFLUENZA A RNA: Not detected INFLUENZA B RNA: Not detected RESPIRATORY SYNCYTIAL VIRUS (RSV) RNA: Not detected [facility] Comment on above: Performed By: #### 2 [id number], [id number] #### [facility] CLIA [id number] [address] [place] [address] OF [facility] 11-21-2024 Note HNO ID: [id number] Author: MARK MAYES MD Service: ? Author Type: Physician Type: Progress Notes Filed: 11/21/2024 20:17 Note Text: [facility] Subjective Hafsa Dumas is a 84 year old male. Patient presents with: Sore Throat: ST x 1 week Patient presents with 7 days of sore throat and cough. He had a negative strep test at another Urgent Care 4 days ago. He continues to have phlegm in his throat inducing cough. It is disturbing his sleep. He had a similar prolonged condition in August (a couple COVID tests were positive then). He has been treating with delsym, salt water gargle, neti pot, and flonase. He has history of seasonal allergies which are usually not bad. He is also has exposure to outdoor birds at home. Sore Throat Associated symptoms include congestion and coughing. Pertinent negatives include no diarrhea, shortness of breath or vomiting. Review of Systems Constitutional: Negative for chills and fever. HENT: Positive for congestion, rhinorrhea, sore throat and voice change. Negative for sinus pressure. Respiratory: Positive for cough. Negative for chest tightness, shortness of breath and wheezing. Gastrointestinal: Negative for diarrhea, nausea and vomiting. Denies acid brash, pyrosis Objective BP 110/78 Pulse 103 Temp 36.6 ?C (97.9 ?F) (Tympanic) Resp 16 Wt 88.9 kg (195 lb 15.8 oz) SpO2 99% BMI 28.94 kg/m? Physical Exam Constitutional: General: He is not in acute distress. Appearance: He is not ill-appearing. HENT: Right Ear: Tympanic membrane normal. Left Ear: Tympanic membrane normal. Nose: No rhinorrhea. Mouth/Throat: Mouth: Mucous membranes are moist. Pharynx: No oropharyngeal exudate or posterior oropharyngeal erythema. Eyes: Extraocular Movements: Extraocular movements intact. Pupils: Pupils are equal, round, and reactive to light. Cardiovascular: Rate and Rhythm: Tachycardia present. Heart sounds: No murmur heard. Comments: Heart rate around 130 during my exam Pulmonary: Effort: No respiratory distress. Breath sounds: No wheezing, rhonchi or rales. Comments: Frequent coughing during visit Lymphadenopathy: Cervical: No cervical adenopathy. Neurological: Mental Status: He is alert. ASSESSMENT/PLAN: 1. Sore throat - ICD9: 462, ICD10: J02.9 (primary diagnosis) 2. Acute cough - ICD9: 786.2, ICD10: R05.1 Suspect acute viral illness. I explained he likely had COVID in August because he tested positive. - BENZONATATE 100 MG CAPSULE - COVID AND INFLUENZA A/B AND RSV PCR, ROUTINE He will also add mucinex to his current regimen. Follow up with ENT ([facility]) if symptoms are not improving. He follows with cardiology for atrial fibrillation. Mark Mayes MD [facility] 11-21-2024 History of Presen t illness Narrative [facility] Subjective Hafsa Dumas is a 84 year old male. Patient presents with: Sore Throat: ST x 1 week Patient presents with 7 days of sore throat and cough. He had a negative strep test at another Urgent Care 4 days ago. He continues to have phlegm in his throat inducing cough. It is disturbing his sleep. He had a similar prolonged condition in August (a couple COVID tests were positive then). He has been treating with delsym, salt water gargle, neti pot, and flonase. He has history of seasonal allergies which are usually not bad. He is also has exposure to outdoor birds at home. Sore Throat Associated symptoms include congestion and coughing. Pertinent negatives include no diarrhea, shortness of breath or vomiting. Review of Systems Constitutional: Negative for chills and fever. HENT: Positive for congestion, rhinorrhea, sore throat and voice change. Negative for sinus pressure. Respiratory: Positive for cough. Negative for chest tightness, shortness of breath and wheezing. Gastrointestinal: Negative for diarrhea, nausea and vomiting. Denies acid brash, pyrosis Objective BP 110/78 Pulse 103 Temp 36.6 C (97.9 F) (Tympanic) Resp 16 Wt 88.9 kg (195 lb 15.8 oz) SpO2 99% BMI 28.94 kg/m Physical Exam Constitutional: General: He is not in acute distress. Appearance: He is not ill-appearing. HENT: Right Ear: Tympanic membrane normal. Left Ear: Tympanic membrane normal. Nose: No rhinorrhea. Mouth/Throat: Mouth: Mucous membranes are moist. Pharynx: No oropharyngeal exudate or posterior oropharyngeal erythema. Eyes: Extraocular Movements: Extraocular movements intact. Pupils: Pupils are equal, round, and reactive to light. Cardiovascular: Rate and Rhythm: Tachycardia present. Heart sounds: No murmur heard. Comments: Heart rate around 130 during my exam Pulmonary: Effort: No respiratory distress. Breath sounds: No wheezing, rhonchi or rales. Comments: Frequent coughing during visit Lymphadenopathy: Cervical: No cervical adenopathy. Neurological: Mental Status: He is alert. ASSESSMENT/PLAN: 1. Sore throat - ICD9: 462, ICD10: J02.9 (primary diagnosis) 2. Acute cough - ICD9: 786.2, ICD10: R05.1 Suspect acute viral illness. I explained he likely had COVID in August because he tested positive. - BENZONATATE 100 MG CAPSULE - COVID & INFLUENZA A/B & RSV PCR, ROUTINE He will also add mucinex to his current regimen. Follow up with ENT ([facility]) if symptoms are not improving. He follows with cardiology for atrial fibrillation. Mark Mayes MD documented in this encounter [facility] 11-17-2024 Evaluation note Diagnosis Onset Date Resolution Sore throat acute November 17 5:57am Aortic root dilation chronic Apri l 2024 10:30am Atypical atrial flutter chronic A pril 2024 10:30am Essential (primary) hypertension chronic January 10, 2025 10:30am HLD (hyperlipidemia) chronic Apri l 2024 10:30am MARTA (obstructive sleep apnea) chronic March 08, 2025 10:11am Paroxysmal supraventricular tachycardia chronic March 08, 2025 10:11am Restless leg chronic March 08, 025 10:11am [place] [employer] Work Phone: [phone] Telephone encounter Note* Telephone Encounter - Paula Bui MA - 10/10/2024 4:53 PM EST Call to pt and notified him of message below of Provider. Verbalized understanding. Paula Bui MA [facility]01-27-2025 Miscellaneous Notes* Telephone Encounter - Paula Bui MA - 10/10/2024 4:53 PM EST Call to pt and notified him of message below of Provider. Verbalized understanding. Paula Bui MA * Telephone Encounter - Lilliana Chatterjee MD - 10/10/2024 3:51 PM EST Thanks for the update; he can just follow up at his routine visit in December, I do not need to see him before that unless he has other issues. Lilliana Chatterjee MD * Telephone Encounter - Yeni Reddy LPN - 10/10/2024 3:25 PM EST Pt called to let you know he had the surgery done by Dr. Galeas on 10-05-24 they removed 1/3 of his prostrate because it was pushing on his bladder. Bx done and no cancer. Pt wore a catheter bag for 4days and had this removed today. Pt doing well. Pt would like to know do you need to see him in follow up. Please advise pt. Yeni Reddy LPN [facility] Telephone encounter Note * Telephone Encounter - Lilliana Chatterjee MD - 10/10/2024 3:51 PM EST Thanks for the update; he can just follow up at his routine visit in December, I do not need to see him before that unless he has other issues. Lilliana Chatterjee MD [facility]01-27-2025 Telephone encounter Note* Telephone Encounter - Yeni Reddy LPN - 10/10/2024 3:25 PM EST Pt called to let you know he had the surgery done by Dr. Galeas on 10-05-24 they removed 1/3 of his prostrate because it was pushing on his bladder. Bx done and no cancer. Pt wore a catheter bag for 4days and had this removed today. Pt doing well. Pt would like to know do you need to see him in follow up. Please advise pt. Yeni Reddy LPN [facility]01-22-2025 [facility] Medical Records Department [address] [place] [address] History Physical Exam 10/05/24 1237 MR#: [id number] Acct: [id number] Name: FRANKIEHAFSA CORBIN Rep #: [id number] : 1940 84 From: Gabriel Galeas MD PCP: Dr. Lilliana Chatterjee MD Status:[facility] Location: [address] [facility] Date of Service: 10/05/24 Chief Complaint: BPH with obstruction HPI Narrative HAFSA DUMAS, is a 84 M who presents for a transurethral resection of the prostate for BPH with obstruction we talked about the risk and benefit of the surgery and he wishes to proceed [facility] Medical History Hemorrhoids Wears glasses Wears partial dentures Alcohol use Prostate disease Arthritis GERD (gastroesophageal reflux disease) Leg cramps CPAP (continuous positive airway pressure) dependence Sleep apnea Former smoker History of echocardiogram Cardiology follow-up encounter History of atrial fibrillation Bacterial sinusitis Tachycardia Restless leg MARTA (obstructive sleep apnea) Atypical atrial flutter Paroxysmal supraventricular tachycardia Barotrauma BPH (benign prostatic hyperplasia) Aortic root dilation Non-rheumatic tricuspid valve insufficiency Nonrheumatic aortic valve insufficiency HLD (hyperlipidemia) Essential (primary) hypertension Home Medications ???Medication ???Instructions ???Recorded ???Last Taken ???Type tamsulosin 0.4 mg capsule 0.8 mg PO DAILY 12/14/20 10/04/24 History omeprazole 40 mg capsule,delayed 40 mg PO DAILY 09/19/22 10/05/24 History release cholecalciferol (vitamin D3) 50 50 mcg PO DAILY 06/25/23 10/04/24 History mcg (2,000 unit) capsule multivitamin 1 tab PO DAILY 06/25/23 10/04/24 History ropinirole 1 mg tablet 1 mg PO QHS #90 tabs 10/05/23 10/04/24 Rx atorvastatin 20 mg tablet 20 mg PO QDAY 100 days #90 tabs 11/16/23 10/04/24 Rx apixaban 5 mg tablet 5 mg PO BID #180 tabs 01/04/24 10/01/24 Rx metoprolol succinate 50 mg 50 mg PO BID #180 tabs 08/03/24 10/05/24 07:00 Rx tablet,extended release 24 hr acetaminophen 650 mg 1,300 mg PO Q12H PRN pain 09/21/24 10/05/24 07:00 History tablet,extended release (8 Hour Pain Reliever) finasteride 5 mg tablet 5 mg PO DAILY 09/21/24 10/04/24 History fluticasone propionate 50 1 spray intranasal DAILY 09/21/24 10/04/24 History mcg/actuation nasal spray,suspension (24 Hour Allergy Relief) Allergy/AdvReac Type Severity Reaction Status Date / Time adhesive tape Allergy Severe Swelling Verified 10/05/24 11:10 iodine Allergy Unknown Verified 10/05/24 11:10 amiodarone AdvReac Unknown Verified 10/05/24 11:10 latex AdvReac Unknown Verified 10/05/24 11:10 Family History Sister A-fib Sister Cancer Mother Heart disease Father Myocardial infarction Other HLD (hyperlipidemia) Surgical History History of cataract extraction with lens replacement History of colonoscopy History of anal fistulotomy ( 2013) History of right knee surgery (03/2018) History of cardioversion (05/15/20) History of left heart catheterization (04/17/08) History of tonsillectomy H/O cardiac radiofrequency ablation (06/10/10) Social History Smoking Status: Former smoker alcohol intake: current details: Occasionally Vital Signs Vital Signs Vital Signs: 10/05/24 11:13 10/05/24 11:13 10/05/24 11:39 Temperature 97.1 F L Temperature Source Temporal Pulse Rate 131 H 112 H Respiratory Rate 16 Respiratory Pattern Normal Blood Pressure 114/77 Blood Pressure Mean 89 Blood Pressure Source Monitor Blood Pressure Position Semi-Fowlers Blood Pressure Location Right Arm Pulse Ox 99 Oxygen Delivery Method Room Air 10/05/24 11:40 10/05/24 11:54 Temperature 97.1 F L Temperature Source Pulse Rate 112 H 109 H Respiratory Rate 16 Respiratory Pattern Blood Pressure 114/77 Blood Pressure Mean Blood Pressure Source Blood Pressure Position Blood Pressure Location Pulse Ox 99 Oxygen Delivery Method Room Air Weight Weight: 86.636 kg Body Mass Index (BMI) 28.2 10/05/24 1237 Cosigner Signature (if applicable): CC: Dr. Gabriel Galeas MD; Dr. Lilliana Chatterjee MD [facility]10-04-2024 Telephone encounter Note* Telephone Encounter - Jacklyn Bowers MA - 06/17/2024 5:09 PM EDT Pt notified. Jacklyn Bowers MA [facility]10-04-2024 Miscellaneous Notes* Telephone Encounter - Jacklyn Bowers MA - 06/17/2024 5:09 PM EDT Pt notified. Jacklyn Bowers MA * Telephone Encounter - Lilliana Chatterjee MD - 06/17/2024 5:05 PM EDT Yes, I think he is OK to use the meloxicam along with the Eliquis Lilliana Chatterjee MD * Telephone Encounter - Hallie Murray RN - 06/17/2024 4:38 PM EDT Patient calls to verify that provider wants him to take the meloxicam with being on the Eliquis. Heread the product insert and was concerned with the bleeding risk. Patient took his first dose today at 3 pm. Please review and advise, Hallie Murray RN [facility] Telephone encounter Note * Telephone Encounter - Lilliana Chatterjee MD - 06/17/2024 5:05 PM EDT Yes, I think he is OK to use the meloxicam along with the Eliquis Lilliana Chatterjee MD [facility]10-04-2024 Telephone encounter Note* Telephone Encounter - Hallie Murray RN - 06/17/2024 4:38 PM EDT Patient calls to verify that provider wants him to take the meloxicam with being on the Eliquis. Heread the product insert and was concerned with the bleeding risk. Patient took his first dose today at 3 pm. Please review and advise, Hallie Murray RN [facility]10-03-2024 History of Present illness Narrative* Lilliana Chatterjee MD - 06/16/2024 8:40 AM EDT Images from the original note were not included. Hafsa Dumas is a 84 year old male here for a Medicare wellness visit. Medicare Health Risk Assessment General Health Good Exercise: Minutes/Day 40 min Exercise: Days/Week 5 days Alcohol: Daily Use 2-3 times a week Alcohol: Drinks/Day 1 or 2 Alcohol: 6 or more drinks Never Feel off balance No Concerns: Teeth/Dentures No Concerns: Sexual function No Troubled by feelings None of the above Frequency: Eating healthy diet Nearly every day ADLs requiring help None of the above Safety precautions in home/vehicle Yes Smoke, vape, chews tobacco No Difficulty hearing No Difficulty seeing No Current Providers Specialists: I have reviewed specialist-related care of the patient in the medical record. Current care team: Patient Care Team: Lilliana Chatterjee MD as PCP - General (Family Medicine) Outside specialists [facility]: [facility], [facility] [place] Medical/Family history review Reviewed and updated problem list, medical/surgical/family/social history, medications, and allergies. Opioid use review Opioid Medications (last 90 days) No data to display Anxiety/Depression screening PHQ-2 Score: 0 (Lower risk for depression) CARY-7 Score: 0. Recommendation: no further intervention at this time Cognitive screening Mini Cog Score: 3 Cognitive screening reviewed and No further action needed (score 3-5). Functional Observation Was the patient's Timed Up & Go test unsteady or >= 12 seconds? No Advance Care Planning Surrogate decision maker and/or advance care plan documented Measurements There were no vitals taken for this visit. Vision Screening: Follows with optometry/ophthalmology Assessment/Plan Medicare annual wellness visit, initial (Z00.00) - Counseled on healthy diet and regular exercise - Fall avoidance information provided - Personalized prevention plan provided Lilliana Chatterjee MD Chief Complaint Follow up, in addition to Medicare Wellness HPI Hafsa Dumas is a 84 year old male who presents here today for 6 month follow up. Having some prostate issues or concerns. He saw Dionicio Heath, urologist a few years ago. He states he has to strain at times to urinate and getting up at night to urinate with difficulty starting. He is on Flomax 0.4 mg 2 pill once daily. GERD: Sx stable on Prilosec 40 [address] with Dr. Diaz, [facility]. Taking Lopressor 50 mg BID, Eliquis 5 mg BID, and Lipitor 20 mg daily. Follows with [facility] sleep specialist for his Requip and MARTA supplies. Arthritis: in left knee and back. Does exercise for the knee daily which help. 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 Uses Tylenol, heat, ice prn. Past medical history, appointments, medications, allergies reviewed. 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 Hypertrophy of prostate without urinary obstruction and other lower urinary tract symptoms (LUTS) Mitral valve prolapse MARTA on CPAP Dr Rodriguez Seborrheic dermatitis scalp THORACIC AORTIC ANEURYSM Unspecified essential hypertension Unspecified hemorrhoids without mention of complication Hemorrhoids Previous Surgical History PAST SURGICAL HISTORY Procedure Laterality Date BLOOD TRANSFUSION 2009 CARDIAC CATH 06/1996, 06/2008 MVP, normal coronaries COLONOSCOPY FLX DX W/COLLJ SPEC WHEN PFRMD 03/17 Colonoscopy-repeat in COLONOSCOPY FLX DX W/COLLJ SPEC WHEN PFRMD 12/08/11 Normal repeat 10 years ELECTROPHYSIOLOGY STUDY 03/13/09 pulmonary vein isolation for afib ELECTROPHYSIOLOGY STUDY 06/10/10 ablation for aflutter ELECTROPHYSIOLOGY STUDY 04/2008 AV node ablation I&D DEEP ABSC BURSA/HEMATOMA THIGH/KNEE REGION Right 02/26/2018 I&D right knee and application of wound vac PAST SURGICAL HISTORY OF 1961 Fractured jaw, wires placed PAST SURGICAL HISTORY OF Right 02/26/2018 Debridement of tissue, R knee by Dr. Martines SPHINCTEROTOMY ANAL DIVISION SPHINCTER SPX 12/09/11 and hemorrhoidectomy TONSILLECTOMY HX Family History FAMILY HISTORY Problem Relation Age of Onset Heart Mother Heart Father Cancer Sister ovarian cancer Cancer Sister lung cancer Colon Cancer Brother colon at 59 Diabetes Sister Heart Sister aortic aneurysm? Patient Allergies ALLERGIES Allergen Reactions Adhesive Tape (Sharla* Amiodarone Other: See Comments Caused Thyroid problem Iodine Hives Latex Current Medications Current Outpatient Medications on File Prior to Visit Medication Sig omeprazole (PRILOSEC) 40 mg capsule Take 1 capsule by mouth once daily. tamsulosin (FLOMAX) 0.4 mg Take 2 capsules by mouth daily at bedtime. Cholecalciferol, Vitamin D3, 50 mcg (2,000 unit) cap Take 1 capsule by mouth once daily. multivitamin tablet Take 1 tablet by mouth once daily. CPAP Initiate CPAP Pluss @ 9 cm of water with humidification. Mask (per patient preference) optional chin strap (if indicated) , filters, tubing, humidifier and lifetime supplies. rOPINIRole (REQUIP) 1 mg tablet Take 1 mg by mouth daily at bedtime. metoprolol tartrate, short acting, (LOPRESSOR) 50 mg tablet Take 1 tablet by mouth twice daily. apixaban (ELIQUIS) 5 mg tab(s) Take 1 tablet by mouth twice daily. fluticasone (FLONASE) 50 mcg/actuation nasal spray Using only short term 3 days when needed, due toreaction with medicine sod chlor,sod bicarb/neti pot (SINUS WASH NETIPOT NASAL) Use in the nose once daily. atorvastatin calcium(LIPITOR 20 MG TAB) Take one(1) tablet daily. gabapentin (NEURONTIN) 100 mg capsule Take 1 capsule by mouth daily at bedtime for 180 days. No current facility-administered medications on file prior to visit. Social History Social History Tobacco Use Smoking status: Former Current packs/day: 0.00 Average packs/day: 0.7 packs/day for 5.0 years (3.5 ttl pk-yrs) Types: Cigarettes Start date: 09/14/1959 Quit date: 09/14/1964 Years since quittin.7 Smokeless tobacco: Never Vaping Use Vaping status: Never Used Substance Use Topics Alcohol use: Yes Alcohol/week: 15.0 standard drinks of alcohol Types: 9 Standard drinks or equivalent, 5 Glasses of Wine (5oz), 1 Cans of Beer (12oz) per week Drug use: No EXAM: There were no vitals taken for this visit. General Appearance: Well appearing, alert, in no acute distress, well-hydrated, well nourished.. Lungs: Lungs clear to auscultation. No wheezing, rhonchi, rales.. Heart: RRR without murmur, gallop, or rubs. No ectopy. Right hand: clinically apparent arthritis PIP joint right index finger primarily Health Maintenance List Depression Screening Never done Anxiety Screening Never done RSV Vaccine(1 - 1-dose 75+ series) due on 12/09/2024 Shingrix Vaccine(2 of 3) due on 12/09/2024 DTaP,Tdap,Td Vaccine(3 - Td or Tdap) due on 05/22/2026 Diabetes Screening due on 06/08/2027 Influenza Vaccine Completed Advance Directive Discussion Completed Covid-19 Vaccine Completed Pneumococcal Vaccine: 65+ Completed Data reviewed Appointment on 06/08/2024 Component Date Value Protein, Total 06/08/2024 6.6 Albumin 06/08/2024 4.0 Calcium, Total 06/08/2024 9.0 Bilirubin, Total 06/08/2024 1.2 Alkaline Phosphatase 06/08/2024 117 (H) AST 06/08/2024 32 ALT 06/08/2024 28 Glucose 06/08/2024 89 BUN 06/08/2024 15 Creatinine 06/08/2024 0.96 Sodium 06/08/2024 138 Potassium 06/08/2024 3.8 Chloride 06/08/2024 104 CO2 06/08/2024 23 Anion Gap 06/08/2024 11 Estimated Glomerular Santiago* 06/08/2024 78 Cholesterol, Total 06/08/2024 104 Triglyceride 06/08/2024 78 HDL Cholesterol 06/08/2024 37 (L) Non HDL Cholesterol 06/08/2024 67 Fasting Time 06/08/2024 12 VLDL Cholesterol 06/08/2024 16 TC:HDL Ratio 06/08/2024 2.81 LDL Cholesterol 06/08/2024 51 LDL:HDL Ratio 06/08/2024 1.38 WBC 06/08/2024 5.32 RBC 06/08/2024 4.44 Hemoglobin 06/08/2024 14.0 Hematocrit 06/08/2024 41.2 MCV 06/08/2024 92.8 MCH 06/08/2024 31.5 MCHC 06/08/2024 34.0 RDW-CV 06/08/2024 13.2 Platelet Count 06/08/2024 192 MPV 06/08/2024 9.7 Neutrophils % 06/08/2024 44.3 Abs Neut 06/08/2024 2.36 Lymphocytes % 06/08/2024 35.0 Abs Lymph 06/08/2024 1.86 Monocytes % 06/08/2024 14.3 Abs [place] 06/08/2024 0.76 Eosinophils % 06/08/2024 5.6 Abs Eosin 06/08/2024 0.30 Basophils % 06/08/2024 0.6 Abs Baso 06/08/2024 0.03 Immature Granulocytes % 06/08/2024 0.2 Abs Immature Gran 06/08/2024 <0.03 NRBC 06/08/2024 0.0 Absolute nRBC 06/08/2024 <0.01 Diff Type 06/08/2024 Auto TSH 06/08/2024 3.580 ASSESSMENT/PLAN: 1. Essential hypertension - ICD9: 401.9, ICD10: I10 (primary diagnosis) - Controlled - Continue current medications - Recommend home blood pressure monitoring, to bring results to next visit - Encouraged sodium restriction, DASH or Mediterranean diet - Recommend regular aerobic exercise - COMPREHENSIVE METABOLIC PANEL - COMPLETE BLOOD COUNT - LIPID PANEL BASIC 2. Screening for depression - ICD9: V79.0, ICD10: Z13.31 - DEPRESSION SCREENING 3. Encounter for screening examination for other mental health and behavioral disorders - ICD9: V79.8, ICD10: Z13.39 - ANXIETY SCREENING 4. Hyperlipidemia, unspecified hyperlipidemia type - ICD9: 272.4, ICD10: E78.5 - Controlled - Continue current medications - Counseled on healthy diet and regular exercise - COMPREHENSIVE METABOLIC PANEL - LIPID PANEL BASIC 5. Benign prostatic hyperplasia with weak urinary stream - ICD9: 600.01, 788.62, ICD10: N40.1, R39.12 Requests Urologist in [place] - CONSULT TO UROLOGY 6. Arthritis hand Mobic If not improved consider Ortho consult Follow up in 6 months I agree with the Chief Complaint, ROS, and Past Histories independently gathered by the clinical clinical support tech and the remaining scribed note accurately describes my personal service to the patient. Medical Decision Making: Problems: Moderate: 2+ stable chronic illnesses Data: Unique test result(s) reviewed: 3+ Unique test(s) ordered: 3+ Risk: Moderate: Drug management Medical Decision Making Level: 4 - Moderate Lilliana Chatterjee MD The documentation for this note was completed by Jacklyn Bowers MA acting as scribe for Lilliana Chatterjee MD. June 16, 2024 8:38 AM. 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 Updated notes to address due care gap and HCC gapclosure No HCC Reason for Outreach Care Gap/HCC or Scheduling Wellness Visits Care Gaps due: Medicare Annual Wellness Visit Patient Contacted: Unable or unnecessary to reach patient: Patient already scheduled Updated appointment notes Navigation Signature: Heidi Castano MA April 05, 2024 9:02 AM documented in this encounterGuernsey [facility]04-30-2024 Telephone encounter Note * Telephone Encounter - Kunal Eaton APRN.CNP - 01/12/2024 12:17 PM EDT The following approved medication requests have been transmitted electronically. Requested Prescriptions Pending Prescriptions Disp Refills omeprazole (PRILOSEC) 40 mg capsule 30 capsule 11 Sig: Take 1 capsule by mouth once daily. Kunal Eaton APRN.CNP [facility]04-30-2024 Miscellaneous Notes* Telephone Encounter - Kunal Eaton APRN.CNP - 01/12/2024 12:17 PM EDT The following approved medication requests have been transmitted electronically. Requested Prescriptions Pending Prescriptions Disp Refills omeprazole (PRILOSEC) 40 mg capsule 30 capsule 11 Sig: Take 1 capsule by mouth once daily. Kunal Eaton APRN.CNP documented in this encounterGuernsey [facility]04-30-2024 Telephone encounter Note * Telephone Encounter - Kunal Eaton APRN.CNP - 01/12/2024 11:27 AM EDT The following approved medication requests have been transmitted electronically. Requested Prescriptions Pending Prescriptions Disp Refills omeprazole (PRILOSEC) 40 mg capsule [Pharmacy Med Name: OMEPRAZOLE 40MG CPDR] 30 capsule 11 Sig: take one capsule by mouth every day Kunal Eaton APRN.CNP [facility]04-30-2024 Miscellaneous Notes* Telephone Encounter - Kunal Eaton APRN.CNP - 01/12/2024 11:27 AM EDT The following approved medication requests have been transmitted electronically. Requested Prescriptions Pending Prescriptions Disp Refills omeprazole (PRILOSEC) 40 mg capsule [Pharmacy Med Name: OMEPRAZOLE 40MG CPDR] 30 capsule 11 Sig: take one capsule by mouth every day Kunal Eaton APRN.CNP * Telephone Encounter - Jaswinder Saenz LPN - 01/12/2024 10:50 AM EDT Patient has been identified by name and date of : Yes Pharmacy phones for refill(s): Requested Prescriptions Pending Prescriptions Disp Refills omeprazole (PRILOSEC) 40 mg capsule [Pharmacy Med Name: OMEPRAZOLE 40MG CPDR] 30 capsule 11 Sig: take one capsule by mouth every day Date of last office visit in primary care: 12/10/2023 Date of next office visit in primary care: 06/16/2024 Please advise. Thank you. Jaswinder Saenz LPN. documented in this encounterGuernsey [facility]04-30-2024 Telephone encounter Note * Telephone Encounter - Jaswinder Saenz LPN - 01/12/2024 10:50 AM EDT Patient has been identified by name and date of : Yes Pharmacy phones for refill(s): Requested Prescriptions Pending Prescriptions Disp Refills omeprazole (PRILOSEC) 40 mg capsule [Pharmacy Med Name: OMEPRAZOLE 40MG CPDR] 30 capsule 11 Sig: take one capsule by mouth every day Date of last office visit in primary care: 12/10/2023 Date of next office visit in primary care: 06/16/2024 Please advise. Thank you. Jaswinder Saenz LPN. [facility]08-28-[facility] Miscellaneous Notes* Telephone Encounter - Lilliana Chatterjee MD - 05/11/2023 2:55 PM EDT OK to refill as ordered Lilliana Chatterjee MD * Telephone Encounter - Selena Cope LPN - 05/11/2023 12:02 PM EDT Patient phones requesting refills as follows: Requested Prescriptions Pending Prescriptions Disp Refills gabapentin (NEURONTIN) 100 mg capsule 60 capsule 2 Sig: Take 1-2 capsules by mouth daily at bedtime for 90 days. May take 1-2 pills once daily at bedtime. JUANITO-12/04/22 Labs-12/04/22 NOV-06/11/23 Please review and advise. Selena Cope LPN documented in this encounterGuernsey [facility] Hospital03-23-2023 History of Present illness Narrative* Lilliana Chatterjee MD - 12/04/2022 8:40 AM EDT Chief Complaint Patient presents with: F/U 3 Month HPI Hafsa Dumas is a 82 year old male who presents here today for 3 month follow up. Pt feels that there is something going on his body that has caused him to gain weight over the lastyear, thrush, and having severe skin reactions. Denies feeling depressed or hopeless. Has an advanced directive. Denies any bowel, Gi, or urinary concerns. Taking Flomax 0.4 mg 2 pills at bedtime. Follows with Dionicio Heath Urologist. Does get up a few times a night to urinate. He has difficulty urinating andburning with urination, he is dealing with it, urology stated they don't want to do anything because it will most likely make sx worse rather than better. They want to just manage sx at this time. Bloating: Improved with cutting out dairy products and with increased Prilosec 40 mg daily. He states he is taking this every morning a half hour before he eats and that has worked well. He does not feel his stomach is 100% but about 95% improved. He states occ he will have issues if he eats the wrong foods but overall improved. Thrush: developed about 2 weeks ago, top of mouth felt like sand paper. He had a script for gum issues from his dentist. He has been using Chlorhexidine and it is improving is about 75% better. Neverhad thrush before. HTN: Taking Lopressor 50 mg 1 pill BID. Follows with Cardio Dr. Diaz. Checks BP at home. Denies any chest pains, dizziness, or SOB. Has Aortic root dilation which is monitored routinely. 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 Lipid: Tries to watch his diet. He is eating less junk food. Uses Fitbit to track his steps, getting around 10K a day. Taking Lipitor 20 mg daily. He states over the last year he has been going weight and noticed muscle tone decreased. Denies any changes to his diet or exercise. A-fib: Taking Eliquis 5 mg 1 pill BID. Pt states he can tell when he is in A- fib. He is told he is out of more than he is in. States if he feels his heart beating faster he will hold his breath for about 10 seconds and it will improve. MARTA: Uses CPAP machine at 9 cm of water. Follows with Pulm Dr. Khan. He wears a patch over his mouth to keep from breathing through his mouth as he has a nasal mask for his apnea. RLS: Taking Requip 1 mg at bedtime and Gabapentin 100 mg at bedtime (added last visit). He is stillhaving issues with RSL, states that when he drinks Tonic Water, Gabapentin, and Requip which seems to help. He also has started using [employer] Restful Legs supplement, 3 under the tongue which does help as well. He has issues every 3 days with his legs bothering him and keeping him up at night. Was on Gabapentin 700 mg in the past that was prescribed by Dr. Velez, pt stated that was toohigh of a dosage for him and it caused him to pass out. Denies any negative effects with the 100 mgdosage at this time. Eczema: has seen Derm, Dr. Burciaga who gave him a steroid shot, the rash that was on legs cleared up but still has rash to the groin and buttocks. He has also been using Triamcinolone 0.1% cream on therash which seems to have that rash under control. Has follow up with Dr. Burciaga next month. Putting Tinactin on his feet and groin. Rash: He is concerned about shingles on the buttocks, he states it has been there 3 weeks to a month, painful and itchy. Pain with sitting and laying down. It was there when he saw Dr. Burciaga but it was just starting and Dr. Burciaga didn't say anything about it. He is also concerned about herpes, stated last breakout was about 10 years ago. States he does not think he has ever been dx with Herpes. He does not have any lesions to the penis. Has not had shingles vaccine. Past medical history, appointments, medications, allergies reviewed. 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 Hypertrophy of prostate without urinary obstruction and other lower urinary tract symptoms (LUTS) Mitral valve prolapse MARTA on CPAP Dr Rodriguez Seborrheic dermatitis scalp THORACIC AORTIC ANEURYSM Unspecified essential hypertension Unspecified hemorrhoids without mention of complication Hemorrhoids Previous Surgical History PAST SURGICAL HISTORY Procedure Laterality Date BLOOD TRANSFUSION 2008 CARDIAC CATH 06/1996, 06/2008 MVP, normal coronaries COLONOSCOPY FLX DX W/COLLJ SPEC WHEN PFRMD 03/17 Colonoscopy-repeat in COLONOSCOPY FLX DX W/COLLJ SPEC WHEN PFRMD 12/08/11 Normal repeat 10 years ELECTROPHYSIOLOGY STUDY 03/13/09 pulmonary vein isolation for afib ELECTROPHYSIOLOGY STUDY 06/10/10 ablation for aflutter ELECTROPHYSIOLOGY STUDY 04/2008 AV node ablation I&D DEEP ABSC BURSA/HEMATOMA THIGH/KNEE REGION Right 02/26/2018 I&D right knee and application of wound vac PAST SURGICAL HISTORY OF 1960 Fractured jaw, wires placed PAST SURGICAL HISTORY OF Right 02/26/2018 Debridement of tissue, R knee by Dr. Martines SPHINCTEROTOMY ANAL DIVISION SPHINCTER SPX 12/09/11 and hemorrhoidectomy TONSILLECTOMY HX Family History FAMILY HISTORY Problem Relation Age of Onset Heart Mother Heart Father Cancer Sister ovarian cancer Cancer Sister lung cancer Colon Cancer Brother colon at 59 Diabetes Sister Heart Sister aortic aneurysm? Patient Allergies ALLERGIES Allergen Reactions Adhesive Tape (Sharla* Amiodarone Other: See Comments Caused Thyroid problem Iodine Hives Latex Current Medications Current Outpatient Medications on File Prior to Visit Medication Sig omeprazole (PRILOSEC) 40 mg capsule Take 1 capsule by mouth once daily. gabapentin (NEURONTIN) 100 mg capsule Take 1 capsule by mouth daily at bedtime for 120 days. CPAP Initiate CPAP Pluss @ 9 cm of water with humidification. Mask (per patient preference) optional chin strap (if indicated) , filters, tubing, humidifier and lifetime supplies. tamsulosin (FLOMAX) 0.4 mg Take 2 capsules by mouth daily at bedtime. rOPINIRole (REQUIP) 1 mg tablet Take 1 mg by mouth daily at bedtime. metoprolol tartrate, short acting, (LOPRESSOR) 50 mg tablet Take 1 tablet by mouth twice daily. apixaban (ELIQUIS) 5 mg tab(s) Take 1 tablet by mouth twice daily. fluticasone (FLONASE) 50 mcg/actuation nasal spray Using only short term 3 days when needed, due toreaction with medicine sod chlor,sod bicarb/neti pot (SINUS WASH NETIPOT NASAL) Use in the nose once daily. atorvastatin calcium(LIPITOR 20 MG TAB) Take one(1) tablet daily. No current facility-administered medications on file prior to visit. Social History Social History Tobacco Use Smoking status: Former Packs/day: 0.70 Years: 5.00 Pack years: 3.50 Types: Cigarettes Quit date: 09/14/1964 Years since quittin.2 Smokeless tobacco: Never Vaping Use Vaping Use: Never used Substance Use Topics Alcohol use: Yes Alcohol/week: 15.0 standard drinks Types: 9 Standard drinks or equivalent, 5 Glasses of Wine (5oz), 1 Cans of Beer (12oz) per week Drug use: No EXAM: BP 116/70 Pulse 88 Resp 16 Wt 86.8 kg (191 lb 4.8 oz) SpO2 98% BMI 28.25 kg/m General Appearance: Well appearing, alert, in no acute distress, well-hydrated, well nourished.. Skin: appears to be resolved shingles area on right buttock with healing blisters. Lungs: Lungs clear to auscultation. No wheezing, rhonchi, rales.. Heart: RRR without murmur, gallop, or rubs. No ectopy. Health Maintenance List SHINGRIX VACCINE(2 of 3) due on 12/25/2010 ADVANCE DIRECTIVE DISCUSSION due on 09/14/2022 DEPRESSION ASSESSMENT due on 09/14/2022 DIABETES SCREEN due on 08/28/2025 DTAP,TDAP,TD(3 - Td or Tdap) due on 05/22/2026 INFLUENZA Completed COVID-19 VACCINE Completed PNEUMOCOCCAL: 65+ Completed Data reviewed None ASSESSMENT/PLAN: 1. Essential hypertension - ICD9: 401.9, ICD10: I10 (primary diagnosis) - good control - Continue current medication(s) - Recommended regular aerobic exercise. - Recommend home blood pressure monitoring, to bring results in on next visit - Goal of BP <130/80 2. Restless legs - ICD9: 333.94, ICD10: G25.81 Continue current medications. Increase Gabapentin 100 mg 1-2 pills at bedtime 3. Atrial fibrillation, unspecified type (HCC) - ICD9: 427.31, ICD10: I48.91 Stable. Continue current medications. Continue with Cardio 4. Hyperlipidemia, unspecified hyperlipidemia type - ICD9: 272.4, ICD10: E78.5 - good control - Continue current medication. - Encouraged following a low fat, low cholesterol diet. - Discussed the benefits of regular aerobic exercise and weight loss. 5. MARTA treated with BiPAP - ICD9: 327.23, ICD10: G47.33 Continue with machine Follow with Dr. Bill Sandra 6. Benign prostatic hyperplasia with weak urinary stream - ICD9: 600.01, 788.62, ICD10: N40.1, R39.12 Continue current medication Continue with Urologist - TAMSULOSIN 0.4 MG CAPSULE 7. ECZEMA - ICD9: 692.9, ICD10: L25.9 Continue current medications. - continue with Dr. Salvador Burciaga 8. Goiter, nontoxic, multinodular - ICD9: 241.1, ICD10: E04.2 Check TSH lab 9. Herpes zoster with complication - ICD9: 053.8, ICD10: B02.8 Start Valtrex for 7 days. Follow up in 6 months with fasting labs prior. Will notify of thyroid lab results. I spent a total of 45 minutes on the date of the service which included preparing to see the patient, [id number] patient care, completing clinical documentation, obtaining and/or reviewing separately obtained history, performing a medically appropriate examination, counseling and educating the pat ient/family/caregiver, and ordering medications, tests, or procedures. I agree with the Chief Complaint, ROS, and Past Histories independently gathered by the clinical clinical support tech and the remaining scribed note accurately describes my personal service to the patient. Lilliana Chatterjee MD The documentation for this note was completed by Jacklyn Bowers Ma acting as scribe for Lilliana Chatterjee MD. December 04, 2022 8:56 AM. Jacklyn Bowers Ma documented in this encounterGuernsey [facility]12-27-2022 History of Present illness Narrative* Dionicio Heath PA-C - 09/09/2022 4:40 PM EST Images from the original note were not included. [facility] NEW PATIENT CLINIC NOTE SERVICE DATE: 09/09/2022 SERVICE TIME: 4:41 PM NAME: Hafsa Dumas CHIEF COMPLAINT: NTF HISTORY OF PRESENT ILLNESS: Hafsa Dumas is a 82 year old male with PMH including A Fib and RLS presenting with concerns of prostate or uriinary problem of NTF x 2 and slower stream The patient reports he is not bothered by this and after a long diacussion he wishes not to furtherpursue this unless he has an increase in his symptoms LUTS: DYSURIA: no URGENCY: No FREQUENCY:7 per day NOCTURIA: 2 per night Other symptoms: LABS: No results found for: TESTOST No results found for: TESTFREE No results found for: PSA Hematocrit (%) Date Value 08/28/2022 44.4 01/10/2019 43.1 02/25/2018 41.4 MEDICATIONS: omeprazole (PRILOSEC) 40 mg capsule Take 1 capsule by mouth once daily. gabapentin (NEURONTIN) 100 mg capsule Take 1 capsule by mouth daily at bedtime for 120 days. CPAP Initiate CPAP Pluss @ 9 cm of water with humidification. Mask (per patient preference) optional chin strap (if indicated) , filters, tubing, humidifier and lifetime supplies. tamsulosin (FLOMAX) 0.4 mg Take 2 capsules by mouth daily at bedtime. rOPINIRole (REQUIP) 1 mg tablet Take 1 mg by mouth daily at bedtime. metoprolol tartrate, short acting, (LOPRESSOR) 50 mg tablet Take 1 tablet by mouth twice daily. apixaban (ELIQUIS) 5 mg tab(s) Take 1 tablet by mouth twice daily. fluticasone (FLONASE) 50 mcg/actuation nasal spray Using only short term 3 days when needed, due toreaction with medicine sod chlor,sod bicarb/neti pot (SINUS WASH NETIPOT NASAL) Use in the nose once daily. atorvastatin calcium(LIPITOR 20 MG TAB) Take one(1) tablet daily. 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 Hypertrophy of prostate without urinary obstruction and other lower urinary tract symptoms (LUTS) Mitral valve prolapse MARTA on CPAP Dr Rodriguez Seborrheic dermatitis scalp THORACIC AORTIC ANEURYSM Unspecified essential hypertension Unspecified hemorrhoids without mention of complication Hemorrhoids PAST SURGICAL HISTORY: PAST SURGICAL HISTORY Procedure Laterality Date BLOOD TRANSFUSION 2009 CARDIAC CATH 06/1996, 06/2008 MVP, normal coronaries COLONOSCOPY FLX DX W/COLLJ SPEC WHEN PFRMD 03/17 Colonoscopy-repeat in COLONOSCOPY FLX DX W/COLLJ SPEC WHEN PFRMD 12/08/11 Normal repeat 10 years ELECTROPHYSIOLOGY STUDY 03/13/09 pulmonary vein isolation for afib ELECTROPHYSIOLOGY STUDY 06/10/10 ablation for aflutter ELECTROPHYSIOLOGY STUDY 04/2008 AV node ablation I&D DEEP ABSC BURSA/HEMATOMA THIGH/KNEE REGION Right 02/26/2018 I&D right knee and application of wound vac PAST SURGICAL HISTORY OF 1960 Fractured jaw, wires placed PAST SURGICAL HISTORY OF Right 02/26/2018 Debridement of tissue, R knee by Dr. Martines SPHINCTEROTOMY ANAL DIVISION SPHINCTER SPX 12/09/11 and hemorrhoidectomy TONSILLECTOMY HX FAMILY HISTORY: FAMILY HISTORY Problem Relation Age of Onset Heart Mother Heart Father Cancer Sister ovarian cancer Cancer Sister lung cancer Colon Cancer Brother colon at 59 Diabetes Sister Heart Sister aortic aneurysm? SOCIAL HISTORY: Social Connections: Socially Integrated Frequency of Communication with Friends and Family: More than three times a week Frequency of Social Gatherings with Friends and Family: Three times a week Attends Yars[employer] Services: 1 to 4 times per year Active Member of Clubs or Organizations: Yes Attends Club or Organization Meetings: More than 4 times per year Marital Status: REVIEW OF SYSTEMS: GENERAL: No fever, chills, weight loss, or fatigue. ENMT: Negative CARDIOVASCULAR:NO CHEST PAIN, PALPITATIONS, ANKLE EDEMA RESPIRATORY: No chronic cough, wheezing, dyspnea, hemoptysis. GENITOURINARY: SEE HPI MUSCULOSKELETAL:NO CHRONIC BACK PAIN, ARTHRITIS, CHRONIC NECK PAIN SKIN: NO VARICOSE VEINS, RASH, ABNORMAL ITCHING HEME/LYMPH/IMMUNE:Negative for prolonged bleeding, bruising easily or swollen nodes NEUROLOGICAL: NO HEADACHES, NUMBNESS, SEIZURES, STROKE DIABETES: no All other systems reviewed and are negative PHYSICAL EXAMINATION: Blood pressure 110/70, pulse 98, temperature 36.1 C (97 F), temperature source Temporal, resp. rate14, height 175.3 cm (5' 9), weight 90.7 kg (200 lb), SpO2 98 %. GENERAL: WNL nutrition, no deformities, healthy appearing NEURO: Awake, alert and oriented x 3 and Normal gait PSYCH: No signs of depression, anxiety, or agitation ENMT (Ear, Nose, Mouth, Throat): No masses, adenopathy, icterus. Thyroid nonpalpable RESP: NL effort, no retractions or purse-lip breathing. CV: No extremity swelling, varices, edema, pallor, erythema GASTROINTESTINAL: Soft, nontender, nondistended, no masses. HERNIAS: None SKIN: No rash, lesions No palpable lymphadenopathy MUSCULOSKELETAL: Extremities normal. No deformities, edema, clubbing or skin discoloration. PROBLEM LIST REVIEW: Yes LABS: Results for orders placed or performed in visit on 09/09/22 UA DIP, URINE (POC) Result Value Ref Range GLUCOSE UA (POCT) Negative Negative mg/dL BILIRUBIN UA (POCT) Negative Negative KETONE UA (POCT) Negative Negative mg/dL SPECIFIC GRAVITY UA (POCT) 1.015 1.005 - 1.030 HEMOGLOBIN/BLOOD UA (POCT) Moderate (A) Negative PH UA (POCT) 6.0 4.5 - 8.0 PROTEIN UA (POCT) Negative Negative mg/dL UROBILINOGEN UA (POCT) 0.2 Normal E.U./dL NITRITE UA (POCT) Negative Negative LEUKOCYTES UA (POCT) Small (A) Negative COLOR UA (POCT) Light yellow CLARITY UA (POCT) Clear Urine Microscopy Findings Urine Culture: Pending PROCEDURES: PVR: 149 ml no t bothered and Renal Function labs are great IMAGING: IMPRESSION/PLAN: 82 year old male with . 1. Benign prostatic hyperplasia with weak urinary stream - ICD9: 600.01, 788.62, ICD10: N40.1, R39.12 Urine Culture sent today Continue Flomax 0.8 mg for now and will call if concerns arise of worsening LUTS I spent a total of 40 minutes on the date of the service which included preparing to see the patient, face to face patient care, completing clinical documentation, obtaining and/or reviewing separately obtained history, performing a medically appropriate examination, counseling and educating the pat ient/family/caregiver, ordering medications, tests, or procedures, and care coordination. MIHIR Palmer MT, PA-C * Chaya Ma LPN - 09/09/2022 3:25 PM EST Verified name and date of . CC Post Void Residual HPI: Hafsa Dumas is a 82 year old male. The patient is here now for an appointment with MIHIR Palmer MT, PA-COV. Procedure: Explained procedure to patient and verbalizes understanding. Performed a PVR. Patient urinated and instructed to empty bladder as much as possible just prior to having PVR done using bladder ultrasound scanner. Results of scan: 147 mL The patient tolerated the procedure well. Plan: Appointment with Dionicio. documented in this encounterGu[facility]12-27-2022 Instructions* Patient Instructions* Dionicio Heath PA-C - 09/09/2022 4:40 PM EST > Urine Culture Sent documented in this encounterGuernsey [facility]12-20-2022 History of Present illness Narrative* Lilliana Chatterjee MD - 09/02/2022 9:00 AM EST Chief Complaint Patient presents with: 6 Month Exam HPI Hafsa Dumas is a 82 year old male who presents here today for 6 month follow up. Denies feeling depressed or hopeless. No bowel issues. He has been having urinary and GI problems. Does get up a few x a night to urinate. Is taking Flomax 0.4 mg 2 pills at bedtime. He feels that the prostate is getting worse, difficulty urinating, some burning with urination, weakened urine stream, more frequency. He does not see a urologist. Saw Mora Hebert in Jun for abdominal pain and bloating x 4 months. Started on Prilosec 20 mg daily and referred to Gen Surg however does not look like pt was ever scheduled or followed through with that. He states he has noticed some improvement with taking the Prilosec, 50% to 60% improvement. He stopped the Aspirin with permission from Cardio due to upset stomach. He has tried cutting out foods that might have triggered the stomach upset. Notices it more in the morning. Denies any nausea or vomiting. He has been drinking more glasses of whole milk a day, yesterday he switched to skim milk. He is trying to cut back on the dairy to see if that helps with weight and GI issues. Lipid: Tries to watch diet and exercise regularly. He stopped using his fitbit to track the steps, he was getting 10,000 steps a day. He admits he is not exercising as often as he was due to the stomach issues. Tries to eat less junk food and less snacking. He is taking Lipitor 20 mg daily, tolerating well. No myalgia or gi upset. Stated he has gained weight, weight in Aug 2021 was 186 lbs, then in February 2022 he was 196 lbs. He has been drinking more glasses of whole milk a day, yesterday he switched to skim milk. He is trying to cut back on the dairy to see if that helps with weight and GI issues. Ear: gets dizziness occ when on the floor, wonders if he has wax build up. No ear pain. He has chronic ear aches. HTN: Checkis BP at home occ, denies any chest pains, dizziness, or SOB. Is taking Lopressor 50 mg [address] Following with Dr. Diaz at [facility]. A-fib: Is on Eliquis 5 mg BID, he is able to tell when he is in a-fib. Denies any issues with heartacting up. RLS: He is taking Requip 1 mg daily at bedtime about 15-20 minutes before bed. He does not feel that the meds are working, drinks a glass of whole milk to help him sleep. He has used biofreeze on thelegs that didn't help. MARTA: Follows with Pulm, Dr. Khan for BiPAP management. His pressure is set at 9. He has seen ENT due to getting ear aches from the mask he had previously, he switched to a different mask and that helped. This was in Sep 2021. He has started getting ear aches again in February, minor but still occurs.He has been seeing a dentist that treats TMJ and MARTA. He has some arthritis of left jaw which couldbe triggering and causing his earaches. He does not get earaches daily. OA: he gets some pain in the hips when walking. Past medical history, appointments, medications, allergies reviewed. 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 Hypertrophy of prostate without urinary obstruction and other lower urinary tract symptoms (LUTS) Mitral valve prolapse MARTA on CPAP Dr Rodriguez Seborrheic dermatitis scalp THORACIC AORTIC ANEURYSM Unspecified essential hypertension Unspecified hemorrhoids without mention of complication Hemorrhoids Previous Surgical History PAST SURGICAL HISTORY Procedure Laterality Date BLOOD TRANSFUSION 2008 CARDIAC CATH 06/1996, 06/2008 MVP, normal coronaries COLONOSCOPY FLX DX W/COLLJ SPEC WHEN PFRMD 03/17 Colonoscopy-repeat in COLONOSCOPY FLX DX W/COLLJ SPEC WHEN PFRMD 12/08/11 Normal repeat 10 years ELECTROPHYSIOLOGY STUDY 03/13/09 pulmonary vein isolation for afib ELECTROPHYSIOLOGY STUDY 06/10/10 ablation for aflutter ELECTROPHYSIOLOGY STUDY 04/2008 AV node ablation I&D DEEP ABSC BURSA/HEMATOMA THIGH/KNEE REGION Right 02/26/2018 I&D right knee and application of wound vac PAST SURGICAL HISTORY OF 1961 Fractured jaw, wires placed PAST SURGICAL HISTORY OF Right 02/26/2018 Debridement of tissue, R knee by Dr. Martines SPHINCTEROTOMY ANAL DIVISION SPHINCTER SPX 12/09/11 and hemorrhoidectomy TONSILLECTOMY HX Family History FAMILY HISTORY Problem Relation Age of Onset Heart Mother Heart Father Cancer Sister ovarian cancer Cancer Sister lung cancer Colon Cancer Brother colon at 59 Diabetes Sister Heart Sister aortic aneurysm? Patient Allergies ALLERGIES Allergen Reactions Adhesive Tape (Sharla* Amiodarone Other: See Comments Caused Thyroid problem Iodine Hives Latex Current Medications Current Outpatient Medications on File Prior to Visit Medication Sig omeprazole (PRILOSEC) 20 mg capsule Take 1 capsule by mouth daily before breakfast. 1/2 hr before meal. CPAP Initiate CPAP Pluss @ 9 cm of water with humidification. Mask (per patient preference) optional chin strap (if indicated) , filters, tubing, humidifier and lifetime supplies. tamsulosin (FLOMAX) 0.4 mg Take 2 capsules by mouth daily at bedtime. rOPINIRole (REQUIP) 1 mg tablet metoprolol tartrate, short acting, (LOPRESSOR) 50 mg tablet Take 1 tablet by mouth twice daily. apixaban (ELIQUIS) 5 mg tab(s) Take 1 tablet by mouth twice daily. multivitamin tablet Take 1 tablet by mouth once daily. fluticasone (FLONASE) 50 mcg/actuation nasal spray Using only short term 3 days when needed, due toreaction with medicine sod chlor,sod bicarb/neti pot (SINUS WASH NETIPOT NASAL) Use in the nose. aspirin, enteric coated (ADULT LOW DOSE ASPIRIN) 81 mg EC tablet Take 1 tablet by mouth once daily. atorvastatin calcium(LIPITOR 20 MG TAB) Take one(1) tablet daily. No current facility-administered medications on file prior to visit. Social History Social History Tobacco Use Smoking status: Former Packs/day: 0.70 Years: 5.00 Pack years: 3.50 Types: Cigarettes Quit date: 09/14/1964 Years since quittin.0 Smokeless tobacco: Never Vaping Use Vaping Use: Never used Substance Use Topics Alcohol use: Yes Alcohol/week: 15.0 standard drinks Types: 5 Glasses of Wine (5oz), 1 Cans of Beer (12oz) per week Comment: occasionally Drug use: No EXAM: BP 110/60 Pulse 70 Resp 16 Wt 91.3 kg (201 lb 4.8 oz) BMI 29.73 kg/m General Appearance: Well appearing, alert, in no acute distress, well-hydrated, well nourished.. Ears: External ears normal, canals clear. Lungs: Lungs clear to auscultation. No wheezing, rhonchi, rales.. Heart: RRR without murmur, gallop, or rubs. No ectopy. Abdomen: Normal abdominal exam, Abdomen soft, non-tender. Bowel sounds normal. No masses, organomegaly. Health Maintenance List SHINGRIX VACCINE(2 of 3) due on 12/25/2010 DEPRESSION ASSESSMENT Never done DIABETES SCREEN due on 01/10/2022 INFLUENZA(1) due on 05/15/2022 DTAP,TDAP,TD(3 - Td or Tdap) due on 05/22/2026 ADVANCE DIRECTIVE DISCUSSION Completed COVID-19 VACCINE Completed PNEUMOCOCCAL: 65+ Completed Data reviewed Appointment on 08/28/2022 Component Date Value Cholesterol, Total 08/28/2022 114 Triglyceride 08/28/2022 75 HDL Cholesterol 08/28/2022 43 Non HDL Cholesterol 08/28/2022 71 Fasting Time 08/28/2022 10 VLDL Cholesterol 08/28/2022 15 TC:HDL Ratio 08/28/2022 2.65 LDL Cholesterol 08/28/2022 56 LDL:HDL Ratio 08/28/2022 1.30 Protein, Total 08/28/2022 6.9 Albumin 08/28/2022 4.1 Calcium, Total 08/28/2022 9.0 Bilirubin, Total 08/28/2022 1.4 (A) Alkaline Phosphatase 08/28/2022 113 AST 08/28/2022 28 ALT 08/28/2022 27 Glucose 08/28/2022 87 BUN 08/28/2022 16 Creatinine 08/28/2022 0.97 Sodium 08/28/2022 141 Potassium 08/28/2022 3.8 Chloride 08/28/2022 106 (A) CO2 08/28/2022 25 Anion Gap 08/28/2022 10 Estimated Glomerular Santiago* 08/28/2022 78 WBC 08/28/2022 5.80 RBC 08/28/2022 4.80 Hemoglobin 08/28/2022 14.7 Hematocrit 08/28/2022 44.4 MCV 08/28/2022 92.5 MCH 08/28/2022 30.6 MCHC 08/28/2022 33.1 RDW-CV 08/28/2022 13.5 Platelet Count 08/28/2022 187 MPV 08/28/2022 9.7 Neut% 08/28/2022 46.2 Abs Neut 08/28/2022 2.68 Lymph% 08/28/2022 31.4 Abs Lymph 08/28/2022 1.82 [place]% 08/28/2022 14.5 Abs [place] 08/28/2022 0.84 Eosin% 08/28/2022 7.1 Abs Eosin 08/28/2022 0.41 Baso% 08/28/2022 0.5 Abs Baso 08/28/2022 0.03 Immature Gran % 08/28/2022 0.3 Abs Immature Gran 08/28/2022 <0.03 NRBC 08/28/2022 0.0 Absolute nRBC 08/28/2022 <0.01 Diff Type 08/28/2022 Auto ASSESSMENT/PLAN: 1. Essential hypertension - ICD9: 401.9, ICD10: I10 (primary diagnosis) - good control - Continue current medication(s) - Recommended regular aerobic exercise. - Recommend home blood pressure monitoring, to bring results in on next visit - Goal of BP <130/80 2. Restless legs - ICD9: 333.94, ICD10: G25.81 Continue with Requip 1 mg at bedtime Add Gabapentin 100 mg at bedtime 3. Atrial fibrillation, unspecified type (HCC) - ICD9: 427.31, ICD10: I48.91 Continue current medications. Continue with Dr. Diaz, Cardio 4. Hyperlipidemia, unspecified hyperlipidemia type - ICD9: 272.4, ICD10: E78.5 - good control - Continue current medication. - Encouraged following a low fat, low cholesterol diet. - Discussed the benefits of regular aerobic exercise and weight loss. 5. MARTA treated with BiPAP - ICD9: 327.23, ICD10: G47.33 Continue with machine Continue with Pulm Dr. Khan 6. Benign prostatic hyperplasia with weak urinary stream - ICD9: 600.01, 788.62, ICD10: N40.1, R39.12 Continue current medications. Consult Urologist 7. Abdominal bloating - ICD9: 787.3, ICD10: R14.0 Increase Prilosec to 40 mg daily Recommend cutting back on the dairy products 8. Symptoms of gastroesophageal reflux - ICD9: 787.99, ICD10: R19.8 Increase Prilosec to 40 mg daily Recommend cutting back on dairy products 9. Osteoarthritis, unspecified osteoarthritis type, unspecified site - ICD9: 715.90, ICD10: M19.90 Recommend Tylenol, stretching, may use OTC muscle rubs, heat, ice 10. Weight gain - ICD9: 783.1, ICD10: R63.5 Recommend cutting back on the whole milk intake or switch to skim milk Increase exercise Follow up in 3 months. No labs needed for this appt. I agree with the Chief Complaint, ROS, and Past Histories independently gathered by the clinical clinical support tech and the remaining scribed note accurately describes my personal service to the patient. Medical Decision Making: Problems: Moderate: 1+ chronic illnesses with change, New problem with uncertain prognosis and 2+ stable chronic illnesses Risk: Moderate: Drug management Medical Decision Making Level: 4 - Moderate Lilliana Chatterjee MD The documentation for this note was completed by Jacklyn Bowers Ma acting as scribe for Lilliana Chatterjee MD. September 02, 2022 9:17 AM. 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 Hypertrophy of prostate without urinary obstruction and other lower urinary tract symptoms (LUTS) Mitral valve prolapse MARTA on CPAP Dr Rodriguez Seborrheic dermatitis scalp THORACIC AORTIC ANEURYSM Unspecified essential hypertension Unspecified hemorrhoids without mention of complication Hemorrhoids PAST SURGICAL HISTORY Procedure Laterality Date BLOOD TRANSFUSION 2009 CARDIAC CATH 06/1996, 06/2008 MVP, normal coronaries COLONOSCOP W/ OR W/O [facility] SPEC 03/17 Colonoscopy-repeat in COLONOSCOP W/ OR W/O [facility] SPEC 12/08/11 Normal repeat 10 years ELECTROPHYSIOLOGY STUDY 03/13/09 pulmonary vein isolation for afib ELECTROPHYSIOLOGY STUDY 06/10/10 ablation for aflutter ELECTROPHYSIOLOGY STUDY 04/2008 AV node ablation FISSURE;SPHINCTEROTOMY/ANAL 12/09/11 and hemorrhoidectomy INCIS/DRAIN THIGH/KNEE ABSCESS,DEEP Right 02/26/2018 I&D right knee and application of wound vac PAST SURGICAL HISTORY OF 1960 Fractured jaw, wires placed PAST SURGICAL HISTORY OF Right 02/26/2018 Debridement of tissue, R knee by Dr. Martines TONSILLECTOMY HX Adhesive Tape (Rosins), Amiodarone, Iodine, and Latex Current Outpatient Medications Medication Sig tamsulosin (FLOMAX) 0.4 mg Take 2 capsules by mouth daily at bedtime. BIPAP Initiate BiPAP @ 9 cm of water with humidification. Mask (per patient preference) optional chin strap (if indicated) , filters, tubing, humidifier and lifetime supplies. Follows with a sleep specialist. rOPINIRole (REQUIP) 1 mg tablet cetirizine (ZYRTEC) 10 mg tablet Take 1 tablet by mouth once daily. metoprolol tartrate, short acting, (LOPRESSOR) 50 mg tablet Take 1 tablet by mouth twice daily. apixaban (ELIQUIS) 5 mg tab(s) Take 1 tablet by mouth twice daily. multivitamin tablet Take 1 tablet by mouth once daily. fluticasone (FLONASE) 50 mcg/actuation nasal spray Using only short term 3 days when needed, due toreaction with medicine sod chlor,sod bicarb/neti pot (SINUS WASH NETIPOT NASAL) Use in the nose. aspirin, enteric coated (ADULT LOW DOSE ASPIRIN) 81 mg EC tablet Take 1 tablet by mouth once daily. atorvastatin calcium(LIPITOR 20 MG TAB) Take one(1) tablet daily. No current facility-administered medications for this visit. Medications reviewed: Yes FAMILY HISTORY Problem Relation Age of Onset Heart Mother Heart Father Cancer Sister ovarian cancer Cancer Sister lung cancer Colon Cancer Brother colon at 59 Diabetes Sister Heart Sister aortic aneurysm? Social History Tobacco Use Smoking status: Former Smoker Packs/day: 0.70 Years: 5.00 Pack years: 3.50 Quit date: 09/14/1964 Years since quittin.5 Smokeless tobacco: Never Used Vaping Use Vaping Use: Never used Substance Use Topics Alcohol use: Yes Alcohol/week: 15.0 standard drinks Types: 5 Glasses of Wine (5oz), 1 Cans of Beer (12oz) per week Comment: occasionally Drug use: No Hafsa likes to exercise by walking, light weights, push ups, stretches. He watches his diet for sodium, low fat and low cholesterol most of the time. List of current specialists seen: [facility] Dr. Khan-Pulmonary at [facility] End of Live Planning discussed including patients advanced directive wishes: Yes I am willing to follow Hafsa advanced directives. Depression screen He in the past two weeks denies having felt down, depressed, hopeless or with little interest or pleasure in doing things. Functional Ability/Safety Screen 1. Was the patient's timed Up and Go test unsteady or longer than 30 seconds? No 2. Does the patient need help with the phone, transportation, shopping,preparing meals, housework, laundry, medications or managing money? No 3. Does your home have rungs in the hallway, lack of grab bars in the bathroom, lack of handrails on the stairs or have poor lighting? Yes Hearing Evaluation: normal PHYSICAL EXAM BP 116/76 Pulse 62 Resp 16 Ht 175.3 cm (5' 9) Wt 87.9 kg (193 lb 11.2 oz) BMI 28.60 kg/m Visual acuity: OD: 20/20 OS: 20/ 20 OU: 20/20 No glasses ASSESMENT/PLAN: 82 year old male The following prevention plan was discussed during the office visit and provided to the patient: - Fall avoidance - Exercise - Healthy diet Lilliana Chatterjee MD Chief Complaint 6 month follow up HPI Hafsa Dumas is a 82 year old male who presents here today for a 6 month follow up. Planned to go to [place] over the spring per his last OV but it was cancelled due to the troubles overseas. He states he does not want to travel or go anywhere over night as it messes up his routine and he doesn't sleep well. He and his decided that they are doing day trips only. Denies any stomach, bowel or GI issues. Does get up 1-2 x per night to urinate, taking Flomax 0.4 mg 2 capsules at bedtime. He feels that he is having increased trouble urinating, doesn't feel that the Flomax is working as well. Does complain of burning with uriination at times ever since taking one dose of Neurontin 6 years ago. He feels he is almost to the point where he feels he needs to see Urologist. HTN: Checks BP at home, occasionally. Denies any chest pain, sob or dizziness. Follows with Cardiology at [facility], Dr. Diaz once a year now. Has had external labs done through their office. Taking Lopressor 50 mg twice daily. Has has cholesterol levels checked there Lipid: Taking Lipitor 20 mg daily, tolerating well. Tries to watch diet and exercises regularly. Has had some reported weight loss at his previous OV. Trying to reduce junk food in his diet and eathealthier, less snacking and not eating in between meals. A-fib: Taking Eliquis 5 mg BID. Reports increased trigger with drinking alcohol. Able to feel when he goes into afib. He denies any ill effects at this time. Hx of being cardioverted a little over a year ago, but this only lasted for a very short duration. Will hold his breath if he feels like his hearts racing. Follows with Dr. Diaz who stated he is constantly out of rhythm so they would need to just control with mediation. MARTA: No Longer using BiPAP due to having constant earaches. He saw Dr. López with [facility]. Follows with Dr. Khan at [facility], Pul once a year now. The BiPAP was changed in Sep 2021 to CPAP Plus at9 cm of water which is working well for him, his events through the night have decreased and had noissues with earaches. [facility] RLS: Takes Requip 1 mg daily. Overall stable with use of one. Past medical history, appointments, medications, allergies reviewed. 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 Hypertrophy of prostate without urinary obstruction and other lower urinary tract symptoms (LUTS) Mitral valve prolapse MARTA on CPAP Dr Rodriguez Seborrheic dermatitis scalp THORACIC AORTIC ANEURYSM Unspecified essential hypertension Unspecified hemorrhoids without mention of complication Hemorrhoids Previous Surgical History PAST SURGICAL HISTORY Procedure Laterality Date BLOOD TRANSFUSION 2009 CARDIAC CATH 06/1996, 06/2008 MVP, normal coronaries COLONOSCOP W/ OR W/O [facility] SPEC 07/04 Colonoscopy-repeat in COLONOSCOP W/ OR W/O [facility] SPEC 12/08/11 Normal repeat 10 years ELECTROPHYSIOLOGY STUDY 03/13/09 pulmonary vein isolation for afib ELECTROPHYSIOLOGY STUDY 06/10/10 ablation for aflutter ELECTROPHYSIOLOGY STUDY 04/2008 AV node ablation FISSURE;SPHINCTEROTOMY/ANAL 12/09/11 and hemorrhoidectomy INCIS/DRAIN THIGH/KNEE ABSCESS,DEEP Right 02/26/2018 I&D right knee and application of wound vac PAST SURGICAL HISTORY OF 1960 Fractured jaw, wires placed PAST SURGICAL HISTORY OF Right 02/26/2018 Debridement of tissue, R knee by Dr. Martines TONSILLECTOMY HX Family History FAMILY HISTORY Problem Relation Age of Onset Heart Mother Heart Father Cancer Sister ovarian cancer Cancer Sister lung cancer Colon Cancer Brother colon at 59 Diabetes Sister Heart Sister aortic aneurysm? Patient Allergies ALLERGIES Allergen Reactions Adhesive Tape (Sharla* Amiodarone Other: See Comments Caused Thyroid problem Iodine Hives Latex Current Medications Current Outpatient Medications on File Prior to Visit Medication Sig tamsulosin (FLOMAX) 0.4 mg Take 2 capsules by mouth daily at bedtime. BIPAP Initiate BiPAP @ 9 cm of water with humidification. Mask (per patient preference) optional chin strap (if indicated) , filters, tubing, humidifier and lifetime supplies. Follows with a sleep specialist. rOPINIRole (REQUIP) 1 mg tablet cetirizine (ZYRTEC) 10 mg tablet Take 1 tablet by mouth once daily. metoprolol tartrate, short acting, (LOPRESSOR) 50 mg tablet Take 1 tablet by mouth twice daily. apixaban (ELIQUIS) 5 mg tab(s) Take 1 tablet by mouth twice daily. multivitamin tablet Take 1 tablet by mouth once daily. fluticasone (FLONASE) 50 mcg/actuation nasal spray Using only short term 3 days when needed, due toreaction with medicine sod chlor,sod bicarb/neti pot (SINUS WASH NETIPOT NASAL) Use in the nose. aspirin, enteric coated (ADULT LOW DOSE ASPIRIN) 81 mg EC tablet Take 1 tablet by mouth once daily. atorvastatin calcium(LIPITOR 20 MG TAB) Take one(1) tablet daily. No current facility-administered medications on file prior to visit. Social History Social History Tobacco Use Smoking status: Former Smoker Packs/day: 0.70 Years: 5.00 Pack years: 3.50 Quit date: 09/14/1964 Years since quittin.4 Smokeless tobacco: Never Used Vaping Use Vaping Use: Never used Substance Use Topics Alcohol use: Yes Alcohol/week: 15.0 standard drinks Types: 5 Glasses of Wine (5oz), 1 Cans of Beer (12oz) per week Comment: occasionally Drug use: No EXAM: BP 116/76 Pulse 62 Resp 16 Ht 175.3 cm (5' 9) Wt 87.9 kg (193 lb 11.2 oz) BMI 28.60 kg/m General Appearance: Well appearing, alert, in no acute distress, well-hydrated, well nourished.. Lungs: Lungs clear to auscultation. No wheezing, rhonchi, rales.. Heart: RRR without murmur, gallop, or rubs. No ectopy. Health Maintenance List SHINGRIX VACCINE(2 of 3) due on 12/25/2010 ADVANCE DIRECTIVE DISCUSSION Never done COVID-19 VACCINE(4 - Booster for Moderna series) due on 11/08/2021 DIABETES SCREEN due on 01/10/2022 DTAP,TDAP,TD(3 - Td or Tdap) due on 05/22/2026 INFLUENZA Completed PNEUMOCOCCAL: 65+ Completed Data reviewed None ASSESSMENT/PLAN: 1. . Restless legs - ICD9: 333.94, ICD10: G25.81 Controlled Continue current medications. 2. Essential hypertension - ICD9: 401.9, ICD10: I10 - good control - Continue current medication(s) - Recommended regular aerobic exercise. - Recommend home blood pressure monitoring, to bring results in on next visit - Goal of BP <130/80 3. Atrial fibrillation, unspecified type (HCC) - ICD9: 427.31, ICD10: I48.91 Continue current medications. Continue with Cardio, Dr. Diaz 4. Hyperlipidemia, unspecified hyperlipidemia type - ICD9: 272.4, ICD10: E78.5 - good control - Continue current medication. - Encouraged following a low fat, low cholesterol diet. - Discussed the benefits of regular aerobic exercise and weight loss. 5. MARTA treated with BiPAP - ICD9: 327.23, ICD10: G47.33 Switched to CPAP plus Continue with Jocy Rosales 6. Benign prostatic hyperplasia with weak urinary stream - ICD9: 600.01, 788.62, ICD10: N40.1, R39.12 Continue current medications. Can refer to Urology when pt is ready, pt will let office know Follow up in 6 months with fasting labs prior. I agree with the Chief Complaint, ROS, and Past Histories independently gathered by the clinical clinical support tech and the remaining scribed note accurately describes my personal service to the patient. Medical Decision Making: Problems: Moderate: 2+ stable chronic illnesses Data: Unique test(s) ordered: 3+ Risk: Moderate: Drug management Medical Decision Making Level: 4 - Moderate Lilliana Chatterjee MD The documentation for this note was completed by Jacklyn Bowers Ma acting as scribe for Lilliana Chatterjee MD. March 03, 2022 9:12 AM. Jacklyn Bowers Ma documented in this encounterGuern[facility]03-28-2022 Miscellaneous Notes* Telephone Encounter - Lilliana Chatterjee MD - 12/09/2021 12:09 PM EDT OK to refill as ordered Lilliana Chatterjee MD * Telephone Encounter - Paula Bui Ma - 12/09/2021 12:02 PM EDT Last OV: 09/02/21 Next OV: 03/03/22 Last Rx: 11/05/20 #180 w/3. Paula Bui Ma * Telephone Encounter - Leny Castro - 12/09/2021 10:18 AM EDT Patient has been identified by name and date of : Yes Pending Prescriptions Disp Refills TAMSULOSIN 0.4 MG CAPSULE 180 capsule 3 Sig: Take 2 capsules by mouth daily at bedtime. LEFTY: No RX INSTRUCTIONS: Patient aware RX escripted to mail away pharmacy. No need to notify patient. Leny Castro documented in this encounterGuernsey [facility]06-17-2021 History of Past illness Narrative* Problem Noted Date Resolved Date Allergies 02/28/2021 02/28/2021 Atypical nevus 07/15/2013 05/17/2015 Overview: back External hemorrhoid 12/10/2011 05/17/2015 Anal fissure 12/10/2011 05/17/2015 Anal pain 12/03/2011 05/17/2015 Family history of colon cancer 11/26/2011 0 02/25/2018 Internal hemorrhoids without mention of complica tion 11/20/2011 05/17/2015 Carpal tunnel syndrome 11/03/2011 8 History of hyperthyroidism 11/03/201105/17 Atrial flutter 04/26/2010 02/25/2018 Thoracic aneurysm without mention of rupture 10/200702/25/2018 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 02/24/2008 01/24/2010 Thyrotoxicosis without menti on of goiter or other cause, without mention of thyrotoxic crisis or storm 02/01/2008 01/25/20 10 Unspecified nontoxic nodular goiter 12/15/2007 02/01/2008 Rotator cuff (capsule) sprain 08/10/2007 Family history of other condition 04/12/2007 01/24/2010 Hypertrophy of prostate without urinary obstruct ion 12/09/2006 02/25/2018 Mitral valve disorders 5 Overview: Mild to moderate MR on echo 06/17/10 Unspecified hemorrhoids without mention of compl ication 05/17/2015 Anxiety 05/17/2015 Seborrheic dermatitis 05/17/2015 Overview: scalp 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/2015 Overview: dry skin-treated with steroid/elidel documented as of this encounter (statuses as of 12/09/2021) [facility] History of Past illness Narrative* Problem Noted Date Resolved Date Allergies 02/28/2021 02/28/2021 Bursitis, prepatellar, right 02/24/2018 06/ Overview: Added automatically from request for surgery [id number] Atypical nevus 07/15/2013 05/17/2015 Overview: back External hemorrhoid 12/10/2011 05/17/2015 Anal fissure 12/10/2011 05/17/2015 Anal pain 12/03/2011 05/17/2015 Family history of colon cancer 11/26/2011 0 02/25/2018 Internal hemorrhoids without mention of complica tion 11/20/2011 05/17/2015 Carpal tunnel syndrome 11/03/2011 8 History of hyperthyroidism 11/03/201105/17 Atrial flutter 04/26/2010 02/25/2018 Thoracic aneurysm without mention of rupture 10/200702/25/2018 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 02/24/2008 01/24/2010 Thyrotoxicosis without menti on of goiter or other cause, without mention of thyrotoxic crisis or storm 02/01/2008 01/25/20 10 Unspecified nontoxic nodular goiter 12/15/2007 02/01/2008 Rotator cuff (capsule) sprain 08/10/2007 Family history of other condition 04/12/2007 01/24/2010 Hypertrophy of prostate without urinary obstruct ion 12/09/2006 02/25/2018 Mitral valve disorders 5 Overview: Mild to moderate MR on echo 06/17/10 Unspecified hemorrhoids without mention of compl ication 05/17/2015 Anxiety 05/17/2015 Seborrheic dermatitis 05/17/2015 Overview: scalp 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/2015 Overview: dry skin-treated with steroid/elidel documented as of this encounter (statuses as of 03/03/2022) [facility] History of Past illness Narrative* Problem Noted Date Resolved Date Allergies 02/28/2021 02/28/2021 Bursitis, prepatellar, right 02/24/2018 Overview: Added automatically from request for surgery [id number] Atypical nevus 07/15/2013 05/17/2015 Overview: back External hemorrhoid 12/10/2011 05/17/2015 Anal fissure 12/10/2011 05/17/2015 Anal pain 12/03/2011 05/17/2015 Family history of colon cancer 11/26/2011 0 02/25/2018 Internal hemorrhoids without mention of complica tion 11/20/2011 05/17/2015 Carpal tunnel syndrome 11/03/2011 8 History of hyperthyroidism 11/03/201105/17 Atrial flutter 04/26/2010 02/25/2018 Thoracic aneurysm without mention of rupture 10/200702/25/2018 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 02/24/2008 01/24/2010 Thyrotoxicosis without menti on of goiter or other cause, without mention of thyrotoxic crisis or storm 02/01/2008 01/25/20 10 Unspecified nontoxic nodular goiter 12/15/2007 02/01/2008 Rotator cuff (capsule) sprain 08/10/2007 Family history of other condition 04/12/2007 01/24/2010 Hypertrophy of prostate without urinary obstruct ion 12/09/2006 02/25/2018 Mitral valve disorders 5 Overview: Mild to moderate MR on echo 06/17/10 Unspecified hemorrhoids without mention of compl ication 05/17/2015 Anxiety 05/17/2015 Seborrheic dermatitis 05/17/2015 Overview: scalp 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/2015 Overview: dry skin-treated with steroid/elidel documented as of this encounter (statuses as of 09/03/2022) [facility] History of Past illness Narrative* Problem Noted Date Resolved Date Allergies 02/28/2021 02/28/2021 Bursitis, prepatellar, right 02/24/2018 Overview: Added automatically from request for surgery [id number] Atypical nevus 07/15/2013 05/17/2015 Overview: back External hemorrhoid 12/10/2011 05/17/2015 Anal fissure 12/10/2011 05/17/2015 Anal pain 12/03/2011 05/17/2015 Family history of colon cancer 11/26/2011 0 02/25/2018 Internal hemorrhoids without mention of complica tion 11/20/2011 05/17/2015 Carpal tunnel syndrome 11/03/2011 8 History of hyperthyroidism 11/03/201105/17 Atrial flutter 04/26/2010 02/25/2018 Thoracic aneurysm without mention of rupture 10/200702/25/2018 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 02/24/2008 01/24/2010 Thyrotoxicosis without menti on of goiter or other cause, without mention of thyrotoxic crisis or storm 02/01/2008 01/25/20 10 Unspecified nontoxic nodular goiter 12/15/2007 02/01/2008 Rotator cuff (capsule) sprain 08/10/2007 Family history of other condition 04/12/2007 01/24/2010 Hypertrophy of prostate without urinary obstruct ion 12/09/2006 02/25/2018 Mitral valve disorders 5 Overview: Mild to moderate MR on echo 06/17/10 Unspecified hemorrhoids without mention of compl ication 05/17/2015 Anxiety 05/17/2015 Seborrheic dermatitis 05/17/2015 Overview: scalp 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/2015 Overview: dry skin-treated with steroid/elidel documented as of this encounter (statuses as of 09/15/2022) [facility] History of Past illness Narrative* Problem Noted Date Resolved Date Allergies 02/28/2021 02/28/2021 Bursitis, prepatellar, right 02/24/2018 Overview: Added automatically from request for surgery [id number] Atypical nevus 07/15/2013 05/17/2015 Overview: back External hemorrhoid 12/10/2011 05/17/2015 Anal fissure 12/10/2011 05/17/2015 Anal pain 12/03/2011 05/17/2015 Family history of colon cancer 11/26/2011 0 02/25/2018 Internal hemorrhoids without mention of complica tion 11/20/2011 05/17/2015 Carpal tunnel syndrome 11/03/2011 8 History of hyperthyroidism 11/03/201105/17 Atrial flutter 04/26/2010 02/25/2018 Thoracic aneurysm without mention of rupture 10/200702/25/2018 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 02/24/2008 01/24/2010 Thyrotoxicosis without menti on of goiter or other cause, without mention of thyrotoxic crisis or storm 02/01/2008 01/25/20 10 Unspecified nontoxic nodular goiter 12/15/2007 02/01/2008 Rotator cuff (capsule) sprain 08/10/2007 Family history of other condition 04/12/2007 01/24/2010 Hypertrophy of prostate without urinary obstruct ion 12/09/2006 02/25/2018 Mitral valve disorders 5 Overview: Mild to moderate MR on echo 06/17/10 Unspecified hemorrhoids without mention of compl ication 05/17/2015 Anxiety 05/17/2015 Seborrheic dermatitis 05/17/2015 Overview: scalp 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/2015 Overview: dry skin-treated with steroid/elidel documented as of this encounter (statuses as of 12/05/2022) [facility] History of Past illness Narrative* Problem Noted Date Diagnosed Date Resolved Date Allergies 02/28/2021 02/28/2021 Bursitis, prepatellar, right 02/24/2018 02/28/2022 Overview: Added automatically from request for surgery [id number] Atypical nevus 07/15/2013 05/17/2015 Overview: back External hemorrhoid 12/10/2011 05/17/20 15 Anal fissure 12/10/2011 05/17/2015 Anal pain 12/03/2011 05/17/2015 Family history of colon cancer 11/26/2011 02/25/2018 Internal hemorrhoids without mention of complication 11/20/2011 05/17/2015 Carpal tunnel syndrome 11/03/201102/25 History of hyperthyroidism 11/03/2011 0 05/17/2015 Atrial flutter 04/26/2010 02/25/2018 Thoracic aneurysm without mention of rupture 8 02/25/2018 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 02/24/2008 01/24/2010 Thyrotoxicosis without menti on of goiter or other cause, without mention of thyrotoxic crisis or storm 02/01/2008 01/24/2010 Unspecified nontoxic nodular goiter 12/15/2007 02/01/2008 Rotator cuff (capsule) sprain 08/10/2007 05/17/2015 Family history of other condition 04/12/2007 01/24/2010 Hypertrophy of prostate with out urinary obstruction 12/09/2006 02/25/2018 Mitral valve disorders 05/17 Overview: Mild to moderate MR on echo 06/17/10 Unspecified hemorrhoids with out mention of complication 05/17/2015 Anxiety 05/17/2015 Seborrheic dermatitis 2014 Overview: scalp 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/2015 Overview: dry skin-treated with steroid/elidel documented as of this encounter (statuses as of 05/12/2023) [facility] History of Past illness Narrative* Problem Noted Date Diagnosed Date Resolved Date Allergies 02/28/2021 02/28/2021 Bursitis, prepatellar, right 02/24/2018 02/28/2022 Overview: Added automatically from request for surgery [id number] Atypical nevus 07/15/2013 05/17/2015 Overview: back External hemorrhoid 12/10/2011 05/17/20 15 Anal fissure 12/10/2011 05/17/2015 Anal pain 12/03/2011 05/17/2015 Family history of colon cancer 11/26/2011 02/25/2018 Internal hemorrhoids without mention of complication 11/20/2011 05/17/2015 Carpal tunnel syndrome 11/03/201102/25 History of hyperthyroidism 11/03/2011 0 05/17/2015 Atrial flutter 04/26/2010 02/25/2018 Thoracic aneurysm without mention of rupture 8 02/25/2018 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 02/24/2008 01/24/2010 Thyrotoxicosis without menti on of goiter or other cause, without mention of thyrotoxic crisis or storm 02/01/2008 01/24/2010 Unspecified nontoxic nodular goiter 12/15/2007 02/01/2008 Rotator cuff (capsule) sprain 08/10/2007 05/17/2015 Family history of other condition 04/12/2007 01/24/2010 Hypertrophy of prostate with out urinary obstruction 12/09/2006 02/25/2018 Mitral valve disorders 05/17 Overview: Mild to moderate MR on echo 06/17/10 Unspecified hemorrhoids with out mention of complication 05/17/2015 Anxiety 05/17/2015 Seborrheic dermatitis 2014 Overview: scalp 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/2015 Overview: dry skin-treated with steroid/elidel documented as of this encounter (statuses as of 06/02/2023) [facility] note* Diagnosis Medicare annual wellness visit, initial- Primary Routine general medical examination at a health care facility Restless legs Restless legs syndrome (RLS) Essential hypertension Unspecified essential hypertension Atrial fibrillation, unspecified type (HCC) Hyperlipidemia, unspecified hyperlipidemia type MARTA treated with BiPAP Benign prostatic hyperplasia with weak urinary stream documented in this encounter [facility] noteNo assessment information availableW[facility] Work Phone: Evaluation note* Diagnosis Essential hypertension- Primary Unspecified essential hypertension Restless legs Restless legs syndrome (RLS) Atrial fibrillation, unspecified type (HCC) Hyperlipidemia, unspecified hyperlipidemia type MARTA treated with BiPAP Benign prostatic hyperplasia with weak urinary stream Abdominal bloating Flatulence, eructation, and gas pain Symptoms of gastroesophageal reflux Osteoarthritis, unspecified osteoarthritis type, unspecified site Weight gain Abnormal weight gain documented in this encounter [facility] note* Diagnosis Benign prostatic hyperplasia with weak urinary stream documented in this encounter [facility] note* Diagnosis Onset Date Resolution Status Aortic root dilation chronic Atypical atrial flutter [employer] [place] Essential (primary) hypertension chronic HLD (hyperlipidemia) [facility] Work Phone: Evaluation note* Diagnosis Essential hypertension- Primary Unspecified essential hypertension Restless legs Restless legs syndrome (RLS) Atrial fibrillation, unspecified type (HCC) Hyperlipidemia, unspecified hyperlipidemia type MARTA treated with BiPAP Benign prostatic hyperplasia with weak urinary stream ECZEMA Contact dermatitis and other eczema, due to unspecified cause Goiter, nontoxic, multinodular Nontoxic multinodular goiter Herpes zoster with complication Herpes zoster with unspecified complication documented in this encounter [facility] note* Diagnosis Atrial fibrillation, unspecified type (HCC)- Primary Hyperlipidemia, unspecified hyperlipidemia type documented in this encounter [facility] note* Diagnosis Essential hypertension- Primary Unspecified essential hypertension Screening for depression Encounter for screening examination for other mental health and behavioral disorders Hyperlipidemia, unspecified hyperlipidemia type Benign prostatic hyperplasia with weak urinary stream Medicare annual wellness visit, subsequent Routine general medical examination at a health care facility documented in this encounter [facility] note* Diagnosis Sore throat- Primary Acute pharyngitis Acute cough documented in this encounter [facility] note* Diagnosis Post-COVID chronic cough- Primary documented in this encounter [facility] note* Diagnosis Post-COVID chronic cough documented in this encounter [facility] note* Diagnosis Essential hypertension- Primary Unspecified essential hypertension Atrial fibrillation, unspecified type (HCC) Hyperlipidemia, unspecified hyperlipidemia type Benign prostatic hyperplasia with weak urinary stream GERD without esophagitis Esophageal reflux Restless legs Restless legs syndrome (RLS) MARTA treated with BiPAP [id number] condition Arthritis Arthropathy, unspecified, site unspecified Encounter for follow-up examination after completed treatment for conditions other than malignant neoplasm [facility])No reason for referral information availableHealthsouth [facility] Work Phone: Summary Purpose Family History No Family History Records Found Relationship Condition Age at Onset Recorded Date/T yanelis sister Atrial fibrillation Unknown sister Malignant neoplasm Unknown mother Cardiac disease Unknown father Myocardial infarction Unknown Relationship Condition Age at Onset Recorded Date/T yanelis Not Specified Hyperlipidemia Unknown sister Atrial fibrillation Unknown sister Malignant neoplasm Unknown mother Cardiac disease Unknown father Myocardial infarction Unknown Advance Directives No Advanced Directives Records FoundDocuments on File Type Date Recorded 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 Yes May 15, 2020 10:30am Advance Directives Yes May 10:30am Chief Complaint and Reason for Visit Chief Complaint E ORDERS Chief Complaint E ORDERS 9 M FU TAA Reason for Visit Aortic root dilation Atypical atrial flutter Essential (primary) hypertension HLD (hyperlipidemia) Chief Complaint Admit Date SORE THROAT November 17, 2024 5:57 am 6 M FU January 10, 2025 10: 30am 1 Y FU March 08, 2025 10:1 1am Reason for Visit Admit Date Sore throat November 17, 2024 5:57 am Aortic root dilation January 10, 2025 10 :30am Atypical atrial flutter January 10, 2025 10:30am Essential (primary) hypertension December 142024 10:30am HLD (hyperlipidemia) January 10, 2025 10 :30am MARTA (obstructive sleep apnea) March 08, 2025 10:11am Paroxysmal supraventricular tachycardia March 08, 2025 10:11am Restless leg March 08, 2025 10:1 1am Reason for Referral Specialty Diagnoses / Procedures Referred By Contac t Referred To Contact Urology Diagnoses Benign prostatic hyperplasia with weak urinary stream Procedures CONSULT TO UROLOGY OFFICE/OUTPATIENT NEW HIGH MDM 60-74 MINUTES Lilliana Chatterjee MD [address] [place] [address] Referral ID Status Reason Start Date Expiration Date Visits Requested Visits Authorized [id number] Pending Review PCP Requested Referral 2 09/02/2023 1 1 Specialty Diagnoses / Procedures Referred By Contac t Referred To Contact Urology Diagnoses Benign prostatic hyperplasia with weak urinary stream Procedures CONSULT TO UROLOGY OFFICE/OUTPATIENT NEW HIGH MDM 60 MINUTES Lilliana Chatterjee MD [address] [place] [address] Referral ID Status Reason Start Date Expiration Date Visits Requested Visits Authorized [id number] Authorized PCP Requested Referral 06/16/2024 06/16/2025 1 1 Additional Source Comments (unrecognized sect ion and content) No Status Records FoundNo Status Records FoundNo Status Records FoundNo Status Records Found INFORMATION SOURCE (unrecogn ized section and content) DATE CREATED AUTHOR 03/06/2018 [facility] DATE CREATED AUTHOR AUTHOR'S ORGANIZ ATION 04/01/2018 [facility] DATE CREATED AUTHOR AUTHOR'S ORGANIZ ATION 03/09/2025 [facility] DATE CREATED AUTHOR AUTHOR'S ORGANIZ ATION 06/20/2025 [facility] Source Comments (unrecognize d section and content) In the event this informatio n is protected by the Federal Confidentiality of Alcohol and Drug Abuse Patient Records regulations: The Federal rules restrict any use of the information to criminally investigate or prosecute any alcohol or drug abuse patient.[facility] the event this information is protected by the Federal Confidentiality of Alcohol and Drug Abuse Patient Records regulations: The Federal rules restrict any use of the information to criminally investigate or prosecute any alcohol or drug abuse patient.[facility] HospitalIn the event this information is protected by the Federal Confidentiality of Alcohol and Drug Abuse Patient Records regulations: The Federal rules restrict any use of the information to criminally investigate or prosecute any alcohol or drug abuse patient.[facility] HospitalIn the event this information is protected by the Federal Confidentiality of Alcohol and Drug Abuse Patient Records regulations: The Federal rules restrict any use of the information to criminally investigate or prosecute any alcohol or drug abuse patient.[facility] HospitalIn the event this information is protected by the Federal Confidentiality of Alcohol and Drug Abuse Patient Records regulations: The Federal rules restrict any use of the information to criminally investigate or prosecute any alcohol or drug abuse patient.[facility] HospitalIn the event this information is protected by the Federal Confidentiality of Alcohol and Drug Abuse Patient Records regulations: The Federal rules restrict any use of the information to criminally investigate or prosecute any alcohol or drug abuse patient.[facility] HospitalIn the event this information is protected by the Federal Confidentiality of Alcohol and Drug Abuse Patient Records regulations: The Federal rules restrict any use of the information to criminally investigate or prosecute any alcohol or drug abuse patient.[facility] HospitalIn the event this information is protected by the Federal Confidentiality of Alcohol and Drug Abuse Patient Records regulations: The Federal rules restrict any use of the information to criminally investigate or prosecute any alcohol or drug abuse patient.[facility] HospitalIn the event this information is protected by the Federal Confidentiality of Alcohol and Drug Abuse Patient Records regulations: The Federal rules restrict any use of the information to criminally investigate or prosecute any alcohol or drug abuse patient.[facility] HospitalIn the event this information is protected by the Federal Confidentiality of Alcohol and Drug Abuse Patient Records regulations: The Federal rules restrict any use of the information to criminally investigate or prosecute any alcohol or drug abuse patient.[facility] HospitalIn the event this information is protected by the Federal Confidentiality of Alcohol and Drug Abuse Patient Records regulations: The Federal rules restrict any use of the information to criminally investigate or prosecute any alcohol or drug abuse patient.[facility] HospitalIn the event this information is protected by the Federal Confidentiality of Alcohol and Drug Abuse Patient Records regulations: The Federal rules restrict any use of the information to criminally investigate or prosecute any alcohol or drug abuse patient.[facility] HospitalIn the event this information is protected by the Federal Confidentiality of Alcohol and Drug Abuse Patient Records regulations: The Federal rules restrict any use of the information to criminally investigate or prosecute any alcohol or drug abuse patient.[facility] HospitalIn the event this information is protected by the Federal Confidentiality of Alcohol and Drug Abuse Patient Records regulations: The Federal rules restrict any use of the information to criminally investigate or prosecute any alcohol or drug abuse patient.[facility] HospitalIn the event this information is protected by the Federal Confidentiality of Alcohol and Drug Abuse Patient Records regulations: The Federal rules restrict any use of the information to criminally investigate or prosecute any alcohol or drug abuse patient.[facility] HospitalIn the event this information is protected by the Federal Confidentiality of Alcohol and Drug Abuse Patient Records regulations: The Federal rules restrict any use of the information to criminally investigate or prosecute any alcohol or drug abuse patient.[facility] HospitalIn the event this information is protected by the Federal Confidentiality of Alcohol and Drug Abuse Patient Records regulations: The Federal rules restrict any use of the information to criminally investigate or prosecute any alcohol or drug abuse patient.[facility] HospitalIn the event this information is protected by the Federal Confidentiality of Alcohol and Drug Abuse Patient Records regulations: The Federal rules restrict any use of the information to criminally investigate or prosecute any alcohol or drug abuse patient.[facility] HospitalIn the event this information is protected by the Federal Confidentiality of Alcohol and Drug Abuse Patient Records regulations: The Federal rules restrict any use of the information to criminally investigate or prosecute any alcohol or drug abuse patient.[facility] HospitalIn the event this information is protected by the Federal Confidentiality of Alcohol and Drug Abuse Patient Records regulations: The Federal rules restrict any use of the information to criminally investigate or prosecute any alcohol or drug abuse patient.[facility] HospitalIn the event this information is protected by the Federal Confidentiality of Alcohol and Drug Abuse Patient Records regulations: The Federal rules restrict any use of the information to criminally investigate or prosecute any alcohol or drug abuse patient.[facility] HospitalIn the event this information is protected by the Federal Confidentiality of Alcohol and Drug Abuse Patient Records regulations: The Federal rules restrict any use of the information to criminally investigate or prosecute any alcohol or drug abuse patient.[facility] Reason for Visit (unrecogniz ed section and content) Reason Onset Date Comments Refill Request 12/09/2021 Reason Comments Medicare Wellness Exam Reason Comments 6 Month Exam Reason Comments Benign Prostatic Hypertrophy New Patient Specialty Diagnoses / Procedures Referred By Contmikki t Referred To Contact Urology Diagnoses Benign prostatic hyperplasia with weak urinary stream Procedures CONSULT TO UROLOGY OFFICE/OUTPATIENT NEW HIGH MDM 60-74 MINUTES Lilliana Chatterjee MD [address] [place] [address] Referral ID Status Reason Start Date Expiration Date Visits Requested Visits Authorized [id number] Pending Review PCP Requested Referral 2 09/02/2023 1 1 Reason Comments F/U 3 Month Reason Onset Date Comments Refill Request 05/10/2023 Reason Comments Refill Request Reason Onset Date Comments Refill Request 01/12/2024 Reason Onset Date Comments Population Health Navigation Outreach 04/05/2024 Arianne Hogue [facility] Reason Comments Medicare Wellness Exam Reason Comments Patient Question Reason Comments patient update/follow up apt? Reason Comments Sore Throat ST x 1 week Reason Onset Date Comments Results 11/22/2024 Reason Comments Cough Continued from when he was in [facility] for + covid Reason Onset Date Comments Results 11/28/2024 Reason Comments F/U 6 Month Reason Onset Date Comments Refill Request 01/09/2025 Care Teams (unrecognized sec tion and content) Economics Analyst Relationship Specialty Start Date End Date Lilliana Chatterjee MD [address] [place], [place] [id number] PCP - General Family Practice 10/13/15 Economics Analyst Relationship Specialty Start Date End Date Lilliana Chatterjee MD [address] [place], [place] [address] PCP - General Family Practice 10/13/15 Economics Analyst Relationship Specialty Start Date End Date Lilliana Chatterjee MD [address] [place], [place] [id number] PCP - General Family Medicine 10/13/15 Economics Analyst Relationship Specialty Start Date End Date Lilliana Chatterjee MD [address] [place] [address] PCP - General Family Medicine 10/13/15 Team Status: Active Member Role Status Dates Dr. Lilliana Chatterjee MD Family Provider Active Dr. Lilliana Chatterjee MD Primary Care Provider Active Team Status: Inactive Member Role Status Dates Dr. Lilliana Chatterjee MD Primary Care Provider, Referr ing Provider Active Dr. Murray Diaz MD Active Becky Johnson PA, PA Attending Provider Active Team Status: Inactive Member Role Status Dates Dr. Lilliana Chatterjee MD Primary Care Provider Active Dr. Murray Diaz MD Attending Provider, Referring Pro vider Active Team Status: Inactive Member Role Status Dates Dr. Lilliana Chatterjee MD Primary Care Provider Active Becky Johnson PA, PA Attending Provider Active Economics Analyst Relationship Specialty Start Date End Date Lilliana Chatterjee MD [address] [place], [place] [id number] PCP - General Family Medicine 10/13/15 Economics Analyst Relationship Specialty Start Date End Date Lilliana Chatterjee MD [address] [place], [place] [id number] PCP - General Family Medicine 10/13/15 Economics Analyst Relationship Specialty Start Date End Date Lilliana Chatterjee MD [address] [facility] [address] PCP - General Family Medicine 10/13/15 Economics Analyst Relationship Specialty Start Date End Date Lilliana Chatterjee MD [address] [facility] [place] [address] PCP - General Family Medicine 10/13/15 Economics Analyst Relationship Specialty Start Date End Date Lilliana Chatterjee MD [address] [place] [address] PCP - General Family Medicine 10/13/15 Economics Analyst Relationship Specialty Start Date End Date Lilliana Chatterjee MD [address] [place] [address] PCP - General Family Medicine 10/13/15 Economics Analyst Relationship Specialty Start Date End Date Lilliana Chatterjee MD [address] [place] [address] PCP - General Family Medicine 10/13/15 Economics Analyst Relationship Specialty Start Date End Date Lilliana Chatterjee MD [address] [place] [address] PCP - General Family Medicine 10/13/15 Economics Analyst Relationship Specialty Start Date End Date Lilliana Chatterjee MD [address] [place] [address] PCP - General Family Medicine 10/13/15 Mora Hebert, MAX.CREDIT ASSESSMENT ANALYST [address] [place] [address] [facility] 08/21/24 Kunal Eaton APRN.CREDIT ASSESSMENT ANALYST [address] [place] [address] [facility] 08/30/24 Economics Analyst Relationship Specialty Start Date End Date Lilliana Chatterjee MD [address] [place] [address] PCP - General Family Medicine 10/13/15 Mora Hebert APRN.CREDIT ASSESSMENT ANALYST [address] [place] [address] [facility] 08/21/24 Kunal Eaton APRN.CREDIT ASSESSMENT ANALYST [address] [place] [address] [facility] 08/30/24 Economics Analyst Relationship Specialty Start Date End Date Lilliana Chatterjee MD [address] [place] [address] PCP - General Family Medicine 10/13/15 Mora Hebert APRN.CREDIT ASSESSMENT ANALYST [address] [place] [address] [facility] 08/21/24 Kunal Eaton APRN.CREDIT ASSESSMENT ANALYST [address] [place] [address] [facility] 08/30/24 Economics Analyst Relationship Specialty Start Date End Date Lilliana Chatterjee MD [address] [place] [address] PCP - General Family Medicine 10/13/15 Mora Hebert APRN.CREDIT ASSESSMENT ANALYST [address] [facility] [place] [address] [facility] 08/21/24 Kunal Eaton APRN.CREDIT ASSESSMENT ANALYST [address] [place] [address] [facility] 08/30/24 Economics Analyst Relationship Specialty Start Date End Date Lilliana Chatterjee MD [address] [place] [address] PCP - General Family Medicine 10/13/15 Mora Hebert APRN.CREDIT ASSESSMENT ANALYST [address] [place] [address] [facility] 08/21/24 Kunal Eaton APRN.CREDIT ASSESSMENT ANALYST [address] [place] [address] [facility] 08/30/24 Economics Analyst Relationship Specialty Start Date End Date Lilliana Chatterjee MD [address] [place] [address] PCP - General Family Medicine 10/13/15 Mora Hebert APRN.CREDIT ASSESSMENT ANALYST [address] [place] [address] [facility] 08/21/24 Kunal Eaton APRN.CREDIT ASSESSMENT ANALYST [address] [place] [address] [facility] 08/30/24 Economics Analyst Relationship Specialty Start Date End Date Lilliana Chatterjee MD [address] [place], [place] [address] PCP - General Family Medicine 10/13/15 Mora Hebert, LEAD ATHLETE.CREDIT ASSESSMENT ANALYST [address] [place], [place] [address] [facility] 08/21/24 Kunal Eaton LEAD ATHLETE.CREDIT ASSESSMENT ANALYST [address] [place], [place] [address] [facility] 08/30/24 Team Status: Active Member Role Status Dates Dr. Lilliana Chatterjee MD Primary Care Provider Active Team Status: Inactive Member Role Status Dates Dr. Lilliana Chatterjee MD Primary Care Provider Active Start: November 17, 2024 End: November 17, 2024 Dr. Lilliana Chatterjee MD Referring Provider Active Start: November 17, 2024 End: November 17, 2024 CARISSA Tyson Attending Provider Active Star t: November 17, 2024 End: November 17, 2024 Team Status: Inactive Member Role Status Dates Dr. Lilliana Chatterjee MD Primary Care Provider Active Start: January 10, 2025 End: January 10, 2025 Dr. Lilliana Chatterjee MD Referring Provider Active Start: January 10, 2025 End: January 10, 2025 Becky WILLARD, PA Attending Provider Active Start: January 10, 2025 End: January 10, 2025 Team Status: Inactive Member Role Status Dates Dr. Lilliana Chatterjee MD Primary Care Provider Active Start: March 08, 2025 End: March 08, 2025 Dr. Lilliana Chatterjee MD Referring Provider Active Start: March 08, 2025 End: March 08, 2025 Monica Acuna NP STRATEGIC MARKETING SPECIALIST-C Attending Provider Active Start: March 08, 2025 End: March 08, 2025 Goals (unrecognized section and content) Goals may be documented in a n alternate sectionGoals may be documented in an alternate sectionGoals may be documented in an alternate section FOR RECORDS PERTAINING TO PATIENTS WHO ARE OR HAVE BEEN ENROLLED IN A CHEMICAL DEPENDENCY/SUBSTANCEABUSE PROGRAM, SOME INFORMATION MAY BE OMITTED. This clinical summary was aggregated from multiple sources. Caution should be exercised in using it in the provision of clinical care. This summary normalizes information from multiple sources, and as a consequence, information in this document may materially change the coding, format and clinical context of patient data. In addition, data may be omitted in some cases. CLINICAL DECISIONS SHOULD BE BASED ON THE PRIMARY CLINICAL RECORDS. [facility] [employer] [facility] provides no warranty or guarantee of the accuracy or completeness of information in this document.
[2025-08-24 09:15] LABS: AST(SGOT) 30 U/L (<=37); Alanine Aminotransfer ALT/SGPT 21 U/L (<=46); Albumin, Serum 3.8 g/dL (3.4-4.8); Alkaline Phosphatase 116 U/L (40-129); Anion Gap 10 (5-15); BUN 15 mg/dL (4-19); BUN/Creat Ratio 15.8 RATIO (10-20); Bilirubin, Direct 0.49 mg/dL (0.00-0.30); Calcium,Total 8.9 mg/dL (7.6-11.0); Carbon Dioxide 24.7 mmol/L (21.0-32.0); Chloride 107 mmol/L (98-108); Cholesterol 111 mg/dL (<=200); Globulin 3.0 g/dL (2.2-4.2); Glucose 100 mg/dL (70-99); Low Density Lipoprotein Calc. 53 mg/dL; Potassium 3.7 mmol/L (3.3-5.1); Triglycerides 47 mg/dL; Very Low Density Lipoprotein 9 mg/dL (5-40); cholesterol:hdl ratio screen 2.39
== END | disposition home or self-care (01) ==
PROVIDERS: PCP Family Medicine; Referring Provider Internal Medicine Cardiovascular Disease; Visit Provider Internal Medicine Cardiovascular Disease
DX: E78.5 Hyperlipidemia, unspecified (principal)
CPT/HCPCS: 36415; 80048; 80061; 80076; 84443